=== PATIENT | female | born 1950 | race African-American/Black ===

== ENCOUNTER → 2018-04-05 06:47 | Outpatient (CLI) | payer MEDICARE, SELFPAY ==
[2018-04-05 07:27] LABS: Absolute Lymphocyte Count 2.55 X10^3/ul (0.83-4.51); Absolute Neutrophil Count 4.8 X10^3/uL (2.0-7.7); Basophil# 0.05 X10^3/uL; Basophil% 0.6 % (0-1); Eosinophil# 0.38 X10^3/uL; Eosinophils% 4.4 % (0-5); Hematocrit 42.4 % (37-47); Hemoglobin 13.4 g/dl (12.0-15.0); Lymphocyte # 2.55 X10^3/ul (4.0); Lymphocyte % 29.5 % (19-41); Mean Corp Hgb Conc 31.6 g/gl (32-36); Mean Corpuscular Volume 88.7 fL (81-99); Mean Platelet Vol. 13.4 fl (6.2-12.0); Monocyte# 0.87 X10^3/uL; Monocyte% 10.1 % (0-10); Neutrophil # 4.77 X10^3/uL (2.7-7.7); Neutrophil % 55.3 % (47-70); Platelet Count 275 K/mm3 (150-450); RBC Distribution Width CV 13.2 % (11.6-14.6); RBC Distribution Width SD 42.4 fl (35.1-43.9); Red Blood Count 4.78 M/mm3 (4.2-5.4); White Blood Count 8.6 K/mm3 (4.4-11.0)
[2018-04-05 07:58] LABS: ALB/GLOB Ratio 0.9 RATIO (0.9-2.4); AST(SGOT) 29 U/L (15-37); Alanine Aminotransfer ALT/SGPT 21 U/L (13-56); Albumin, Serum 3.8 g/dL (3.2-5.0); Alkaline Phosphatase 93 U/L (45-117); Anion Gap 9 (5-15); BUN 24 mg/dL (7-18); BUN/Creat Ratio 25.4 RATIO (10-20); Calcium,Total 9.6 mg/dL (8.5-10.1); Chloride 104 mmol/L (98-107); Cholesterol 203 mg/dL (200); Creatinine, Serum 0.95 mg/dL (0.55-1.02); EST Glomerular Filtration Rate 62 mL/min (>60); Est Glom Filt Rate - Afr Amer 75 mL/min (>60); Globulin 4.4 g/dL (2.2-4.2); Glucose 120 mg/dL (74-106); High Density Lipoprotein 56 mg/dL; POSITIVE COUNT NO; POSITIVE DIFFERENTIAL NO; POSITIVE MORPHOLOGY NO; Potassium 3.7 mmol/L (3.5-5.1); Protein, Total 8.2 g/dL (6.4-8.2); Sodium Level 141 mmol/L (136-145); T4 Free Direct 1.05 ng/dL (0.76-1.46); Thyroid Stim Hormone (TSH) 3.31 uIU/mL (0.358-3.74); Triglycerides 86 mg/dL; Very Low Density Lipoprotein 17 mg/dL (5-40)
[2018-04-05 09:12] LABS: Vitamin D,25 Hydroxy 26.9 ng/mL (29.95-100.01)
== END ==
PROVIDERS: Family Provider Internal Medicine; PCP Internal Medicine; Visit Provider Nurse Practitioner Family
DX: I10 Essential (primary) hypertension (principal); E78.5 Hyperlipidemia, unspecified; E03.9 Hypothyroidism, unspecified; E55.9 Vitamin D deficiency, unspecified
CPT/HCPCS: 36415; 80053; 80061; 82306; 84439; 84443; 85025

== ENCOUNTER → 2018-04-15 09:10 | Outpatient (CLI) | payer MEDICARE, SELFPAY ==
[2018-04-15 10:22] LABS: Hemoglobin A1c 5.3 % (4.2-6.3)
== END ==
PROVIDERS: Family Provider Internal Medicine; PCP Internal Medicine; Visit Provider Nurse Practitioner Family
DX: R73.09 Other abnormal glucose (principal)
CPT/HCPCS: 36415; 83036

== ENCOUNTER 2018-07-11 06:45 | Emergency (ER) | payer MEDICARE, SELFPAY ==
[2018-07-11 06:46] VITALS: BP 137/95; PULSE 71; RESP 18; TEMP 36.7; O2SAT 97; BMI 27.6
--- NOTE | 2018-07-11 07:11 | ED.VISSUMM ---
- ER Visit Summary Date of Service: 07/11/18 Chief Complaint: Cough, congestion History of Present Illness: The patient is a 67 F who presents with cough and congestion that has been getting worse for the past 2 days. Patient states that when she lays down at night she coughs up some blood. Patient admits to some sinus pressure and nasal congestion. Patient denies any fevers or chills. Patient states her ears feel clogged. Patient admits to a sore throat. Patient also admits to some pain in her chest which is similar to her hiatal hernia pain. Patient denies any nausea or vomiting. Physical Examination: Vital signs are stable. Patient is afebrile. Patient is in no acute distress. Oral mucosa is pink and moist. Oropharynx showed some postnasal drainage and mild erythema. Nasal mucosa is congested. Tympanic membranes were occluded with cerumen bilaterally. Neck is supple. There is no JVD noted. Heart was regular rate and rhythm. Lungs are clear and equal bilateral. There is good respiratory effort noted. Abdomen is soft nontender. Cranial nerves II through XII are intact. There are no focal motor or sensory deficits noted. The remaining physical exam is within normal limits. Test Results: PA and lateral chest x-ray was obtained. There is some right basilar atelectasis but no acute process. There is no infiltrate noted. Emergency Department Course and Treatment: Patient was given a prescription for Flonase. Patient was instructed to follow-up with her primary care physician in 5-7 days. Patient understood and was agreeable with the plan. All questions were answered. Disposition: Discharged home Impression: Upper respiratory infection This note was generated with [employer]quet dictation software. It may contain incorrect words, spelling, and punctuation that were not noted in review of the chart prior to signing ED Disposition - Plan for ED Patient: Disposition: Home or Assisted Living Chief Complaint: Cold Sx Diagnosis: Upper respiratory infection Instructions: ED Upper Resp Infec No Abx Tx Prescriptions: Fluticasone 0.05% [Flonase Nasal Nunda] 1 spray NASAL DAILY #1 nasal.sry Referrals: Dario Pratt MD [Primary Care Provider] -
[2018-07-11 08:42] VITALS: PULSE 67; RESP 17; O2SAT 98
== END 2018-07-11 08:42 | disposition home or self-care (01) ==
PROVIDERS: Emergency Provider Emergency Medicine; Family Provider Internal Medicine; PCP Internal Medicine
DX: J06.9 Acute upper respiratory infection, unspecified (principal); E03.9 Hypothyroidism, unspecified; Z72.0 Tobacco use; Z79.899 Other long term (current) drug therapy
CPT/HCPCS: 71046; 99282

== ENCOUNTER → 2018-11-12 09:50 | Outpatient (CLI) | payer MEDICARE, SELFPAY ==
[2018-08-31 10:02] VITALS: BMI 27.1
[2018-11-12 11:32] LABS: Anion Gap 10 (5-15); BUN 24 mg/dL (7-18); BUN/Creat Ratio 27.4 RATIO (10-20); Calcium,Total 9.2 mg/dL (8.5-10.1); Chloride 102 mmol/L (98-107); Creatinine, Serum 0.88 mg/dL (0.55-1.02); EST Glomerular Filtration Rate 68 mL/min (>60); Est Glom Filt Rate - Afr Amer 82 mL/min (>60); Glucose 98 mg/dL (74-106); Potassium 3.5 mmol/L (3.5-5.1); Sodium Level 138 mmol/L (136-145)
== END ==
PROVIDERS: Family Provider Internal Medicine; PCP Internal Medicine; Referring Provider Nurse Practitioner Family; Visit Provider Nurse Practitioner Family
DX: I10 Essential (primary) hypertension (principal)
CPT/HCPCS: 36415; 80048

== ENCOUNTER → 2018-12-22 09:45 | Outpatient (CLI) | payer MEDICARE, SELFPAY ==
--- NOTE | 2018-12-22 09:49 | BI_ITS ---
MAMMOGRAPHY - BILATERAL SCREENING REASON FOR EXAM: Female, 68 years old. Routine annual screening examination. PERTINENT HISTORY: Sister with breast cancer. TECHNIQUE: Digital bilateral breast hortensia (3D mammographic acquisition) in the CC and MLO projections. 2-D mediolateral oblique (MLO) and craniocaudad (CC) views of both breasts were obtained. CAD: Full Field Digital Mammography with Computer Added Detection was performed. COMPARISON: Comparison is made with prior study March 27, 2017 and March 26, 2016. FINDINGS: Breast Composition: There are scattered areas of fibroglandular density. There are no dominant masses or suspicious calcifications. No other significant abnormalities are identified. There has been no significant change since the prior study. BI/SCREENING MAMM (CAD), BILAT IMPRESSION: Stable bilateral screening mammogram. Yearly follow-up mammogram recommended. (A) ASSESSMENT CATEGORY: BIRADS Category 1: Negative. A letter regarding these results will be sent to the patient by the facility within 30 days. Approximately 10% of breast cancers are not detected by mammography. A normal mammogram should not delay biopsy of a clinically suspicious abnormality. [id number] Electronically Signed: Meet Whitaker MD at 10:48 EST , Service support ,
== END ==
PROVIDERS: Family Provider Internal Medicine; PCP Internal Medicine; Referring Provider Internal Medicine; Visit Provider Internal Medicine
DX: Z12.31 Encounter for screening mammogram for malignant neoplasm of breast (principal)
CPT/HCPCS: 77063; 77067

== ENCOUNTER → 2019-03-05 | Outpatient (CLI) | payer MEDICARE, SELFPAY ==
[2019-02-28 09:57] VITALS: BMI 27.3
[2019-03-05 09:50] LABS: Absolute Lymphocyte Count 2.01 X10^3/ul (0.83-4.51); Absolute Neutrophil Count 4.6 X10^3/uL (2.0-7.7); Basophil# 0.08 X10^3/uL; Eosinophil# 0.39 X10^3/uL; Hematocrit 39.5 % (37-47); Hemoglobin 12.6 g/dl (12.0-15.0); Lymphocyte # 2.01 X10^3/ul (4.0); Lymphocyte % 25.8 % (19-41); Mean Corp Hgb Conc 31.9 g/gl (32-36); Mean Corpuscular Hgb 28.1 pg (27.0-32.0); Mean Corpuscular Volume 88.2 fL (81-99); Mean Platelet Vol. 13.3 fl (6.2-12.0); Monocyte# 0.69 X10^3/uL; Monocyte% 8.9 % (0-10); Neutrophil % 59.2 % (47-70); Platelet Count 288 K/mm3 (150-450); RBC Distribution Width CV 13.9 % (11.6-14.6); RBC Distribution Width SD 44.6 fl (35.1-43.9); Red Blood Count 4.48 M/mm3 (4.2-5.4); White Blood Count 7.8 K/mm3 (4.4-11.0)
[2019-03-05 10:01] LABS: POSITIVE COUNT NO; POSITIVE DIFFERENTIAL NO; POSITIVE MORPHOLOGY NO
[2019-03-05 10:43] LABS: Anion Gap 7 (5-15); BUN 23 mg/dL (7-18); BUN/Creat Ratio 26.4 RATIO (10-20); Calcium,Total 9.1 mg/dL (8.5-10.1); Chloride 107 mmol/L (98-107); Cholesterol 183 mg/dL (200); Creatinine, Serum 0.87 mg/dL (0.55-1.02); EST Glomerular Filtration Rate 68 mL/min (>60); Est Glom Filt Rate - Afr Amer 83 mL/min (>60); Glucose 99 mg/dL (74-106); High Density Lipoprotein 57 mg/dL; Sodium Level 140 mmol/L (136-145); Thyroid Stim Hormone (TSH) 1.77 uIU/mL (0.358-3.74); Triglycerides 51 mg/dL; Very Low Density Lipoprotein 10 mg/dL (5-40)
== END | disposition home or self-care (01) ==
LOC: LAB 07:45
PROVIDERS: Family Provider Internal Medicine; PCP Internal Medicine; Referring Provider Internal Medicine; Visit Provider Internal Medicine
DX: E03.9 Hypothyroidism, unspecified (principal); E78.5 Hyperlipidemia, unspecified; K44.9 Diaphragmatic hernia without obstruction or gangrene; I10 Essential (primary) hypertension
CPT/HCPCS: 36415; 80048; 80061; 84443; 85025

== ENCOUNTER → 2019-08-29 | Outpatient (CLI) | payer MEDICARE, SELFPAY ==
[2019-08-29 10:12] VITALS: BMI 27.3
[2019-08-29 10:42] LABS: Bacteria 0 SEEN /hpf (None Seen); Mucous, Urine 0 SEEN /hpf (<or=2+); Red Blood Cells-Urine 0 SEEN /hpf (0-5); Squamous Epithelial Cells - UA 0 SEEN /hpf (5-10)
[2019-08-29 12:58] LABS: Color, Urine Yellow (Yellow); Glucose, Dipstick Normal (Normal); Ketone-Dipstick Negative (Negative); Leukocyte Esterase-Dipstick 100 /ul (Negative); Nitrite-Dipstick Negative (Negative); Occult Blood-Urine Negative /ul (Negative); Protein-Dipstick Negative (Negative); Urine Bilirubin Dipstick Negative (Negative); Urine Clarity Sl. Cloudy (Clear); Urine Urobilinogen Normal (Normal)
[2019-08-29 13:09] LABS: White Blood Cells 10-25 SEEN /hpf (0-5)
[2019-08-29 13:12] LABS: ALB/GLOB Ratio 0.9 RATIO (0.9-2.4); AST(SGOT) 27 U/L (15-37); Alanine Aminotransfer ALT/SGPT 28 U/L (13-56); Albumin, Serum 3.7 g/dL (3.2-5.0); Alkaline Phosphatase 88 U/L (45-117); Anion Gap 7 (5-15); BUN 17 mg/dL (7-18); BUN/Creat Ratio 19.9 RATIO (10-20); Calcium,Total 9.1 mg/dL (8.5-10.1); Chloride 107 mmol/L (98-107); Creatinine, Serum 0.86 mg/dL (0.55-1.02); EST Glomerular Filtration Rate 70 mL/min (>60); Est Glom Filt Rate - Afr Amer 84 mL/min (>60); Glucose 93 mg/dL (74-106); Potassium 3.6 mmol/L (3.5-5.1); Protein, Total 7.7 g/dL (6.4-8.2); Sodium Level 141 mmol/L (136-145); Thyroid Stim Hormone (TSH) 0.45 uIU/mL (0.358-3.74)
== END | disposition home or self-care (01) ==
LOC: BIMLAB 10:41
PROVIDERS: Family Provider Internal Medicine; PCP Internal Medicine; Visit Provider Internal Medicine
DX: E78.5 Hyperlipidemia, unspecified (principal); I10 Essential (primary) hypertension; E03.9 Hypothyroidism, unspecified
CPT/HCPCS: 36415; 80053; 81001; 84443

== ENCOUNTER 2019-10-07 08:38 | Day surgery (SDC) | payer MEDICARE, SELFPAY ==
[2019-09-21 09:39] VITALS: BMI 27.3
--- NOTE | 2019-09-21 09:48 | HP_ITS ---
Intake Vital Signs 09/21/19 Body Mass Index (BMI) 27.3 09/21/19 Height 6 ft 09/21/19 Weight: 195 lb 09/21/19 Body Mass Index (BMI) 26.4 09/21/19 Blood Pressure 129/86 H 09/21/19 Blood Pressure Location Rt brachial 09/21/19 Blood Pressure Position Sitting 09/21/19 Respiratory Rate 18 Intake Visit Reasons: +cologuard Chief Complaint: 6 Mo FU Accounts Payable Associate Required: No Is patient in pain?: No Allergies No Known Allergies Allergy (Verified 09/21/19 09:38) Medications albuterol sulfate HFA 90 mcg/actuation aerosol inhaler 1 puff INHALATION Q6H PRN #8.5 g 07/14/18 [Rx Confirmed 08/31/18] calcium carbonate 600 mg calcium (1,500 mg) tablet 600 mg PO BID tab 07/14/18 [History Confirmed 08/31/18] cholecalciferol (vitamin D3) 2,000 unit tablet 2,000 unit PO DAILY 07/14/18 [History Confirmed 08/31/18] potassium chloride ER 10 mEq tablet,extended release 10 meq PO TID #90 tab 11/10/18 [Rx] levothyroxine 112 mcg tablet 112 mcg PO QDAY #90 tab 05/30/19 [Rx] triamterene 75 mg-hydrochlorothiazide 50 mg tablet 1 tab PO QAM #90 tab 05/30/19 [Rx] gemfibrozil 600 mg tablet 600 mg PO BID #60 tab 08/19/19 [Rx] fluticasone propionate 50 mcg/actuation nasal spray,suspension 1 spray INTRANASAL DAILY #47.4 g 09/01/19 [Rx] esomeprazole magnesium 20 mg capsule,delayed release 20 mg PO .prn cap 09/21/19 [History Confirmed 09/21/19] [facility] Medical History Hiatal hernia (Chronic) Tobacco abuse (Chronic) Hypothyroidism (Chronic) Hypertension (Chronic) Hyperlipemia (Chronic) Arthritis (Chronic) Seasonal allergies (Chronic) History of hysterectomy (Acute) Surgical History H/O: hysterectomy (Acute) History of carpal tunnel release (Acute) Family History Sister ulcers Breast cancer Daughter Cancer cervical Mother Asthma Hypertension CVA (cerebral vascular accident) Social History (Updated 09/21/19 @ 09:49 by Mika Salmeron MD) Smoking Status: Current every day smoker alcohol intake: never substance use type: does not use what type of physical activity do you participate in: walking frequency: daily HPI HPI HPI: KEARA MARIO, is a 69 F who presents to the office today for HPI HPI Surgical H&P: Yes HPI: KEARA MARIO is a 69 F who presents to the office today for Positive Cologuard. Patient denies any abdominal pain or gross blood in her stool. Patient denies any family history of colon cancer. She reports her last colonoscopy was about 15 to 20 years ago. ROS General General: No weight change or fatigue Endo Endocrine: Yes thyroid disease and thyroid cancer Musc Musculoskeletal: Yes back problems and arthritis Cardio Cardiovascular: No murmur, pacemaker, heart disease, atrial fibrillation, high blood pressure, heart attack, heart stent, palpitations, shortness of breat with exertion or chest pain Psych Psychiatric: No depression or anxiety Resp Respiratory: No shortness of breath, No sleep apnea, No cough, No COPD, Yes asthma, No emphysema, No wheezing Gastro Gastrointestinal: No abdominal pain, No nausea or vomiting, Yes diarrhea, No constipation, No blood in stool, Yes acid reflux, No hemorrhoids, No ulcers, No gallbladder problem, No black,tarry stools Yordy Hematologic: No blood thinners Exam Const General: cooperative Orientation: alert, oriented x3 Resp Effort & Inspection: normal respiratory effort Auscultation: clear to auscultation bilaterally Cardio Rate: regular rate Rhythm: regular rhythm Heart Sounds: no murmurs GI Inspection: non-distended Palpation: soft, nontender Assessment & Plan Problems 1. Positive colorectal cancer screening using Cologuard test R19.5 Plan Patient had positive Cologuard test and I recommend colonoscopy. I explained endoscopy in detail to the patient. I explained the risks including but not limited to stroke or heart attack with anesthesia, perforation of the GI tract, bleeding, infection. I explained that any of these could necessitate further emergency surgery. The patient understands and all questions were answered sufficiently. The patient wishes to proceed with procedure. Mika Salmeron MD Pager: [facility] [address] [place] [address], [address] [place] [address] Office: Orders Orders: Colonoscopy Today R19.5 Coding Level of Care Code Off vis,new,level 3 Diagnoses Positive colorectal cancer screening using Cologuard test R19.5 09/21/19 0949 <Electronically signed by Mika delgado MD> Date _ Mika Salmeron MD I have re-examined the patient. There are no clinical changes since date of exam.
[2019-10-07 09:10] VITALS: BP 112/87; PULSE 85; RESP 16; TEMP 36.3; O2SAT 97; BMI 25.9
[2019-10-07] MEDS: Lactated Ringers 1,000 ML 100 ML IV (09:31)
[2019-10-07 10:40] VITALS: BP 112/87; BP 113/77; PULSE 66; RESP 18; TEMP 36.9; O2SAT 100
[2019-10-07 10:45] VITALS: BP 109/73; BP 112/87; PULSE 65; RESP 18; O2SAT 99
--- NOTE | 2019-10-07 10:45 | OP.COLON_ITS ---
Patient Name: Chela Arita Procedure Date: 10/07/2019 10:18 AM Date of : 1950 Age: 69 Procedure: Colonoscopy Indications: Positive Cologuard test Providers: Mika Salmeron MD Referring MD: Dario Pratt MD Medicines: Monitored Anesthesia Care Patient Profile: This is a 69 year old female. Refer to note in patient chart for documentation of history and physical. Last Colonoscopy: more than 10 years ago. Complications: No immediate complications. Estimated blood loss: Minimal. Procedure: Pre-Anesthesia Assessment: - Prior to the procedure, a History and Physical was performed, and patient medications and allergies were reviewed. The patient's tolerance of previous anesthesia was also reviewed. The risks and benefits of the procedure and the sedation options and risks were discussed with the patient. All questions were answered, and informed consent was obtained. Prior Anticoagulants: The patient has taken no previous anticoagulant or antiplatelet agents. After reviewing the risks and benefits, the patient was deemed in satisfactory condition to undergo the procedure. After I obtained informed consent, the scope was passed under direct vision. Throughout the procedure, the patient's blood pressure, pulse, and oxygen saturations were monitored continuously. The Colonoscope was introduced through the anus and advanced to the cecum, identified by appendiceal orifice and ileocecal valve. The colonoscopy was performed without difficulty. The patient tolerated the procedure well. The quality of the bowel preparation was good. Scope In: 10:23:40 AM Scope Withdrawal Time 0 hours 7 minutes 9 seconds Scope Out: 10:36:51 AM Total Procedure Duration Time 0 hours 13 minutes 11 seconds Findings: Multiple small-mouthed diverticula were found in the sigmoid colon. Impression: - Diverticulosis in the sigmoid colon. - No specimens collected. Recommendation: - Discharge patient to home. - Resume previous diet. - Continue present medications. - Repeat colonoscopy is not recommended due to current age (66 years or older) for screening purposes. Procedure Code(s): --- Professional --- 18986, Colonoscopy, flexible; diagnostic, including collection of specimen(s) by brushing or washing, when performed (separate procedure) Diagnosis Code(s): --- Professional --- R19.5, Other fecal abnormalities K57.30, Diverticulosis of large intestine without perforation or abscess without bleeding CPT copyright 2017 [employer]. All rights reserved. The codes documented in this report are preliminary and upon industrial training specialist review may be revised to meet current compliance requirements. Mika Salmeron MD 10/07/2019 10:45:23 AM This report has been signed electronically. Number of Addenda: 0 Note Initiated On: 10/07/2019 10:18 AM
[2019-10-07 10:50] VITALS: BP 112/87; BP 118/77; PULSE 62; RESP 18; O2SAT 100
[2019-10-07 10:55] VITALS: BP 112/87; BP 124/85; PULSE 62; RESP 18; TEMP 36.3; O2SAT 100
[2019-10-07 11:15] VITALS: BP 112/87
== END 2019-10-07 11:16 | disposition home or self-care (01) ==
LOC: EN 08:40 → AC 08:41
PROVIDERS: Family Provider Internal Medicine; PCP Internal Medicine; Referring Provider Internal Medicine; Visit Provider Surgery
PROC: 0DJD8ZZ Inspection of Lower Intestinal Tract, Via Natural or Artificial Opening Endoscopic (ICD-10-PCS; CPT 45378; principal; 2019-10-07 09:55)
DX: K57.30 Diverticulosis of large intestine without perforation or abscess without bleeding (principal); Z79.899 Other long term (current) drug therapy; E03.9 Hypothyroidism, unspecified; I10 Essential (primary) hypertension; E78.5 Hyperlipidemia, unspecified; M19.90 Unspecified osteoarthritis, unspecified site; K44.9 Diaphragmatic hernia without obstruction or gangrene; F17.210 Nicotine dependence, cigarettes, uncomplicated
CPT/HCPCS: 45378; J7120; J2405

== ENCOUNTER → 2020-03-13 06:29 | Outpatient (CLI) | payer MEDICARE, SELFPAY ==
--- NOTE | 2019-12-13 06:15 | HP_ITS ---
Intake Vital Signs 12/13/19 Height 5 ft 11 in 12/13/19 Weight: 197 lb 12/13/19 BMI 27.4 12/13/19 BP 131/83 H 12/13/19 Blood Pressure Location Rt brachial 12/13/19 Position Sitting 12/13/19 Respiration 18 12/13/19 Pulse 78 12/13/19 Pulse Source Monitor 12/13/19 Temp 97.9 F 12/13/19 Temp Source Oral 12/13/19 Pulse Oximetry (%) 97 12/13/19 Oxygen Delivery Method room air Intake Visit Reasons: R Inguinal Hernia Chief Complaint: Right Groin swelling. Virtual Assistant Required: No Is patient in pain?: No Allergies No Known Allergies Allergy (Verified 12/13/19 15:05) Medications albuterol sulfate 90 mcg/actuation aerosol inhaler 1 puff INHALATION Q6H PRN #8.5 g 07/14/18 [Rx Confirmed 12/13/19] calcium carbonate 600 mg calcium (1,500 mg) tablet 600 mg PO BID tab 07/14/18 [History Confirmed 12/13/19] cholecalciferol (vitamin D3) 2,000 unit tablet 2,000 unit PO DAILY 07/14/18 [History Confirmed 12/13/19] potassium chloride 10 mEq tablet,extended release 10 meq PO TID #90 tab 11/10/18 [Rx Confirmed 12/13/19] gemfibrozil 600 mg tablet 600 mg PO BID #60 tab 08/19/19 [Rx Confirmed 12/13/19] esomeprazole magnesium 20 mg capsule,delayed release 20 mg PO DAILY PRN cap 09/21/19 [History Confirmed 12/13/19] Fluticasone Propionate 1 spray INTRANASAL DAILY PRN 10/05/19 [History Confirmed 12/13/19] Levothyroxine Sodium [Synthroid] 112 mcg PO DAILY 10/05/19 [History Confirmed 12/13/19] Triamterene/Hydrochlorothiazid [Triamterene-Hctz 75-50 mg Tab] 1 tab PO QAM 10/05/19 [History Confirmed 12/13/19] potassium chloride 10 mEq capsule,extended release 10 meq PO DAILY #90 cap 10/10/19 [Rx Confirmed 12/13/19] polyethylene glycol 3350 17 gram/dose oral powder 17 g PO DAILY PRN #119 g 12/02/19 [Rx Confirmed 12/13/19] [facility] Medical History (Updated 12/13/19 @ 18:10 by Saul Lockwood MD) Bilateral inguinal hernia without obstruction or gangrene (Acute) Hiatal hernia (Chronic) Tobacco abuse (Chronic) Hypothyroidism (Chronic) Hypertension (Chronic) Hyperlipemia (Chronic) Arthritis (Chronic) Seasonal allergies (Chronic) Bilateral inguinal hernia (Acute) Surgical History (Updated 12/13/19 @ 15:03 by Isabelle Lewis) H/O colonoscopy (Acute) H/O: hysterectomy (Acute) History of carpal tunnel release (Acute) History of foot surgery (Acute) History of hysterectomy (Acute) Family History Sister ulcers Breast cancer Daughter Cancer cervical Mother Asthma Hypertension CVA (cerebral vascular accident) Social History (Updated 12/13/19 @ 18:15 by Saul Lockwood MD) Smoking Status: Current every day smoker alcohol intake: never substance use type: does not use what type of physical activity do you participate in: walking frequency: daily HPI HPI HPI: KEARA MARIO, is a 69 F who presents to the office today for HPI HPI Surgical H&P: Yes HPI: KEARA MARIO, is a 69 F who presents to the office today for surgical consultation regarding a right inguinal hernia. The patient is referred by her primary care physician Dr. Dr. Dario Pratt and a written copy of my surgical consult recommendations will return to her. 69-year-old female. For perhaps a month she has noted a lump in her right groin. She noticed it after self-examination subsequent to a previous colonoscopy that was performed by Dr. Ronald Anderson on October 07, 2019. At that time she had tested positive for Cologuard test. Multiple diverticula are identified but no acute findings. The patient notes that she has had a previous hysterectomy. She has not had any previous inguinal hernias. She notes that the bulge is quite prominent particular when she is up and active. It is particularly noticeable when she tries to defecate. It seems to resolve when she is lying supine. She does not notice any similar defect on the left. She is a chronic lifelong smoker and she continues to smoke cigarettes at the rate of a half a pack per day. She is on inhalers. She states that she does not carry a diagnosis of COPD but I would suspect that she has chronic pulmonary changes. ROS General General: No weight change, appetite, fatigue, colon cancer, breast cancer or weakness HEENT HEENT: No difficulty swallowing, eye injury, eye surgery, swollen glands or hoarseness Endo Endocrine: Yes thyroid disease and thyroid cancer; no diabetes mellitus, Hair loss, heat intolerance or cold intolerance Skin Skin: Yes changing moles; no rash Breast Breast: No left breast lump, right breast lump, nipple discharge, breast pain, abnormal mammogram, abnormal US or breast enlargement Musc Musculoskeletal: Yes back problems and arthritis; no rheumatoid arthritis, gout or joint pain Cardio Cardiovascular: No murmur, pacemaker, heart disease, atrial fibrillation, high blood pressure, heart attack, heart stent, palpitations, shortness of breat with exertion or chest pain Psych Psychiatric: No depression, anxiety or hearing voices Resp Respiratory: Yes shortness of breath, No sleep apnea, No cough, No COPD, Yes asthma, No emphysema, No wheezing Gastro Gastrointestinal: No abdominal pain, No nausea or vomiting, No diarrhea, No constipation, No blood in stool, Yes acid reflux, No hemorrhoids, No ulcers, No gallbladder problem, No black,tarry stools Yordy Hematologic: No blood thinners, No blood disorders, No bleeding, No anemia, No blood clots Neuro Neurologic: No system reviewed and no additional complaints, except as docu, No as per HPI, No abnormal walking, No abnormal hearing, No abnormal movements, No abnormal speech, No behavioral changes, No burning sensations, No confusion, No seizure-like activity, No unsteadiness, No dizziness, No localized weakness, No frequent falls, No headache(s), No lack of coordination, No loss of vision, No memory loss, No numbness, No other visual disturbances, No radiating pain, No restless legs, No sensory deficit, No fainting, No tingling, No tremor(s), No weakness, No other Exam Const General: cooperative, comfortable, no acute distress Nutritional Appearance: average body habitus Orientation: alert, awake, oriented x3 Other: Heavy odor of tobacco HENMT Head: normal to inspection Chest Breast Palpation: No nipple discharge Other: Increased anterior posterior diameter Resp Effort & Inspection: normal respiratory effort Auscultation: clear to auscultation bilaterally Cardio Rate: regular rate Rhythm: regular rhythm Heart Sounds: no murmurs Other: Carotids are 3+ no bruits GI Palpation: soft, no hepatosplenomegaly Auscultation: normal bowel sounds Other: Obvious protuberant right inguinal hernia which is reducible. With upright posturing however a indirect left inguinal hernia much smaller is detected. This also seems to be reducible. Femoral pulses are 3+ bilaterally and symmetric Skin General: no rashes or lesions noted Neuro Cognition: normal cognition Extrem General: no calf tenderness bilaterally Psych Affect: normal affect Assessment & Plan Problems 1. Non-recurrent bilateral inguinal hernia without obstruction or gangrene K40.20 Plan On clinical examination I suspect bilateral inguinal hernias smaller on the left than the right. The defect in the right is sizable enough that I do recommend repair. The patient is a lifetime cigarette smoker. I believe that I could best perform her hernia repair laparoscopically and if so addressing this with I would recommend a laparoscopic bilateral inguinal hernia repair. I have very much stressed to her the importance of her being tobacco free for at least 2 weeks leading up to the surgery. I have discussed the technique, benefit, risk, alternatives. No guarantees of success have been offered. The patient is aware of the increased risk of recurrence in tobacco smokers. She has had an opportunity to ask and have questions answered. She states that she has a sister who and who is in hospice and may affect the patient's ability to schedule her procedure. She will notify us as to how she would like to proceed. A batch and furnace manager in our office did visit with her providing her with options and instructions. We will await her notification. I very much appreciate the kind opportunity of assisting with her surgical care cc; Dr Dario Lockwood M.D., F.A.C.S. Coding Level of Care Code 10526 Diagnoses Non-recurrent bilateral inguinal hernia without obstruction or gangrene K40.20 ??Recurrence: non-recurrent 12/13/191814 <Electronically signed by Saul renae MD> Date _ Saul Lockwood MD
[2019-12-13 15:10] VITALS: BMI 25.9
[2020-01-27 10:08] VITALS: BMI 25.9
== END ==
PROVIDERS: PCP Internal Medicine; Referring Provider Surgery; Visit Provider Surgery
DX: Z01.818 Encounter for other preprocedural examination (principal)

== ENCOUNTER → 2020-05-01 | Outpatient (CLI) | payer MEDICARE, SELFPAY ==
[2020-05-01 10:06] VITALS: BMI 25.9
[2020-05-01 13:03] LABS: Absolute Lymphocyte Count 1.36 X10^3/uL (0.83-4.51); Basophil# 0.08 X10^3/uL; Eosinophil# 0.16 X10^3/uL; Hematocrit 40.3 % (37-47); Hemoglobin 12.8 g/dL (12.0-15.0); Lymphocyte # 1.36 X10^3/ul (4.0); Lymphocyte % 16.7 % (19-41); Mean Corp Hgb Conc 31.8 g/dL (32-36); Mean Corpuscular Hgb 28.7 pg (27.0-32.0); Mean Corpuscular Volume 90.4 fL (81-99); Mean Platelet Vol. 14.2 fl (6.2-12.0); Monocyte# 0.54 X10^3/uL; Monocyte% 6.7 % (0-10); NRBC Flagged by Analyzer 0 % (0-5); Neutrophil # 5.95 X10^3/uL (2.7-7.7); Neutrophil % 73.2 % (47-70); Platelet Count 225 K/mm3 (150-450); RBC Distribution Width CV 12.5 % (11.6-14.6); RBC Distribution Width SD 41.6 fl (35.1-43.9); Red Blood Count 4.46 M/mm3 (4.2-5.4); White Blood Count 8.1 K/mm3 (4.4-11.0)
[2020-05-01 13:39] LABS: ALB/GLOB Ratio 0.9 RATIO (0.9-2.4); AST(SGOT) 22 U/L (15-37); Alanine Aminotransfer ALT/SGPT 20 U/L (13-56); Albumin, Serum 3.6 g/dL (3.2-5.0); Alkaline Phosphatase 84 U/L (45-117); Anion Gap 7 (5-15); BUN 26 mg/dL (7-18); Calcium,Total 9.4 mg/dL (8.5-10.1); Chloride 103 mmol/L (98-107); Cholesterol 178 mg/dL (200); Creatinine, Serum 0.79 mg/dL (0.55-1.02); EST Glomerular Filtration Rate 76 mL/min (>60); Est Glom Filt Rate - Afr Amer 93 mL/min (>60); Glucose 102 mg/dL (74-106); High Density Lipoprotein 56 mg/dL; Potassium 3.8 mmol/L (3.5-5.1); Protein, Total 7.6 g/dL (6.4-8.2); Sodium Level 138 mmol/L (136-145); Thyroid Stim Hormone (TSH) 0.65 uIU/mL (0.358-3.74); Triglycerides 50 mg/dL; Very Low Density Lipoprotein 10 mg/dL (5-40)
== END | disposition home or self-care (01) ==
LOC: LABSPEC 12:09
PROVIDERS: PCP Internal Medicine; Referring Provider Internal Medicine; Visit Provider Internal Medicine
DX: I10 Essential (primary) hypertension (principal); E03.9 Hypothyroidism, unspecified; E78.5 Hyperlipidemia, unspecified
CPT/HCPCS: 80053; 80061; 84443; 85025

== ENCOUNTER → 2020-05-04 | Outpatient (CLI) | payer MEDICARE, SELFPAY ==
[2020-05-01 10:06] VITALS: BMI 25.9
--- NOTE | 2020-05-04 08:08 | BI_ITS ---
MAMMOGRAPHY - BILATERAL SCREENING REASON FOR EXAM: Female, 69 years old. Routine annual screening examination. PERTINENT HISTORY: Sister with breast cancer. TECHNIQUE: Digital bilateral breast jeannine (3D mammographic acquisition) in the CC and MLO projections. 2-D mediolateral oblique (MLO) and craniocaudad (CC) views of both breasts were obtained. CAD: Full Field Digital Mammography with Computer Added Detection was performed. COMPARISON: Comparison is made with prior study dated December 22, 2018 and March 27, 2017. FINDINGS: Breast Composition: There are scattered areas of fibroglandular density. There are no dominant masses or suspicious calcifications. Stable small benign appearing bilateral axillary lymph nodes. No other significant abnormalities are identified. There has been no significant change since the prior study. BI/SCREEN MAMM (CAD) W/JEANNINE BILAT IMPRESSION: Stable bilateral screening mammogram. Yearly follow-up mammogram recommended. (A) ASSESSMENT CATEGORY: BIRADS Category 2: Benign. A letter regarding these results will be sent to the patient by the facility within 30 days. Approximately 10% of breast cancers are not detected by mammography. A normal mammogram should not delay biopsy of a clinically suspicious abnormality. [id number] Electronically Signed: Meet Whitaker, at 9:54 EDT , Service support ,
== END | disposition home or self-care (01) ==
LOC: OPBI 08:08
PROVIDERS: PCP Internal Medicine; Referring Provider Internal Medicine; Visit Provider Internal Medicine
DX: Z12.31 Encounter for screening mammogram for malignant neoplasm of breast (principal)
CPT/HCPCS: 77063; 77067

== ENCOUNTER 2020-05-16 05:46 | Day surgery (SDC) | payer MEDICARE, SELFPAY ==
[2020-01-27 10:08] VITALS: BMI 25.9
[2020-05-10 09:49] VITALS: BMI 25.9
--- NOTE | 2020-05-10 12:42 | HP_ITS ---
Intake Vital Signs 05/10/20 Height 5 ft 11 in 05/10/20 Weight: 201 lb 05/10/20 BMI 28.0 05/10/20 BP 137/79 H 05/10/20 Blood Pressure Location Rt brachial 05/10/20 Position Sitting 05/10/20 Respiration 18 05/10/20 Pulse 88 05/10/20 Pulse Source Monitor 05/10/20 Temp 97.5 F L 05/10/20 Temp Source Temporal 05/10/20 Pulse Oximetry (%) 97 05/10/20 Oxygen Delivery Method room air Intake Visit Reasons: UPDATE H&P LAP BILAT ING 05/16 Chief Complaint: Follow up chronic conditions Spinneret Person Required: No Is patient in pain?: No (Right groin- on and off) Allergies No Known Allergies Allergy (Verified 05/10/20 09:48) Medications calcium carbonate 600 mg calcium (1,500 mg) tablet 600 mg PO BID tab 07/14/18 [History Confirmed 05/10/20] cholecalciferol (vitamin D3) 50 mcg (2,000 unit) tablet 2,000 unit PO DAILY 07/14/18 [History Confirmed 05/10/20] gemfibrozil 600 mg tablet 600 mg PO BID #60 tab 08/19/19 [Rx Confirmed 05/10/20] esomeprazole magnesium 20 mg capsule,delayed release 20 mg PO DAILY PRN cap 09/21/19 [History Confirmed 05/10/20] potassium chloride 10 mEq tablet,extended release 10 meq PO TID #90 tab 01/09/20 [Rx Confirmed 05/10/20] albuterol sulfate 90 mcg/actuation aerosol inhaler 2 puff INHALATION Q6H PRN #8.5 g 01/27/20 [Rx Confirmed 05/10/20] levothyroxine 112 mcg tablet 112 mcg PO DAILY #90 tab 02/16/20 [Rx Confirmed 05/10/20] triamterene 75 mg-hydrochlorothiazide 50 mg tablet 1 tab PO QAM #90 tab 02/16/20 [Rx Confirmed 05/10/20] fluticasone propionate 50 mcg/actuation nasal spray,suspension 1 spray INTRANASAL DAILY PRN #54.6 ml 04/07/20 [Rx Confirmed 05/10/20] PFSH Medical History Bilateral inguinal hernia without obstruction or gangrene (Acute) Hiatal hernia (Chronic) Tobacco abuse (Chronic) Hypothyroidism (Chronic) Hypertension (Chronic) Hyperlipemia (Chronic) Arthritis (Chronic) Seasonal allergies (Chronic) Bilateral inguinal hernia (Acute) Surgical History H/O colonoscopy (Acute) H/O: hysterectomy (Acute) History of carpal tunnel release (Acute) History of foot surgery (Acute) History of hysterectomy (Acute) Family History Sister ulcers Breast cancer Daughter Cancer cervical Mother Asthma Hypertension CVA (cerebral vascular accident) Social History (Updated 05/10/20 @ 12:52 by Berta Stanley PA-C) Smoking Status: Current every day smoker alcohol intake: never substance use type: does not use what type of physical activity do you participate in: walking frequency: daily HPI HPI HPI: KEARA MARIO, is a 69 F who presents to the office today for HPI HPI Surgical H&P: Yes HPI: KEARA MARIO, is a 69 F who presents to the office today for an update history and physical. Patient denies recent hospitalizations or illnesses. She is not currently having any shortness of breath, chest pain or fever. She notes discomfort in the right groin area and is worse with standing. She denies previous OR, stroke or blood clots. She denies previous concerns or side effects with anesthesia. Patient's previous history per Dr. Lockwood: KEARA MARIO, is a 69 F who presents to the office today for surgical consultation regarding a right inguinal hernia. The patient is referred by her primary care physician Dr. Dr. Dario Pratt and a written copy of my surgical consult recommendations will return to her. 69-year-old female. For perhaps a month she has noted a lump in her right groin. She noticed it after self-examination subsequent to a previous colonoscopy that was performed by Dr. Ronald Anderson on October 07, 2019. At that time she had tested positive for Cologuard test. Multiple diverticula are identified but no acute findings. The patient notes that she has had a previous hysterectomy. She has not had any previous inguinal hernias. She notes that the bulge is quite prominent particular when she is up and active. It is particularly noticeable when she tries to defecate. It seems to resolve when she is lying supine. She does not notice any similar defect on the left. She is a chronic lifelong smoker and she continues to smoke cigarettes at the rate of a half a pack per day. She is on inhalers. She states that she does not carry a diagnosis of COPD but I would suspect that she has chronic pulmonary changes. ROS General General: No weight change, appetite, fatigue, colon cancer, breast cancer or weakness HEENT HEENT: No difficulty swallowing, eye injury, eye surgery, swollen glands or hoarseness Endo Endocrine: Yes thyroid disease and thyroid cancer; no diabetes mellitus, Hair loss, heat intolerance or cold intolerance Skin Skin: Yes changing moles; no rash Breast Breast: No left breast lump, right breast lump, nipple discharge, breast pain, abnormal mammogram, abnormal US or breast enlargement Musc Musculoskeletal: Yes back problems and arthritis; no rheumatoid arthritis, gout or joint pain Cardio Cardiovascular: No murmur, pacemaker, heart disease, atrial fibrillation, high blood pressure, heart attack, heart stent, palpitations, shortness of breat with exertion or chest pain Psych Psychiatric: No depression, anxiety or hearing voices Resp Respiratory: Yes shortness of breath, No sleep apnea, No cough, No COPD, Yes asthma, No emphysema, No wheezing Gastro Gastrointestinal: No abdominal pain, No nausea or vomiting, No diarrhea, No constipation, No blood in stool, Yes acid reflux, No hemorrhoids, No ulcers, No gallbladder problem, No black,tarry stools Yordy Hematologic: No blood thinners, No blood disorders, No bleeding, No anemia, No blood clots Neuro Neurologic: No weakness Exam Const General: cooperative, healthy appearing, comfortable, no acute distress [facility] Head: normal to inspection Eyes General: appearance normal, both eyes and all related structures Neck Neck: normal visual inspection Neck mass: No Chest Breast Palpation: No nipple discharge Resp Effort & Inspection: normal respiratory effort Auscultation: clear to auscultation bilaterally Cardio Rate: regular rate Rhythm: regular rhythm Heart Sounds: no murmurs GI Inspection: normal to inspection Palpation: soft, hernia (bilateral inguinal hernia) Auscultation: normal bowel sounds Skin General: no rashes or lesions noted Neuro General: no focal motor deficits, CN's II-XI intact bilaterally Extrem General: normal to inspection Psych Appearance: grossly normal Affect: normal affect Assessment & Plan Problems 1. Non-recurrent bilateral inguinal hernia without obstruction or gangrene K40.[address] Lockwood will plan to perform a laparoscopic bilateral inguinal hernia repair with mesh. Procedure details, risks and benefits have been reviewed. Patient has had the opportunity to ask and have questions answered. Patient verbally understands and agrees with the plan. Coding Level of Care Code No Charge Diagnoses Non-recurrent bilateral inguinal hernia without obstruction or gangrene K40.20 ??Recurrence: non-recurrent Comment Update H&P 05/10/20 1252 <Electronically signed by Berta Stanley PA-C> Date Berta Stanley PA-C
--- NOTE | 2020-05-11 16:33 | EKG12_ITS ---
Test Reason : PREO Blood Pressure : / mmHG Vent. Rate : 065 BPM Atrial Rate : 065 BPM P-R Int : 146 ms QRS Dur : 138 ms QT Int : 426 ms P-R-T Axes : 077 -40 055 degrees QTc Int : 443 ms Normal sinus rhythm Left axis deviation Right bundle branch block Septal infarct , age undetermined Abnormal ECG Confirmed by DAVE FREEMAN, LUCIO ([id number]), pictures editor ANAIS DELGADO ([id number]) on 05/15/2020 11:07:11 AM Referred By: Saul Lockwood Confirmed By:LUCIO ACOSTA MD
[2020-05-16] VITALS (10 sets, daily range): BP systolic 112–131; BP diastolic 63–79; PULSE 57–71; RESP 16–20; TEMP 36.1–36.6; O2SAT 94–100; BMI 26.7
--- NOTE | 2020-05-16 05:52 | HP.PCM_ITS ---
Problem List (1) Bilateral inguinal hernia without obstruction or gangrene Status: Acute Qualifiers: History and Physical Date of Admission: 05/16/20 Intake Visit Reasons: UPDATE H&P BRO DOVE 05/16 Chief Complaint: Follow up chronic conditions Cardiopulmonary Physical Therapist Required: No Is patient in pain?: No (Right groin- on and off) Allergies No Known Allergies Allergy (Verified 05/10/20 09:48) Medications calcium carbonate 600 mg calcium (1,500 mg) tablet 600 mg PO BID tab 07/14/18 [History Confirmed 05/10/20] cholecalciferol (vitamin D3) 50 mcg (2,000 unit) tablet 2,000 unit PO DAILY 07/14/18 [History Confirmed 05/10/20] gemfibrozil 600 mg tablet 600 mg PO BID #60 tab 08/19/19 [Rx Confirmed 05/10/20] esomeprazole magnesium 20 mg capsule,delayed release 20 mg PO DAILY PRN cap 09/21/19 [History Confirmed 05/10/20] potassium chloride 10 mEq tablet,extended release 10 meq PO TID #90 tab 01/09/20 [Rx Confirmed 05/10/20] albuterol sulfate 90 mcg/actuation aerosol inhaler 2 puff INHALATION Q6H PRN #8.5 g 01/27/20 [Rx Confirmed 05/10/20] levothyroxine 112 mcg tablet 112 mcg PO DAILY #90 tab 02/16/20 [Rx Confirmed 05/10/20] triamterene 75 mg-hydrochlorothiazide 50 mg tablet 1 tab PO QAM #90 tab 02/16/20 [Rx Confirmed 05/10/20] fluticasone propionate 50 mcg/actuation nasal spray,suspension 1 spray INTRANASAL DAILY PRN #54.6 ml 04/07/20 [Rx Confirmed 05/10/20] [facility] Medical History Bilateral inguinal hernia without obstruction or gangrene (Acute) Hiatal hernia (Chronic) Tobacco abuse (Chronic) Hypothyroidism (Chronic) Hypertension (Chronic) Hyperlipemia (Chronic) Arthritis (Chronic) Seasonal allergies (Chronic) Bilateral inguinal hernia (Acute) Surgical History H/O colonoscopy (Acute) H/O: hysterectomy (Acute) History of carpal tunnel release (Acute) History of foot surgery (Acute) History of hysterectomy (Acute) Family History Sister ulcers Breast cancer Daughter Cancer cervical Mother Asthma Hypertension CVA (cerebral vascular accident) Social History (Updated 05/10/20 @ 12:52 by Berta Stanley PA-C) Smoking Status: Current every day smoker alcohol intake: never substance use type: does not use what type of physical activity do you participate in: walking frequency: daily HPI HPI HPI: KEARA MARIO is a 69 F who presents to the office today for HPI HPI Surgical H&P: Yes HPI: KEARA MARIO is a 69 F who presents to the office today for an update history and physical. Patient denies recent hospitalizations or illnesses. She is not currently having any shortness of breath, chest pain or fever. She notes discomfort in the right groin area and is worse with standing. She denies previous MO, stroke or blood clots. She denies previous concerns or side effects with anesthesia. Patient's previous history per Dr. Lockwood: KEARA MARIO is a 69 F who presents to the office today for surgical consultation regarding a right inguinal hernia. The patient is referred by her primary care physician Dr. Dr. Dario Pratt and a written copy of my surgical consult recommendations will return to her. 69-year-old female. For perhaps a month she has noted a lump in her right groin. She noticed it after self-examination subsequent to a previous colonoscopy that was performed by Dr. Ronald Anderson on October 07, 2019. At that time she had tested positive for Cologuard test. Multiple diverticula are identified but no acute findings. The patient notes that she has had a previous hysterectomy. She has not had any previous inguinal hernias. She notes that the bulge is quite prominent particular when she is up and active. It is particularly noticeable when she tries to defecate. It seems to resolve when she is lying supine. She does not notice any similar defect on the left. She is a chronic lifelong smoker and she continues to smoke cigarettes at the rate of a half a pack per day. She is on inhalers. She states that she does not carry a diagnosis of COPD but I would suspect that she has chronic pulmonary changes. ROS General General: No weight change, appetite, fatigue, colon cancer, breast cancer or wea kness HEENT HEENT: No difficulty swallowing, eye injury, eye surgery, swollen glands or hoarseness Endo Endocrine: Yes thyroid disease and thyroid cancer; no diabetes mellitus, Hair loss, heat intolerance or cold intolerance Skin Skin: Yes changing moles; no rash Breast Breast: No left breast lump, right breast lump, nipple discharge, breast pain, abnormal mammogram, abnormal US or breast enlargement Musc Musculoskeletal: Yes back problems and arthritis; no rheumatoid arthritis, gout or joint pain Cardio Cardiovascular: No murmur, pacemaker, heart disease, atrial fibrillation, high blood pressure, heart attack, heart stent, palpitations, shortness of breat with exertion or chest pain Psych Psychiatric: No depression, anxiety or hearing voices Resp Respiratory: Yes shortness of breath, No sleep apnea, No cough, No COPD, Yes asthma, No emphysema, No wheezing Gastro Gastrointestinal: No abdominal pain, No nausea or vomiting, No diarrhea, No constipation, No blood in stool, Yes acid reflux, No hemorrhoids, No ulcers, No gallbladder problem, No black,tarry stools Yordy Hematologic: No blood thinners, No blood disorders, No bleeding, No anemia, No blood clots Neuro Neurologic: No weakness Exam Const General: cooperative, healthy appearing, comfortable, no acute distress [facility] Head: normal to inspection Eyes General: appearance normal, both eyes and all related structures Neck Neck: normal visual inspection Neck mass: No Chest Breast Palpation: No nipple discharge Resp Effort & Inspection: normal respiratory effort Auscultation: clear to auscultation bilaterally Cardio Rate: regular rate Rhythm: regular rhythm Heart Sounds: no murmurs GI Inspection: normal to inspection Palpation: soft, hernia (bilateral inguinal hernia) Auscultation: normal bowel sounds Skin General: no rashes or lesions noted Neuro General: no focal motor deficits, CN's II-XI intact bilaterally Extrem General: normal to inspection Psych Appearance: grossly normal Affect: normal affect Assessment & Plan Problems 1. Non-recurrent bilateral inguinal hernia without obstruction or gangrene K40.[address] Lockwood will plan to perform a laparoscopic bilateral inguinal hernia repair with mesh. Procedure details, risks and benefits have been reviewed. Patient has had the opportunity to ask and have questions answered. Patient verbally understands and agrees with the plan. Coding Level of Care Code No Charge Diagnoses Non-recurrent bilateral inguinal hernia without obstruction or gangrene K40.20 ??Recurrence: non-recurrent Comment Update H&P 05/10/20 1258 <Electronically signed by Berta Stanley PA-C> Date Berta Stanley PA-C I have re-examined the patient. There are no clinical changes since date of exam. Procedure Criteria Procedure Type: Elective COVID Risk Discussion: The surgeon/proceduralist and patient have discussed in detail the risk of exposure to and/or potential harm posed by the COVID-19 virus with having a surgery/procedure at this time versus the risk of delaying the surgery/procedure. It is not possible to know either the risk of delaying the surgery or procedure or chance of getting an infection with perfect accuracy, but a joint decision was made between the patient and the surgeon/proceduralist to proceed at this time with the scheduled surgery/procedure as indicated on the consent form.
[2020-05-16] MEDS: Lactated Ringers 1,000 ML 100 ML IV (06:54)
--- NOTE | 2020-05-16 07:03 | DCINST_ITS ---
Discharge Diet: Light diet - advance as tolerated - if you have questions about your diet instructions, please talk to you doctor. Discharge Activity: May Not Drive - for 1 week or while taking narcotic pain medicine. May shower in (days): 1 Lifting Restrictions: 10 pounds Call your doctor if your incision/area has: Continuous Slow Oozing, Sudden Increased Bleeding, Increased Pain/ Swelling, Increased Redness, Foul Smelling Discharge Call your doctor if you observe: Fever of 101 or Higher Suture Line Care: Avoid Pulling/Pushing, Avoid Pinching/Bending Additional Dressing/Incision Instructions:: Change or remove dressing in 4 days. Leave steri-strips in place for 1 week. Allergies/Adverse Reactions: Allergies No Known Allergies Allergy (Verified 05/10/20 13:38) Medications to take at Discharge calcium carbonate 600 mg calcium (1,500 mg) tablet 600 mg PO BID tab 07/14/18 cholecalciferol (vitamin D3) 50 mcg (2,000 unit) tablet 2,000 unit PO DAILY 07/14/18 gemfibrozil 600 mg tablet 600 mg PO BID #60 tab 08/19/19 esomeprazole magnesium 20 mg capsule,delayed release 20 mg PO DAILY PRN cap 09/21/19 potassium chloride 10 mEq tablet,extended release 10 meq PO TID #90 tab 01/09/20 albuterol sulfate 90 mcg/actuation aerosol inhaler 2 puff INHALATION Q6H PRN #8.5 g 01/27/20 levothyroxine 112 mcg tablet 112 mcg PO DAILY #90 tab 02/16/20 triamterene 75 mg-hydrochlorothiazide 50 mg tablet 1 tab PO QAM #90 tab 02/16/20 fluticasone propionate 50 mcg/actuation nasal spray,suspension 1 spray INTRANASAL DAILY PRN #54.6 ml 04/07/20 Cetirizine HCl [Zyrtec] 10 mg PO PRN PRN 05/10/20 Primary Care Physician: Dario Pratt MD [Primary Care Provider] - Test Results: Test results from this visit will be discussed in further detail at your follow- up appointment, if applicable. Please Follow Up With: Saul Lockwood MD - [phone] When: Call to make an appointment to be seen in about 10 days.
[2020-05-16] MEDS: Cefazolin 2 GM in 0.9% Normal Saline 100 ML IV (07:30)
[2020-05-16] MEDS: Bupivacaine Mpf 0.5% 30 ML VIAL (07:42)
--- NOTE | 2020-05-16 08:43 | OP.PCM_ITS ---
Problem List (1) Bilateral inguinal hernia without obstruction or gangrene Status: Acute Qualifiers: Report of Operation Date of Procedure: 05/16/20 Pre-Operative Diagnosis: Bilateral non-recurrent nonobstructed inguinal hernias Post-Operative Diagnosis: Bilateral indirect nonrecurrent nonobstructed inguinal hernias Surgery/Procedure Performed:: Laparoscopic bilateral inguinal herniorrhaphy. Right Bard 3D max reference #[id number]. Lot number [id number]. Expiry date 01/13/2025. Left Bard 3D max reference #[id number], lot number [id number], expiry date 01/13/2025. Secure strap lot number [id number], expiry date December 07 Description of Surgical Findings:: Timeout and informed consent was obtained. 69-year-old female was taken to the operating placed by the table underwent general endotracheal intubation anesthesia. The abdomen was sterilely prepped and draped. 0.5% Marcaine was used as a local anesthetic. The procedure total 30 cc was used. Skin sites we re pre-anesthetized. A vertical infraumbilical incision was created holding sutures of 0 Vicryl placed varies needle inserted saline drop test performed the abdomen was insufflated with CO2 to a pressure of 10 mmHg pressure. 10 mm trocar inserted. 10 laparoscope inserted. No inserted trocar injuries. Under direct physician 5 mm ports were placed in the right and left lower quadrants. There was evidence of a large indirect right inguinal hernia and a smaller indirect left inguinal hernia. Ilioinguinal nerve blocks were performed with Marcaine. The peritoneum superior lateral to the internal ring on the right was incised carried medially. The peritoneum was completely dissected free until the direct indirect and femoral area was nicely identified. A similar dissection was then performed on the left. This gained retropubic access to both sides. A large 3D max left mesh was placed and secured laterally superiorly and medially with secure strap. Similar mesh was placed on the right so that the mesh just touched at the midline with a left-sided mesh. It was felt that excellent placement and securement was achieved. The peritoneum was then approximated to itself using hemo-lock clips and secure strap were indicated. Complete obliteration of the mesh was achieved. The abdomen was allowed to deflate through an antiviral valve. The fascia at the umbilicus approximated interrupted 0 Vicryl [id number] suture. Skin edges approximated with interrupted 4-0 Monocryl subdermal stitches. Steri- Strips and Telfa and OpSite dressings were applied. Specimens none. Drains none. Blood loss minimal. The patient was taken to the recovery room in satisfactory condition without apparent complication Saul Lockwood M.D., F.A.C.S. Type of Anesthesia:: General Anesthesiologist: Stalin Dean
[2020-05-16] MEDS: Ipratropium/Albuterol Sulfate 3 ML AMPUL.NEB INHALATION (09:27)
[2020-05-16] MEDS: HYDROcodone Bitartrate/Apap 5/325 Tablet PO (10:32)
== END 2020-05-16 11:44 | disposition home or self-care (01) ==
LOC: SDC 05:48 → AC 05:48
PROVIDERS: Anesthesiology; PCP Internal Medicine; Referring Provider Surgery; Visit Provider Surgery
PROC: (CPT 49650; principal; 2020-05-16 07:10)
DX: K40.20 Bilateral inguinal hernia, without obstruction or gangrene, not specified as recurrent (principal); I10 Essential (primary) hypertension; E03.9 Hypothyroidism, unspecified; E78.5 Hyperlipidemia, unspecified; M19.90 Unspecified osteoarthritis, unspecified site; F17.210 Nicotine dependence, cigarettes, uncomplicated; K21.9 Gastro-esophageal reflux disease without esophagitis; Z11.59 Encounter for screening for other viral diseases; Z79.899 Other long term (current) drug therapy
CPT/HCPCS: 49650; 87635; 93005; 94640; G2023; J7120; C1781; J2405; U0003

== ENCOUNTER → 2021-01-28 11:08 | Outpatient (CLI) | payer MEDICARE, SELFPAY ==
[2021-01-28 12:36] LABS: Absolute Lymphocyte Count 1.26 X10^3/uL (0.83-4.51); Absolute Neutrophil Count 5.3 X10^3/uL (2.0-7.7); Basophil# 0.08 X10^3/uL; Basophil% 1.1 % (0-1); Eosinophil# 0.22 X10^3/uL; Hematocrit 37.1 % (37-47); Hemoglobin 10.8 g/dL (12.0-15.0); Lymphocyte # 1.26 X10^3/ul (4.0); Lymphocyte % 17.2 % (19-41); Mean Corp Hgb Conc 29.1 g/dL (32-36); Mean Corpuscular Hgb 23.7 pg (27.0-32.0); Mean Corpuscular Volume 81.4 fL (81-99); Mean Platelet Vol. 12.9 fl (6.2-12.0); Monocyte# 0.49 X10^3/uL; Monocyte% 6.7 % (0-10); NRBC Flagged by Analyzer 0 % (0-5); Neutrophil # 5.25 X10^3/uL (2.7-7.7); Neutrophil % 71.6 % (47-70); Platelet Count 312 K/mm3 (150-450); RBC Distribution Width CV 16.7 % (11.6-14.6); Red Blood Count 4.56 M/mm3 (4.2-5.4); White Blood Count 7.3 K/mm3 (4.4-11.0)
[2021-01-28 13:22] LABS: ALB/GLOB Ratio 0.9 RATIO (0.9-2.4); AST(SGOT) 22 U/L (15-37); Alanine Aminotransfer ALT/SGPT 18 U/L (13-56); Albumin, Serum 3.6 g/dL (3.2-5.0); Alkaline Phosphatase 97 U/L (45-117); Anion Gap 9 (5-15); BUN 26 mg/dL (7-18); BUN/Creat Ratio 30.1 RATIO (10-20); Calcium,Total 9.3 mg/dL (8.5-10.1); Chloride 104 mmol/L (98-107); Creatinine, Serum 0.86 mg/dL (0.55-1.02); EST Glomerular Filtration Rate 69 mL/min (>60); Est Glom Filt Rate - Afr Amer 83 mL/min (>60); Globulin 4.1 g/dL (2.2-4.2); Glucose 130 mg/dL (74-106); Potassium 3.1 mmol/L (3.5-5.1); Protein, Total 7.7 g/dL (6.4-8.2); Sodium Level 137 mmol/L (136-145); Thyroid Stim Hormone (TSH) 0.88 uIU/mL (0.358-3.74)
[2021-01-29 14:02] LABS: Ferritin 12 ng/mL (8-252); Iron 47 ug/dL (50-170); Iron Binding Capacity,Total 539 ug/dL (250-450)
[2021-01-29 14:19] LABS: Hemoglobin A1c 5.5 % (3.8-5.6)
== END ==
PROVIDERS: PCP Internal Medicine; Visit Provider Internal Medicine
DX: E03.9 Hypothyroidism, unspecified (principal); I10 Essential (primary) hypertension; D64.9 Anemia, unspecified; R73.9 Hyperglycemia, unspecified
CPT/HCPCS: 36415; 80053; 82728; 83036; 83540; 83550; 84443; 85025

== ENCOUNTER → 2021-02-12 | Outpatient (CLI) | payer MEDICARE, SELFPAY | END | disposition home or self-care (01) | LOC: BIMLAB 10:39 → LABSPEC 10:50 | PROVIDERS: PCP Internal Medicine; Referring Provider Internal Medicine; Visit Provider Internal Medicine | DX: D64.9 Anemia, unspecified (principal) | CPT/HCPCS: 82274 ==

== ENCOUNTER → 2021-02-25 10:03 | Outpatient (CLI) | payer MEDICARE, SELFPAY ==
[2021-02-25 09:47] VITALS: BMI 26.9
[2021-02-25 12:28] LABS: Absolute Lymphocyte Count 1.46 X10^3/uL (0.83-4.51); Absolute Neutrophil Count 5.4 X10^3/uL (2.0-7.7); Basophil# 0.07 X10^3/uL; Basophil% 0.9 % (0-1); Eosinophil# 0.34 X10^3/uL; Eosinophils% 4.3 % (0-5); Hemoglobin 11.7 g/dL (12.0-15.0); Lymphocyte # 1.46 X10^3/ul (4.0); Lymphocyte % 18.6 % (19-41); Mean Corpuscular Hgb 25.9 pg (27.0-32.0); Mean Corpuscular Volume 86.5 fL (81-99); Monocyte# 0.55 X10^3/uL; NRBC Flagged by Analyzer 0 % (0-5); Neutrophil # 5.41 X10^3/uL (2.7-7.7); Neutrophil % 68.9 % (47-70); POSITIVE MORPHOLOGY YES; Platelet Count 236 K/mm3 (150-450); RBC Distribution Width CV 20.4 % (11.6-14.6); RBC Distribution Width SD 63.6 fl (35.1-43.9); Red Blood Count 4.51 M/mm3 (4.2-5.4); White Blood Count 7.9 K/mm3 (4.4-11.0)
[2021-02-25 13:11] LABS: Differential Indicated SCAN CRITERIA MET
[2021-02-25 13:48] LABS: Anisocytosis 2+; Differential Comment SCANNED; Macrocytosis 1+; Microcytosis 1+
== END ==
PROVIDERS: PCP Internal Medicine; Visit Provider Internal Medicine
DX: D64.9 Anemia, unspecified (principal)
CPT/HCPCS: 36415; 85025

== ENCOUNTER 2021-06-17 22:24 | Emergency (ER) | payer MEDICARE, SELFPAY ==
[2021-02-25 09:47] VITALS: BMI 26.9
[2021-06-17 22:25] VITALS: BP 132/94; PULSE 77; RESP 16; TEMP 36.2; O2SAT 98; BMI 26.2
--- NOTE | 2021-06-18 00:11 | EDS_ITS ---
HPI History of Present Illness Chief Complaint: Cold Sx Informant: patient Narrative Narrative: Patient is a 70-year-old female who presents to the emergency department for bloody sputum. She states that this started last night. She feels like it is running down the back of her mouth he gets caught in her throat. She can bring this up. She denies coughing this up or any blood in her vomitus. She states that she does have bad seasonal allergies. Her nose has been very dry. She typically uses Zyrtec and nasal spray. She denies any fevers or chills. She denies any lightheadedness, chest pain, shortness of breath. No heart palpitations. No other easy bleeding or bruising elsewhere. She was concerned because she was not sure exactly where this blood was coming from. She does describe it as bright red. [facility] Medical History (Updated 06/18/21 @ 00:[address] Abhinav Colindres, ) Arthritis Bilateral inguinal hernia Bilateral inguinal hernia without obstruction or gangrene Hiatal hernia Hyperlipemia Hypertension Hypothyroidism Seasonal allergies Tobacco abuse Home Medications calcium carbonate 600 mg calcium (1,500 mg) tablet 600 mg PO BID tab 07/14/18 [History Last Taken Unknown] cholecalciferol (vitamin D3) 50 mcg (2,000 unit) tablet 2,000 unit PO DAILY 07/14/18 [History Last Taken Unknown] esomeprazole magnesium 20 mg capsule,delayed release 20 mg PO DAILY PRN cap 09/21/19 [History Last Taken 05/16/20] cetirizine 10 mg PO PRN PRN 05/10/20 [History Last Taken Unknown] gemfibrozil 600 mg tablet See Rx Instructions .ROUTE .COMPLEX #60 tab 08/23/20 [Rx Last Taken Unknown] levothyroxine 112 mcg tablet 112 mcg PO DAILY #90 tab 01/03/21 [Rx Last Taken Unknown] doxepin 10 mg capsule 10 mg PO QHS #30 cap 01/28/21 [Rx Last Taken Unknown] potassium chloride 20 mEq tablet,extended release 20 meq PO TID 90 Days #270 tab 01/28/21 [Rx Last Taken Unknown] triamterene 37.5 mg-hydrochlorothiazide 25 mg tablet 1 tab PO QAM #90 tab 01/28/21 [Rx Last Taken Unknown] ferrous sulfate 325 mg (65 mg iron) tablet 325 mg PO DAILY #90 tab 01/29/21 [Rx Last Taken Unknown] albuterol sulfate 90 mcg/actuation aerosol inhaler 2 puff INHALATION Q6H PRN #8.5 g 03/13/21 [Rx Last Taken Unknown] fluticasone propionate 50 mcg/actuation nasal spray,suspension 1 spray INTRANASAL DAILY PRN #54.6 ml 03/13/21 [Rx Last Taken Unknown] Allergy/AdvReac Type Severity Reaction Status Date / Time No Known Allergies Allergy Verified 06/17/21 22:27 Family History Sister ulcers Breast cancer Daughter Cancer cervical Mother Asthma Hypertension CVA (cerebral vascular accident) Surgical History H/O colonoscopy H/O: hysterectomy History of bilateral inguinal hernia repair (~05/2020) History of carpal tunnel release History of foot surgery History of hysterectomy Social History Smoking Status: Current every day smoker tobacco type: cigarettes alcohol intake: never substance use type: does not use what type of physical activity do you participate in: walking frequency: daily ROS ROS ED Constitutional Constitutional ED: Denies chills or fever(s) Eyes Eyes: Denies change in vision ENT ENT ED: Reports rhinorrhea; Denies ear pain or sore throat Cardiovascular Cardiovascular: Denies chest pain Respiratory/Chest Respiratory/Chest: Reports sputum; Denies cough, dyspnea or dyspnea on exertion Gastrointestinal Gastrointestinal: Denies abdominal pain, diarrhea, nausea or vomiting Musculoskeletal Musculoskeletal: Denies back pain or neck pain Integumentary Denies rash Neurologic Neurologic: Denies dizziness, headache(s) or weakness EXAM Physical Exam Const Vital Signs: 06/17/21 22:25 06/18/21 00:40 Temperature 97.1 F L Temperature Source Temporal Pulse Rate 77 Respiratory Rate 16 Respiratory Pattern Normal Blood Pressure 132/94 H Blood Pressure Mean 106 Pulse Ox 98 Oxygen Delivery Method Room Air Positive well nourished and well developed General Appearance ED: well developed and NAD HEENT Reports normocephalic, head/scalp atraumatic and moist mucous membranes HEENT Narrative: No blood appreciated in bilateral nares or posterior oropharynx. No lesions appreciated. Eyes PERRL and EOMs intact bilaterally Neck no lymphadenopathy and supple General: Negative for tenderness Chest Wall inspection of chest normal Resp normal respiratory effort and clear to auscultation bilaterally Auscultation: Negative for rales, rhonchi or wheezes Cardio regular rate, regular rhythm and no murmurs Extremity normal to inspection General Extremety ED: Negative for edema or tenderness General Extremity: Negative for edema Neuro no sensory deficits noted Sensorium / Orientation: alert Motor Exam: strength 5/5 throughout Psych mental status grossly normal Skin no rashes or lesions noted MDM MDM MDM Narrative Medical decision making narrative: Patient presents the ED for blood in her sputum. She feels like it is coming from the nose area going down the back of her throat. On arrival to the ED vital signs within normal limits. She is in no acute distress. I believe that this is due to her allergies as they have been very bad lately. Will recommend saline sprays, Vaseline, humidified air. I do not feel patient's blood is coming from the lower airway or GI tract. She has not had any episodes throughout ED stay. Vital signs within normal limits. She is in no acute distress. At this time she is discharged home in stable condition. She is to follow-up with her PCP. Return precautions reviewed. She understands and is agreeable this plan. All questions are answered. Discharge Plan Triage Chief Complaint: Cold Sx ED Provider: Abhinav Colindres Dx/Rx/DC Orders Clinical Impression: Seasonal allergies, Bloody sputum Instructions: Causes of Nasal Allergies Prescriptions: No Action calcium carbonate [Calcium 600] 600 mg calcium (1,500 mg) tablet 600 mg PO BID RF: 0 cholecalciferol (vitamin D3) 2,000 unit tablet 2,000 unit tablet 2,000 unit PO DAILY RF: 0 esomeprazole magnesium [Nexium] 20 mg capsule,delayed release(DR/EC) 20 mg PO DAILY PRN (Reason: hiatal hernia) RF: 0 doxepin 10 mg capsule 10 mg PO QHS Qty: 30 RF: 1 cetirizine 10 MG tablet,disintegrating 10 mg PO PRN PRN (Reason: Allergies) RF: 0 gemfibrozil 600 mg tablet See Rx Instructions .ROUTE .COMPLEX Qty: 60 RF: 11 levothyroxine 112 mcg tablet 112 mcg PO DAILY Qty: 90 RF: 3 triamterene-hydrochlorothiazid 37.5-25 mg tablet 1 tab PO QAM Qty: 90 RF: 2 potassium chloride 20 mEq tablet extended release 20 meq PO TID 90 Days Qty: 270 RF: 11 ferrous sulfate 325 mg (65 mg iron) tablet 325 mg PO DAILY Qty: 90 RF: 1 albuterol sulfate 90 mcg/actuation HFA aerosol inhaler 2 puff INHALATION Q6H PRN (Reason: shortness of breath or wheezing) Qty: 8.5 RF: 3 fluticasone propionate 50 mcg/actuation spray,suspension 1 spray intranasal DAILY PRN (Reason: Allergies) Qty: 54.6 RF: 3 Primary Care Provider: Dario Pratt Referrals: Dario Pratt MD [Primary Care Provider] - Activity Restrictions/Additional Instructions: You can use saline sprays in both nostrils, Vaseline, and humidified air air if the air conditioner is constantly running. Continue your home allergy medic ations. Disposition Disposition: Home, Self Care Discharge Date/Time: 06/18/21 00:42
== END 2021-06-18 00:42 | disposition home or self-care (01) ==
LOC: ED 06-18 00:17
PROVIDERS: Emergency Provider Emergency Medicine; PCP Internal Medicine
DX: R04.2 Hemoptysis (principal); J30.2 Other seasonal allergic rhinitis; M19.90 Unspecified osteoarthritis, unspecified site; E78.5 Hyperlipidemia, unspecified; I10 Essential (primary) hypertension; E03.9 Hypothyroidism, unspecified; F17.210 Nicotine dependence, cigarettes, uncomplicated; Z79.899 Other long term (current) drug therapy
CPT/HCPCS: 99282

== ENCOUNTER → 2021-07-02 09:43 | Outpatient (CLI) | payer MEDICARE, SELFPAY ==
[2021-07-02 09:21] VITALS: BMI 26.2
[2021-07-02 12:00] LABS: Absolute Lymphocyte Count 1.22 X10^3/uL (0.83-4.51); Absolute Neutrophil Count 5.8 X10^3/uL (2.0-7.7); Basophil# 0.07 X10^3/uL; Basophil% 0.9 % (0-1); Eosinophil# 0.16 X10^3/uL; Eosinophils% 2.1 % (0-5); Hematocrit 40.2 % (37-47); Hemoglobin 12.6 g/dL (12.0-15.0); Lymphocyte # 1.22 X10^3/ul (0.83-4.51); Lymphocyte % 15.8 % (19-41); Mean Corp Hgb Conc 31.3 g/dL (32-36); Mean Corpuscular Hgb 28.3 pg (27.0-32.0); Mean Corpuscular Volume 90.1 fL (81-99); Mean Platelet Vol. 13.6 fl (6.2-12.0); Monocyte# 0.48 X10^3/uL; Monocyte% 6.2 % (0-10); NRBC Flagged by Analyzer 0 % (0-5); Neutrophil # 5.76 X10^3/uL (2.7-7.7); Neutrophil % 74.7 % (47-70); Platelet Count 224 K/mm3 (150-450); RBC Distribution Width CV 12.2 % (11.6-14.6); RBC Distribution Width SD 40.2 fl (35.1-43.9); Red Blood Count 4.46 M/mm3 (4.2-5.4); White Blood Count 7.7 K/mm3 (4.4-11.0)
[2021-07-02 12:22] LABS: Anion Gap 6 (5-15); BUN 17 mg/dL (7-18); BUN/Creat Ratio 21.3 RATIO (10-20); Calcium,Total 9.5 mg/dL (8.5-10.1); Chloride 106 mmol/L (98-107); Cholesterol 185 mg/dL (200); EST Glomerular Filtration Rate 75 mL/min (>60); Est Glom Filt Rate - Afr Amer 91 mL/min (>60); Glucose 101 mg/dL (74-106); High Density Lipoprotein 58 mg/dL; Potassium 3.8 mmol/L (3.5-5.1); Sodium Level 138 mmol/L (136-145); Triglycerides 63 mg/dL; Very Low Density Lipoprotein 13 mg/dL (5-40)
== END ==
PROVIDERS: PCP Internal Medicine; Referring Provider Internal Medicine; Visit Provider Internal Medicine
DX: I10 Essential (primary) hypertension (principal); E78.5 Hyperlipidemia, unspecified
CPT/HCPCS: 36415; 80048; 80061; 85025

== ENCOUNTER → 2021-10-01 10:27 | Outpatient (CLI) | payer MEDICARE, SELFPAY ==
[2021-10-01 13:26] LABS: Anion Gap 6 (5-15); BUN 21 mg/dL (7-18); BUN/Creat Ratio 25.1 RATIO (10-20); Calcium,Total 9.6 mg/dL (8.5-10.1); Chloride 103 mmol/L (98-107); Creatinine, Serum 0.84 mg/dL (0.55-1.02); EST Glomerular Filtration Rate 71 mL/min (>60); Est Glom Filt Rate - Afr Amer 86 mL/min (>60); Glucose 110 mg/dL (74-106); Magnesium 2.1 mg/dL (1.6-2.6); Potassium 3.6 mmol/L (3.5-5.1); Sodium Level 136 mmol/L (136-145); Thyroid Stim Hormone (TSH) 2.07 uIU/mL (0.358-3.74)
== END ==
PROVIDERS: PCP Internal Medicine; Referring Provider Internal Medicine; Visit Provider Internal Medicine
DX: I10 Essential (primary) hypertension (principal); E03.9 Hypothyroidism, unspecified; E78.5 Hyperlipidemia, unspecified
CPT/HCPCS: 36415; 80048; 83735; 84443

== ENCOUNTER 2021-12-05 11:33 | Outpatient (CLI) | payer MEDICARE, SELFPAY | END 2021-12-05 23:59 | disposition short-term general hospital (02) | LOC: LABSPEC 11:34 | PROVIDERS: PCP Internal Medicine; Referring Provider Physician Assistant; Visit Provider Physician Assistant | DX: Z20.822 Contact with and (suspected) exposure to COVID-19 (principal) | CPT/HCPCS: 87635; U0003; U0005 ==

== ENCOUNTER 2022-03-03 10:51 | Outpatient (CLI) | payer MEDICARE, SELFPAY ==
[2022-03-03 12:11] LABS: Absolute Lymphocyte Count 1.51 X10^3/uL (0.83-4.51); Absolute Neutrophil Count 4.4 X10^3/uL (2.0-7.7); Basophil# 0.08 X10^3/uL; Basophil% 1.2 % (0-1); Eosinophil# 0.13 X10^3/uL; Eosinophils% 1.9 % (0-5); Hematocrit 42.9 % (37-47); Hemoglobin 13.2 g/dL (12.0-15.0); Lymphocyte # 1.51 X10^3/ul (0.83-4.51); Lymphocyte % 22.4 % (19-41); Mean Corp Hgb Conc 30.8 g/dL (32-36); Mean Corpuscular Volume 91.1 fL (81-99); Mean Platelet Vol. 13.1 fl (6.2-12.0); Monocyte# 0.61 X10^3/uL; NRBC Flagged by Analyzer 0 % (0-5); Neutrophil # 4.39 X10^3/uL (2.7-7.7); Neutrophil % 65.1 % (47-70); Platelet Count 230 K/mm3 (150-450); RBC Distribution Width CV 12.3 % (11.6-14.6); RBC Distribution Width SD 41.1 fl (35.1-43.9); Red Blood Count 4.71 M/mm3 (4.2-5.4); White Blood Count 6.8 K/mm3 (4.4-11.0)
[2022-03-03 12:23] LABS: Vitamin D,25 Hydroxy 31.4 ng/mL
[2022-03-03 12:51] LABS: ALB/GLOB Ratio 0.9 RATIO (0.9-2.4); AST(SGOT) 27 U/L (15-37); Alanine Aminotransfer ALT/SGPT 22 U/L (13-56); Albumin, Serum 3.6 g/dL (3.2-5.0); Alkaline Phosphatase 116 U/L (45-117); Anion Gap 6 (5-15); BUN 21 mg/dL (7-18); BUN/Creat Ratio 23.6 RATIO (10-20); Chloride 104 mmol/L (98-107); Cholesterol 177 mg/dL (200); Creatinine, Serum 0.89 mg/dL (0.55-1.02); EST Glomerular Filtration Rate 66 mL/min (>60); Est Glom Filt Rate - Afr Amer 80 mL/min (>60); Glucose 124 mg/dL (74-106); High Density Lipoprotein 60 mg/dL; Potassium 4.3 mmol/L (3.5-5.1); Protein, Total 7.6 g/dL (6.4-8.2); Sodium Level 136 mmol/L (136-145); Thyroid Stim Hormone (TSH) 2.02 uIU/mL (0.358-3.74); Triglycerides 119 mg/dL; Very Low Density Lipoprotein 24 mg/dL (5-40)
== END 2022-03-03 23:59 | disposition home or self-care (01) ==
LOC: BIMLAB 10:51
PROVIDERS: PCP Internal Medicine; Referring Provider Physician Assistant; Visit Provider Physician Assistant
DX: R19.7 Diarrhea, unspecified (principal); K44.9 Diaphragmatic hernia without obstruction or gangrene; K21.9 Gastro-esophageal reflux disease without esophagitis; I10 Essential (primary) hypertension; E78.5 Hyperlipidemia, unspecified; E03.9 Hypothyroidism, unspecified; F32.9 Major depressive disorder, single episode, unspecified; E55.9 Vitamin D deficiency, unspecified; R04.2 Hemoptysis
CPT/HCPCS: 36415; 80053; 80061; 82306; 84443; 85025

== ENCOUNTER → 2022-03-06 | Outpatient (CLI) | payer MEDICARE, SELFPAY | END | disposition home or self-care (01) | LOC: LABSPEC 10:14 | PROVIDERS: PCP Internal Medicine; Referring Provider Surgery; Visit Provider Surgery | DX: R19.7 Diarrhea, unspecified (principal) | CPT/HCPCS: 87506 ==

== ENCOUNTER 2022-04-10 05:57 | Day surgery (SDC) | payer MEDICARE, SELFPAY ==
[2022-04-10] VITALS (7 sets, daily range): BP systolic 109–128; BP diastolic 71–86; PULSE 62–74; RESP 16–18; TEMP 36–36.5; O2SAT 92–100; BMI 25.9
[2022-04-10] MEDS: Lactated Ringers 1,000 ML 15 ML IV (06:33)
--- NOTE | 2022-04-10 07:00 | EGD_PTH ---
[id number] LOC: EN U#:[id number] AGE/SX: 71/F ROOM: RE04/10/[address]: Dr. Parviz Tafoya MD : 1950 BED: DIS: 04/10/2022 SPEC #: [id number] RECD: 04/10/22 09:24 STATUS: ARTURO JEAN PIERRE #: [id number] ELYSSA: 04/10/22 07:[address]: Parviz Tafoya DEPT: SURGICAL PATHOLOGY RECD BY: Pricila Khanna ENTERED: 04/10/22 10:41 SP TYPE: EGD BIOPSY OTHR DR: Dr. Dario Pratt MD Tissues: A - Duodenum, NOS B - Duodenum, NOS C - Gastric mucous membrane D - Stomach, NOS E - Ascending colon F - COLON BIOPSY G - Descending colon H - Transverse colon I - Sigmoid colon biopsy Procedures: Special Stain Group II Surgery Specimen Level IV Alcian Blue/PAS (control) HEADER OPERATION: [place] [place] DIAGNOSIS: GERD, hiatal hernia, diarrhea TISSUE SUBMITTED: A ? Duodenal bulb polyp, B ? Duodenal bulb nodule, C ? Random antrum for H.?pylori and path, D ? GE junction biopsy, E ? Ascending colon biopsy, F ? Hepatic flexure polyp, G ? Descending colon biopsy, H ? Transverse colon biopsy, I ? Sigmoid colon biopsy MICROSCOPIC DIAGNOSIS A. Duodenal bulb polyp, biopsy: Fragments of duodenal mucosa with Doris gland hyperplasia. B. Duodenal bulb nodule, biopsy: Fragments of duodenal mucosa with Doris gland hyperplasia. C. Antrum, biopsy: Mild gastritis. See microscopic description and comment. D. GE junction, biopsy: Fragments of gastroesophageal mucosa with mild chronic inflammation. Intestinal metaplasia (goblet cell metaplasia) not identified. See comment. E. Ascending colon, biopsy: A fragment of colonic mucosa, no pathologic diagnosis. F. Hepatic flexure polyp, biopsy: Fragments of tubular adenoma. G. Descending colon, biopsy: A fragment of colonic mucosa, no pathologic diagnosis. H. Transverse colon, biopsy: Fragments of colonic mucosa, no pathologic diagnosis. I. Sigmoid colon, biopsy: A fragment of colonic mucosa, no pathologic diagnosis. SJ:rg 04/11/2022 COMMENT C. The results of immunohistochemistry for Helicobacter pylori will be reported separately ([id number]). D. Alcian blue/PAS stain with matched control is used in the evaluation of the specimen. MICROSCOPIC DESCRIPTION Slides are reviewed. C. The specimen shows fragments of gastric mucosa with chronic inflammatory cell infiltrates in the lamina propria consisting of lymphocytes and plasma cells, consistent with mild chronic gastritis. GROSS DESCRIPTION A - Received in fixative is one container labeled with the patient's name and designated duodenal bulb polyp. The specimen consists of two pieces of arnold soft tissue measuring in aggregate 1 x 0.5 x 0.3 cm. The specimen is totally submitted in one cassette. B - Received in fixative is one container labeled with the patient's name and designated duodenal bulb nodule. The specimen consists of two irregular fragments of light arnold soft tissue that in aggregate measure 0.6 x 0.2 x 0.1 cm. The specimen is totally submitted in one cassette. C - Received in fixative is one container labeled with the patient's name and designated random antrum biopsy. The specimen consists of one irregular fragment of light arnold soft tissue that measures 0.4 x 0.3 x 0.1 cm. The specimen is totally submitted in one cassette. D - Received in fixative is one container labeled with the patient's name and designated GE junction biopsy. The specimen consists of two irregular fragments of light arnold soft tissue that in aggregate measure 0.4 x 0.3 x 0.1 cm. The specimen is totally submitted in one cassette. E - Received in fixative is one container labeled with the patient's name and designated ascending colon biopsy. The specimen consists of one irregular fragment of light arnold soft tissue that measures 0.4 x 0.4 x 0.1 cm. The specimen is totally submitted in one cassette. F - Received in fixative is one container labeled with the patient's name and designated hepatic flexure polyp. The specimen consists of two irregular fragments of light arnold soft tissue that in aggregate measure 0.4 x 0.4 x 0.1 cm. The specimen is totally submitted in one cassette. G - Received in fixative is one container labeled with the patient's name and designated descending colon biopsy. The specimen consists of one irregular fragment of light arnold soft tissue that measures 0.3 x 0.3 x 0.1 cm. The specimen is totally submitted in one cassette. H - Received in fixative is one container labeled with the patient's name and designated transverse colon biopsy. The specimen consists of multiple irregular fragments of light arnold soft tissue that in aggregate measure 1 x 0.2 x 0.1 cm. The specimen is totally submitted in one cassette. I - Received in fixative is one container labeled with the patient's name and designated sigmoid colon biopsy. The specimen consists of one irregular fragment of light arnold soft tissue that measures 0.3 x 0.3 x 0.1 cm. The specimen is totally submitted in one cassette. / SJ:rg 04/10/2022 TC:1 CPT: 71562 x9, [id number]
--- NOTE | 2022-04-10 07:00 | IMM_PTH ---
PATIENT: KEARA MARIO LOC: EN U#:[id number] AGE/SX: 71/F ROOM: RE04/10/[address]: Dr. Parviz Tafoya MD : 1950 BED: DIS: 04/10/2022 SPEC #: [id number] RECD: 04/10/22 11:45 STATUS: ARTURO RECk #: [id number] ELYSSA: 04/10/22 07:[address]: Parviz Tafoya DEPT: IMMUNOHISTOCHEMISTRY RECD BY: Marimar Champion ENTERED: 04/10/22 11:46 SP TYPE: IMMUNO OTHR DR: Dr. Dario Pratt MD Tissues: C - Stomach, NOS Procedures: H Pylori (initial) PHYSICIAN & INSTITUTION [place] [id number] SPECIMEN INFORMATION: Tissue Source: C ? Antrum, random biopsy Clinical Info: GERD, hiatal hernia, diarrhea Specimen Number: [id number] CPT code: 15486 METHODOLOGY: Deparaffinized sections of prefer/formalin-fixed tissue or PAP/DQ stained slides are incubated with monoclonal/polyclonal antibodies/oligonucleotide probes. Localization is made via biotin free immunoperoxidase method. Appropriate controls are performed and reacted as expected. Results on target cell population are indicated in the following table: RESULTS: ANTIBODY / CLONE RESULT Block C H Pylori (polyclonal) positive These tests were developed and their performance characteristics determined by [facility]. They may not have been cleared or approved by the U.S. Food and Drug Administration. The FDA has determined that such clearance or approval is not necessary. The above immunohistochemical/dualISH markers are ordered and reviewed by the Pathologist. INTERPRETATION: C. Antrum, random biopsy: Positive for Helicobacter pylori organisms. AM:sundeep 04/11/2022
--- NOTE | 2022-04-10 07:03 | PCM.HP.BLA ---
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 Is patient in pain?: No Allergies No Known Allergies Allergy (Verified 03/05/22 09:45) Medications calcium carbonate 600 mg calcium (1,500 mg) tablet 600 mg PO BID tab 07/14/18 [History Confirmed 03/05/22] cholecalciferol (vitamin D3) 50 mcg (2,000 unit) tablet 2,000 unit PO DAILY 07/14/18 [History Confirmed 03/05/22] cetirizine 10 mg PO PRN PRN 05/10/20 [History Confirmed 03/05/22] doxepin 10 mg capsule 10 mg PO QHS #30 cap 01/28/21 [Rx Confirmed 03/05/22] albuterol sulfate 90 mcg/actuation aerosol inhaler 2 puff INHALATION Q6H PRN #8.5 g 03/13/21 [Rx Confirmed 03/05/22] gemfibrozil 600 mg tablet See Rx Instructions .ROUTE .COMPLEX #60 tab 08/20/21 [Rx Confirmed 03/05/22] levothyroxine 112 mcg tablet 112 mcg PO DAILY #90 tab 02/05/22 [Rx Confirmed 03/05/22] triamterene 37.5 mg-hydrochlorothiazide 25 mg tablet 1 tab PO QAM #90 tab 02/05/22 [Rx Confirmed 03/05/22] potassium chloride 20 mEq tablet,extended release 20 meq PO TID 90 Days #270 tab 02/07/22 [Rx Confirmed 03/05/22] omeprazole 40 mg capsule,delayed release 40 mg PO DAILY #90 cap 02/17/22 [Rx Confirmed 03/05/22] ferrous sulfate 325 mg (65 mg iron) tablet 325 mg PO DAILY #90 tab 03/03/22 [Rx Confirmed 03/05/22] PFSH Medical History Arthritis Bilateral inguinal hernia Bilateral inguinal hernia without obstruction or gangrene Depression Essential hypertension Flu vaccine need GERD (gastroesophageal reflux disease) Hiatal hernia Hyperlipemia Hypothyroidism Seasonal allergies Tobacco abuse Surgical History H/O colonoscopy H/O: hysterectomy History of bilateral inguinal hernia repair (~05/2020) History of carpal tunnel release History of foot surgery History of hysterectomy Family History Sister ulcers Breast cancer Daughter Cancer cervical Mother Asthma Hypertension CVA (cerebral vascular accident) Social History Smoking Status: Current every day smoker tobacco type: cigarettes alcohol intake: never substance use type: does not use what type of physical activity do you participate in: walking frequency: daily HPI HPI HPI: KEARA MARIO, is a 71 F who presents to the office today for recent chest soreness and known hiatal hernia?as well as some persistent diarrhea. They are referred for surgical consultation from Dr. Pratt. Patient was recently evaluated in Dr. Pratt's office for complaint of spitting up blood. Patient states this spontaneously remitted 3 weeks ago. She reports that she had similar symptoms a year ago and does admit to problems with allergies. She also describes this soreness in her central chest that comes on with eating. She describes it as intermittent but it was present as recent as this morning. She has connected it to her diagnosis of a hiatal hernia which was made with a EGD performed 10 to 15 years ago. She also notes some occasional associated heartburn symptoms which are dependent on what she eats. She describes food triggers as being dairy products, greasy foods, certain fruits and vegetables, and spicy foods. She has also learned to space out her meals from when she retires to bed and states that she generally eats no later than 6 PM and goes to bed at 8 PM and when she does try to fall asleep she will prop her head up. They are currently on Nexium which she admits to eating rather sporadically up until her return of this soreness. Additionally, she will take Pepcid or Mylanta when she experiences breakthrough symptoms. She denies any middle of the night aspiration events. Secondarily, patient remarks of some recent diarrhea. She states that she experiences this almost every day. This has been present for the last couple of weeks. She confirms that Dr. Avery's office submitted a request for Hemoccult studies and these returned negative. She has noticed some darker stools, but was advised the Pepto-Bismol and iron tablets that she takes could both contribute to this finding. She reports that this diarrhea is associated with lots of gas cramping. She denies any sick contacts, but does receive frequent visits from her 9-year-old grandson who attends public schooling and could be a potential source for infectious causes. She has recently advised to try some Imodium A-D, but has not yet begun this medication. Previous work-up has included: Colonoscopy with Dr. Vineet Walton on 10/07/2019 after she had a positive Cologuard test but the scope findings were consistent with diverticulosis only. ROS General General: Yes weight change and fatigue; No appetite, colon cancer, breast cancer or weakness HEENT HEENT: No difficulty swallowing, eye injury, eye surgery, swollen glands or hoarseness Endo Endocrine: Yes thyroid disease and thyroid cancer; No diabetes mellitus, Hair loss, heat intolerance or cold intolerance Skin Skin: No rash or changing moles Musc Musculoskeletal: No back problems, arthritis, rheumatoid arthritis, gout or joint pain Cardio Cardiovascular: Yes high blood pressure; No murmur, pacemaker, heart disease, atrial fibrillation, heart attack, heart stent, palpitations, shortness of breat with exertion or chest pain Psych Psychiatric: No depression, anxiety or hearing voices Resp Respiratory: No shortness of breath, No sleep apnea, No cough, No COPD, Yes asthma, No emphysema and No wheezing Gastro Gastrointestinal: No abdominal pain, No nausea or vomiting, Yes diarrhea, No constipation, No blood in stool, Yes acid reflux, No hemorrhoids, No ulcers, No gallbladder problem and Yes black,tarry stools Additional Details: Pt states has had darker green stools. States she is on iron and has been taking pepto bismol. Yordy Hematologic: No blood thinners, No blood disorders, No bleeding, Yes anemia and No blood clots Neuro Neurologic: No system reviewed and no additional complaints, except as documented, No as per HPI, No abnormal gait, No abnormal hearing, No abnormal movements, No abnormal speech, No behavioral changes, No burning sensations, No confusion, No convulsions, No disequilibrium, No dizziness, No localized weakness, No frequent falls, No headache(s), No lack of coordination, No loss of vision, No memory loss, No numbness, No other visual disturbances, No radicular pain, No restless legs, No sensory deficit, No syncope, No tingling, No tremor(s), No weakness and No other Exam Const General: cooperative, healthy appearing and no acute distress Orientation: alert, awake and oriented x3 Resp Effort & Inspection: normal respiratory effort Auscultation: clear to auscultation bilaterally, no rales, no rhonchi and no wheezes Cardio Rate: regular rate Rhythm: regular rhythm Heart Sounds: S1 normal and S2 normal GI Inspection: normal to inspection and non-distended Palpation: soft and nontender Assessment and Plan Assessment and Plan (1) GERD (gastroesophageal reflux disease): Status: Acute Comment: This is a 71-year-old female with a endoscopically diagnosed hiatal hernia 10 to 15 years ago who describes more significant soreness of her chest that is closely linked to food intake. She admits to some laxity in her PPI administration, but feels like this issue needs to be investigated given the duration since her last scope. She confirms that she is trying to avoid food triggers and is intentional about spacing her mealtimes from bedtime. Based on patient's described discomfort, agree with proceeding with EGD under local MAC. Plan - Dr. Parviz Tafoya MD: EGD under local MAC at first mutually available timing (2) Hiatal hernia: Status: Chronic Comment: Endoscopically diagnosed 10 to 15 years ago. Uncertain whether there were biopsies of the GE junction at that time. Patient describes worsening symptoms with intermittent use of PPI therapy. Have reiterated the need to be consistent with PPI therapy, but will plan for updated, diagnostic EGD with local MAC Plan - Dr. Parviz Tafoya MD: EGD with local MAC at first mutually available timing (3) Diarrhea in adult patient: Status: Acute Comment: Patient describes several week history of diarrhea that has not spontaneously remitted. She describes some associated gas cramping, but no other complaints. She denies any awareness of any sick contacts. I have advised her that before we would begin to block down her system, we should rule out an enteric pathogen as the source. Therefore we will send request for a stool sample. Additionally, this could represent a manifestation of microscopic colitis and given that we are planning to proceed to the endoscopy suite for diagnostic EGD, I have recommended we proceed for diagnostic colonoscopy with random colon biopsies as well. Patient is excepting of this recommendation. We reviewed the need for a pre-? 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 I have re-examined the patient. There are no clinical changes since date of exam. Patient confirms the above history stating that she is still having soreness in her upper abdomen which she attributes to her hiatal hernia and has had occasional diarrhea?although this has been somewhat better. She has not gone to using Imodium. She is still not able to identify any food triggers with this issue. She confirms that she completed her prep uneventfully and that her output is now clear. Therefore we will proceed to the endoscopy suite for upper and lower endoscopy under local MAC as described above.
--- NOTE | 2022-04-10 08:23 | OP.COLON_ITS ---
Patient Name: Chela Arita Procedure Date: 04/10/2022 7:33 AM Date of : 1950 Age: 71 Procedure: Colonoscopy Indications: Generalized abdominal pain, Clinically significant diarrhea of unexplained origin Providers: Parviz Tafoya MD Medicines: See the Anesthesia note for documentation of the administered medications Patient Profile: Refer to note in patient chart for documentation of history and physical. Last Colonoscopy: 3 years ago. Complications: No immediate complications. Estimated blood loss: Minimal. Procedure: Pre-Anesthesia Assessment: - The heart rate, respiratory rate, oxygen saturations, blood pressure, adequacy of pulmonary ventilation, and response to care were monitored throughout the procedure. After I obtained informed consent, the scope was passed under direct vision. Throughout the procedure, the patient's blood pressure, pulse, and oxygen saturations were monitored continuously. The colonoscope was introduced through the anus and advanced to the cecum, identified by the appendiceal orifice, IC valve and transillumination. The colonoscopy was somewhat difficult due to multiple diverticula in the colon. The patient tolerated the procedure well. The quality of the bowel preparation was good. Scope In: 7:36:06 AM Scope Withdrawal Time 0 hours 20 minutes 7 seconds Scope Out: 8:08:37 AM Total Procedure Duration Time 0 hours 32 minutes 31 seconds Findings: Skin tags were found on perianal exam. There was a medium-sized lipoma, 25 mm in diameter, in the cecum. No biopsies or other specimens were collected for this exam. Multiple large-mouthed diverticula were found in the sigmoid colon. No biopsies or other specimens were collected for this exam. The entire examined colon appeared normal. Four biopsies were obtained with cold forceps for evaluation of collagenous colitis in the sigmoid colon, in the descending colon, in the transverse colon and in the ascending colon. Estimated blood loss was minimal. Non-bleeding internal hemorrhoids were found during retroflexion. The hemorrhoids were Grade II (internal hemorrhoids that prolapse but reduce spontaneously). No biopsies or other specimens were collected for this exam. A 3 mm, non-bleeding polyp was found in the hepatic flexure. The polyp was semi-pedunculated. Biopsies were taken with a cold forceps for histology. Estimated blood loss was minimal. Impression: - Perianal skin tags found on perianal exam. - Medium-sized lipoma in the cecum. No specimens collected. - Diverticulosis in the sigmoid colon. No specimens collected. - The entire examined colon is normal. - Non-bleeding internal hemorrhoids. No specimens collected. - One 3 mm, non-bleeding polyp at the hepatic flexure. Biopsied. - Four biopsies were obtained in the sigmoid colon, in the descending colon, in the transverse colon and in the ascending colon. Recommendation: - Discharge patient to home (via wheelchair). - High fiber diet today. - Continue present medications. - Await pathology results. - Repeat colonoscopy date to be determined after pending pathology results are reviewed for surveillance based on pathology results. - Telephone my office for pathology results in 1 week. Procedure Code(s): --- Professional --- 15321, Colonoscopy, flexible; with biopsy, single or multiple Diagnosis Code(s): --- Professional --- D17.5, Benign lipomatous neoplasm of intra-abdominal organs K64.1, Second degree hemorrhoids D12.3, Benign neoplasm of transverse colon (hepatic flexure or splenic flexure) K64.4, Residual hemorrhoidal skin tags R10.84, Generalized abdominal pain R19.7, Diarrhea, unspecified K57.30, Diverticulosis of large intestine without perforation or abscess without bleeding CPT copyright 2017 [employer]. All rights reserved. The codes documented in this report are preliminary and upon black off worker review may be revised to meet current compliance requirements. Parviz Tafoya MD 04/10/2022 8:22:45 AM This report has been signed electronically. Number of Addenda: 0 Note Initiated On: 04/10/2022 7:33 AM
--- NOTE | 2022-04-10 08:24 | OP.CCLET_ITS ---
04/10/2022 Dario Pratt MD [address] [place] [address] [place] [address] Re : Colonoscopy procedure for Chela Arita Dear Dr. Pratt This procedure was performed on March. My impressions and recommendations are as follows: Impressions : - Perianal skin tags found on perianal exam. - Medium-sized lipoma in the cecum. No specimens collected. - Diverticulosis in the sigmoid colon. No specimens collected. - The entire examined colon is normal. - Non-bleeding internal hemorrhoids. No specimens collected. - One 3 mm, non-bleeding polyp at the hepatic flexure. Biopsied. - Four biopsies were obtained in the sigmoid colon, in the descending colon, in the transverse colon and in the ascending colon. Recommendations : - Discharge patient to home (via wheelchair). - High fiber diet today. - Continue present medications. - Await pathology results. - Repeat colonoscopy date to be determined after pending pathology results are reviewed for surveillance based on pathology results. - Telephone my office for pathology results in 1 week. My findings are described in the full procedure note, which is enclosed. If I can be of further assistance, please feel free to contact me at Doctor phone number(s): , Work: . Sincerely, Parviz Tafoya MD 04/10/2022 8:22:45 AM This report has been signed electronically.
--- NOTE | 2022-04-10 08:34 | OP.EGD_ITS ---
Patient Name: Chela Arita Procedure Date: 04/10/2022 7:04 AM Date of : 1950 Age: 71 Procedure: Upper GI endoscopy Indications: Odynophagia, Heartburn, Hematemesis, Hiatal hernia Providers: Parviz Tafoya MD Medicines: See the Anesthesia note for documentation of the administered medications Patient Profile: Refer to note in patient chart for documentation of history and physical. Complications: No immediate complications. Estimated blood loss: Minimal. Procedure: Pre-Anesthesia Assessment: - The heart rate, respiratory rate, oxygen saturations, blood pressure, adequacy of pulmonary ventilation, and response to care were monitored throughout the procedure. After obtaining informed consent, the endoscope was passed under direct vision. Throughout the procedure, the patient's blood pressure, pulse, and oxygen saturations were monitored continuously. The colonoscope was introduced through the mouth, and advanced to the second part of duodenum. The upper GI endoscopy was accomplished without difficulty. The patient tolerated the procedure fairly well. Scope In: 7:13:02 AM Scope Out: 7:33:19 AM Total Procedure Duration Time 0 hours 20 minutes 17 seconds Findings: Multiple 5 mm pedunculated and sessile polyps with no bleeding were found in the duodenal bulb. The polyp was removed with a hot snare. Resection and retrieval were complete. Estimated blood loss was minimal. Localized nodular mucosa was found in the duodenal bulb. Biopsies were taken with a cold forceps for histology. Estimated blood loss was minimal. Localized mild inflammation characterized by erythema was found in the gastric antrum. Biopsies were taken with a cold forceps for Helicobacter pylori cultures. Biopsies were taken with a cold forceps for histology. Estimated blood loss was minimal. A large hiatal hernia was present. No biopsies or other specimens were collected for this exam. The Z-line was regular and was found 35 cm from the incisors. Biopsies were taken with a cold forceps for histology. Estimated blood loss was minimal. Impression: - Multiple duodenal polyps. Resected and retrieved. - Nodular mucosa in the duodenal bulb. Biopsied. - Gastritis. Biopsied. - Large hiatal hernia. No specimens collected. - Z-line regular, 35 cm from the incisors. Biopsied. Recommendation: - Discharge patient to home (via wheelchair). - Resume regular diet today. - Continue present medications. - Await pathology results. - Telephone my office for pathology results in 1 week. Procedure Code(s): --- Professional --- 96193, Esophagogastroduodenoscopy, flexible, transoral; with removal of tumor(s), polyp(s), or other lesion(s) by snare technique 26322, 59, Esophagogastroduodenoscopy, flexible, transoral; with biopsy, single or multiple Diagnosis Code(s): --- Professional --- K31.7, Polyp of stomach and duodenum K31.89, Other diseases of stomach and duodenum K29.70, Gastritis, unspecified, without bleeding K44.9, Diaphragmatic hernia without obstruction or gangrene R13.10, Dysphagia, unspecified R12, Heartburn K92.0, Hematemesis CPT copyright 2017 [place] [employer] [place] [employer]. All rights reserved. The codes documented in this report are preliminary and upon label coder review may be revised to meet current compliance requirements. Parviz Tafoya MD 04/10/2022 8:33:54 AM This report has been signed electronically. Number of Addenda: 0 Note Initiated On: 04/10/2022 7:04 AM
--- NOTE | 2022-04-10 08:35 | OP.CCLET_ITS ---
04/10/2022 Dario Pratt MD [address] [place] [address] [place] [address] Re : Upper GI endoscopy procedure for Chela Walkerden Dear Dr. Pratt This procedure was performed on March. My impressions and recommendations are as follows: Impressions : - Multiple duodenal polyps. Resected and retrieved. - Nodular mucosa in the duodenal bulb. Biopsied. - Gastritis. Biopsied. - Large hiatal hernia. No specimens collected. - Z-line regular, 35 cm from the incisors. Biopsied. Recommendations : - Discharge patient to home (via wheelchair). - Resume regular diet today. - Continue present medications. - Await pathology results. - Telephone my office for pathology results in 1 week. My findings are described in the full procedure note, which is enclosed. If I can be of further assistance, please feel free to contact me at Doctor phone number(s): , Work: . Sincerely, Parviz Tafoya MD 04/10/2022 8:33:54 AM This report has been signed electronically.
== END 2022-04-10 09:46 | disposition home or self-care (01) ==
LOC: EN 05:58 → AC 05:58
PROVIDERS: PCP Internal Medicine; Referring Provider Internal Medicine; Visit Provider Surgery
PROC: 0DJD8ZZ Inspection of Lower Intestinal Tract, Via Natural or Artificial Opening Endoscopic (ICD-10-PCS; CPT 45378; principal; 2022-04-10 06:55)
DX: K31.7 Polyp of stomach and duodenum (principal); K29.50 Unspecified chronic gastritis without bleeding; K31.89 Other diseases of stomach and duodenum; K44.9 Diaphragmatic hernia without obstruction or gangrene; K57.30 Diverticulosis of large intestine without perforation or abscess without bleeding; I10 Essential (primary) hypertension; B96.81 Helicobacter pylori [H. pylori] as the cause of diseases classified elsewhere; D12.3 Benign neoplasm of transverse colon; D17.5 Benign lipomatous neoplasm of intra-abdominal organs; K64.4 Residual hemorrhoidal skin tags; K64.1 Second degree hemorrhoids; K21.9 Gastro-esophageal reflux disease without esophagitis; F17.210 Nicotine dependence, cigarettes, uncomplicated; E03.9 Hypothyroidism, unspecified; J45.909 Unspecified asthma, uncomplicated; Z79.899 Other long term (current) drug therapy; M19.90 Unspecified osteoarthritis, unspecified site; F32.9 Major depressive disorder, single episode, unspecified
CPT/HCPCS: 45380; 43239; 43251; 88305; 88313; 88342

== ENCOUNTER → 2022-05-13 | Outpatient (CLI) | payer MEDICARE, SELFPAY ==
--- NOTE | 2022-05-13 14:17 | CT_ITS ---
STUDY: LOW DOSE CT LUNG CANCER SCREENING REASON FOR EXAM: Female, 71 years old. Lung cancer screening -- 23 pk yr hx;current smoker; asymptomatic RADIATION DOSAGE (If Supplied By Facility): CTDIvol = ( 3.02 ) mGy, DLP = ( 107.22 ) mGycm TECHNIQUE: No contrast was administered. Low dose technique was utilized (average mAS-38 and kVp 120). 1.25 mm axial source images with a slice interval of 1.25-mm were reconstructed in lung windows. 2.5 mm axial source images with a slice interval of 2.5-mm were reconstructed in lung windows. 5.0 mm axial source images with a slice interval of 5.0-mm were reconstructed in soft tissue windows. COMPARISON: None. NODULES: There is a 7 mm noncalcified nodule in the peripheral lateral aspect of the right upper lobe as seen on axial image #100 and coronal image #125. Emphysema: Hyperinflation and emphysematous changes. There is evidence of increased markings at the right lung base suggestive of scarring. Endobronchial lesion: Aorta: Calcification of the aortic arch. CORONARY ARTERIES: Coronary artery calcification is seen. Heart: Unremarkable Pulmonary artery: Unremarkable Mediastinal nodes: Other chest and abdominal findings: Large hiatal hernia. CT/Low Dose CT Lung Screening IMPRESSION: Lung-RADS category 4A - Screening at 3 months with LDCT or evaluation with PET/CT may be used. IMPORTANT NOTES FOR USE: ACR Lung-RADS Version 1.1 Assessment Categories Release Date: 2018 Category: Coded 0-4 bases on nodule(s) with highest degree of suspicion. Negative screen is defined as categories 1 and 2; a positive screen is defined as categories 3 and 4. Category 3 and 4A nodules that are unchanged on interval CT should be coded as category 2, and individuals returned to screening in 12 months. Category 4X: Category 3 or 4 nodules with additional imaging findings that increase the suspicion of lung cancer, such as spiculation, GGN that doubles in size in 1 year, enlarged lymph notes, etc. Category Modifiers: S (significant finding unrelated to lung cancer) Electronically Signed: Meet Whitaker MD at 14:58 EDT ,
== END | disposition home or self-care (01) ==
LOC: CT 14:16
PROVIDERS: PCP Internal Medicine; Referring Provider Nurse Practitioner Family; Visit Provider Nurse Practitioner Family
DX: Z87.891 Personal history of nicotine dependence (principal)
CPT/HCPCS: 71271

== ENCOUNTER → 2022-07-08 | Outpatient (CLI) | payer MEDICARE, SELFPAY ==
[2022-07-08 14:06] VITALS: PULSE 74; PULSE 75; PULSE 82; PULSE 85; PULSE 89; PULSE 90; PULSE 92; PULSE 95; O2SAT 95; O2SAT 96; O2SAT 97; O2SAT 98
--- NOTE | 2022-07-09 10:37 | WT_ITS ---
PSN 6 Minute Walk Test 6 Minute Walk Test 6 Minute Walk Test: 6 Minute Walk Test PSN:6-Minute Walk Test Start: 07/08/22 14:06 Freq: Status: Active Protocol: [id number] Document 07/08/22 14:06 [facility] (Rec: 07/08/22 14:09 [facility] [id number]) 6 Minute Walk Test Date Performed 07/08/22 Time Performed 13:45 Height 5 ft 11 in Weight: 188 lb Weight in Pounds 188.[address]: Golden Ewing Assistive device used: None Pre-test Oxygen Delivery Method Room Air Pulse Ox (%) 98 Pulse Rate (60-100 beats/min) 75 Dyspnea Ashlyn Scale (0-10) 0 1st minute Oxygen Delivery Method Room Air Pulse Ox (%) 98 Pulse Rate (60-100 beats/min) 82 Dyspnea Ashlyn Scale (0-10) 0 Number of Rests Taken 0 2nd minute Oxygen Delivery Method Room Air Pulse Ox (%) 98 Pulse Rate (60-100 beats/min) 85 Dyspnea Ashlyn Scale (0-10) 0 Number of Rests Taken 0 3rd minute Oxygen Delivery Method Room Air Pulse Ox (%) 95 Pulse Rate (60-100 beats/min) 90 Dyspnea Ashlyn Scale (0-10) 1 Number of Rests Taken 0 4th minute Oxygen Delivery Method Room Air Pulse Ox (%) 96 Pulse Rate (60-100 beats/min) 89 Dyspnea Ashlyn Scale (0-10) 1 Number of Rests Taken 0 5th minute Oxygen Delivery Method Room Air Pulse Ox (%) 96 Pulse Rate (60-100 beats/min) 92 Dyspnea Ashlyn Scale (0-10) 1 Number of Rests Taken 0 6th minute Oxygen Delivery Method Room Air Pulse Ox (%) 96 Pulse Rate (60-100 beats/min) 95 Dyspnea Ashlyn Scale (0-10) 1 Number of Rests Taken 0 Post-test Oxygen Delivery Method Room Air Pulse Ox (%) 97 Pulse Rate (60-100 beats/min) 74 Dyspnea Ashlyn Scale (0-10) 0 Full Laps Walked 20 Partial Lap, Number of Tiles Walked 9 Total Distance Walked (ft) 1189 Interpretation Interpretation: The patient ambulated 1189 feet over the course of 6 minutes beginning on room air without assistive devices. Pretesting oxygen saturation was noted to be 98% on room air. With ambulation, the danita oxygen saturation was 95%. There was no significant exertional oxygen desaturation. Recommendations Recommendations: There is no indication for the use of supplemental oxygen at this time.
== END | disposition home or self-care (01) ==
LOC: PSN 13:40
PROVIDERS: PCP Internal Medicine; Referring Provider Internal Medicine Critical Care Medicine; Visit Provider Internal Medicine Critical Care Medicine
DX: R91.1 Solitary pulmonary nodule (principal)
CPT/HCPCS: 94618

== ENCOUNTER → 2022-07-11 | Outpatient (CLI) | payer MEDICARE, SELFPAY ==
--- NOTE | 2022-07-14 07:05 | PFT ---
INTRODUCTION: The patient is a 71-year-old female that presents for pulmonary function studies secondary to a diagnosis of pulmonary nodule. Respiratory therapy reported good patient effort. Bronchodilators were used during testing. INTERPRETATION: Forced expiration spirometry demonstrates the presence of a moderately severe large airways obstructive ventilatory defect. There was no significant response to aerosolized bronchodilators. Spirograms are of good quality and plateau normally. Body plethysmography was performed and revealed an elevated RV to 136% of predicted, indicative of underlying air trapping. Diffusing capacity by single breath CO was within normal limits. IMPRESSION: Irreversible moderately severe large airways obstructive ventilatory defect with associated air trapping and preserved diffusing capacity.
== END | disposition home or self-care (01) ==
LOC: PSN 10:33
PROVIDERS: PCP Internal Medicine; Referring Provider Internal Medicine Critical Care Medicine; Visit Provider Internal Medicine Critical Care Medicine
DX: R91.1 Solitary pulmonary nodule (principal)
CPT/HCPCS: 94060; 94726; 94729

== ENCOUNTER → 2022-07-25 | Outpatient (CLI) | payer MEDICARE, SELFPAY ==
--- NOTE | 2022-07-25 12:55 | CT_ITS ---
STUDY: CT CHEST WITHOUT CONTRAST REASON FOR EXAM: Female, 71 years old. RUL nodule. History of thyroid cancer. RADIATION DOSAGE (If Supplied By Facility): CTDIvol = ( 10.07 ) mGy, DLP = ( 369.91 ) mGycm TECHNIQUE: Transaxial imaging was performed without the administration of intravenous contrast material. Multiplanar coronal and sagittal images were reformatted. Individualized dose optimization techniques were used for this CT. COMPARISON: Comparison is made with prior CT scan of thorax dated 05/13/2022. FINDINGS: CHEST Hyperinflation. Mild degree of emphysematous changes. Stable 7 mm noncalcified nodule in the peripheral lateral aspect of the right upper lobe as seen on axial image #54. There is no demonstrated pleural abnormality. There are calcifications of the coronary arteries. There are multiple small lymph nodes within the mediastinum, which are normal in size and morphology most compatible with reactive lymph hyperplasia. Normal hilar regions. Normal unenhanced pulmonary arteries. There is atherosclerotic calcification of the aortic arch with tortuosity and elongation of the aortic arch and descending thoracic aorta. There are multi-level degenerative changes of the thoracic spine. Moderate sized hiatal hernia. Calcified splenic granulomas. CT/Chest without Contrast IMPRESSION: Stable examination. Stable 7 mm noncalcified nodule in the peripheral lateral aspect of the right upper lobe. Electronically Signed: Meet Whitaker MD at 15:02 EDT ,
== END | disposition home or self-care (01) ==
LOC: CT 12:54
PROVIDERS: PCP Internal Medicine; Referring Provider Internal Medicine Critical Care Medicine; Visit Provider Internal Medicine Critical Care Medicine
DX: R91.1 Solitary pulmonary nodule (principal)
CPT/HCPCS: 71250

== ENCOUNTER → 2022-07-28 | Outpatient (CLI) | payer MEDICARE, SELFPAY ==
[2022-07-28 12:21] LABS: Absolute Lymphocyte Count 1.31 X10^3/uL (0.83-4.51); Absolute Neutrophil Count 4.6 X10^3/uL (2.0-7.7); Basophil# 0.07 X10^3/uL; Eosinophil# 0.19 X10^3/uL; Eosinophils% 2.8 % (0-5); Hematocrit 40.2 % (37-47); Hemoglobin 12.4 g/dL (12.0-15.0); Lymphocyte # 1.31 X10^3/ul (0.83-4.51); Lymphocyte % 19.6 % (19-41); Mean Corp Hgb Conc 30.8 g/dL (32-36); Mean Corpuscular Hgb 28.1 pg (27.0-32.0); Mean Corpuscular Volume 91.2 fL (81-99); Monocyte# 0.52 X10^3/uL; Monocyte% 7.8 % (0-10); NRBC Flagged by Analyzer 0 % (0-5); Neutrophil # 4.58 X10^3/uL (2.7-7.7); Neutrophil % 68.5 % (47-70); Platelet Count 251 K/mm3 (150-450); RBC Distribution Width CV 12.5 % (11.6-14.6); RBC Distribution Width SD 41.2 fl (35.1-43.9); Red Blood Count 4.41 M/mm3 (4.2-5.4); White Blood Count 6.7 K/mm3 (4.4-11.0)
[2022-07-28 12:43] LABS: ALB/GLOB Ratio 0.9 RATIO (0.9-2.4); AST(SGOT) 23 U/L (15-37); Alanine Aminotransfer ALT/SGPT 20 U/L (13-56); Albumin, Serum 3.6 g/dL (3.2-5.0); Alkaline Phosphatase 92 U/L (45-117); Anion Gap 11 (5-15); BUN 20 mg/dL (7-18); BUN/Creat Ratio 20.4 RATIO (10-20); Calcium,Total 9.5 mg/dL (8.5-10.1); Chloride 102 mmol/L (98-107); Creatinine, Serum 0.98 mg/dL (0.55-1.02); EST Glomerular Filtration Rate 59 mL/min (>60); Est Glom Filt Rate - Afr Amer 72 mL/min (>60); Globulin 3.9 g/dL (2.2-4.2); Glucose 120 mg/dL (74-106); Potassium 3.9 mmol/L (3.5-5.1); Protein, Total 7.5 g/dL (6.4-8.2); Sodium Level 137 mmol/L (136-145)
== END | disposition home or self-care (01) ==
LOC: BIMLAB 09:33
PROVIDERS: PCP Internal Medicine; Visit Provider Internal Medicine
DX: I10 Essential (primary) hypertension (principal)
CPT/HCPCS: 36415; 80053; 85025

== ENCOUNTER → 2022-11-20 | Outpatient (CLI) | payer MEDICARE, SELFPAY ==
--- NOTE | 2022-11-20 12:55 | CT_ITS ---
STUDY: CT CHEST WITHOUT CONTRAST REASON FOR EXAM: Female, 72 years old. 7 mm nodule. Follow-up examination. RADIATION DOSAGE (If Supplied By Facility): CTDIvol = ( 14.52 ) mGy, DLP = ( 526.21 ) mGycm TECHNIQUE: Transaxial imaging was performed without the administration of intravenous contrast material. Multiplanar coronal and sagittal images were reformatted. Individualized dose optimization techniques were used for this CT. COMPARISON: Comparison is made with prior study dated 07/25/2022. FINDINGS: CHEST Hyperinflation. Emphysematous changes. 5.9 mm noncalcified nodule in the peripheral lateral aspect of the right upper lobe as seen on axial image #48. Stable increased markings at the right lung base suggestive of scarring. There is no demonstrated pleural abnormality. There are calcifications of the coronary arteries. There are multiple small lymph nodes within the mediastinum, which are normal in size and morphology most compatible with reactive lymph hyperplasia. Normal hilar regions. Normal unenhanced pulmonary arteries. There is atherosclerotic calcification of the aortic arch with tortuosity and elongation of the aortic arch and descending thoracic aorta. Normal osseous structures. A large hiatal hernia. Calcified splenic granulomas. CT/Chest without Contrast IMPRESSION: Stable examination. A 12 month follow-up examination is recommended. Electronically Signed: Meet Whitaker MD at 15:36 EST ,
== END | disposition home or self-care (01) ==
LOC: CT 12:55
PROVIDERS: PCP Internal Medicine; Referring Provider Nurse Practitioner Acute Care; Visit Provider Nurse Practitioner Acute Care
DX: R91.1 Solitary pulmonary nodule (principal)
CPT/HCPCS: 71250

== ENCOUNTER → 2023-05-06 | Outpatient (CLI) | payer MEDICARE, SELFPAY ==
[2023-05-06 12:42] LABS: Absolute Lymphocyte Count 1.78 X10^3/uL (0.83-4.51); Absolute Neutrophil Count 5.7 X10^3/uL (2.0-7.7); Basophil% 1.2 % (0-1); Eosinophil# 0.24 X10^3/uL; Eosinophils% 2.8 % (0-5); Hemoglobin 12.7 g/dL (12.0-15.0); Lymphocyte # 1.78 X10^3/ul (0.83-4.51); Lymphocyte % 20.9 % (19-41); Mean Corpuscular Hgb 27.9 pg (27.0-32.0); Mean Corpuscular Volume 90.1 fL (81-99); Mean Platelet Vol. 13.4 fl (6.2-12.0); Monocyte# 0.71 X10^3/uL; Monocyte% 8.3 % (0-10); NRBC Flagged by Analyzer 0 % (0-5); Neutrophil # 5.65 X10^3/uL (2.7-7.7); Neutrophil % 66.4 % (47-70); Platelet Count 243 K/mm3 (150-450); RBC Distribution Width CV 12.8 % (11.6-14.6); RBC Distribution Width SD 42.5 fl (35.1-43.9); Red Blood Count 4.55 M/mm3 (4.2-5.4); White Blood Count 8.5 K/mm3 (4.4-11.0)
[2023-05-06 13:44] LABS: ALB/GLOB Ratio 0.9 RATIO (0.9-2.4); AST(SGOT) 25 U/L (15-37); Alanine Aminotransfer ALT/SGPT 17 U/L (13-56); Albumin, Serum 3.6 g/dL (3.2-5.0); Alkaline Phosphatase 97 U/L (45-117); Anion Gap 5 (5-15); BUN 24 mg/dL (7-18); Calcium,Total 9.1 mg/dL (8.5-10.1); Chloride 106 mmol/L (98-107); Cholesterol 182 mg/dL (200); Creatinine, Serum 0.83 mg/dL (0.55-1.02); EST Glomerular Filtration Rate 72 mL/min (>60); Est Glom Filt Rate - Afr Amer 87 mL/min (>60); Globulin 4.1 g/dL (2.2-4.2); Glucose 109 mg/dL (74-106); High Density Lipoprotein 57 mg/dL; Potassium 3.9 mmol/L (3.5-5.1); Protein, Total 7.7 g/dL (6.4-8.2); Sodium Level 136 mmol/L (136-145); Thyroid Stim Hormone (TSH) 0.75 uIU/mL (0.358-3.74); Triglycerides 68 mg/dL; Very Low Density Lipoprotein 14 mg/dL (5-40)
== END | disposition home or self-care (01) ==
LOC: BIMLAB 11:13
PROVIDERS: PCP Internal Medicine; Referring Provider Internal Medicine; Visit Provider Internal Medicine
DX: E03.9 Hypothyroidism, unspecified (principal); E78.5 Hyperlipidemia, unspecified; I10 Essential (primary) hypertension
CPT/HCPCS: 36415; 80053; 80061; 84443; 85025

== ENCOUNTER → 2023-05-26 | Outpatient (CLI) | payer MEDICARE, SELFPAY ==
--- NOTE | 2023-05-26 13:03 | BI_ITS ---
MAMMOGRAPHY - BILATERAL SCREENING REASON FOR EXAM: Female, 72 years old. Routine annual screening examination. PERTINENT HISTORY: Daughter with breast cancer. Sister with breast cancer. TECHNIQUE: Digital bilateral breast jeannine (3D mammographic acquisition) in the CC and MLO projections. 2-D mediolateral oblique (MLO) and craniocaudad (CC) views of both breasts were obtained. CAD: Full Field Digital Mammography with Computer Added Detection was performed. COMPARISON: Comparison is made with prior study dated 01/04/2020 and December 22, 2018. FINDINGS: Breast Composition: There are scattered areas of fibroglandular density. There are no dominant masses or suspicious calcifications. Stable small bilateral calcified nodules. No other significant abnormalities are identified. There has been no significant change since the prior study. BI/SCRN MAMM (CAD)W/JEANNINE BILAT IMPRESSION: Stable bilateral screening mammogram. Yearly follow-up mammogram recommended. (A) ASSESSMENT CATEGORY: BIRADS Category 2: Benign. A letter regarding these results will be sent to the patient by the facility within 30 days. Approximately 10% of breast cancers are not detected by mammography. A normal mammogram should not delay biopsy of a clinically suspicious abnormality. [id number] Electronically Signed: Meet Whitaker MD at 15:03 EDT ,
--- NOTE | 2023-05-26 13:13 | BD_ITS ---
STUDY: DUAL ENERGY X-RAY ABSORPTIOMETRY / DXA REASON FOR EXAM: Female, 72 years old. Post - menopausal TECHNIQUE: Bone Mineral Density (BMD) measurements of lumbar spine and bilateral hips were obtained. COMPARISON: None. FINDINGS: Lumbar Spine (L1-L4): g/cm2 (1.159) / T-score (0.8) / Z-score (3.2) Findings are suggestive of normal bone density with a low fracture risk. Left Femur Total: g/cm2 (0.830) / T-score (-1.3) / Z-score (0.0) Left Femoral Neck: g/cm2 (0.679) / T-score (-1.9) / Z-score (-0.4) Right Femur Total: g/cm2 (0.835) / T-score (-1.3) / Z-score (0.0) Right Femoral Neck: g/cm2 (0.788) / T-score (-1.1) / Z-score (0.4) BD/Dexa Bone Density Study IMPRESSION: The patient is considered osteopenic as outlined below according to World [place] Organization (WHO) criteria with a moderate fracture risk. Reference Information: The T-score is the number of standard deviations above or below the standard which is normal for young adults at their peak bone mineral density. The World Health Organization (WHO) interprets the T-scores as follows: Above -1 Normal bone density Between -1 and -2.5 Osteopenia Equal to / or below -2.5 Osteoporosis As a practical clinical guideline, osteopenia may be graded as follows: Mild -1 through -1.5 Moderate -1.6 through -2.0 Severe -2.1 through -2.4 The Z-score is the number of standard deviations above or below age-matched controls. A Z-score of less than -1.5 would be considered abnormal. References: 1. NIH Osteoporosis and Related Bone Diseases www osteo.org 2. International Society for Clinical Densitometry www iscd.org 3. National Osteoporosis Foundation www nof.org Electronically Signed: Meet Whitaker MD at 9:56 EDT ,
== END | disposition home or self-care (01) ==
LOC: OPBD 13:01
PROVIDERS: PCP Internal Medicine; Referring Provider Internal Medicine; Visit Provider Internal Medicine
DX: Z12.31 Encounter for screening mammogram for malignant neoplasm of breast (principal); Z78.0 Asymptomatic menopausal state; Z80.3 Family history of malignant neoplasm of breast
CPT/HCPCS: 77063; 77067; 77080

== ENCOUNTER → 2023-11-13 | Outpatient (CLI) | payer MEDICARE, SELFPAY ==
[2023-11-13 15:21] LABS: Absolute Lymphocyte Count 1.82 X10^3/uL (0.83-4.51); Absolute Neutrophil Count 5.7 X10^3/uL (2.0-7.7); Basophil# 0.09 X10^3/uL; Basophil% 1.1 % (0-1); Eosinophil# 0.23 X10^3/uL; Eosinophils% 2.7 % (0-5); Hematocrit 39.4 % (37-47); Hemoglobin 11.8 g/dL (12.0-15.0); Lymphocyte # 1.82 X10^3/ul (0.83-4.51); Lymphocyte % 21.3 % (19-41); Mean Corp Hgb Conc 29.9 g/dL (32-36); Mean Corpuscular Hgb 26.5 pg (27.0-32.0); Mean Corpuscular Volume 88.5 fL (81-99); Monocyte# 0.74 X10^3/uL; Monocyte% 8.7 % (0-10); NRBC Flagged by Analyzer 0 % (0-5); Neutrophil # 5.65 X10^3/uL (2.7-7.7); Platelet Count 310 K/mm3 (150-450); RBC Distribution Width CV 13.6 % (11.6-14.6); RBC Distribution Width SD 44.7 fl (35.1-43.9); Red Blood Count 4.45 M/mm3 (4.2-5.4); White Blood Count 8.6 K/mm3 (4.4-11.0)
[2023-11-13 15:37] LABS: ALB/GLOB Ratio 0.9 RATIO (0.9-2.4); AST(SGOT) 28 U/L (15-37); Alanine Aminotransfer ALT/SGPT 25 U/L (13-56); Albumin, Serum 3.6 g/dL (3.2-5.0); Alkaline Phosphatase 91 U/L (45-117); Anion Gap 7 (5-15); BUN 22 mg/dL (7-18); BUN/Creat Ratio 26.2 RATIO (10-20); Calcium,Total 9.6 mg/dL (8.5-10.1); Chloride 104 mmol/L (98-107); Creatinine, Serum 0.84 mg/dL (0.55-1.02); EST Glomerular Filtration Rate 70 mL/min (>60); Est Glom Filt Rate - Afr Amer 85 mL/min (>60); Globulin 4.1 g/dL (2.2-4.2); Glucose 89 mg/dL (74-106); Potassium 3.7 mmol/L (3.5-5.1); Protein, Total 7.7 g/dL (6.4-8.2); Sodium Level 137 mmol/L (136-145); Thyroid Stim Hormone (TSH) 0.77 uIU/mL (0.358-3.74)
== END | disposition home or self-care (01) ==
LOC: BIMLAB 12:20
PROVIDERS: PCP Internal Medicine; Visit Provider Internal Medicine
DX: I10 Essential (primary) hypertension (principal); E03.9 Hypothyroidism, unspecified
CPT/HCPCS: 36415; 80053; 84443; 85025

== ENCOUNTER → 2023-12-22 | Outpatient (CLI) | payer MEDICARE, SELFPAY ==
--- NOTE | 2023-12-22 13:14 | CT_ITS ---
STUDY: LOW DOSE CT LUNG CANCER SCREENING REASON FOR EXAM: Female, 73 years old. Current smoker. Patient smoked 3-4 cigarettes per day for 55 years. RADIATION DOSAGE (If Supplied By Facility): CTDIvol = ( 3.02 ) mGy, DLP = ( 100.05 ) mGycm TECHNIQUE: No contrast was administered. Low dose technique was utilized (average mAS-38 and kVp 120). 1.25 mm axial source images with a slice interval of 1.25-mm were reconstructed in lung windows. 2.5 mm axial source images with a slice interval of 2.5-mm were reconstructed in lung windows. 5.0 mm axial source images with a slice interval of 5.0-mm were reconstructed in soft tissue windows. COMPARISON: Comparison is made with prior study dated November 20, 1999 NODULES: Stable 6.2 mm noncalcified nodule in the peripheral lateral aspect of the right upper lobe as seen on axial image #94. Emphysema: Stable emphysematous changes with mild scarring in the right lung base. Endobronchial lesion: None Aorta: Atherosclerotic plaque formation of the aortic arch. CORONARY ARTERIES: Coronary artery calcification is seen. Heart: Unremarkable Pulmonary artery: Unremarkable Mediastinal nodes: Small mediastinal lymph nodes. Other chest and abdominal findings: CT/Low Dose CT Lung Screening IMPRESSION: Lung-RADS category 2 - Continue annual screening with LDCT in 12 months. IMPORTANT NOTES FOR USE: ACR Lung-RADS Version 1.1 Assessment Categories Release Date: 2018 Category: Coded 0-4 bases on nodule(s) with highest degree of suspicion. Negative screen is defined as categories 1 and 2; a positive screen is defined as categories 3 and 4. Category 3 and 4A nodules that are unchanged on interval CT should be coded as category 2, and individuals returned to screening in 12 months. Category 4X: Category 3 or 4 nodules with additional imaging findings that increase the suspicion of lung cancer, such as spiculation, GGN that doubles in size in 1 year, enlarged lymph notes, etc. Category Modifiers: S (significant finding unrelated to lung cancer) Electronically Signed: Meet Whitaker MD at 13:57 EST ,
== END | disposition home or self-care (01) ==
LOC: CT 13:12
PROVIDERS: PCP Internal Medicine; Referring Provider Nurse Practitioner Acute Care; Visit Provider Nurse Practitioner Acute Care
DX: F17.210 Nicotine dependence, cigarettes, uncomplicated (principal)
CPT/HCPCS: 71271

== ENCOUNTER → 2024-05-16 | Outpatient (CLI) | payer MEDICARE, SELFPAY ==
[2024-05-16 12:23] LABS: Absolute Lymphocyte Count 1.53 X10^3/uL (0.83-4.51); Absolute Neutrophil Count 5.7 X10^3/uL (2.0-7.7); Basophil# 0.08 X10^3/uL; Eosinophil# 0.19 X10^3/uL; Eosinophils% 2.3 % (0-5); Hematocrit 35.8 % (37-47); Hemoglobin 10.7 g/dL (12.0-15.0); Lymphocyte # 1.53 X10^3/ul (0.83-4.51); Lymphocyte % 18.8 % (19-41); Mean Corp Hgb Conc 29.9 g/dL (32-36); Mean Corpuscular Hgb 25.2 pg (27.0-32.0); Mean Corpuscular Volume 84.2 fL (81-99); Monocyte# 0.64 X10^3/uL; Monocyte% 7.9 % (0-10); NRBC Flagged by Analyzer 0 % (0-5); Neutrophil # 5.67 X10^3/uL (2.7-7.7); Neutrophil % 69.5 % (47-70); Platelet Count 266 K/mm3 (150-450); RBC Distribution Width CV 14.3 % (11.6-14.6); RBC Distribution Width SD 44.4 fl (35.1-43.9); Red Blood Count 4.25 M/mm3 (4.2-5.4); White Blood Count 8.2 K/mm3 (4.4-11.0)
[2024-05-16 13:06] LABS: Bacteria 0 SEEN /hpf (None Seen); Mucous, Urine 0 SEEN /hpf (<or=2+); Red Blood Cells-Urine 0 SEEN /hpf (0-5); Squamous Epithelial Cells - UA 0 SEEN /hpf (5-10); White Blood Cells 0 SEEN /hpf (0-5)
[2024-05-16 15:50] LABS: ALB/GLOB Ratio 0.8 RATIO (0.9-2.4); AST(SGOT) 21 U/L (15-37); Alanine Aminotransfer ALT/SGPT 17 U/L (13-56); Albumin, Serum 3.5 g/dL (3.2-5.0); Alkaline Phosphatase 98 U/L (45-117); Anion Gap 6 (5-15); BUN 24 mg/dL (7-18); BUN/Creat Ratio 27.6 RATIO (10-20); Chloride 103 mmol/L (98-107); Cholesterol 171 mg/dL (200); Creatinine, Serum 0.87 mg/dL (0.55-1.02); EST Glomerular Filtration Rate 67 mL/min (>60); Est Glom Filt Rate - Afr Amer 82 mL/min (>60); Globulin 4.2 g/dL (2.2-4.2); Glucose 80 mg/dL (74-106); High Density Lipoprotein 62 mg/dL; Potassium 4.1 mmol/L (3.5-5.1); Protein, Total 7.7 g/dL (6.4-8.2); Sodium Level 135 mmol/L (136-145); Triglycerides 94 mg/dL; Very Low Density Lipoprotein 19 mg/dL (5-40)
[2024-05-16 16:03] LABS: Color, Urine Straw (Yellow); Glucose, Dipstick Normal (Normal); Ketone-Dipstick Negative (Negative); Leukocyte Esterase-Dipstick Negative /ul (Negative); Nitrite-Dipstick Negative (Negative); Occult Blood-Urine Negative /ul (Negative); Protein-Dipstick Negative (Negative); Urine Bilirubin Dipstick Negative (Negative); Urine Clarity Clear (Clear); Urine Urobilinogen Normal (Normal)
[2024-05-16 16:44] LABS: Ferritin 10 ng/mL (8-252); Iron 60 ug/dL (50-170); Iron Binding Capacity,Total 508 ug/dL (250-450)
== END | disposition home or self-care (01) ==
LOC: BIMLAB 11:15
PROVIDERS: PCP Internal Medicine; Referring Provider Internal Medicine; Visit Provider Internal Medicine
DX: E78.5 Hyperlipidemia, unspecified (principal); E03.9 Hypothyroidism, unspecified; I10 Essential (primary) hypertension; R30.0 Dysuria; D64.9 Anemia, unspecified
CPT/HCPCS: 36415; 80053; 80061; 81001; 82728; 83540; 83550; 84443; 85025

== ENCOUNTER → 2024-06-06 | Outpatient (CLI) | payer MEDICARE, SELFPAY ==
--- NOTE | 2024-06-06 09:37 | BI_ITS ---
MAMMOGRAPHY - BILATERAL SCREENING REASON FOR EXAM: Female, 73 years old. Routine annual screening examination. PERTINENT HISTORY: Daughter with breast cancer. Sister with breast cancer. TECHNIQUE: Digital bilateral breast jeannine (3D mammographic acquisition) in the CC and MLO projections. 2-D mediolateral oblique (MLO) and craniocaudad (CC) views of both breasts were obtained. CAD: Full Field Digital Mammography with Computer Added Detection was performed. COMPARISON: Comparison is made with prior study dated May 26, 2023 and May 04, 2020. FINDINGS: Breast Composition: There are scattered areas of fibroglandular density. There are no dominant masses or suspicious calcifications. No other significant abnormalities are identified. There has been no significant change since the prior study. BI/SCRN MAMM (CAD)W/JEANNINE BILAT IMPRESSION: Stable bilateral screening mammogram. Yearly follow-up mammogram recommended. (A) ASSESSMENT CATEGORY: BIRADS Category 1: Negative. A letter regarding these results will be sent to the patient by the facility within 30 days. Approximately 10% of breast cancers are not detected by mammography. A normal mammogram should not delay biopsy of a clinically suspicious abnormality. [id number] Electronically Signed: Meet Whitaker MD at 11:08 EDT ,
== END | disposition home or self-care (01) ==
LOC: OPBI 09:37
PROVIDERS: PCP Internal Medicine; Referring Provider Internal Medicine; Visit Provider Internal Medicine
DX: Z12.31 Encounter for screening mammogram for malignant neoplasm of breast (principal); Z80.3 Family history of malignant neoplasm of breast
CPT/HCPCS: 77063; 77067

== ENCOUNTER → 2025-02-06 | Outpatient (CLI) | payer MEDICARE, SELFPAY ==
[2025-02-06 12:49] LABS: Absolute Lymphocyte Count 1.56 X10^3/uL (0.83-4.51); Absolute Neutrophil Count 4.8 X10^3/uL (2.0-7.7); Basophil# 0.09 X10^3/uL; Basophil% 1.2 % (0-1); Eosinophil# 0.25 X10^3/uL; Eosinophils% 3.3 % (0-5); Hematocrit 41.6 % (37-47); Hemoglobin 13.2 g/dL (12.0-15.0); Lymphocyte # 1.56 X10^3/ul (0.83-4.51); Lymphocyte % 20.7 % (19-41); Mean Corp Hgb Conc 31.7 g/dL (32-36); Mean Corpuscular Hgb 28.6 pg (27.0-32.0); Mean Corpuscular Volume 90.2 fL (81-99); Mean Platelet Vol. 13.4 fl (6.2-12.0); Monocyte# 0.75 X10^3/uL; NRBC Flagged by Analyzer 0 % (0-5); Neutrophil # 4.84 X10^3/uL (2.7-7.7); Neutrophil % 64.4 % (47-70); Platelet Count 241 K/mm3 (150-450); RBC Distribution Width CV 12.1 % (11.6-14.6); RBC Distribution Width SD 39.8 fl (35.1-43.9); Red Blood Count 4.61 M/mm3 (4.2-5.4); White Blood Count 7.5 K/mm3 (4.4-11.0)
[2025-02-06 23:35] LABS: Ferritin 99 ng/mL (22-378); Thyroid Stim Hormone (TSH) 0.346 uIU/mL (0.300-4.200)
[2025-02-07 00:24] LABS: Iron 98 ug/dL (50-170); Iron Binding Capacity,Total 408 ug/dL (250-450); Iron Binding Capacity,Unsat 310 ug/dL (228-428)
[2025-02-07 00:40] LABS: ALB/GLOB Ratio 1.4 RATIO (0.9-2.4); AST(SGOT) 29 U/L (<=31); Alanine Aminotransfer ALT/SGPT 14 U/L (<=34); Albumin, Serum 4.3 g/dL (3.4-4.8); Alkaline Phosphatase 93 U/L (35-104); Anion Gap 15 (5-15); BUN 26 mg/dL (4-19); BUN/Creat Ratio 32.5 RATIO (10-20); Calcium,Total 9.8 mg/dL (7.6-11.0); Carbon Dioxide 22.4 mmol/L (21.0-32.0); Chloride 100 mmol/L (98-108); EST Glomerular Filtration Rate 76 (>60); Globulin 3.1 g/dL (2.2-4.2); Glucose 99 mg/dL (70-99); Potassium 4.3 mmol/L (3.3-5.1); Protein, Total 7.4 g/dL (5.9-8.4); Sodium Level 137 mmol/L (133-145); Total Bilirubin 0.42 mg/dL (0.00-1.30)
== END | disposition home or self-care (01) ==
LOC: BIMLAB 10:45
PROVIDERS: PCP Internal Medicine; Referring Provider Internal Medicine; Visit Provider Internal Medicine
DX: D64.9 Anemia, unspecified (principal); E03.9 Hypothyroidism, unspecified
CPT/HCPCS: 36415; 80053; 82728; 83540; 83550; 84443; 85025

== ENCOUNTER 2025-02-22 10:00 | Outpatient (RCR) | payer MEDICARE, SELFPAY ==
--- NOTE | 2024-10-19 10:57 | HP.PTEVAL_ITS ---
Patient's Visit Information Visit Information Visit Information: KEARA MARIO is a 74 year old F referred to Physical Therapy by Dr. Blaise Farias MD with a diagnosis of L shoulder pain/arthritis/Rc tear. Date of Evaluation: 10/19/24 Physical Therapist: SHERMAN Goordich Visit Plan Frequency: 2x /Week Duration: 2 Months Plan: 1X/ week for 8 weeks per pt request for AAROM of the L shoulder, RC st rength and scapular strength with HEP. HEP: supine wand flexion, Supine wand ER with a towel, and standing orange mid rows Subjective Subjective: Pt is having L shoulder pain. She has had it for awhile. She just woke up one morning and the pain started. It is hard for her to hold up her hand. She can do a lot around the house because it is her L shoulder. She can not lay on her L shoulder. She points to her pain in the front of the shoulder and also along the back of the shoulder. She has no N&T. She has pain when she lifts it. Movement quinten overhead hurts the worst. She has trouble combing her hair. She can do it but bringing her arm back down really hurts. She got a cortisone shot about 3 weeks ago and it helped for awhile and is better than it was before but it still bothers her. They did an x-ray and they said it was arthritis. She has weakness in that L shoulder. She is R handed. Pain L shoulder pain: Pain Intensity (Out of 10): 2 Pain Intensity Range: 9 Objective Objective: R shoulder flex 160 and L shoulder flex 107 R T8 and L L1 R ER 83 and L 43 R shoulder ABD 180 and L 65 UE MMT: R shoulder flex 8.9 and L 3.1 R shoulder ER 11 and L 5 R shoulder IR 8.4 and L 5.9 Supine PROM L shoulder increase popping with each advancement in PROM. Pt did better with wand and AAROM into flex and ER Balance/Special Test Scores Quick DASH Score: 40.9075 Goals Goal 1:: I HEP Goal Time Frame: 6-8 Weeks Goal 2:: Increase L shoulder AROM (at the time of the eval: R shoulder flex 160 and L shoulder flex 107 R T8 and L L1 R ER 83 and L 43 R shoulder ABD 180 and L 65) Goal Time Frame: 6-8 Weeks Goal 3:: Increase L shoulder strength (at the time of the eval: R shoulder flex 8.9 and L 3.1 R shoulder ER 11 and L 5 R shoulder IR 8.4 and L 5.9) Goal Time Frame: 6-8 Weeks Goal 4:: Be able to use her L arm to do her hair with 50% less pain Goal Time Frame: 6-8 Weeks Rehabilitation Potential Rehabilitation Potential: Good Anticipated Interventions Patient/Client Instruction: Educate patient on: Condition and Plan of Care For the Purpose of:: To decrease pain, To increase ROM, To improve nutrient delivery to tissue, To improve muscle performance and motor function, To improve ability to perform ADL's, To increase tolerance to activity/condition/position, To improve health of tissue, To decrease soft tissue restriction and To increase flexibility/ROM Therapeutic Exercise to Include: Strength training, Endurance training, Postural training, Flexibilty training, Active ROM and Scapular Strength/Stabilization For the Purpose of:: To decrease pain, To increase ROM, To improve nutrient delivery to tissue, To improve muscle performance and motor function, To improve ability to perform ADL's, To increase tolerance to activity/condition/position, To improve performance and independence with ADL's, To decrease level of supervision to perform tasks, To improve ability of physical actions for home/co mmunity/work/leisure, To improve health of tissue, To decrease soft tissue restriction and To increase flexibility/ROM Manual Therapy Techniques to Include: Passive ROM For the Purpose of:: To increase ROM Text: Thank you for the opportunity to evaluate your patient. For Medicare and Medicare HMO plans, please review the plan of care and approve it. It will need to be FAXED BACK to us at [phone] for Medicare purposes. For Medicare only, by signing this I certify the plan of care. Please let me know if there are questions or concerns regarding this plan of care. Physician Signature: Date:
--- NOTE | 2025-01-25 12:43 | HP.PTREVAL ---
Re-Evaluation Intro: Dr. Blaise Farias MD, It has been my pleasure to treat KEARA MARIO over the last 7 visits for L shoulder pain/arthritis/Rc tear. Please see the progress note below for an update on the physical therapy plan of care! Subjective Subjective: Pt had the flu and she was not able to do that much at home as far as exercises and now she is back to painful. She has no pain at rest but she has pain when she reaches up to comb her hair. She thinks that her shoulder felt better with therapy. She goes to the chiropractor and she uses electric stim which is not covered. Pt wants to do more therapy to see if she can get back into it from having the flu. Objective Objective/Function: R shoulder flex 160 and L shoulder flex 75 R T8 and L L1 R ER 83 and L 43 R shoulder ABD 180 and L 80 PROM L shoulder has less clunking going up but still a lot of clunking going down Plan Plan Plan: 1X/ week for an additional 4 weeks for AAROM of the L shoulder, RC strength and scapular strength with HEP. HEP: supine wand flexion, Supine wand ER with a towel, and standing orange mid rows Balance/Gait/Functional tests Balance/Special Test Scores Quick DASH Score: 43.1800 Goals Goals Goal 1:: I HEP Goal Time Frame: 6-8 Weeks Goal 2:: Increase L shoulder AROM (at the time of the eval: R shoulder flex 160 and L shoulder flex 107 R T8 and L L1 R ER 83 and L 43 R shoulder ABD 180 and L 65) Goal Time Frame: 6-8 Weeks Goal 3:: Increase L shoulder strength (at the time of the eval: R shoulder flex 8.9 and L 3.1 R shoulder ER 11 and L 5 R shoulder IR 8.4 and L 5.9) Goal Time Frame: 6-8 Weeks Goal 4:: Be able to use her L arm to do her hair with 50% less pain Goal Time Frame: 6-8 Weeks Anticipated Interventions Anticipated Interventions Patient/Client Instruction: Educate patient on: Condition and Plan of Care For the Purpose of:: To decrease pain, To increase ROM, To improve nutrient delivery to tissue, To improve muscle performance and motor function, To improve ability to perform ADL's, To increase tolerance to activity/condition/position, To improve health of tissue, To decrease soft tissue restriction and To increase flexibility/ROM Therapeutic Exercise to Include: Strength training, Endurance training, Postural training, Flexibilty training, Active ROM and Scapular Strength/Stabilization For the Purpose of:: To decrease pain, To increase ROM, To improve nutrient delivery to tissue, To improve muscle performance and motor function, To improve ability to perform ADL's, To increase tolerance to activity/condition/position, To improve performance and independence with ADL's, To decrease level of supervision to perform tasks, To improve ability of physical actions for home/community/work/leisure, To improve health of tissue, To decrease soft tissue restriction and To increase flexibility/ROM Manual Therapy Techniques to Include: Passive ROM For the Purpose of:: To increase ROM Re-Evaluation Ending Re-evaluation ending: Please do not hesitate to contact me at [phone] by phone or if you have questions or concerns regarding this new plan of care! Sincerely, Colleen Stewart, MPT
--- NOTE | 2025-02-22 12:15 | HP.PTDCSUM ---
Discharge Summary D/C summary: It has been my pleasure to treat KAERA MARIO referred by Dr. Blaise Farias MD, with the diagnosis of L shoulder pain/arthritis/Rc tear for a total of 10 visit(s). Discharge Date: 02/22/25 Please see the following information for a summary of their discharge status. Subjective Subjective: Pt reports that she does not hurt as bad with her arm down by her side but she can not reach it up over her head. She has 8-9/10 when she reaches up and brings it down. She is not sleeping well most night cause she can not get comfortable. She would like an MRI to see what is really going on. Pain L shoulder pain: Pain Intensity (Out of 10): 0 Overall Improvement % Improvement: 40 Objective Objective/Function: R shoulder flex 160 and L shoulder flex 107 R T8 and L L1 R ER 83 and L 43 R shoulder ABD 180 and L 70 UE MMT: R shoulder flex 8.9 and L 4.1 R shoulder ER 11 and L 5.5 R shoulder IR 8.4 and L 5.9 Goals Goal 1:: I HEP Goal Progress: Goal Met Goal 2:: Increase L shoulder AROM (at the time of the eval: R shoulder flex 160 and L shoulder flex 107 R T8 and L L1 R ER 83 and L 43 R shoulder ABD 180 and L 65) Goal Progress: Not Progressing Goal 3:: Increase L shoulder strength (at the time of the eval: R shoulder flex 8.9 and L 3.1 R shoulder ER 11 and L 5 R shoulder IR 8.4 and L 5.9) Goal Progress: Progressing Goal 4:: Be able to use her L arm to do her hair with 50% less pain Goal Progress: Not Progressing Plan Plan: 1X/ week for an additional 4 weeks for AAROM of the L shoulder, RC strength and scapular strength with HEP. HEP: supine wand flexion, Supine wand ER with a towel, and standing orange mid rows D/C Information Discharge Comments: DC PT back to Dr miller sentence: If there are questions or concerns regarding this patient's physical therapy, please feel free to call me at [phone]. Thank you for the referral of this patient. Sincerely, Colleen Stewart, MPT Balance/Gait/Functional tests Balance/Special Test Scores Quick DASH Score: 50.0000 Improvement % Improvement: 40
== END 2025-02-22 12:25 | disposition home or self-care (01) ==
LOC: PT 10:00
PROVIDERS: PCP Internal Medicine; Referring Provider Orthopaedic Surgery Sports Medicine; Visit Provider Orthopaedic Surgery Sports Medicine
DX: M25.512 Pain in left shoulder (principal); M19.012 Primary osteoarthritis, left shoulder; M75.102 Unspecified rotator cuff tear or rupture of left shoulder, not specified as traumatic; M12.812 Other specific arthropathies, not elsewhere classified, left shoulder
CPT/HCPCS: 97110; 97140; 97161; 97530

== ENCOUNTER → 2025-03-23 | Outpatient (CLI) | payer MEDICARE, SELFPAY ==
--- NOTE | 2025-03-23 06:47 | CT_ITS ---
PROCEDURE: EXTREMITY UPPER WITHOUT contrast 03/23/2025 REASON FOR EXAM: BLUEPRINT PLANNING FOR RTSA TECHNIQUE: Axial CT images of the left shoulder obtained without intravenous contrast. Coronal and Sagittal reconstruction series were provided. One or more dose reduction techniques were used (e.g., Automated exposure control, adjustment of the mA and/or kV according to patient size, use of iterative reconstruction technique COMPARISON: None FINDINGS: See impression CT/Extremity Upper without Contra IMPRESSION: Severe left shoulder osteoarthritis including [id number] articulation, osseou s remodeling, subchondral sclerosis/cysts and marginal osteophytes. No significant posterior glenoid wear, however there are rather extensive subcortical cysts along the posterior lip. Mild diffuse fatty marbling of the rotator cuff musculature wit hout significant loss of muscle bulk. Small shoulder joint effusion and fluid in the biceps tendon. Mild/moderate acromioc lavicular joint osteoarthritis. Moderate hiatal hernia. Coronary artery calcifications. Visualized portions of the left lung are clear. Reading Location: [facility]
== END | disposition home or self-care (01) ==
LOC: CT 06:47
PROVIDERS: PCP Internal Medicine; Referring Provider Orthopaedic Surgery Sports Medicine; Visit Provider Orthopaedic Surgery Sports Medicine
DX: M75.102 Unspecified rotator cuff tear or rupture of left shoulder, not specified as traumatic (principal); M12.812 Other specific arthropathies, not elsewhere classified, left shoulder
CPT/HCPCS: 73200

== ENCOUNTER → 2025-03-31 | Outpatient (CLI) | payer MEDICARE, SELFPAY ==
--- NOTE | 2025-03-31 07:28 | MRI_ITS ---
PROCEDURE: UPPER EXT JOINT ONLY(ROUTINE) 03/31/2025 REASON FOR EXAM: PAIN, HARD TO LIFT TECHNIQUE: T1, T2, PD, MRI of the left shoulder. Multiplanar and multisequence images were obtained without IV contrast administration. COMPARISON: COMPARISON : March 23, 2025 CT FINDINGS: Bone Marrow: There is severe osteoarthritis of the glenohumeral articulation with marginal osteophytes, subcortical cyst formation, and heterogeneous adjacent marrow, without visible acute fracture. There is severe chondromalacia at the glenohumeral articulation. There is severe AC joint hypertrophy with a small effusion. There is a type 3 acromion with impingement configuration. Effusion: There is a large joint effusion. There is fluid in the subacromial subdeltoid bursa, with bursitis. Soft Tissues: There is moderate muscular atrophy in the supraspinatus and infraspinatus muscle bodies. There is severe supraspinatus, infraspinatus, and subscapularis tendinopathy without full- thickness tear or retraction. The teres minor appears intact. There is a tear of the labrum from the 10 o'clock 2 o'clock position including the biceps tendon anchor. The biceps tendon appears intact. MRI/Upper Ext Joint Only(Routine) IMPRESSION: There is severe osteoarthritis of the glenohumeral articulation with marginal o steophytes, subcortical cyst formation, and heterogeneous adjacent marrow, without visible acute fracture. There is severe chondromalacia at the glenohumeral articulation. There is severe AC joint hypertrophy with a small effusion. There is a type 3 acromion with impingement configuration. There is a large joint effusion. There is fluid in the subacromial subdeltoid bursa, with bursitis. There is moderate muscular atrophy in the supraspinatus and infraspinatus muscl e bodies. There is severe supraspinatus, infraspinatus, and subscapularis tendinopathy wi thout full-thickness tear or retraction. There is a tear of the labrum from the 10 o'clock 2 o'clock position including the biceps tendon anchor. [facility]
== END | disposition home or self-care (01) ==
LOC: MRI 07:12
PROVIDERS: PCP Internal Medicine; Referring Provider Orthopaedic Surgery Sports Medicine; Visit Provider Orthopaedic Surgery Sports Medicine
DX: M75.102 Unspecified rotator cuff tear or rupture of left shoulder, not specified as traumatic (principal); M12.812 Other specific arthropathies, not elsewhere classified, left shoulder
CPT/HCPCS: 73221

== ENCOUNTER → 2025-09-30 | Outpatient (CLI) | payer MEDICARE, SELFPAY ==
--- OUTSIDE RECORDS SUMMARY | 2025-09-30 08:58 | XMS RPT_ITS | CCD ---
Author Organization [facility] Care Team Providers Care Salesperson Hearing Aids Name Role Phone Dr. Dario Pratt Primary Care Provider [phone] Dr. Dario Pratt Referring Provider [phone] Dr. Ramón Katz Attending Provider HILLARY Ashby Attending Provider Unavailab Dr. Parviz Bryson Attending Provider Dr. Dario Pratt Primary Care Provider [phone] Dr. Dario Pratt Referring Provider [phone] Dr. Parviz Tafoya Other Provider Laine PIPE STRESS ENGINEER, PIPE STRESS ENGINEER-C Lo Attending Provider Dr. Golden Ewing Attending Provider [phone] Dario Pratt Primary Care Provider [phone] Dr. Dario Pratt Referring Provider [phone] Dr. Parviz Tafoya Attending Provider Laine PIPE STRESS ENGINEER, PIPE STRESS ENGINEER-C Lo Referring Provider Dr. Golden Ewing Referring Provider Dr. Golden Ewing Other Provider Dr. Edmund Garcia Attending Provider Dr. Dario Pratt Attending Provider [phone] Dr. Dario Pratt Primary Care Provider [phone] Dr. Dario Pratt Referring Provider [phone] Jaclyn PIPE STRESS ENGINEER, PIPE STRESS ENGINEER-C Rosemary Attending Provider Dr. Dario Pratt Primary Care Provider [phone] Dr. Dario Pratt Attending Provider [phone] Dr. Dario Pratt Referring Provider [phone] Santa FREEMAN, Dr. Bishop Primary Care Provider Santa FREEMAN, Dr. Bishop Referring Provider [phone] Jaclyn PIPE STRESS ENGINEER-C, Rosemary Attending Provider Cody Matthew Attending Provider Santa FREEMAN, Dr. Bishop Attending Provider [phone] Blaise Farias MD Attending Provider [phone] Blaise Farias MD Referring Provider [phone] Blaise Farias MD Attending Provider [phone] Blaise Farias MD Referring Provider [phone] Santa FREEMAN, Dr. Bishop Primary Care Provider Santa FREEMAN, Dr. Bishop Referring Provider [phone] Santa FREEMAN, Dr. Bishop Primary Care Provider Santa FREEMAN, Dr. Bishop Referring Provider [phone] Oleghe, Efewongbe Primary Care Unavailable Anaya PIPE STRESS ENGINEER, Rosemary Referring Unavailable Anaya PIPE STRESS ENGINEER, Rosemary Attending Unavailable Oleghe, Efewongbe Primary Care Unavailable Anaya PIPE STRESS ENGINEER, Rosemary Referring Unavailable Anaya PIPE STRESS ENGINEER, Rosemary Attending Unavailable Oleghe, Efewongbe Primary Care Unavailable Anaya PIPE STRESS ENGINEER, Rosemary Referring Unavailable Anaya PIPE STRESS ENGINEER, Rosemary Attending Unavailable Blaise Farias Attending Unavailable Oleghe, Efewongbe Referring Unavailable Oleghe, Efewongbe Primary Care Unavailable Oleghe, Efewongbe Referring Unavailable Blaise Farias Attending Unavailable Oleghe, Efewongbe Primary Care Unavailable Oleghe, Efewongbe Referring Unavailable Oleghe, Efewongbe Attending Unavailable Oleghe, Efewongbe Primary Care Unavailable Blaise Farias Attending Unavailable Oleghe, Efewongbe Primary Care Unavailable Oleghe, Efewongbe Referring Unavailable Oleghe, Efewongbe Attending Unavailable Oleghe, Efewongbe Primary Care Unavailable Oleghe, Efewongbe Referring Unavailable Oleghe, Efewongbe Primary Care Unavailable Oleghe, Efewongbe Referring Unavailable Jaclyn PIPE STRESS ENGINEERRosemary Attending Unavailable Oleghe, Efewongbe Referring Unavailable Blaise Farias Attending Unavailable Oleghe, Efewongbe Primary Care Unavailable Oleghe, Efewongbe Primary Care Unavailable Oleghe, Efewongbe Referring Unavailable Cody Matthew Attending Unavailable Oleghe, Efewongbe Attending Unavailable Oleghe, Efewongbe Primary Care Unavailable Oleghe, Efewongbe Referring Unavailable Oleghe, Efewongbe Primary Care Unavailable Jaclyn PIPE STRESS ENGINEERRosemary Referring Unavailable Jaclyn PIPE STRESS ENGINEER, Rosemary Attending Unavailable Blaise Farias Attending Unavailable Oleghe, Efewongbe Primary Care Unavailable Blaise Farias Referring Unavailable Oleghe, Efewongbe Attending Unavailable Oleghe, Efewongbe Primary Care Unavailable Oleghe, Efewongbe Referring Unavailable Blaise Farias Attending Unavailable Oleghe, Efewongbe Primary Care Unavailable Blaise Farias Referring Unavailable Blaise Farias Attending Unavailable Oleghe, Efewongbe Primary Care Unavailable Blaise Farias Referring Unavailable Oleghe, Efewongbe Primary Care Unavailable Jaclyn PIPE STRESS ENGINEERRosemary Referring Unavailable Jaclyn PIPE STRESS ENGINEER, Rosemary Attending Unavailable Medications Current Medications Medication Drug Class(es) Dates Sig (Normalized) Sig (Original) calcium carbonate 1500 mg oral tablet (16 sources) Start: 07-14-2018 take 1 tablet by mouth twice daily Calcium Carbonate (Calcium 600) 600 mg calcium (1,500 mg) tablet Active 600 mg PO TWICE A DAY July 14, 2018 12:00am cetirizine hydrochloride 10 mg oral tablet (16 sources) Histamine-1 Receptor Antagonist Start: 04-07-2022 take 1 tablet by mouth once daily Cetirizine (Zyrtec) 10 mg Tablet Active 10 mg PO DAILY April 07, 2022 12:00am Start: 05-10-2020 Cetirizine Act shavon 10 MG PO NEEDED May 10, 2020 1:38pm cholecalciferol 0.05 mg oral tablet (16 sources) Vitamin D Start: 07-14-2018 take 1 tablet by mouth once daily Cholecalciferol (Vitamin D3) 2,000 unit tablet Active 2000 U PO DAILY July 14, 2018 12:00am doxepin hydrochloride 10 mg oral capsule (1 source) Tricyclic Antidepressant Start: 01-28-2021 take 10 mg by mouth at bedtime Doxepin Active 10 MG PO AT BEDTIME January 28, 2021 11:02am ferrous sulfate 325 mg oral tablet (20 sources) Start: 12-26-2024 take 1 tablet by mouth once daily Ferrous Sulfate 325 mg (65 mg iron) tablet Active 325 mg PO daily December 26, 2024 1:00am Start: 01-29-2021 End: 05-16-2024 take 1 tablet by mouth once daily Ferrous Sulfate 325 mg (65 mg iron) tablet Discontinued 325 mg PO DAILY September 03, 2021 10:04am March 03, 2022 10:45am fluticasone propionate 0.05 mg/actuat metered dose nasal spray (20 sources) Corticosteroid Start: 05-13-2022 Fluticasone Pr opionate 50 mcg/actuation spray,suspension Active 1 NMA INTRANASAL DAILY as needed for allergy symptoms May 13, 2022 12:00am administer into each nostril Start: 05-13-2022 take 1 spray(s) nasa l route once daily Fluticasone Propionate Active 1 SPRAY INTRANASAL DAILY May 13, 2022 12:00am administer into each nostril Start: 10-05-2019 End: 04-07-2020 take 1 spray(s) nasal route once daily as needed Fluticasone Propionate 16 GM spray,suspension Discontinued 1 NMA INTRANASAL DAILY as needed for Allergies October 05, 2019 9:21am April 07, 2020 9:30am 1 spray to each nostril daily Start: 07-11-2018 End: 08-13-2018 take 1 spray(s) nasal route once daily Fluticasone Propionate 1 SPRAY spray,suspension Discontinued 1 NMA NASAL DAILY 1 0 July 11, 2018 12:00am August 13, 2018 8:17am 1 spray to each nostril daily Start: 03-03-2018 End: 06-19-2021 take 1 spray(s) nasal route once daily as needed Fluticasone Propionate 50 mcg/actuation spray,suspension Discontinued 1 NMA INTRANASAL DAILY as needed for Allergies 54.6 3 March 13, 2021 2:21pm June 19, 2021 5:05pm 1 spray to each nostril daily Start: 03-03-2018 End: 07-14-2018 Fluticasone Propionate (Flon ase Allergy Relief) 50 mcg/actuation spray,suspension Discontinued 1 NMA INTRANASAL daily March 03, 2018 12:00am July 14, 2018 9:55am latanoprost 0.05 mg/ml ophthalmic solution (15 sources) Prostaglandin Analog Start: 04-07-[address] 0.005 % drops Active 1 NMA EACH EYE DAILY April 07, 2022 12:00am Multivitamin tablet (2 sources) Start: 05-17-2025 Multivitamin tablet Active 1 {tbl} PO EVERY MORNING May 17, 2025 12:00am omeprazole 40 mg delayed release oral capsule (1 source) Proton Pump Inhibitor Start: 02-17-2022 take 40 mg by mouth once daily Omeprazole Active 40 MG PO DAILY February 17, 2022 2:40pm Completed/Discontinued Medications Medication Drug Class(es) Dates Sig (Normalized) Sig (Original) acetaminophen 325 mg / HYDROcodone bitartrate 5 mg oral tablet (16 sources) Opioid Agonist Start: 05-16-2020 End: 05-18-2020 Hydrocodone-Acetamino phen 1 TABLET tablet Discontinued 1 {tbl} PO EVERY 6 HOURS NEEDED as needed for Pain 8 2 0 May 16, 2020 May 17, 2020 12:00am May 18, 2020 12:03am Postoperative pain Other acute postprocedural pain Start: 05-16-2020 End: 05-18-2020 take 1 tablet by mouth every six hours as needed Hydrocodone-Acetaminophen Discontinued 1 TABLET PO EVERY 6 HOURS NEEDED 8 2 May 16, 2020 May 18, 2020 12:03am [id number] 200 actuat albuterol 0.09 mg/actuat metered dose inhaler (20 sources) beta2-Adrenergic Agonist Start: 07-14-2018 End: 02-06-2025 Albuterol Sulfate 90 mcg/actuation HFA aerosol inhaler Discontinued 2 NMA INHALATION EVERY 6 HOURS NEEDED as needed for for wheezing 8.5 3 September 19, 2024 5:41pm February 06, 2025 12:59pm Start: 07-14-2018 End: 03-24-2023 take 1 puff(s) by inhalation every six hours Albuterol Sulfate Discontinued 2 PUFF INHALATION EVERY 6 HOURS 8.5 March 13, 2021 2:21pm July 28, 2022 9:14am Start: 07-14-2018 End: 01-27-2020 take 1 puff(s) by inhalation every six hours Albuterol Sulfate (Ventolin Hfa) 90 mcg/actuation HFA aerosol inhaler Discontinued 1 PUFF INHALATION EVERY 6 HOURS 8.5 July 14, 2018 11:03am January 27, 2020 10:26am Start: 07-14-2018 End: 07-14-2018 take 1 puff(s) by inhalation every six hours Albuterol Sulfate (Ventolin Hfa) 90 mcg/actuation HFA aerosol inhaler Discontinued 1 PUFF INHALATION EVERY 6 HOURS July 14, 2018 9:58am July 14, 2018 11:05am Start: 07-14-2018 End: 07-14-2018 Albuterol Sulfate (Ventolin Hfa) 90 mcg/actuation HFA aerosol inhaler Discontinued 1 NMA INHALATION EVERY 6 HOURS as needed July 14, 2018 12:00am July 14, 2018 11:05am Start: 07-14-2018 End: 07-14-2018 take 1 puff(s) by inhalation every six hours Albuterol Sulfate (Ventolin Hfa) 90 mcg/actuation HFA aerosol inhaler Discontinued 1 PUFF INHALATION EVERY 6 HOURS July 14, 2018 12:00am July 14, 2018 11:05am amoxicillin 875 mg / clavulanate 125 mg oral tablet (6 sources) Penicillin-class Antibacterial Start: 12-26-2024 End: 02-06-2025 Amoxicillin-Pot Clavulanate 875-125 mg tablet Discontinued 1 {tbl} PO TWICE A DAY 20 0 December 26, 2024 1:00am February 06, 2025 10:12am azithromycin 250 mg oral tablet (16 sources) Macrolide Antimicrobial Start: 01-27-2020 End: 05-10-2020 take 2-5 tablets by mouth once daily Azithromycin 250 mg tablet Discontinued 0 PO .COMPLEX 6 0 January 27, 2020 12:00am May 10, 2020 9:48am take 500 mg today (day 1), then 250 mg for 4 days (days 2-5) PO bismuth subsalicylate 35 mg/ml oral suspension (14 sources) Bismuth Start: 04-16-2022 End: 04-30-2022 Bismuth Subsalicylate 525 mg/15 mL suspension Discontinued 525 mg PO .QID as needed for h. pylori 840 14 0 April 16, 2022 12:00am April 29, 2022 12:00am April 30, 2022 12:03am do not exceed 8 doses in a 24 hour period clarithromycin 500 mg oral tablet (14 sources) Macrolide Antimicrobial Start: 04-16-2022 End: 04-30-2022 take 1 tablet by mouth twice daily Clarithromycin 500 mg tablet Discontinued 500 mg PO TWICE A DAY 28 14 0 April 16, 2022 12:00am April 29, 2022 12:00am April 30, 2022 12:03am esomeprazole 40 mg delayed release oral capsule (20 sources) Proton Pump Inhibitor Start: 04-07-2022 End: 11-01-2024 take 1 capsule by mouth once daily Esomeprazole Magnesium 40 mg capsule,delayed release(DR/EC) Discontinued 40 mg PO DAILY 90 2 July 28, 2022 9:13am November 01, 2024 11:57am Start: 06-19-2021 End: 02-17-2022 take 1 capsule by mouth once daily as needed Esomeprazole Magnesium 40 mg capsule,delayed release(DR/EC) Discontinued 40 mg PO DAILY as needed for hiatal hernia 90 2 June 19, 2021 5:05pm February 17, 2022 2:40pm Start: 06-19-2021 End: 06-19-2021 Esomeprazole Magnesium 40 mg capsule,delayed release(DR/EC) Discontinued 20 mg PO DAILY as needed for hiatal hernia 90 2 June 19, 2021 5:04pm June 19, 2021 5:05pm Start: 06-19-2021 End: 06-19-2021 take 20 mg by mouth once daily Esomeprazole Magnesium Discontinued 20 MG PO DAILY 90 June 19, 2021 5:04pm June 19, 2021 5:05pm Start: 09-21-2019 End: 06-19-2021 take 1 capsule by mouth once daily as needed Esomeprazole Magnesium (Nexium) 20 mg capsule,delayed release(DR/EC) Discontinued 20 mg PO DAILY as needed for hiatal hernia September 21, 2019 1:00am June 19, 2021 5:05pm famotidine 20 mg oral tablet (16 sources) Histamine-2 Receptor Antagonist Start: 01-25-2020 End: 05-10-2020 Famotidine 20 MG tablet Discontinued 20 mg PO NEEDED as needed for reflux January 25, 2020 12:00am May 10, 2020 9:49am Fluad Quad (65yr up)(PF) 60 mcg (15 mcg x 4)/0.5mL IM syringe (flu vac (2 sources) Start: 10-01-2021 End: 10-01-2021 Fluad Quad (65yr up)(PF) 60 mcg (15 mcg x 4)/0.5mL IM syringe (flu vac Discontinued 60 MCG IM ONCE 0.5 October 01, 2021 10:54am October 01, 2021 11:28am gemfibrozil 600 mg oral tablet (20 sources) Peroxisome Proliferator Receptor alpha Agonist Start: 03-03-2018 End: 02-07-2025 take 1 tablet by mouth twice daily Gemfibrozil 600 mg tablet Discontinued 600 mg PO TWICE A DAY 180 1 January 16, 2025 2:10pm February 06, 2025 12:59pm hydroCHLOROthiazide 25 mg / triamterene 37.5 mg oral tablet (20 sources) Potassium-sparing Diuretic, Thiazide Diuretic Start: 01-28-2021 End: 02-07-2025 Triamterene-[place] chlorothiazid 37.5-25 mg tablet Discontinued 1 {tbl} PO EVERY MORNING 90 0 January 30, 2025 4:14pm February 06, 2025 12:59pm Start: 01-28-2021 End: 05-07-2023 take 1 tablet by mouth once daily in the morning Triamterene-Hydrochlorothiazid Discontin ued 1 TABLET PO EVERY MORNING 90 April 28, 2022 2:32pm May 07, 2023 3:11pm Start: 10-05-2019 End: 01-28-2021 take 1 tablet by mouth once daily in the morning Triamterene-Hydrochlorothiazid Discontin ued 1 TABLET PO EVERY MORNING 90 January 03, 2021 2:17pm January 28, 2021 10:22pm Start: 03-03-2018 End: 01-28-2021 Triamterene-Hydrochlorothiaz id 75-50 mg tablet Discontinued 1 {tbl} PO EVERY MORNING 90 January 03, 2021 2:17pm January 28, 2021 10:22pm htn ketorolac tromethamine 5 mg/ml ophthalmic solution (11 sources) Nonsteroidal Anti-inflammatory Drug, Cyclooxygenase Inhibitor Start: 07-28-2022 End: 12-09-2022 Ketorolac 0.5 % drops Discontinued mL OPHTHALMIC July 28, 2022 12:00am December 09, 2022 11:07am Start: 07-28-2022 End: 12-09-2022 Ketorolac Discontinued ML OP HTHALMIC July 28, 2022 12:00am December 09, 2022 11:07am levothyroxine sodium 0.112 mg oral tablet (20 sources) l-Thyroxine Start: 10-05-2019 End: 04-04-2025 take 1 tablet by mouth once daily Levothyroxine 112 mcg tablet Discontinued 112 ug PO DAILY 90 September 26, 2024 6:00pm April 04, 2025 8:58pm Start: 03-03-2018 End: 05-30-2019 take 1 tablet by mouth once daily Levothyroxine (Synthroid) 112 mcg tablet Discontinued 112 ug PO daily 30 July 14, 2018 11:04am August 31, 2018 10:15am metroNIDAZOLE 250 mg oral tablet (14 sources) Nitroimidazole Antimicrobial Start: 04-16-2022 End: 04-30-2022 take 1 tablet by mouth four times daily Metronidazole 250 mg tablet Discontinued 250 mg PO .QID 56 14 0 April 16, 2022 12:00am April 29, 2022 12:00am April 30, 2022 12:03am 24 hr nicotine 0.583 mg/hr transdermal system (11 sources) Cholinergic Nicotinic Agonist Start: 07-28-2022 End: 05-06-2023 apply 1 dose transdermal route every twenty-four hours Nicotine 14 mg/24 hr patch 24 hour Discontinued 1 NMA TD DAILY 13 12July 28, 2022 12:00am May 06, 2023 10:43am Start: 07-28-2022 End: 05-06-2023 apply 1 dose transdermal route once daily Nicotine Discontinued 1 PATCH TD DAILY July 28, 2022 12:00am May 06, 2023 10:43am ofloxacin 3 mg/ml ophthalmic solution (11 sources) Quinolone Antimicrobial Start: 07-28-2022 End: 12-09-2022 Ofloxacin 0.3 % drops Discontinued 1 NMA OPHTHALMIC July 28, 2022 12:00am December 09, 2022 11:07am Start: 07-28-2022 End: 12-09-2022 Ofloxacin Discontinued 1 DRP OPHTHALMIC July 28, 2022 12:00am December 09, 2022 11:07am Tiotropium-Olodaterol (6 sources) Anticholinergic, beta2-Adrenergic Agonist Start: 06-02-2023 End: 09-01-2024 Tiotropium-Olodaterol (Stiolto Respimat) 2.5-2.5 mcg/actuation mist Discontinued 2 NMA INHALATION DAILY 4 June 02, 2023 12:00am September 01, 2024 10:26am Start: 06-02-2023 End: 09-01-2024 Tiotropium-Olodaterol (Stiol to Respimat) 2.5-2.5 mcg/actuation mist Discontinued 2 NMA INHALATION DAILY 4 June 02, 2023 12:00am September 01, 2024 10:26am potassium chloride 20 meq extended release oral tablet (20 sources) Start: 01-28-2021 End: 02-07-2025 take 1 tablet by mouth three times daily at mealtime Potassium Chloride 20 mEq tablet extended release Discontinued 20 meq PO THREE TIMES A DAY 270 90 August 05, 2024 9:05am February 07, 2025 2:04pm administer with food (meal or snack) Start: 10-10-2019 End: 01-09-2020 take 1 capsule by mouth once daily Potassium Chloride 10 mEq capsule, extended release Discontinued 10 meq PO DAILY 90 October 10, 2019 1:00am January 09, 2020 10:58am Start: 11-18-2017 End: 01-28-2021 take 1 tablet by mouth three times daily at mealtime Potassium Chloride 10 mEq tablet extended release Discontinued 10 meq PO THREE TIMES A DAY 90 January 03, 2021 2:17pm January 28, 2021 10:25pm administer with food (meal or snack) prednisoLONE acetate 10 mg/ml ophthalmic suspension (11 sources) Corticosteroid Start: 07-28-2022 End: 12-09-2022 Prednisolone Acetate 1 % drops,suspension Discontinued mL OPHTHALMIC July 28, 2022 12:00am December 09, 2022 11:07am Start: 07-28-2022 End: 12-09-2022 Prednisolone Acetate Discont inued ML OPHTHALMIC July 28, 2022 12:00am December 09, 2022 11:07am predniSONE 10 mg oral tablet (20 sources) Start: 12-09-2022 End: 05-06-2023 take 4 tablets by mouth once daily Prednisone 10 mg tablet Discontinued 10 mg PO DAILY 20 December 09, 2022 1:00am May 06, 2023 10:43am Take 4 tabs daily for 5 days Start: 01-27-2020 End: 05-10-2020 take 2 tablets by mouth once daily Prednisone 20 mg tablet Discontinued 40 mg PO DAILY January 27, 2020 12:00am May 10, 2020 9:49am Start: 01-27-2020 End: 05-10-2020 take 40 mg by mouth once daily Prednisone Discontinued 40 MG PO DAILY January 27, 2020 12:00am May 10, 2020 9:49am Problems Active Problems Problem Classification Problem Date Documented Da te Episodic/Chronic Abdominal hernia (20 sources) Bilateral inguinal hernia; Translations: [Bilateral inguinal hernia, without obstruction or gangrene, not specified as recurrent] Episodic Comment on above: Endoscopically diagn osed 10 to 15 years ago. Uncertain whether there were biopsies of the GE junction at that time. Patient describes worsening symptoms with intermittent use of PPI therapy. Have reiterated the need to be consistent with PPI therapy, but will plan for updated, diagnostic EGD with local MAC Chronic obstructive pulmonary disease and bronchiectasis (14 sources) Asthma-chronic obstructive pulmonary disease overlap syndrome; Translations: [Chronic obstructive pulmonary disease, unspecified] Onset: 08-11-2022 Chronic Comment on above: FEV1 56% Deficiency and other anemia (12 sources) Anemia; Translations: [Anemia, unspecified] 02-06-2025 Episodic Disorders of lipid metabolism (20 sources) Hyperlipidemia; Translations: [Hyperlipidemia, unspecified] 03-03-2018 Chronic Esophageal disorders (20 sources) Gastroesophageal reflux disease; Translations: [Gastro-esophageal reflux disease without esophagitis] Chronic Essential hypertension (20 sources) Essential hypertension; Translations: [Essential (primary) hypertension] Onset: 07-02-202 5 Chronic Genitourinary symptoms and ill-defined conditions (6 sources) Scalding pain on urination ; Translations: [Dysuria] 05-16-2024 Episodic Immunizations and screening for infectious disease (16 sources) Needs influenza immunization; Translations: [Encounter for immunization] 10-01-2021 Episodic Mood disorders (16 sources) Depressive disorder; Translations: [Depression] 07-02-2021 Chronic Osteoarthritis (20 sources) Arthritis; Translations: [Unspecified osteoarthritis, unspecified site] Onset: 5 03-03-2018 Chronic Other connective tissue disease (13 sources) Rotator cuff arthropathy of left shoulder; Translations: [Unspecified rotator cuff tear or rupture of left shoulder, not specified as traumatic] 09-01-2024 Episodic Other ear and sense organ disorders (8 sources) Impacted cerumen; Translations: [Impacted cerumen, bilateral] 05-06-2023 Episodic Other ear and sense organ disorders (2 sources) Impacted cerumen, bilateral; Translations: [Impacted cerumen] 05-06-2023 Episodic Other gastrointestinal disorders (16 sources) Diarrhea; Translations: [Diarrhea, unspecified] 03-05-2022 Episodic Comment on above: Patient describes se veral week history of diarrhea that has not spontaneously remitted. She describes some associated gas cramping, but no other complaints. She denies any awareness of any sick contacts. I have advised her that before we would begin to block down her system, we should rule out an enteric pathogen as the source. Therefore we will send request for a stool sample. Additionally, this could represent a manifestation of microscopic colitis and given that we are planning to proceed to the endoscopy suite for diagnostic EGD, I have recommended we proceed for diagnostic colonoscopy with random colon biopsies as well. Patient is excepting of this recommendation. We reviewed the need for a pre- procedure bowel prep as well as a procedure day dedicated regional driver. Other gastrointestinal disorders (5 sources) Diarrhea, unspecified; Translations: [Diarrhea] Episodic Other lower respiratory disease (16 sources) Hemoptysis; Translations: [Hemoptysis] 03-03-2022 Episodic Other lower respiratory disease (6 sources) Hemoptysis; Translations: [Hemoptysis, unspecified] Episodic Other lower respiratory disease (14 sources) Nodule of lung; Translations: [Solitary pulmonary nodule] 05-13-2022 Episodic Other lower respiratory disease (11 sources) Solitary pulmonary nodule; Translations: [Solitary pulmonary nodule] Episodic Other lower respiratory disease (6 sources) Hypoxia; Translations: [Hypoxemia] 11-01-2024 Episodic Other non-traumatic joint disorders (1 source) Other specific arthropathies, not elsewhere classified, left shoulder; Translations: [Other specific arthropathies, not elsewhere classified, left shoulder] Onset: 5 Chronic Other non-traumatic joint disorders (12 sources) Pain in left shoulder; Translations: [Left shoulder pain] 05-16-2024 Episodic Other screening for suspected conditions (not mental disorders or infectious disease) (20 sources) Patient encounter status; Translations: [Encounter for screening for malignant neoplasm of respiratory organs] Episodic Other upper respiratory disease (16 sources) Seasonal allergic rhinitis; Translations: [Other seasonal allergic rhinitis] 06-18-2021 Chronic Other upper respiratory disease (11 sources) Other seasonal allergic rhinitis; Translations: [Allergic rhinitis, cause unspecified] Chronic Other upper respiratory infections (16 sources) Upper respiratory infection; Translations: [Acute upper respiratory infection, unspecified] 07-12-2018 Episodic Residual codes; unclassified (18 sources) Tobacco user; Translations: [Tobacco use] 09-21-2019 Episodic Residual codes; unclassified (20 sources) Tobacco use; Translations: [Tobacco use disorder] Episodic Spondylosis; intervertebral disc disorders; other back problems (6 sources) Backache; Translations: [Dorsalgia, unspecified] 11-13-2023 Episodic Substance-related disorders (2 sources) Nicotine dependence, cigarettes, uncomplicated; Translations: [Nicotine dependence, cigarettes, uncomplicated] Onset: 4 Chronic Thyroid disorders (20 sources) Hypothyroidism; Translations: [Hypothyroidism, unspecified] Onset: 5 Chronic Past or Other Problems Problem Classification Problem Date Documented Da te Episodic/Chronic Deficiency and other anemia (1 source) Anemia, unspecified; Translations: [Anemia, unspecified] Onset: 02-13-2025 Episodic Other connective tissue disease (1 source) Unspecified rotator cuff tear or rupture of left shoulder, not specified as traumatic; Translations: [Unspecified rotator cuff tear or rupture of left shoulder, not specified as traumatic] Onset: 04-06-2025 Episodic Other lower respiratory disease (1 source) Hypoxemia; Translations: [Hypoxemia] Onset: 11-22-2024 Episodic Results Test Name Value Interpretation Reference Range Facility Internal Medicine Office Vis iton 09-18-2025 Internal Medicine Office Visit [place] [facility] [address] [place], [place] [address] OFFICE VISIT Date of Service: 09/18/25 MR#: [id number] Acct: [id number] Name: KEARA MARIO Rep #: [id number] : 1950 Provider: Dr. Dario núñez MD Age/Sex: 75/F Location: [facility] Status: Signed with Addenda ADDENDUM by BOB August on 09/18/25 at 1651 Office Procedure Documentation entered by Nelli August MA 09/18/25 16:51: Immunizations Fluad 65yr up(PF)45 mcg(15 mcgx3)/0.5 mL intramuscular syringe Performing Provider: Dario Pratt MD Performing Location: [facility] Administered by: Nelli August MA on 09/18/25 16:50 Dose Route Admin Location Dispensed Lot Number Expiration Date Package NDC NDC Nursing Program Coordinator 45 mcg IM Right Deltoid 0.5 mL [id number] 03/13/26 66178-683-05 [id number] [employer] VIS Given Date VIS Provided VIS Publication Date 09/18/25 Single Vaccine 24 Eligibility Eligibility Date Funding Source Not Applicable Date cc: * Signed Intake Vital Signs 05/17/25 11:06 09/18/25 11:33 Height 6 ft 6 ft Weight: 182 lb BMI 24.7 BP 115/62 Blood Pressure Location Lt brachial Position Sitting Respiration 18 Pulse 81 Pulse Source Monitor Temp 97.8 F Temp Source Temporal Pulse Oximetry (%) 94 Oxygen Delivery Method room air Intake Visit Reasons: 4 M FU Chief Complaint: 4 M FU Is patient in pain?: Yes (5 all over ) Allergies No Known Allergies Allergy (Verified 09/18/25 11:32) Medications ???Medication ???Instructions ???Recorded ???Confirmed ???Type calcium carbonate (Calcium 600) 600 mg PO BID 07/14/18 09/18/25 Hi story cholecalciferol (vitamin D3) 50 2,000 unit PO DAILY 07/14/1809/18 History mcg (2,000 unit) tablet cetirizine 10 mg tablet (Zyrtec) 10 mg PO DAILY 04/07/22 09/18/25 H istory latanoprost 0.005 % eye drops 1 drp EACH EYE DAILY 04/07/2202/07 History fluticasone propionate 50 1 spray intranasal DAILY PRN 05/1309/18/25 History mcg/actuation nasal allergy symptoms spray,suspension ferrous sulfate 325 mg (65 mg 325 mg PO QDAY 12/26/24 09/18/25 H istory iron) tablet gemfibrozil 600 mg tablet 600 mg PO BID #180 TABLETS 02/07/2 5 09/18/25 Rx triamterene 37.5 1 tab PO QAM #90 tabs 02/07/2502/07 Rx mg-hydrochlorothiazide 25 mg tablet multivitamin 1 tab PO QAM 05/17/25 09/18/25 His tory albuterol sulfate 90 mcg/actuation 2 puff inhalation Q6H PRN PRN fo r 07/05/25 09/18/25 Rx aerosol inhaler wheezing #8.5 GMS potassium chloride 20 mEq 20 meq PO TID 3 months #270 tabs 1 09/18/25 Rx tablet,extended release Synthroid 112 mcg tablet 112 mcg PO QDAY #90 tabs 09/18/25 09/18/25 Rx (levothyroxine) acetaminophen 500 mg tablet 1,000 mg PO ONCE PRN 09/18/2502/07 History Have you fallen in the past year?: No PFSH Medical History (Updated 09/18/25 @ 12:[address] Dario Pratt MD) Allergic rhinitis Left rotator cuff tear arthropathy Primary osteoarthritis, left shoulder Osteoarthritis Left shoulder pain Burning with urination Upper back pain on left side Health care maintenance Impacted cerumen of both ears Cataract Lung nodule Encounter for screening for malignant neoplasm of lung in current smoker with 30 pack year history or greater Wears dentures Wears glasses Post-menopausal Thyroid disease High cholesterol Anemia Back pain Injury of back History of hiatal hernia Gastric reflux Smoker Asthma History of pain when walking Hypertension Essential hypertension Flu vaccine need Depression GERD (gastroesophageal reflux disease) Bilateral inguinal hernia without obstruction or gangrene Hiatal hernia Tobacco abuse Hypothyroidism Hyperlipemia Arthritis Seasonal allergies Surgical History History of esophagogastroduodenoscopy (EGD) History of bilateral inguinal hernia repair ( 05/2020) History of foot surgery H/O colonoscopy H/O: hysterectomy History of hysterectomy History of carpal tunnel release Family History Sister ulcers Breast cancer Daughter Cancer cervical Mother Asthma Hypertension CVA (cerebral vascular accident) Social History Smoking Status: Current every day smoker tobacco type: cigarettes Tobacco: How many years used: 40 Electronic Cigarette Use: not used second hand exposure: Yes quit status: considering quitting alcohol intake: never substance use type: does not use what type of (more content not included)... Normal [facility] Orthopedic Visit Reporton Orthopedic Visit Report [facility] [address] [place] [address] OFFICE VISIT Date of Service: 05/22/25 MR#: [id number] Acct: [id number] Name: KEARA MARIO Rep #: [id number] : 1950 Provider: Dr. Blaise tierney MD Age/Sex: 74/F Location: [facility] Status: Signed with Addenda ADDENDUM by Chelly Johnson RN on 05/22/25 at 1134 Office Procedure Documentation entered by Chelly Johnson RN 05/22/25 11:34: Ortho Injections Injections Yes Subacromial Injection Left Is this a patient provided medication?: No Details: Obtained consent for injection. Under sterile conditions, injected the patients left shoulder with 2mL Kenalog and 4mL Bupivacaine. The patient tolerated the injection well without any noted complication. Patient should call our office if redness develops, pain worsens or if they have any concerns. Office Meds Kenalog 40 mg/mL suspension for injection Performing Provider: Blaise Farias MD Performing Location: [facility] Administered by: Blaise Farias MD on 05/22/25 11:31 Dose Route Admin Location Dispensed Lot Number Expiration Date [employer] 80 mg intra-articular left shoulder 2 mL [id number] 06/16/27 5247-9982-46 S [facility] Date cc: * Signed ADDENDUM by Chelly Johnson RN on 05/22/25 at 1134 Office Procedure Documentation entered by Chelly Johnson RN 05/22/25 11:34: Ortho Injections Injections Is this a patient provided medication?: No Details: Obtained consent for injection. Under sterile conditions, injected the patients left shoulder with 2mL Kenalog and 4mL Bupivacaine. The patient tolerated the injection well without any noted complication. Patient should call our office if redness develops, pain worsens or if they have any concerns. Office Meds Kenalog 40 mg/mL suspension for injection Performing Provider: Blaise Farias MD Performing Location: [facility] Administered by: Blaise Farias MD on 05/22/25 11:31 Dose Route Admin Location Dispensed Lot Number Expiration Date [facility] Yusuf ufacturer 80 mg intra-articular left shoulder 2 mL [id number] 06/16/27 5504-8149-20 S [facility] Date cc: * Signed Intake Vital Signs 04/06/25 13:30 05/17/25 11:06 Height 6 ft 6 ft Weight: 208 lb 185 lb BMI 28.2 25.0 BP 118/72 Blood Pressure Location Lt brachial Position Sitting Respiration 16 Pulse 99 Pulse Source Monitor Temp 96.6 F L Temp Source Temporal Pulse Oximetry (%) 97 Oxygen Delivery Method room air Intake Visit Reasons: LEFT SHOULDER Accompanied by: Self Allergies No Known Allergies Allergy (Verified 05/22/25 11:03) Medications ???Medication ???Instructions ???Recorded ???Confirmed ???Type calcium carbonate (Calcium 600) 600 mg PO BID 07/14/18 05/22/25 Hi story cholecalciferol (vitamin D3) 50 2,000 unit PO DAILY 07/14/1805/22 History mcg (2,000 unit) tablet cetirizine 10 mg tablet (Zyrtec) 10 mg PO DAILY 04/07/22 05/22/25 H istory latanoprost 0.005 % eye drops 1 drp EACH EYE DAILY 04/07/2206/09 History fluticasone propionate 50 1 spray intranasal DAILY PRN 05/1305/22/25 History mcg/actuation nasal allergy symptoms spray,suspension ferrous sulfate 325 mg (65 mg 325 mg PO QDAY 12/26/24 05/22/25 H istory iron) tablet albuterol sulfate 90 mcg/actuation 2 puff inhalation Q6H PRN PRN fo r 02/06/25 05/22/25 Rx aerosol inhaler wheezing #8.5 GMS gemfibrozil 600 mg tablet 600 mg PO BID #180 TABLETS 5 05/22/25 Rx potassium chloride 20 mEq 20 meq PO TID 3 months #270 tabs 0 02/07/25 05/22/25 Rx tablet,extended release triamterene 37.5 1 tab PO QAM #90 tabs 02/07/2506/09 Rx mg-hydrochlorothiazide 25 mg tablet levothyroxine 112 mcg tablet 112 mcg PO DAILY #90 tabs 04/04/25 05/22/25 Rx multivitamin 1 tab PO QAM 05/17/25 05/22/25 His tory Have you fallen in the past year?: No PFSH Medical History Left rotator cuff tear arthropathy Primary osteoarthritis, left shoulder Osteoarthritis Left shoulder pain Burning with urination Upper back pain on left side Health care maintenance Impacted cerumen of both ears Cataract Lung nodule Encounter for screening for malignant neoplasm of lung in current smoker with 30 pack year history or greater Wears dentures Wears glasses Post-menopausal Thyroid disease High cholesterol Anemia Back pain Injury of back History of hiatal hernia Gastric reflux Smoker Asthma History of pain when walking Hypertension Essential hypertension Flu vaccine need (more content not included)... Normal [facility] Office Vis iton 05-17-2025 Internal Medicine Office Visit [facility] [address] [place] [address] OFFICE VISIT Date of Service: 05/17/25 MR#: [id number] Acct: [id number] Name: KEARA MARIO Rep #: [id number] : 1950 Provider: Dr. Dario núñez MD Age/Sex: 74/F Location: [facility] Status: Signed Intake Vital Signs 02/06/25 10:14 04/06/25 13:30 05/17/25 11:06 Height 6 ft 6 ft 6 ft Weight: 185 lb BMI 25.0 BP 118/72 Blood Pressure Location Lt brachial Position Sitting Respiration 16 Pulse 99 Pulse Source Monitor Temp 96.6 F L Temp Source Temporal Pulse Oximetry (%) 97 Oxygen Delivery Method room air Intake Visit Reasons: 3 M FU Chief Complaint: Follow-up of her chronic conditions Sales Representative Metals Required: No Accompanied by: Self Is patient in pain?: No Allergies No Known Allergies Allergy (Verified 05/17/25 11:01) Medications ???Medication ???Instructions ???Recorded ???Confirmed ???Type calcium carbonate (Calcium 600) 600 mg PO BID 07/14/18 05/17/25 Hi story cholecalciferol (vitamin D3) 50 2,000 unit PO DAILY 07/14/1805/17 History mcg (2,000 unit) tablet cetirizine 10 mg tablet (Zyrtec) 10 mg PO DAILY 04/07/22 05/17/25 H istory latanoprost 0.005 % eye drops 1 drp EACH EYE DAILY 04/07/22 0701/10 History fluticasone propionate 50 1 spray intranasal DAILY PRN 05/1305/17/25 History mcg/actuation nasal allergy symptoms spray,suspension ferrous sulfate 325 mg (65 mg 325 mg PO QDAY 12/26/24 05/17/25 H istory iron) tablet albuterol sulfate 90 mcg/actuation 2 puff inhalation Q6H PRN PRN fo r 02/06/25 05/17/25 Rx aerosol inhaler wheezing #8.5 GMS gemfibrozil 600 mg tablet 600 mg PO BID #180 TABLETS 5 05/17/25 Rx potassium chloride 20 mEq 20 meq PO TID 3 months #270 tabs 0 02/07/25 05/17/25 Rx tablet,extended release triamterene 37.5 1 tab PO QAM #90 tabs 02/07/2501/10 Rx mg-hydrochlorothiazide 25 mg tablet levothyroxine 112 mcg tablet 112 mcg PO DAILY #90 tabs 04/04/25 05/17/25 Rx multivitamin 1 tab PO QAM 05/17/25 05/17/25 His tory Have you fallen in the past year?: No Nurse's Note: follow up left shoulder issues choosing to not have sgy at this time ON LICENSE OF [facility] Medical History Left rotator cuff tear arthropathy Primary osteoarthritis, left shoulder Osteoarthritis Left shoulder pain Burning with urination Upper back pain on left side Health care maintenance Impacted cerumen of both ears Cataract Lung nodule Encounter for screening for malignant neoplasm of lung in current smoker with 30 pack year history or greater Wears dentures Wears glasses Post-menopausal Thyroid disease High cholesterol Anemia Back pain Injury of back History of hiatal hernia Gastric reflux Smoker Asthma History of pain when walking Hypertension Essential hypertension Flu vaccine need Depression GERD (gastroesophageal reflux disease) Bilateral inguinal hernia without obstruction or gangrene Hiatal hernia Tobacco abuse Hypothyroidism Hyperlipemia Arthritis Seasonal allergies Surgical History History of esophagogastroduodenoscopy (EGD) History of bilateral inguinal hernia repair ( 05/2020) History of foot surgery H/O colonoscopy H/O: hysterectomy History of hysterectomy History of carpal tunnel release Family History Sister ulcers Breast cancer Daughter Cancer cervical Mother Asthma Hypertension CVA (cerebral vascular accident) Social History Smoking Status: Current every day smoker tobacco type: cigarettes Tobacco: How many years used: 40 Electronic Cigarette Use: not used second hand exposure: Yes quit status: considering quitting alcohol intake: never substance use type: does not use what type of physical activity do you participate in: walking frequency: daily HPI HPI Chief Complaint: Follow-up of her chronic conditions Details: KEARA MARIO, is a 74 F who presents to the office today for follow-up of her chronic medical conditions. No acute concerns at this time. History of arthritis and due to worsening left shoulder pain was referred to Ortho. Surgical management was recommended however, she states that she is not open to this because she is old. Had a shot which helped temporarily. She would like to approach nonsurgical options, has a visit with Ortho shortly. Also reports bilateral knee pain which has been worsening lately. Worse with initial movements and improves with continued movement. Tylenol and topical analgesia has been helpful. No falls. History of hypertension, blood pressure today at 118/72 (more content not included)... Normal [facility] Orthopedic Visit Reporton Orthopedic Visit Report [facility] [address] [place] [address] OFFICE VISIT Date of Service: 04/06/25 MR#: [id number] Acct: [id number] Name: KEARA MARIO Rep #: [id number] : 1950 Provider: Dr. Blaise tierney MD Age/Sex: 74/F Location: [facility] Status: Signed with Addenda ADDENDUM by Dr. Blaise Farias MD on 04/06/25 at 1341 Assessment and Plan Assessment and Plan (1) Left rotator cuff tear arthropathy: Status: Acute Plan: Patient wants to think about this and will talk to her family to discuss the possibility of timing and supports around the operation. (2) Primary osteoarthritis, left shoulder: Status: Acute 04/06/25 1341 Date Blaise Farias MD cc: * Signed Intake Vital Signs 02/27/25 12:58 04/06/25 13:30 Height 6 ft 6 ft Weight: 205 lb 208 lb BMI 27.8 28.2 Intake Visit Reasons: LEFT SHOULDER Chief Complaint: Left shoulder MRI review Accompanied by: Self Is patient in pain?: Yes Pain scale (1-10): 3 Allergies No Known Allergies Allergy (Verified 04/06/25 13:33) Medications ???Medication ???Instructions ???Recorded ???Confirmed ???Type calcium carbonate (Calcium 600) 600 mg PO BID 07/14/18 04/06/25 Hi story cholecalciferol (vitamin D3) 50 2,000 unit PO DAILY 07/14/1804/06 History mcg (2,000 unit) tablet cetirizine 10 mg tablet (Zyrtec) 10 mg PO DAILY 04/07/22 04/06/25 H istory latanoprost 0.005 % eye drops 1 drp EACH EYE DAILY 04/07/2203/17 History fluticasone propionate 50 1 spray intranasal DAILY PRN 05/1304/06/25 History mcg/actuation nasal allergy symptoms spray,suspension ferrous sulfate 325 mg (65 mg 325 mg PO QDAY 12/26/24 04/06/25 H istory iron) tablet albuterol sulfate 90 mcg/actuation 2 puff inhalation Q6H PRN PRN fo r 02/06/25 04/06/25 Rx aerosol inhaler wheezing #8.5 GMS gemfibrozil 600 mg tablet 600 mg PO BID #180 TABLETS 5 04/06/25 Rx potassium chloride 20 mEq 20 meq PO TID 3 months #270 tabs 0 02/07/25 04/06/25 Rx tablet,extended release triamterene 37.5 1 tab PO QAM #90 tabs 02/07/25 Rx mg-hydrochlorothiazide 25 mg tablet levothyroxine 112 mcg tablet 112 mcg PO DAILY #90 tabs 04/04/25 04/06/25 Rx Have you fallen in the past year?: No PFSH Medical History Left rotator cuff tear arthropathy Primary osteoarthritis, left shoulder Osteoarthritis Left shoulder pain Burning with urination Upper back pain on left side Health care maintenance Impacted cerumen of both ears Cataract Lung nodule Encounter for screening for malignant neoplasm of lung in current smoker with 30 pack year history or greater Wears dentures Wears glasses Post-menopausal Thyroid disease High cholesterol Anemia Back pain Injury of back History of hiatal hernia Gastric reflux Smoker Asthma History of pain when walking Hypertension Essential hypertension Flu vaccine need Depression GERD (gastroesophageal reflux disease) Bilateral inguinal hernia without obstruction or gangrene Hiatal hernia Tobacco abuse Hypothyroidism Hyperlipemia Arthritis Seasonal allergies Surgical History History of esophagogastroduodenoscopy (EGD) History of bilateral inguinal hernia repair ( 05/2020) History of foot surgery H/O colonoscopy H/O: hysterectomy History of hysterectomy History of carpal tunnel release Family History Sister ulcers Breast cancer Daughter Cancer cervical Mother Asthma Hypertension CVA (cerebral vascular accident) Social History Smoking Status: Current every day smoker tobacco type: cigarettes Tobacco: How many years used: 40 Electronic Cigarette Use: not used second hand exposure: Yes quit status: considering quitting alcohol intake: never substance use type: does not use what type of physical activity do you participate in: walking frequency: daily HPI LEFT SHOULDER Details: This documentation accurately reflects the service provided and the decisions made by me, Dr. Blaise Farias MD 04/06/25 1011. Part of today???s visit was documented by [ ], acting as scribe. KEARA MARIO is a 74 year old F here today for follow-up left shoulder CT and MRI for surgical planning. still difficulty to lift the arm and painful to lift. Supplemental Info [facility] [address] [facility] [place] [address] Upper Ext Joint Only(Routine) MR#: [id number] Acct: V00 (more content not included)... Normal [facility] Magnetic resonance imaging r eportOrdered By: Vincenzo Pham on 04-03-2025 Study report [facility] [address] [place] [address] Upper Ext Joint Only(Routine) MR#: [id number] Acct: [id number] Name: KEARA MARIO Rep #: [id number] : 1950 F 74 From: Charo Pham MD PCP: Dr. Dario Pratt MD Status: R EG CLI Study:Upper Ext Joint Only(Routine) Date of Exam: 03/31/25 Exam# [id number] Ordering Dr: Blaise Farias MD PROCEDURE: UPPER EXT JOINT ONLY(ROUTINE) 03/31/2025 REASON FOR EXAM: PAIN, HARD TO LIFT TECHNIQUE: T1, T2, PD, MRI of the left shoulder. Multiplanar and multisequence images were obtained without IV contrast administration. COMPARISON: COMPARISON : March 23, 2025 CT FINDINGS: Bone Marrow: There is severe osteoarthritis of the glenohumeral articulation with marginal osteophytes, subcortical cyst formation, and heterogeneous adjacent marrow, without visible acute fracture. There is severe chondromalacia at the glenohumeral articulation. There is severe AC joint hypertrophy with a small effusion. There is a type 3 acromion with impingement configuration. Effusion: There is a large joint effusion. There is fluid in the subacromial subdeltoid bursa, with bursitis. Soft Tissues: There is moderate muscular atrophy in the supraspinatus and infraspinatus muscle bodies. There is severe supraspinatus, infraspinatus, and subscapularis tendinopathy without full-thickness tear or retraction. The teres minor appears intact. There is a tear of the labrum from the 10 o'clock 2 o'clock position including the biceps tendon anchor. The biceps tendon appears intact. MRI/Upper Ext Joint Only(Routine) IMPRESSION: There is severe osteoarthritis of the glenohumeral articulation with marginal osteophytes, subcortical cyst formation, and heterogeneous adjacent marrow, without visible acute fracture. There is severe chondromalacia at the glenohumeral articulation. There is severe AC joint hypertrophy with a small effusion. There is a type 3 acromion with impingement configuration. There is a large joint effusion. There is fluid in the subacromial subdeltoid bursa, with bursitis. There is moderate muscular atrophy in the supraspinatus and infraspinatus musclebodies. There is severe supraspinatus, infraspinatus, and subscapularis tendinopathy without full-thickness tear or retraction. There is a tear of the labrum from the 10 o'clock 2 o'clock position including the biceps tendon anchor. Reading Location: [facility] CC: Dr. Dario Pratt MD; Dr. Blaise Farias MD ~ Driver License Agent: Signed [facility] Upper Ext Joint Only(Routine )on 03-31-2025 Upper Ext Joint Only(Routine) [facility] [address] [place] [address] Upper Ext Joint Only(Routine) MR#: [id number] Acct: [id number] Name: KEARA MARIO Rep #: [id number] : 1950 F 74 From: Vincenzo Pham MD PCP: Dr. Dario Pratt MD Status: REG CLI Study: Upper Ext Joint Only(Routine) Date of Exam: 0 03/31/25 Exam# [id number] Ordering Dr: Blaise Farias MD PROCEDURE: UPPER EXT JOINT ONLY(ROUTINE) 03/31/2025 REASON FOR EXAM: PAIN, HARD TO LIFT TECHNIQUE: T1, T2, PD, MRI of the left shoulder. Multiplanar and multisequence images were obtained without IV contrast administration. COMPARISON: COMPARISON : March 23, 2025 CT FINDINGS: Bone Marrow: There is severe osteoarthritis of the glenohumeral articulation with marginal osteophytes, subcortical cyst formation, and heterogeneous adjacent marrow, without visible acute fracture. There is severe chondromalacia at the glenohumeral articulation. There is severe AC joint hypertrophy with a small effusion. There is a type 3 acromion with impingement configuration. Effusion: There is a large joint effusion. There is fluid in the subacromial subdeltoid bursa, with bursitis. Soft Tissues: There is moderate muscular atrophy in the supraspinatus and infraspinatus muscle bodies. There is severe supraspinatus, infraspinatus, and subscapularis tendinopathy without full-thickness tear or retraction. The teres minor appears intact. There is a tear of the labrum from the 10 o'clock 2 o'clock position including the biceps tendon anchor. The biceps tendon appears intact. MRI/Upper Ext Joint Only(Routine) IMPRESSION: There is severe osteoarthritis of the glenohumeral articulation with marginal osteophytes, subcortical cyst formation, and heterogeneous adjacent marrow, without visible acute fracture. There is severe chondromalacia at the glenohumeral articulation. There is severe AC joint hypertrophy with a small effusion. There is a type 3 acromion with impingement configuration. There is a large joint effusion. There is fluid in the subacromial subdeltoid bursa, with bursitis. There is moderate muscular atrophy in the supraspinatus and infraspinatus muscle bodies. There is severe supraspinatus, infraspinatus, and subscapularis tendinopathy without full-thickness tear or retraction. There is a tear of the labrum from the 10 o'clock 2 o'clock position including the biceps tendon anchor. Reading Location: [facility] CC: Dr. Dario Pratt MD; Dr. Blaise Farias MD Driver License Agent: Signed [facility] Extremity Upper without Cont raon 03-23-2025 Extremity Upper without Contra [facility] [address] [place] [id number] Extremity Upper without Contra MR#: [id number] Acct: [id number] Name: KEARA MARIO Rep #: [id number] : 1950 F 74 From: Saul Simpson PCP: Dr. Dario Pratt MD Status: REG CLI Study: Extremity Upper without Contra Date of Exam: 0 03/23/25 Exam# [id number] Ordering Dr: Blaise Farias MD PROCEDURE: EXTREMITY UPPER WITHOUT contrast 03/23/2025 REASON FOR EXAM: BLUEPRINT PLANNING FOR RTSA TECHNIQUE: Axial CT images of the left shoulder obtained without intravenous contrast. Coronal and Sagittal reconstruction series were provided. One or more dose reduction techniques were used (e.g., Automated exposure control, adjustment of the mA and/or kV according to patient size, use of iterative reconstruction technique COMPARISON: None FINDINGS: See impression CT/Extremity Upper without Contra IMPRESSION: Severe left shoulder osteoarthritis including [id number] articulation, osseous remodeling, subchondral sclerosis/cysts and marginal osteophytes. No significant posterior glenoid wear, however there are rather extensive subcortical cysts along the posterior lip. Mild diffuse fatty marbling of the rotator cuff musculature without significant loss of muscle bulk. Small shoulder joint effusion and fluid in the biceps tendon. Mild/moderate acromioclavicular joint osteoarthritis. Moderate hiatal hernia. Coronary artery calcifications. Visualized portions of the left lung are clear. Electronically Signed By: Saul tierney 03/24/2025 13:36 Reading Location: [facility] CC: Dr. Dario Pratt MD; Dr. Blaise Farias MD Driver License Agent: Signed [facility] Orthopedic Visit Reporton Orthopedic Visit Report [facility] [address] [place] [address] 5 [place] [address] OFFICE VISIT Date of Service: 02/27/25 MR#: [id number] Acct: [id number] Name: KEARA MARIO Rep #: [id number] : 1950 Provider: Dr. Blaise tierney MD Age/Sex: 74/F Location: [facility] Status: Signed Intake Vital Signs 02/06/25 10:14 02/27/25 12:58 Height 6 ft 6 ft Weight: 192 lb 205 lb BMI 26.0 27.8 BP 116/70 Blood Pressure Location Lt brachial Position Sitting Respiration 14 Pulse 76 Pulse Source Monitor Temp 97.1 F L Temp Source Temporal Pulse Oximetry (%) 98 Oxygen Delivery Method room air Intake Visit Reasons: LEFT SHOULDER Chief Complaint: Left shoulder Accompanied by: Self Is patient in pain?: No Allergies No Known Allergies Allergy (Verified 02/27/25 13:01) Medications ???Medication ???Instructions ???Recorded ???Confirmed ???Type calcium carbonate (Calcium 600) 600 mg PO BID 07/14/18 02/27/25 Hi story cholecalciferol (vitamin D3) 50 2,000 unit PO DAILY 07/14/1802/27 History mcg (2,000 unit) tablet cetirizine 10 mg tablet (Zyrtec) 10 mg PO DAILY 04/07/22 02/27/25 H istory latanoprost 0.005 % eye drops 1 drp EACH EYE DAILY 04/07/2202/14 History fluticasone propionate 50 1 spray intranasal DAILY PRN 05/1302/27/25 History mcg/actuation nasal allergy symptoms spray,suspension levothyroxine 112 mcg tablet 112 mcg PO DAILY #90 tabs 09/26/24 02/27/25 Rx ferrous sulfate 325 mg (65 mg 325 mg PO QDAY 12/26/24 02/27/25 H istory iron) tablet albuterol sulfate 90 mcg/actuation 2 puff inhalation Q6H PRN PRN fo r 02/06/25 02/27/25 Rx aerosol inhaler wheezing #8.5 GMS gemfibrozil 600 mg tablet 600 mg PO BID #180 TABLETS 5 02/27/25 Rx potassium chloride 20 mEq 20 meq PO TID 3 months #270 tabs 0 02/07/25 02/27/25 Rx tablet,extended release triamterene 37.5 1 tab PO QAM #90 tabs 02/07/25 Rx mg-hydrochlorothiazide 25 mg tablet Have you fallen in the past year?: No PFSH Medical History Left rotator cuff tear arthropathy Primary osteoarthritis, left shoulder Osteoarthritis Left shoulder pain Burning with urination Upper back pain on left side Health care maintenance Impacted cerumen of both ears Cataract Lung nodule Encounter for screening for malignant neoplasm of lung in current smoker with 30 pack year history or greater Wears dentures Wears glasses Post-menopausal Thyroid disease High cholesterol Anemia Back pain Injury of back History of hiatal hernia Gastric reflux Smoker Asthma History of pain when walking Hypertension Essential hypertension Flu vaccine need Depression GERD (gastroesophageal reflux disease) Bilateral inguinal hernia without obstruction or gangrene Hiatal hernia Tobacco abuse Hypothyroidism Hyperlipemia Arthritis Seasonal allergies Surgical History History of esophagogastroduodenoscopy (EGD) History of bilateral inguinal hernia repair ( 05/2020) History of foot surgery H/O colonoscopy H/O: hysterectomy History of hysterectomy History of carpal tunnel release Family History Sister ulcers Breast cancer Daughter Cancer cervical Mother Asthma Hypertension CVA (cerebral vascular accident) Social History (Reviewed 02/27/25 @ 13:01 by PADMINI Hernandez Smoking Status: Current every day smoker tobacco type: cigarettes Tobacco: How many years used: 40 Electronic Cigarette Use: not used second hand exposure: Yes quit status: considering quitting alcohol intake: never substance use type: does not use what type of physical activity do you participate in: walking frequency: daily HPI LEFT SHOULDER Details: This documentation accurately reflects the service provided and the decisions made by me, Dr. Blaise Farias MD 02/27/25 0859. Part of today???s visit was documented by [ ], acting as scribe. KEARA MAROI is a 74 year old F here today for left shoulder pain rotator cuff tear arthropathy. Patient has failed 6 weeks of physical therapy and a cortisone injection. Patient having still great difficulty and worsening difficulty lifting up the arm. Coding Level of Care Code Off vis,est,level 3 Diagnoses Left rotator cuff tear arthropathy M75.102; M12.812 Primary osteoarthritis, left shoulder M19.012 Assessment and Plan Assessment and Plan (1) Left rotator cuff tear arthropathy: Status: Acute Plan: KEARA MARIO is a 74 year old F here today for left shoulder pain rotator cuff tear arthropathy. Patient has failed 6 weeks (more content not included)... [facility] PT D/C Summary (1)on 025 PT D/C Summary (1) [facility] [address] [place] [address] [address] [place] [address] / REHABILITATION SERVICES DISCHARGE SUMMARY MR#: [id number] Acct: [id number] Name: KEARA MARIO Rep #: [id number] : 1950 74 From: Colleen WHITAKER Referring Dr.: Dr. Blaise Farias MD Status: R EG RCR Insurance: [facility] SELF [employer]Y [employer]URANCE Discharge Summary D/C summary: It has been my pleasure to treat KEARA MARIO referred by Dr. Blaise Farias MD, with the diagnosis of L shoulder pain/arthritis/Rc tear for a total of 10 visit(s). Discharge Date: 02/22/25 Please see the following information for a summary of their discharge status. Subjective Subjective: Pt reports that she does not hurt as bad with her arm down by her side but she can not reach it up over her head. She has 8-9/10 when she reaches up and brings it down. She is not sleeping well most night cause she can not get comfortable. She would like an MRI to see what is really going on. Pain L shoulder pain: Pain Intensity (Out of 10): 0 Overall Improvement % Improvement: 40 Objective Objective/Function: R shoulder flex 160 and L shoulder flex 107 R T8 and L L1 R ER 83 and L 43 R shoulder ABD 180 and L 70 UE MMT: R shoulder flex 8.9 and L 4.1 R shoulder ER 11 and L 5.5 R shoulder IR 8.4 and L 5.9 Goals Goal 1:: I HEP Goal Progress: Goal Met Goal 2:: Increase L shoulder AROM (at the time of the eval: R shoulder flex 160 and L shoulder flex 107 R T8 and L L1 R ER 83 and L 43 R shoulder ABD 180 and L 65) Goal Progress: Not Progressing Goal 3:: Increase L shoulder strength (at the time of the eval: R shoulder flex 8.9 and L 3.1 R shoulder ER 11 and L 5 R shoulder IR 8.4 and L 5.9) Goal Progress: Progressing Goal 4:: Be able to use her L arm to do her hair with 50% less pain Goal Progress: Not Progressing Plan Plan: 1X/ week for an additional 4 weeks for AAROM of the L shoulder, RC strength and scapular strength with HEP. HEP: supine wand flexion, Supine wand ER with a towel, and standing orange mid rows D/C Information Discharge Comments: DC PT back to d/zhou sentence: If there are questions or concerns regarding this patient's physical therapy, please feel free to call me at [phone]. Thank you for the referral of this patient. Sincerely, Colleen Stewart, MPT Balance/Gait/Functional tests Balance/Special Test Scores Quick DASH Score: 50.0000 Improvement % Improvement: 40 02/22/25 1215 CC: Dr. Dario Pratt MD; Dr. Blaise Farias MD Signed Normal [facility] Comprehensive Metabolic Prof vaon 02-07-2025 Albumin [Mass/Vol] 4.3 g/dL Normal 3.4-4.8 [facility] Comment on above: Performed By: #### L 500.4050, L503.6550, L503.6030, L100.0100, L501.9520 #### [facility] [address] [place], [address] Albumin/Globulin [Mass ratio] 1.4 {ratio} Normal 0.9-2.4 [facility] Comment on above: Performed By: #### L 500.4050, L503.6550, L503.6030, L100.0100, L501.9520 #### [facility] [address] [place], [address] ALK PHOS 93 U/L Normal 35-104 [facility] Comment on above: Performed By: #### L 500.4050, L503.6550, L503.6030, L100.0100, L501.9520 #### [facility] [address] [place], [address] ALT [Catalytic activity/Vol] 14 U/L Normal <=34 [facility] Comment on above: Performed By: #### L 500.4050, L503.6550, L503.6030, L100.0100, L501.9520 #### [facility] [address] [place], [address] AST [Catalytic activity/Vol] 29 U/L Normal <=31 [facility] Comment on above: Performed By: #### L 500.4050, L503.6550, L503.6030, L100.0100, L501.9520 #### [facility] [address] [place], [address] Bilirubin [Mass/Vol] 0.42 mg/dL Normal 0.00-1.30 [facility] Comment on above: Performed By: #### L 500.4050, L503.6550, L503.6030, L100.0100, L501.9520 #### [facility] [address] [place], [address] BUN/CRE 32.5 RATIO High 10-20 [facility] Comment on above: Performed By: #### L 500.4050, L503.6550, L503.6030, L100.0100, L501.9520 #### [facility] [address] [place], [address] Calcium [Mass/Vol] 9.8 mg/dL Normal 7.6-11.0 [facility] Comment on above: Performed By: #### L 500.4050, L503.6550, L503.6030, L100.0100, L501.9520 #### [facility] [address] [place], [address] Chloride [Moles/Vol] 100 mmol/L Normal 98-108 [facility] Comment on above: Performed By: #### L 500.4050, L503.6550, L503.6030, L100.0100, L501.9520 #### [facility] [address] [place], [address] CO2 [Moles/Vol] 22.4 mmol/L Normal 21.0-32.0 [facility] Comment on above: Performed By: #### L 500.4050, L503.6550, L503.6030, L100.0100, L501.9520 #### [facility] [address] [place], [address] Creatinine [Mass/Vol] 0.80 mg/dL Normal 0.70-1.20 [facility] Comment on above: Performed By: #### L 500.4050, L503.6550, L503.6030, L100.0100, L501.9520 #### [facility] [address] [place], [address] GAP 15 Normal 5-15 [facility] Comment on above: Performed By: #### L 500.4050, L503.6550, L503.6030, L100.0100, L501.9520 #### [facility] [address] [place], [address] GFR/1.73 sq M.predicted among non-blacks MDRD (S/P/Bld) [Vol rate/Area] 76 mL/min/{1.73_m2} Normal >60 [facility] Comment on above: Result Comment: mL/m in/1.73m2 CKD-EPI Creatinine Equation (2020) Performed By: #### L 500.4050, L503.6550, L503.6030, L100.0100, L501.9520 #### [facility] [address] [place], [address] Globulin (S) [Mass/Vol] 3.1 g/dL Normal 2.2-4.2 [facility] Comment on above: Performed By: #### L 500.4050, L503.6550, L503.6030, L100.0100, L501.9520 #### [facility] [address] [place], [address] Glucose [Mass/Vol] 99 mg/dL Normal 70-99 [facility] Comment on above: Performed By: #### L 500.4050, L503.6550, L503.6030, L100.0100, L501.9520 #### [facility] [address] [place], [address] Potassium [Moles/Vol] 4.3 mmol/L Normal 3.3-5.1 [facility] Comment on above: Performed By: #### L 500.4050, L503.6550, L503.6030, L100.0100, L501.9520 #### [facility] [address] [place], [address] Sodium [Moles/Vol] 137 mmol/L Normal 133-145 [facility] Comment on above: Performed By: #### L 500.4050, L503.6550, L503.6030, L100.0100, L501.9520 #### [facility] [address] [place], [address] T PROT 7.4 g/dL Normal 5.9-8.4 [facility] Comment on above: Performed By: #### L 500.4050, L503.6550, L503.6030, L100.0100, L501.9520 #### [facility] [address] [place], [address] Urea nitrogen [Mass/Vol] 26 mg/dL High 4-19 [facility] Comment on above: Performed By: #### L 500.4050, L503.6550, L503.6030, L100.0100, L501.9520 #### [facility] [address] [place], [address] Iron+Iron Binding Capacityon 02-07-2025 Iron [Mass/Vol] 98 ug/dL Normal 50-170 [facility] Comment on above: Performed By: #### L 500.4050, L503.6550, L503.6030, L100.0100, L501.9520 #### [facility] [address] [place], [address] IRON SATURATION 24.0 Normal 13-59 [facility] Comment on above: Performed By: #### L 500.4050, L503.6550, L503.6030, L100.0100, L501.9520 #### [facility] [address] [place], [address] TIBC 408 ug/dL Normal 250-450 [facility] Comment on above: Performed By: #### L 500.4050, L503.6550, L503.6030, L100.0100, L501.9520 #### [facility] [address] [place], [address] UIBC 310 ug/dL Normal 228-428 [facility] Comment on above: Performed By: #### L 500.4050, L503.6550, L503.6030, L100.0100, L501.9520 #### [facility] [address] [place], [address] Absolute lymphocyte countOrd ered By: Dario Pratt on 02-06-2025 Lymphocytes Auto (Unsp spec) [#/Vol] 1.56 10*3/uL 0.83-4.51 [facility] Absolute neutrophil countOrd ered By: Dario Pratt on 02-06-2025 Neutrophils (Bld) [#/Vol] 4.8 10*3/uL 2.0-7.7 [facility] Anion gap in Serum or Plasma Ordered By: Dario Pratt on 02-06-2025 Anion gap [Moles/Vol] 15 mmol/L 5-15 [facility] Automated lymphocyte count a s percentage of total leukocytesOrdered By: Dario Pratt on 02-06-2025 Lymphocytes/100 WBC Auto (Unsp spec) 20.7 % 19-41 [facility] BUN/creatinine ratioOrdered By: Dario Pratt on 02-06-2025 Urea nitrogen/Creatinine [Mass ratio] 32.5 mg/mg High 10-20 [facility] Basophil percentageOrdered B y: Dario Pratt on 02-06-2025 Basophils/100 WBC (Bld) 1.2 % High 0-1 [facility] Bilirubin, totalOrdered By: Dario Pratt on 02-06-2025 Bilirubin [Mass/Vol] 0.42 mg/dL 0.00-1.30 [facility] CBC W/Diff, Automatedon 01-15 Absolute Lymph 1.56 X10 3/uL Normal 0.83-4.51 [facility] Comment on above: Performed By: #### L 500.4050, L503.6550, L503.6030, L100.0100, L501.9520 #### [facility] [address] [place], [address] Absolute Neut 4.8 X10 3/uL Normal 2.0-7.7 [facility] Comment on above: Performed By: #### L 500.4050, L503.6550, L503.6030, L100.0100, L501.9520 #### [facility] [address] [place], [address] Basophils/100 WBC (Bld) 1.2 % High 0-1 [facility] Comment on above: Performed By: #### L 500.4050, L503.6550, L503.6030, L100.0100, L501.9520 #### [facility] [address] [place], [address] Eosinophils/100 WBC (Bld) 3.3 % Normal 0-5 [facility] Comment on above: Performed By: #### L 500.4050, L503.6550, L503.6030, L100.0100, L501.9520 #### [facility] [address] [place], [address] Erythrocyte distribution width (RBC) [Ratio] 12.1 % Normal 11.6-14.6 [facility] Comment on above: Performed By: #### L 500.4050, L503.6550, L503.6030, L100.0100, L501.9520 #### [facility] [address] [place], [address] Hematocrit (Bld) [Volume fraction] 41.6 % Normal 37-47 [facility] Comment on above: Performed By: #### L 500.4050, L503.6550, L503.6030, L100.0100, L501.9520 #### [facility] [address] [place], [address] Hemoglobin (Bld) [Mass/Vol] 13.2 g/dL Normal 12.0-15.0 [facility] Comment on above: Performed By: #### L 500.4050, L503.6550, L503.6030, L100.0100, L501.9520 #### [facility] [address] [place], [address] IG% 0.400 Normal 0.0-0.9 [facility] Comment on above: Result Comment: IG% - Immature Granulocytes (promyelocytes, myelocytes and metamyelocytes) > 1% indicates that a LEFT SHIFT is Present. Performed By: #### L 500.4050, L503.6550, L503.6030, L100.0100, L501.9520 #### [facility] [address] [place], [address] Lymphocytes/100 WBC (Bld) 20.7 % Normal 19-41 [facility] Comment on above: Performed By: #### L 500.4050, L503.6550, L503.6030, L100.0100, L501.9520 #### [facility] [address] [place], [address] MCH (RBC) [Entitic mass] 28.6 pg Normal 27.0-32.0 [facility] Comment on above: Performed By: #### L 500.4050, L503.6550, L503.6030, L100.0100, L501.9520 #### [facility] [address] [place], [address] MCHC (RBC) [Mass/Vol] 31.7 g/dL Low 32-36 [facility] Comment on above: Performed By: #### L 500.4050, L503.6550, L503.6030, L100.0100, L501.9520 #### [facility] [address] [place], [address] MCV (RBC) [Entitic vol] 90.2 fL Normal 81-99 [facility] Comment on above: Performed By: #### L 500.4050, L503.6550, L503.6030, L100.0100, L501.9520 #### [facility] [address] [place], [address] Monocytes/100 WBC (Bld) 10.0 % Normal 0-10 [facility] Comment on above: Performed By: #### L 500.4050, L503.6550, L503.6030, L100.0100, L501.9520 #### [facility] [address] [place], [address] Neutrophils/100 WBC (Bld) 64.4 % Normal 47-70 [facility] Comment on above: Performed By: #### L 500.4050, L503.6550, L503.6030, L100.0100, L501.9520 #### [facility] [address] [place], [address] Nucleated RBC (Bld) [#/Vol] 0 10*3/uL Normal 0-5 [facility] Comment on above: Performed By: #### L 500.4050, L503.6550, L503.6030, L100.0100, L501.9520 #### [facility] [address] [place], [address] Platelet mean volume (Bld) [Entitic vol] 13.4 fL High 6.2-12.0 [facility] Comment on above: Performed By: #### L 500.4050, L503.6550, L503.6030, L100.0100, L501.9520 #### [facility] [address] [place], [address] Platelets (Bld) [#/Vol] 241 10*3/uL Normal 150-450 [facility] Comment on above: Performed By: #### L 500.4050, L503.6550, L503.6030, L100.0100, L501.9520 #### [facility] [address] [place], [address] RBC (Bld) [#/Vol] 4.61 10*6/uL Normal 4.2-5.4 [facility] Comment on above: Performed By: #### L 500.4050, L503.6550, L503.6030, L100.0100, L501.9520 #### [facility] [address] [place], [address] RDW SD 39.8 fl Normal 35.1-43.9 [facility] Comment on above: Performed By: #### L 500.4050, L503.6550, L503.6030, L100.0100, L501.9520 #### [facility] [address] [place], [address] WBC (Bld) [#/Vol] 7.5 10*3/uL Normal 4.4-11.0 [facility] Comment on above: Performed By: #### L 500.4050, L503.6550, L503.6030, L100.0100, L501.9520 #### [facility] [address] [place], [address] Calculated total iron bindin g capacityOrdered By: Dario Pratt on 02-06-2025 Total Iron Binding Capacity 408 ug/dL 250-450 [facility] Carbon dioxide, total [Moles /volume] in Central venous bloodOrdered By: Dario Pratt on 02-06-2025 CO2 [Moles/Vol] 22.4 mmol/L 21.0-32.0 [facility] Chloride assayOrdered By: Gregorio Pratt on 02-06-2025 Chloride [Moles/Vol] 100 mmol/L 98-108 [facility] Eosinophil percentageOrdered By: landen Pratt on 02-06-2025 Eosinophils/100 WBC (Bld) 3.3 % 0-5 [facility] Erythrocyte distribution wid th ratioOrdered By: [facility] Pratt on 02-06-2025 Erythrocyte distribution width (RBC) [Ratio] 12.1 % 11.6-14.6 [facility] Erythrocyte distribution wid th standard deviationOrdered By: kalebcascadesol Pratt on 02-06-2025 Erythrocyte distribution width (RBC) [Entitic vol] 39.8 fL 35.1-43.9 [facility] Erythrocyte distribution width (RBC) [Ratio] 39.8 fl 35.1-43.9 [facility] Ferritinon 02-06-2025 Ferritin [Mass/Vol] 99 ng/mL Normal 22-378 [facility] Comment on above: Performed By: #### L 500.4050, L503.6550, L503.6030, L100.0100, L501.9520 #### [facility] [address] [place], [address] GFR/1.73 sq M.predicted dilcia g non-blacks MDRD (S/P/Bld) [Vol rate/Area]Ordered By: Dario Pratt on 02-06-2025 Estimated GFR (MDRD) Non-Af Amer 76 >60 [facility] Comment on above: mL/min/1.73m2 CKD-EP I Creatinine Equation (2020) Glomerular filtration rate ( GFR) estimation/1.73 sq m using serum, plasma, or whole bOrdered By: Dario Pratt on 02-06-2025 GFR/1.73 sq M.predicted among non-blacks MDRD (S/P/Bld) [Vol rate/Area] 76 mL/min/{1.73_m2} >60 [facility] Comment on above: mL/min/1.73m2 CKD-EP I Creatinine Equation (2020) Hematocrit Auto (Bld) [Volum e fraction]Ordered By: Dario Pratt on 02-06-2025 Hematocrit (Bld) [Volume fraction] 41.6 % 37-47 [facility] Hemoglobin measurementOrdere d By: Dario Pratt on 02-06-2025 Hemoglobin (Bld) [Mass/Vol] 13.2 g/dL 12.0-15.0 [facility] Immature granulocytes/100 WB C Auto (Bld)Ordered By: Dario Pratt on 02-06-2025 Immature granulocytes/100 WBC (Bld) 0.400 % 0.0-0.9 [facility] Comment on above: IG% - Immature Granu locytes (promyelocytes, myelocytes and metamyelocytes) > 1% indicates that a LEFT SHIFT is Present. Internal Medicine Office Vis iton 02-06-2025 Internal Medicine Office Visit [facility] [address] [place] [address] [place] [address] OFFICE VISIT Date of Service: 02/06/25 MR#: [id number] Acct: [id number] Name: KEARA MARIO Rep #: [id number] : 1950 Provider: Dr. 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 Required: No Is patient in pain?: No Allergies No Known Allergies Allergy (Verified 02/06/25 10:09) Medications ???Medication ???Instructions ???Recorded ???Confirmed ???Type calcium carbonate (Calcium 600) 600 mg PO BID 07/14/18 02/06/25 Hi story cholecalciferol (vitamin D3) 50 2,000 unit PO DAILY 07/14/1802/06 History mcg (2,000 unit) tablet cetirizine 10 mg tablet (Zyrtec) 10 mg PO DAILY 04/07/22 02/06/25 H istory latanoprost 0.005 % eye drops 1 drp EACH EYE DAILY 04/07/2201/15 History fluticasone propionate 50 1 spray intranasal DAILY PRN 05/1302/06/25 History mcg/actuation nasal allergy symptoms spray,suspension potassium chloride 20 mEq 20 meq PO TID 3 months #270 tabs 0 08/05/24 02/06/25 Rx tablet,extended release levothyroxine 112 mcg tablet 112 mcg PO DAILY #90 tabs 09/26/24 02/06/25 Rx ferrous sulfate 325 mg (65 mg 325 mg PO QDAY 12/26/24 02/06/25 H istory iron) tablet albuterol sulfate 90 mcg/actuation 2 puff inhalation Q6H PRN PRN fo r 02/06/25 02/06/25 Rx aerosol inhaler wheezing #8.5 GMS gemfibrozil 600 mg tablet 600 mg PO BID #180 TABLETS 5 02/06/25 Rx triamterene 37.5 1 tab PO QAM #90 tabs 02/06/25 Rx mg-hydrochlorothiazide 25 mg tablet Have you fallen in the past year?: No PFSH Medical History Left rotator cuff tear arthropathy Primary osteoarthritis, left shoulder Osteoarthritis Left shoulder pain Burning with urination Upper back pain on left side Health care maintenance Impacted cerumen of both ears Cataract Lung nodule Encounter for screening for malignant neoplasm of lung in current smoker with 30 pack year history or greater Wears dentures Wears glasses Post-menopausal Thyroid disease High cholesterol Anemia Back pain Injury of back History of hiatal hernia Gastric reflux Smoker Asthma History of pain when walking Hypertension Essential hypertension Flu vaccine need Depression GERD (gastroesophageal reflux disease) Bilateral inguinal hernia without obstruction or gangrene Hiatal hernia Tobacco abuse Hypothyroidism Hyperlipemia Arthritis Seasonal allergies Surgical History History of esophagogastroduodenoscopy (EGD) History of bilateral inguinal hernia repair ( 05/2020) History of foot surgery H/O colonoscopy H/O: hysterectomy History of hysterectomy History of carpal tunnel release Family History Sister ulcers Breast cancer Daughter Cancer cervical Mother Asthma Hypertension CVA (cerebral vascular accident) Social History Smoking Status: Current every day smoker tobacco type: cigarettes Tobacco: How many years used: 40 Electronic Cigarette Use: not used second hand exposure: Yes quit status: considering quitting alcohol intake: never substance use type: does not use what type of physical activity do you participate in: walking frequency: daily HPI HPI Chief Complaint: Left shoulder Details: KEARA MARIO, is a 74 F who presents to the office today for follow-up of her chronic conditions. No acute concerns at this time. History of hypertension, blood pressure today at 116/70 mmHg. Currently on triamterene hydrochlorothiazide. No chest pain, palpitation or shortness of breath. Also history of hyperlipidemia on gemfibrozil. She states that she is taking her medication consistently and stable lipid profile at last check. History of hypothyroidism on levothyroxine. No heat or cold intolerance or unintentional weight changes. Other chronic medical conditions are stable. Currently in physical therapy and following up with Ortho for shoulder pain. ROS Const Constitutional: No body ache, chills, excessive sweating, fatigue, fever(s), frequent falls, headache(s), snoring, weakness, sleep problems or change in appetite Eyes Eyes: No blurry vision, ch (more content not included)... Normal [facility] Iron (Unsp spec) [Mass/Mass] Ordered By: Dario Pratt on 02-06-2025 Iron [Mass/Vol] 98 ug/dL 50-170 [facility] Iron measurement (mass/mass) Ordered By: Dario Pratt on 02-06-2025 Iron (Unsp spec) [Mass/Mass] 98 ug/dL 50-170 [facility] Iron saturation [Mass fracti on]Ordered By: Dario Pratt on 02-06-2025 Iron Saturation 24.0 % 13-59 [facility] - Chemistry and C hemistry - challengeOrdered By: Dario Pratt on 02-06-2025 AST [Catalytic activity/Vol] 29 U/L <32 [facility] Lymphocytes Auto (Unsp spec) [#/Vol]Ordered By: Dario Emanuele on 02-06-2025 Lymphocytes (Bld) [#/Vol] 1.56 10*3/uL 0.83-4.51 [facility] Lymphocytes/100 WBC Auto (Un sp spec)Ordered By: Efkalebongbe Jayghe on 02-06-2025 Lymphocytes/100 WBC (Bld) 20.7 % 19-41 [facility] MCV (mean corpuscular volume ) determinationOrdered By: Charleneongsol Emanuele on 02-06-2025 MCV (RBC) [Entitic vol] 90.2 fL 81-99 [facility] Mean corpuscular hemoglobin (MCH) determinationOrdered By: Dario Pratt on 02-06-2025 MCH (RBC) [Entitic mass] 28.6 pg 27.0-32.0 [facility] Mean corpuscular hemoglobin concentration (MCHC) determinationOrdered By: Dario Pratt on 02-06-2025 MCHC (RBC) [Mass/Vol] 31.7 g/dL Low 32-36 [facility] Mean platelet volume determi nationOrdered By: Dario Pratt on 02-06-2025 Platelet mean volume (Bld) [Entitic vol] 13.4 fL High 6.2-12.0 [facility] Monocyte percentageOrdered B y: Dario Pratt on 02-06-2025 Monocytes/100 WBC (Bld) 10.0 % 0-10 [facility] Neutrophil percentageOrdered By: Dario Emanuele on 02-06-2025 Neutrophils/100 WBC (Bld) 64.4 % 47-70 [facility] No Panel InformationOrdered By: Dario Pratt on 02-06-2025 Unsaturated Iron Binding Capacity 310 ug/dL 228-428 [facility] Nucleated red blood cell per centageOrdered By: Dario Emanuele on 02-06-2025 Nucleated RBC/100 WBC (Bld) [Ratio] 0 % 0-5 [facility] Platelet countOrdered By: Gregorio Pratt on 02-06-2025 Platelets (Bld) [#/Vol] 241 10*3/uL 150-450 [facility] Potassium (Unsp spec) [Mass/ Vol]Ordered By: Dario Pratt on 02-06-2025 Potassium [Moles/Vol] 4.3 mmol/L 3.3-5.1 [facility] Potassium measurement (mass/ volume)Ordered By: Dario Pratt on 02-06-2025 Potassium (Unsp spec) [Mass/Vol] 4.3 mmol/L 3.3-5.1 [facility] RBC Auto (Bld) [#/Vol]Ordere d By: Dario Pratt on 02-06-2025 RBC (Bld) [#/Vol] 4.61 10*6/uL 4.2-5.4 [facility] Serum creatinine measurement (mass/volume)Ordered By: Dario Pratt on 02-06-2025 Creatinine [Mass/Vol] 0.80 mg/dL 0.70-1.20 [facility] Serum globulin measurementOr dered By: Dario Pratt on 02-06-2025 Globulin (S) [Mass/Vol] 3.1 g/dL 2.2-4.2 [facility] Serum glucose measurement (m ass/volume)Ordered By: Dario Pratt on 02-06-2025 Glucose [Mass/Vol] 99 mg/dL 70-99 [facility] Serum or plasma alanine sanz otransferase (ALT) measurementOrdered By: Dario Pratt on 02-06-2025 ALT [Catalytic activity/Vol] 14 U/L <35 [facility] Serum or plasma albumin princess urement (mass/volume)Ordered By: Dario Prtat on 02-06-2025 Albumin [Mass/Vol] 4.3 g/dL 3.4-4.8 [facility] Serum or plasma albumin/glob ulin mass ratioOrdered By: Dario Pratt on 02-06-2025 Albumin/Globulin [Mass ratio] 1.4 {ratio} 0.9-2.4 [facility] Serum or plasma alkaline farhan sphatase measurementOrdered By: Dario Pratt on 02-06-2025 ALP [Catalytic activity/Vol] 93 U/L 35-104 [facility] Serum or plasma calcium princess urement (mass/volume)Ordered By: Dario Pratt on 02-06-2025 Calcium [Mass/Vol] 9.8 mg/dL 7.6-11.0 [facility] Serum or plasma ferritin gracy surement (mass/volume)Ordered By: Dario Pratt on 02-06-2025 Ferritin [Mass/Vol] 99 ng/mL 22-378 [facility] Serum or plasma iron saturat ion measurement (mass fraction)Ordered By: Dario Pratt on 02-06-2025 Iron saturation [Mass fraction] 24.0 % 13-59 [facility] Serum or plasma urea nitroge n measurement (mass/volume)Ordered By: Dario Pratt on 02-06-2025 Urea nitrogen [Mass/Vol] 26 mg/dL High 4-19 [facility] Sodium levelOrdered By: Charlene Pratt on 02-06-2025 Sodium [Moles/Vol] 137 mmol/L 133-145 [facility] TSH DL <= 0.005 mIU/L QnOrde red By: Dario Pratt on 02-06-2025 Thyroid Stimulating Hormone (TSH) 0.346 uIU/mL 0.300-4.20 0 [facility] TSH Qn 0.346 uIU/mL 0.300-4.20 0 [facility] Thyroid Stim Hormone (TSH)on 02-06-2025 TSH 0.346 uIU/mL Normal 0.300-4.20 0 [facility] Comment on above: Performed By: #### L 500.4050, L503.6550, L503.6030, L100.0100, L501.9520 #### [facility] [address] [place], [place], [id number] Total proteinOrdered By: Wallace Pratt on 02-06-2025 Protein [Mass/Vol] 7.4 g/dL 5.9-8.4 [facility] White blood cell (WBC) count Ordered By: Dario Pratt on 02-06-2025 WBC (Bld) [#/Vol] 7.5 10*3/uL 4.4-11.0 [facility] Re-Evaluation - PT (1)on Re-Evaluation - PT (1) [facility] [address] [place] [address] / REEVALUATION / MEDICARE RECERTIFICATION PHYSICAL THERAPY MR#: [id number] Acct: [id number] Name: KEARA MARIO Rep #: [id number] : 1950 74 From: Colleen Stewart MPT Referring Dr.: Dr. Blaise Farias MD Status:REG RCR Insurance: [facility] SELF PAY INSURANCE Re-Evaluation Intro: Dr. Blaise Farias MD, It has been my pleasure to treat KEARA MARIO over the last 7 visits for L shoulder pain/arthritis/Rc tear. Please see the progress note below for an update on the physical therapy plan of care! Subjective Subjective: Pt had the flu and she was not able to do that much at home as far as exercises and now she is back to painful. She has no pain at rest but she has pain when she reaches up to comb her hair. She thinks that her shoulder felt better with therapy. She goes to the chiropractor and she uses electric stim which is not covered. Pt wants to do more therapy to see if she can get back into it from having the flu. Objective Objective/Function: R shoulder flex 160 and L shoulder flex 75 R T8 and L L1 R ER 83 and L 43 R shoulder ABD 180 and L 80 PROM L shoulder has less clunking going up but still a lot of clunking going down Plan Plan Plan: 1X/ week for an additional 4 weeks for AAROM of the L shoulder, RC strength and scapular strength with HEP. HEP: supine wand flexion, Supine wand ER with a towel, and standing orange mid rows Balance/Gait/Functional tests Balance/Special Test Scores Quick DASH Score: 43.1800 Goals Goals Goal 1:: I HEP Goal Time Frame: 6-8 Weeks Goal 2:: Increase L shoulder AROM (at the time of the eval: R shoulder flex 160 and L shoulder flex 107 R T8 and L L1 R ER 83 and L 43 R shoulder ABD 180 and L 65) Goal Time Frame: 6-8 Weeks Goal 3:: Increase L shoulder strength (at the time of the eval: R shoulder flex 8.9 and L 3.1 R shoulder ER 11 and L 5 R shoulder IR 8.4 and L 5.9) Goal Time Frame: 6-8 Weeks Goal 4:: Be able to use her L arm to do her hair with 50% less pain Goal Time Frame: 6-8 Weeks Anticipated Interventions Anticipated Interventions Patient/Client Instruction: Educate patient on: Condition and Plan of Care For the Purpose of:: To decrease pain, To increase ROM, To improve nutrient delivery to tissue, To improve muscle performance and motor function, To improve ability to perform ADL's, To increase tolerance to activity/condition/position, To improve health of tissue, To decrease soft tissue restriction and To increase flexibility/ROM Therapeutic Exercise to Include: Strength training, Endurance training, Postural training, Flexibilty training, Active ROM and Scapular Strength/Stabilization For the Purpose of:: To decrease pain, To increase ROM, To improve nutrient delivery to tissue, To improve muscle performance and motor function, To improve ability to perform ADL's, To increase tolerance to activity/condition/position, To improve performance and independence with ADL's, To decrease level of supervision to perform tasks, To improve ability of physical actions for home/community/work/leisure, To improve health of tissue, To decrease soft tissue restriction and To increase flexibility/ROM Manual Therapy Techniques to Include: Passive ROM For the Purpose of:: To increase ROM Re-Evaluation Ending Re-evaluation ending: Please do not hesitate to contact me at [phone] by phone or if you have questions or concerns regarding this new plan of care! Sincerely, Colleen Stewart, SHERMAN 01/25/25 1243 CC: Dr. Dario Pratt MD; Dr. Blaise Farias MD Signed For Medicare only, by signing this I certify the plan of care. Physicians Signature Date Normal [facility] Urgent Care Visit Reporton 0 12-26-2024 Urgent Care Visit Report [facility] [address], [address] [place] [address] OFFICE VISIT Date of Service: 12/26/24 MR#: [id number] Acct: [id number] Name: KEARA MARIO Rep #: [id number] : 1950 Provider: HILLARY Hsu Age/Sex: 74/F Location: [facility] Status: Signed Intake Vital Signs 11/01/24 07:46 12/26/24 12:06 Height 5 ft 11 in 6 ft Weight: 191 lb 2 oz BMI 25.9 BP 122/86 H Position Sitting Pulse 93 Temp 97.7 F L Temp Source Oral Pulse Oximetry (%) 98 Oxygen Delivery Method room air Intake Visit Reasons: CONCERN FOR FLU Chief Complaint: Left shoulder Allergies No Known Allergies Allergy (Verified 11/01/24 10:56) Medications ???Medication ???Instructions ???Recorded ???Confirmed ???Type calcium carbonate (Calcium 600) 600 mg PO BID 07/14/18 12/26/24 Hi story cholecalciferol (vitamin D3) 50 2,000 unit PO DAILY 07/14/1812/26 History mcg (2,000 unit) tablet cetirizine 10 mg tablet (Zyrtec) 10 mg PO DAILY 04/07/22 11/01/24 H istory latanoprost 0.005 % eye drops 1 drp EACH EYE DAILY 04/07/2210/16 History fluticasone propionate 50 1 spray intranasal DAILY PRN 05/1312/26/24 History mcg/actuation nasal allergy symptoms spray,suspension triamterene 37.5 1 tab PO QAM #90 tabs 11/13/2309/09 Rx mg-hydrochlorothiazide 25 mg tablet gemfibrozil 600 mg tablet 600 mg PO BID #180 TABLETS 4 12/26/24 Rx potassium chloride 20 mEq 20 meq PO TID 3 months #270 tabs 0 08/05/24 12/26/24 Rx tablet,extended release albuterol sulfate 90 mcg/actuation 2 puff inhalation Q6H PRN PRN fo r 09/19/24 12/26/24 Rx aerosol inhaler wheezing #8.5 GMS levothyroxine 112 mcg tablet 112 mcg PO DAILY #90 tabs 09/26/24 12/26/24 Rx amoxicillin 875 mg-potassium 1 tab PO BID #20 tabs 12/26/2409/09 Rx clavulanate 125 mg tablet ferrous sulfate 325 mg (65 mg 325 mg PO QDAY 12/26/24 12/26/24 H istory iron) tablet Have you fallen in the past year?: No Nurse's Note: Patient has chest congestion, head congestion and a cough going on for 1 week. ON LICENSE OF [facility] Medical History Left rotator cuff tear arthropathy Primary osteoarthritis, left shoulder Osteoarthritis Left shoulder pain Burning with urination Upper back pain on left side Health care maintenance Impacted cerumen of both ears Cataract Lung nodule Encounter for screening for malignant neoplasm of lung in current smoker with 30 pack year history or greater Wears dentures Wears glasses Post-menopausal Thyroid disease High cholesterol Anemia Back pain Injury of back History of hiatal hernia Gastric reflux Smoker Asthma History of pain when walking Hypertension Essential hypertension Flu vaccine need Depression GERD (gastroesophageal reflux disease) Bilateral inguinal hernia without obstruction or gangrene Hiatal hernia Tobacco abuse Hypothyroidism Hyperlipemia Arthritis Seasonal allergies Surgical History History of esophagogastroduodenoscopy (EGD) History of bilateral inguinal hernia repair ( 05/2020) History of foot surgery H/O colonoscopy H/O: hysterectomy History of hysterectomy History of carpal tunnel release Family History Sister ulcers Breast cancer Daughter Cancer cervical Mother Asthma Hypertension CVA (cerebral vascular accident) Social History Smoking Status: Current every day smoker tobacco type: cigarettes Tobacco: How many years used: 40 Electronic Cigarette Use: not used second hand exposure: Yes quit status: considering quitting alcohol intake: never substance use type: does not use what type of physical activity do you participate in: walking frequency: daily HPI HPI Chief Complaint: Left shoulder Details: KEARA MARIO, is a 74 F who presents to the office today for [facility] for approximately 7-day history of progressively worsening forehead pressure/congestion with purulent postnasal drip and cough w/ irritated throat. No complaints of fever, chills, myalgias, fatigue, runny nose, or nausea/vomiting/diarrhea. No complaints of chest pain/shortness of breath/dyspnea on exertion. No close contacts with similar complaints. No other associated symptoms and no other alleviating/aggravating factors. ROS Const Constitutional: No other (as above) Exam Const General: cooperative, healthy appearing and no acute distress Nutritional Appearance: average body habitus Orientation: alert, awake and oriented x3 HENMT Head: normal to inspection Ears: hear (more content not included)... Normal [facility] Pulmonary Visit Reporton Pulmonary Visit Report [facility] [address] [place] [address]. [address] [place] [address] OFFICE VISIT Date of Service: 11/01/24 MR#: [id number] Acct: [id number] Name: KEARA MARIO Rep #: [id number] : 1950 Provider: VALERIA Anaya Age/Sex: 74/F Location: [facility] Status: Signed Assessment and Plan Assessment and Plan (1) Asthma-COPD overlap syndrome: Status: Chronic Comment: FEV1 56% Plan: She does not appear to be in exacerbation today. She does experience occasional difficulty with shortness of breath, this in combination with ongoing smoking raises the concern for disease progression. She is agreeable to repeating a pulmonary function test and a walking oximetry. She also reports shortness of breath upon awakening in the morning. Ordering an overnight oximetry. The patient will return to the office in January to discuss all test results. However, if overnight oximetry indicates that the patient qualifies for supplemental oxygen with sleep will be ordered immediately. No change in maintenance medications until PFT is available for review. The patient is currently only using albuterol as needed, but many times this is once daily. (2) Tobacco abuse: Status: Chronic Plan: Encourage complete smoking cessation. The patient remains appropriate for repeat LDCT which will be due in December 2024. Ordered accordingly. Follow-up with January to discuss test results. Orders: Orders Low Dose CT Lung Screening 12/17/24 F17.200 - Nicotine dependence, unspecified, uncomplicated, F17.210 - Nicotine dependence, cigarettes, uncomplicated, R91.1 - Solitary pulmonary nodule PFT Complete: DLCO, Spirometry b/a bronchodilators, lung volumes 12/17/24 J44.9 - Chronic obstructive pulmonary disease, unspecified Simple Pulmonary Exercise Test 12/17/24 J44.9 - Chronic obstructive pulmonary disease, unspecified OutPt Pulse Ox/Cont Overnight Today R09.02 - Hypoxemia Plan Details Follow Up: 3 Months (LMR) HPI Follow up/Test results Chief Complaint: Test results HPI Comments Details: This patient presents to the office today for follow-up of her asthma/COPD overlap syndrome. She is ambulatory and currently on room air. She has not recently been seen in the ED or urgent care for any respiratory illness. She has not required any antibiotics or prednisone for any breathing problems. She is not currently on any maintenance inhalers. She is utilizing cetirizine and Flonase as needed for allergies. She uses her albuterol rescue inhaler approximately once per day. She does find it to be helpful in reducing her shortness of breath. She does have shortness of breath on exertion. She also reports shortness of breath upon awakening in the morning, some mornings every morning. Currently she denies any cough, sputum production or hemoptysis. She does report seasonal allergies and during those times can have a cough that is productive of clear-colored sputum. She denies any wheezing, chest tightness, chest pain or palpitations. She has not had any fever, chills or body aches. She continues to smoke cigarettes. She is currently smoking 4-5 cigarettes/day. Test results personally reviewed the patient: Low-dose CT lung screen completed on December 22, 2023. Stable 6.2 mm noncalcified nodule in the peripheral lateral aspect of the right upper lobe. Recommendation is to continue with LDCT in 12 months. Intake Vital Signs 08/04/24 08:12 09/01/24 10:25 11/01/24 07:46 Height 5 ft 11 in 5 ft 11 in 5 ft 11 in Weight: 192 lb BMI 26.7 BP 141/86 H Blood Pressure Location Lt brachial Position Sitting Respiration 18 Pulse 95 Pulse Source Monitor Temp 96 F L Temperature Source Temporal Artery Pulse Oximetry (%) 97 Oxygen Delivery Method room air Intake Visit Reasons: Follow up/Test results Chief Complaint: Left shoulder [employer] Required: No Allergies No Known Allergies Allergy (Verified 11/01/24 10:56) Medications ???Medication ???Instructions ???Recorded ???Confirmed ???Type calcium carbonate (Calcium 600) 600 mg PO BID 07/14/18 11/01/24 History cholecalciferol (vitamin D3) 50 2,000 unit PO DAILY 07/14/18 11/01/24 History mcg (2,000 unit) tablet cetirizine 10 mg tablet (Zyrtec) 10 mg PO DAILY 04/07/22 11/01/24 History latanoprost 0.005 % eye drops 1 drp EACH EYE DAILY 04/07/22 11/01/24 History fluticasone propionate 50 1 spray intranasal DAILY PRN 05/13/22 11/01/24 History mcg/actuation nasal allergy symptoms spray,suspension triamterene 37.5 1 tab PO QAM #90 tabs 11/13/23 11/01/24 Rx mg-hydrochlorothiazide 25 mg tablet gemfibrozil 600 mg tablet 600 mg PO BID #180 TABLETS 07/11/24 11/01/24 Rx potassium chloride 20 mEq 20 meq PO TID 3 months #270 tabs 08/05/24 11/01/24 Rx tablet,extended r (more content not included)... Normal [facility] Inital Evaluation (1) - PTon 10-19-2024 Inital Evaluation (1) - PT [facility] [address] [place] [address] [address] [place] [address] / REHABILITATION SERVICES INITIAL EVALUATION MR#: [id number] Acct: [id number] Name: KEARA MARIO Rep #: [id number] : 1950 74 From: Colleen WHITAKER Referring Dr.: Dr. Blaise Farias MD Status: R EG RCR Insurance: [facility] SELF PAY INSURANCE Patient's Visit Information Visit Information Visit Information: KEARA MARIO is a 74 year old F referred to Physical Therapy by Dr. Blaise Farias MD with a diagnosis of L shoulder pain/arthritis/Rc tear. Date of Evaluation: 10/19/24 Physical Therapist: Colleen Stewart MPT Visit Plan Frequency: 2x /Week Duration: 2 Months Plan: 1X/ week for 8 weeks per pt request for AAROM of the L shoulder, RC strength and scapular strength with HEP. HEP: supine wand flexion, Supine wand ER with a towel, and standing orange mid rows Subjective Subjective: Pt is having L shoulder pain. She has had it for awhile. She just woke up one morning and the pain started. It is hard for her to hold up her hand. She can do a lot around the house because it is her L shoulder. She can not lay on her L shoulder. She points to her pain in the front of the shoulder and also along the back of the shoulder. She has no N T. She has pain when she lifts it. Movement quinten overhead hurts the worst. She has trouble combing her hair. She can do it but bringing her arm back down really hurts. She got a cortisone shot about 3 weeks ago and it helped for awhile and is better than it was before but it still bothers her. They did an x-ray and they said it was arthritis. She has weakness in that L shoulder. She is R handed. Pain L shoulder pain: Pain Intensity (Out of 10): 2 Pain Intensity Range: 9 Objective Objective: R shoulder flex 160 and L shoulder flex 107 R T8 and L L1 R ER 83 and L 43 R shoulder ABD 180 and L 65 UE MMT: R shoulder flex 8.9 and L 3.1 R shoulder ER 11 and L 5 R shoulder IR 8.4 and L 5.9 Supine PROM L shoulder increase popping with each advancement in PROM. Pt did better with wand and AAROM into flex and ER Balance/Special Test Scores Quick DASH Score: 40.9075 Goals Goal 1:: I HEP Goal Time Frame: 6-8 Weeks Goal 2:: Increase L shoulder AROM (at the time of the eval: R shoulder flex 160 and L shoulder flex 107 R T8 and L L1 R ER 83 and L 43 R shoulder ABD 180 and L 65) Goal Time Frame: 6-8 Weeks Goal 3:: Increase L shoulder strength (at the time of the eval: R shoulder flex 8.9 and L 3.1 R shoulder ER 11 and L 5 R shoulder IR 8.4 and L 5.9) Goal Time Frame: 6-8 Weeks Goal 4:: Be able to use her L arm to do her hair with 50% less pain Goal Time Frame: 6-8 Weeks Rehabilitation Potential Rehabilitation Potential: Good Anticipated Interventions Patient/Client Instruction: Educate patient on: Condition and Plan of Care For the Purpose of:: To decrease pain, To increase ROM, To improve nutrient delivery to tissue, To improve muscle performance and motor function, To improve ability to perform ADL's, To increase tolerance to activity/condition/position, To improve health of tissue, To decrease soft tissue restriction and To increase flexibility/ROM Therapeutic Exercise to Include: Strength training, Endurance training, Postural training, Flexibilty training, Active ROM and Scapular Strength/Stabilization For the Purpose of:: To decrease pain, To increase ROM, To improve nutrient delivery to tissue, To improve muscle performance and motor function, To improve ability to perform ADL's, To increase tolerance to activity/condition/position, To improve performance and independence with ADL's, To decrease level of supervision to perform tasks, To improve ability of physical actions for home/community/work/leisure, To improve health of tissue, To decrease soft tissue restriction and To increase flexibility/ROM Manual Therapy Techniques to Include: Passive ROM For the Purpose of:: To increase ROM Text: Thank you for the opportunity to evaluate your patient. For Medicare and Medicare HMO plans, please review the plan of care and approve it. It will need to be FAXED BACK to us at [phone] for Medicare purposes. For Medicare only, by signing this I certify the plan of care. Please let me know if there are questions or concerns regarding this plan of care. Physician Signature: ___Date: 10/19/24 1057 CC: Dr. Dario Pratt MD; Dr. Blaise Farias MD Signed Normal [facility] Absolute lymphocyte countOrd ered By: Dr. Pratt on 05-06-2023 Lymphocytes Auto (Unsp spec) [#/Vol] 1.78 10*3/uL 0.83-4.51 [facility] Basophil percentageOrdered B y: Dr. Pratt on 05-06-2023 Basophils/100 WBC (Bld) 1.2 % 0-1 [facility] Bilirubin [Mass/Vol] 0.50 mg/dL 0.20-1.00 [facility] Comment on above: For patients on eltr ombopag therapy, use of Dimension [place] TBIL is not recommended. Chloride [Moles/Vol] 106 mmol/L 98-107 [facility] Cholesterol [Mass/Vol] 182 mg/dL <200 [facility] Comment on above: <200 mg/dL Desirable 200-240 mg/dL Borderline >240 mg/dL High Risk Eosinophils/100 WBC (Bld) 2.8 % 0-5 [facility] Glucose [Mass/Vol] 109 mg/dL 74-106 [facility] Comment on above: Fasting Glucose resu lt from 100 to 125 mg/dL suggests IMPAIRED HOMEOSTASIS per A.D.A. criteria. Neutrophils (Bld) [#/Vol] 5.7 10*3/uL 2.0-7.7 [facility] Neutrophils/100 WBC (Bld) 66.4 % 47-70 [facility] Potassium [Moles/Vol] 3.9 mmol/L 3.5-5.1 [facility] Protein [Mass/Vol] 7.7 g/dL 6.4-8.2 [facility] Sodium [Moles/Vol] 136 mmol/L 136-145 [facility] Triglyceride [Mass/Vol] 68 mg/dL <199 [facility] Comment on above: The drugs N-Acetylcy steine and Metamizole may falsely depress this assay.Serum Triglycerides Reference Interval Normal <150 mg/dL Borderline high 150 - 199 mg/dL High 200 - 499 mg/dL Very High > or = 500 mg/dL WBC (Bld) [#/Vol] 8.5 10*3/uL 4.4-11.0 [facility] Blood erythrocytes count (nu mber/volume)Ordered By: Dr. Pratt on 05-06-2023 RBC (Bld) [#/Vol] 4.55 10*6/uL 4.2-5.4 [facility] Blood hemoglobin measurement (mass/volume)Ordered By: Dr. Pratt on 05-06-2023 Hemoglobin (Bld) [Mass/Vol] 12.7 g/dL 12.0-15.0 [facility] Blood lymphocytes/100 leukoc ytesOrdered By: Dr. Pratt on 05-06-2023 Lymphocytes/100 WBC (Bld) 20.9 % 19-41 [facility] Blood monocytes/100 leukocyt esOrdered By: Dr. Pratt on 05-06-2023 Monocytes/100 WBC (Bld) 8.3 % 0-10 [facility] Blood platelet mean volumeOr dered By: Dr. Pratt on 05-06-2023 Platelet mean volume (Bld) [Entitic vol] 13.4 fL 6.2-12.0 [facility] Determination of erythrocyte mean corpuscular volume (MCV)Ordered By: Dr. Pratt on 05-06-2023 MCV (RBC) [Entitic vol] 90.1 fL 81-99 [facility] Hematocrit Auto (Bld) [Volum e fraction]Ordered By: Dr. Pratt on 05-06-2023 Hematocrit (Bld) [Volume fraction] 41.0 % 37-47 [facility] Laboratory - Chemistry and C hemistry - challengeOrdered By: Dr. Pratt on 05-06-2023 ALP [Catalytic activity/Vol] 97 U/L 45-117 [facility] ALT [Catalytic activity/Vol] 17 U/L 13-56 [facility] CO2 [Moles/Vol] 25.0 mmol/L 21.0-32.0 [facility] Globulin (S) [Mass/Vol] 4.1 g/dL 2.2-4.2 [facility] Urea nitrogen/Creatinine [Mass ratio] 29.0 mg/mg 10-20 [facility] Laboratory - Hematology and Cell countsOrdered By: Dr. Pratt on 05-06-2023 Erythrocyte distribution width (RBC) [Entitic vol] 42.5 fL 35.1-43.9 [facility] Erythrocyte distribution width (RBC) [Ratio] 12.8 % 11.6-14.6 [facility] Immature granulocytes/100 WBC (Bld) 0.400 % 0.0-0.9 [facility] Comment on above: IG% - Immature Granu locytes (promyelocytes, myelocytes and metamyelocytes) > 1% indicates that a LEFT SHIFT is Present. MCH (RBC) [Entitic mass] 27.9 pg 27.0-32.0 [facility] Nucleated RBC/100 WBC (Bld) [Ratio] 0 % 0-5 [facility] MCHC Auto (RBC) [Mass/Vol]Or dered By: Dr. Pratt on 05-06-2023 MCHC (RBC) [Mass/Vol] 31.0 g/dL 32-36 [facility] No Panel InformationOrdered By: Dr. Pratt on 05-06-2023 Estimated GFR (MDRD) Amer 87 mL/min >60 [facility] Comment on above: GFR Calc Estimated GFR (MDRD) Non-Af Amer 72 mL/min >60 [facility] Comment on above: Non- GFR Calc Thyroid Stimulating Hormone (TSH) 0.75 uIU/mL 0.358-3.74 [facility] Platelets bldOrdered By: Dr. Pratt on 05-06-2023 Platelets (Bld) [#/Vol] 243 10*3/uL 150-450 [facility] Serum or plasma albumin princess urement (mass/volume)Ordered By: Dr. Pratt on 05-06-2023 Albumin [Mass/Vol] 3.6 g/dL 3.2-5.0 [facility] Serum or plasma albumin/glob ulin mass ratioOrdered By: Dr. Pratt on 05-06-2023 Albumin/Globulin [Mass ratio] 0.9 {ratio} 0.9-2.4 [facility] Serum or plasma calcium princess urement (mass/volume)Ordered By: Dr. Pratt on 05-06-2023 Calcium [Mass/Vol] 9.1 mg/dL 8.5-10.1 [facility] Serum or plasma cholesterol in HDL measurement (mass/volume)Ordered By: Dr. Pratt on 05-06-2023 Cholesterol in HDL [Mass/Vol] 57 mg/dL >40 [facility] Comment on above: The drugs N-Acetylcy steine and Metamizole may falsely depress this assay. Reference Range HDL <40 mg/dL Low HDL Cholesterol HDL >or= 60 mg/dL High HDL Cholesterol Serum or plasma cholesterol in VLDL measurement (mass/volume)Ordered By: Dr. Pratt on 05-06-2023 Cholesterol in VLDL [Mass/Vol] 14 mg/dL 5-40 [facility] Serum or plasma creatinine m easurement (mass/volume)Ordered By: Dr. Pratt on 05-06-2023 Creatinine [Mass/Vol] 0.83 mg/dL 0.55-1.02 [facility] Comment on above: The validity of the calculated GFR & GFRAA in patients over 70 years has not been determined. Clinical correlation is essential. Serum or plasma low density lipoprotein (LDL) cholesterol measurement (mass/volume)Ordered By: Dr. Pratt on 05-06-2023 Cholesterol in LDL [Mass/Vol] 111 mg/dL 0-130 [facility] Serum or plasma urea nitroge n measurement (mass/volume)Ordered By: Dr. Pratt on 05-06-2023 Urea nitrogen [Mass/Vol] 24 mg/dL 7-18 [facility] Thin prep Papanicolaou smear with manual screeningOrdered By: Dr. Pratt on 05-06-2023 Thin prep Papanicolaou smear with manual screening 25 U/L 15-37 [facility] Thin prep Papanicolaou smear with manual screening 5 5-15 [facility] Absolute lymphocyte counton 07-28-2022 Lymphocytes Auto (Unsp spec) [#/Vol] 1.31 10*3/uL 0.83-4.51 [facility] Work Phone: Basophil percentageon 2021 Basophils/100 WBC (Bld) 1.0 % 0-1 [facility] Work Phone: Bilirubin [Mass/Vol] 0.50 mg/dL 0.20-1.00 [facility] Work Phone: Comment on above: For patients on eltr ombopag therapy, use of Dimension [place] TBIL is not recommended. Chloride [Moles/Vol] 102 mmol/L 98-107 [facility] Work Phone: Eosinophils/100 WBC (Bld) 2.8 % 0-5 [facility] Work Phone: Glucose [Mass/Vol] 120 mg/dL 74-106 [facility] Work Phone: Comment on above: Fasting Glucose resu lt from 100 to 125 mg/dL suggests IMPAIRED HOMEOSTASIS per A.D.A. criteria. Neutrophils (Bld) [#/Vol] 4.6 10*3/uL 2.0-7.7 [facility] Work Phone: Neutrophils/100 WBC (Bld) 68.5 % 47-70 [facility] Work Phone: Potassium [Moles/Vol] 3.9 mmol/L 3.5-5.1 [facility] Work Phone: Protein [Mass/Vol] 7.5 g/dL 6.4-8.2 [facility] Work Phone: Sodium [Moles/Vol] 137 mmol/L 136-145 [facility] Work Phone: WBC (Bld) [#/Vol] 6.7 10*3/uL 4.4-11.0 [facility] Work Phone: Blood erythrocytes count (nu mber/volume)on 07-28-2022 RBC (Bld) [#/Vol] 4.41 10*6/uL 4.2-5.4 [facility] Work Phone: Blood hemoglobin measurement (mass/volume)on 07-28-2022 Hemoglobin (Bld) [Mass/Vol] 12.4 g/dL 12.0-15.0 [facility] Work Phone: Blood lymphocytes/100 leukoc yteson 07-28-2022 Lymphocytes/100 WBC (Bld) 19.6 % 19-41 [facility] Work Phone: Blood monocytes/100 leukocyt eson 07-28-2022 Monocytes/100 WBC (Bld) 7.8 % 0-10 [facility] Work Phone: Blood platelet mean volumeon 07-28-2022 Platelet mean volume (Bld) [Entitic vol] 13.0 fL 6.2-12.0 [facility] Work Phone: Determination of erythrocyte mean corpuscular volume (MCV)on 07-28-2022 MCV (RBC) [Entitic vol] 91.2 fL 81-99 [facility] Work Phone: [phone] Hematocrit Auto (Bld) [Volum e fraction]on 07-28-2022 Hematocrit (Bld) [Volume fraction] 40.2 % 37-47 [facility] Work Phone: [phone] Laboratory - Chemistry and C hemistry - challengeon 07-28-2022 ALP [Catalytic activity/Vol] 92 U/L 45-117 [facility] Work Phone: [phone] ALT [Catalytic activity/Vol] 20 U/L 13-56 [facility] Work Phone: [phone] CO2 [Moles/Vol] 24.0 mmol/L 21.0-32.0 [facility] Work Phone: [phone] Globulin (S) [Mass/Vol] 3.9 g/dL 2.2-4.2 [facility] Work Phone: [phone] Urea nitrogen/Creatinine [Mass ratio] 20.4 mg/mg 10-20 [facility] Work Phone: [phone] Laboratory - Hematology and Cell countson 07-28-2022 Erythrocyte distribution width (RBC) [Entitic vol] 41.2 fL 35.1-43.9 [facility] Work Phone: [phone] Erythrocyte distribution width (RBC) [Ratio] 12.5 % 11.6-14.6 [facility] Work Phone: [phone] Immature granulocytes/100 WBC (Bld) 0.300 % 0.0-0.9 [facility] Work Phone: [phone] Comment on above: IG% - Immature Granu locytes (promyelocytes, myelocytes and metamyelocytes) > 1% indicates that a LEFT SHIFT is Present. MCH (RBC) [Entitic mass] 28.1 pg 27.0-32.0 [facility] Work Phone: Nucleated RBC/100 WBC (Bld) [Ratio] 0 % 0-5 [facility] Work Phone: MCHC Auto (RBC) [Mass/Vol]on 07-28-2022 MCHC (RBC) [Mass/Vol] 30.8 g/dL 32-36 [facility] Work Phone: No Panel Informationon 07-28 Estimated GFR (MDRD) Amer 72 mL/min >60 [facility] Work Phone: Comment on above: GFR Calc Estimated GFR (MDRD) Non-Af Amer 59 mL/min >60 [facility] Work Phone: Comment on above: Non- GFR Calc Platelets bldon 07-28-2022 Platelets (Bld) [#/Vol] 251 10*3/uL 150-450 [facility] Work Phone: Serum or plasma albumin princess urement (mass/volume)on 07-28-2022 Albumin [Mass/Vol] 3.6 g/dL 3.2-5.0 [facility] Work Phone: Serum or plasma albumin/glob ulin mass ratioon 07-28-2022 Albumin/Globulin [Mass ratio] 0.9 {ratio} 0.9-2.4 [facility] Work Phone: Serum or plasma calcium princess urement (mass/volume)on 07-28-2022 Calcium [Mass/Vol] 9.5 mg/dL 8.5-10.1 [facility] Work Phone: Serum or plasma creatinine m easurement (mass/volume)on 07-28-2022 Creatinine [Mass/Vol] 0.98 mg/dL 0.55-1.02 [facility] Work Phone: Comment on above: The validity of the calculated GFR & GFRAA in patients over 70 years has not been determined. Clinical correlation is essential. Serum or plasma urea nitroge n measurement (mass/volume)on 07-28-2022 Urea nitrogen [Mass/Vol] 20 mg/dL 7-18 [facility] Work Phone: Thin prep Papanicolaou smear with manual screeningon 07-28-2022 Thin prep Papanicolaou smear with manual screening 23 U/L 15-37 [facility] Work Phone: Thin prep Papanicolaou smear with manual screening 11 5-15 [facility] Work Phone: No Panel Informationon 03-06 Enteric Bacteriology [facility] Work Phone: Absolute lymphocyte counton 03-03-2022 Lymphocytes Auto (Unsp spec) [#/Vol] 1.51 10*3/uL 0.83-4.51 [facility] Work Phone: Basophil percentageon 2021 Basophils/100 WBC (Bld) 1.2 % 0-1 [facility] Work Phone: Bilirubin [Mass/Vol] 0.50 mg/dL 0.20-1.00 [facility] Work Phone: Comment on above: For patients on eltr ombopag therapy, use of Dimension [place] TBIL is not recommended. Chloride [Moles/Vol] 104 mmol/L 98-107 [facility] Work Phone: Cholesterol [Mass/Vol] 177 mg/dL <200 [facility] Work Phone: Comment on above: <200 mg/dL Desirable 200-240 mg/dL Borderline >240 mg/dL High Risk Eosinophils/100 WBC (Bld) 1.9 % 0-5 [facility] Work Phone: Glucose [Mass/Vol] 124 mg/dL 74-106 [facility] Work Phone: Comment on above: Fasting Glucose resu lt from 100 to 125 mg/dL suggests IMPAIRED HOMEOSTASIS per A.D.A. criteria. Neutrophils (Bld) [#/Vol] 4.4 10*3/uL 2.0-7.7 [facility] Work Phone: Neutrophils/100 WBC (Bld) 65.1 % 47-70 [facility] Work Phone: Potassium [Moles/Vol] 4.3 mmol/L 3.5-5.1 [facility] Work Phone: Protein [Mass/Vol] 7.6 g/dL 6.4-8.2 [facility] Work Phone: Sodium [Moles/Vol] 136 mmol/L 136-145 [facility] Work Phone: Triglyceride [Mass/Vol] 119 mg/dL <199 [facility] Work Phone: Comment on above: The drugs N-Acetylcy steine and Metamizole may falsely depress this assay.Serum Triglycerides Reference Interval Normal <150 mg/dL Borderline high 150 - 199 mg/dL High 200 - 499 mg/dL Very High > or = 500 mg/dL WBC (Bld) [#/Vol] 6.8 10*3/uL 4.4-11.0 [facility] Work Phone: Blood erythrocytes count (nu mber/volume)on 03-03-2022 RBC (Bld) [#/Vol] 4.71 10*6/uL 4.2-5.4 [facility] Work Phone: Blood hemoglobin measurement (mass/volume)on 03-03-2022 Hemoglobin (Bld) [Mass/Vol] 13.2 g/dL 12.0-15.0 [facility] Work Phone: Blood lymphocytes/100 leukoc yteson 03-03-2022 Lymphocytes/100 WBC (Bld) 22.4 % 19-41 [facility] Work Phone: Blood monocytes/100 leukocyt eson 03-03-2022 Monocytes/100 WBC (Bld) 9.0 % 0-10 [facility] Work Phone: Blood platelet mean volumeon 03-03-2022 Platelet mean volume (Bld) [Entitic vol] 13.1 fL 6.2-12.0 [facility] Work Phone: Determination of erythrocyte mean corpuscular volume (MCV)on 03-03-2022 MCV (RBC) [Entitic vol] 91.1 fL 81-99 [facility] Work Phone: [phone] Hematocrit Auto (Bld) [Volum e fraction]on 03-03-2022 Hematocrit (Bld) [Volume fraction] 42.9 % 37-47 [facility] Work Phone: [phone] Laboratory - Chemistry and C hemistry - challengeon 03-03-2022 ALP [Catalytic activity/Vol] 116 U/L 45-117 [facility] Work Phone: ALT [Catalytic activity/Vol] 22 U/L 13-56 [facility] Work Phone: [phone] CO2 [Moles/Vol] 26.0 mmol/L 21.0-32.0 [facility] Work Phone: [phone] Globulin (S) [Mass/Vol] 4.0 g/dL 2.2-4.2 [facility] Work Phone: [phone] Urea nitrogen/Creatinine [Mass ratio] 23.6 mg/mg 10-20 [facility] Work Phone: [phone] Laboratory - Hematology and Cell countson 03-03-2022 Erythrocyte distribution width (RBC) [Entitic vol] 41.1 fL 35.1-43.9 [facility] Work Phone: [phone] Erythrocyte distribution width (RBC) [Ratio] 12.3 % 11.6-14.6 [facility] Work Phone: [phone] Immature granulocytes/100 WBC (Bld) 0.400 % 0.0-0.9 [facility] Work Phone: [phone] Comment on above: IG% - Immature Granu locytes (promyelocytes, myelocytes and metamyelocytes) > 1% indicates that a LEFT SHIFT is Present. MCH (RBC) [Entitic mass] 28.0 pg 27.0-32.0 [facility] Work Phone: [phone] Nucleated RBC/100 WBC (Bld) [Ratio] 0 % 0-5 [facility] Work Phone: MCHC Auto (RBC) [Mass/Vol]on 03-03-2022 MCHC (RBC) [Mass/Vol] 30.8 g/dL 32-36 [facility] Work Phone: No Panel Informationon 03-03 Estimated GFR (MDRD) Amer 80 mL/min >60 [facility] Work Phone: Comment on above: GFR Calc Estimated GFR (MDRD) Non-Af Amer 66 mL/min >60 [facility] Work Phone: Comment on above: Non- GFR Calc Thyroid Stimulating Hormone (TSH) 2.02 uIU/mL 0.358-3.74 [facility] Work Phone: Vitamin D 25-Hydroxy 31.4 ng/mL [facility] Work Phone: Comment on above: Vitamin D 25(OH) Sta tus Range Deficiency <20 ng/mL (50nmol/L) Insufficiency 20 - 30 ng/mL (50 - 75 nmol/L) Sufficiency 30 - 100 ng/mL (75 - 250 nmol/L) Toxicity >100 ng/mL (>250 nmol/L) Platelets bldon 03-03-2022 Platelets (Bld) [#/Vol] 230 10*3/uL 150-450 [facility] Work Phone: Serum or plasma albumin princess urement (mass/volume)on 03-03-2022 Albumin [Mass/Vol] 3.6 g/dL 3.2-5.0 [facility] Work Phone: Serum or plasma albumin/glob ulin mass ratioon 03-03-2022 Albumin/Globulin [Mass ratio] 0.9 {ratio} 0.9-2.4 [facility] Work Phone: Serum or plasma calcium princess urement (mass/volume)on 03-03-2022 Calcium [Mass/Vol] 9.0 mg/dL 8.5-10.1 [facility] Work Phone: Serum or plasma cholesterol in HDL measurement (mass/volume)on 03-03-2022 Cholesterol in HDL [Mass/Vol] 60 mg/dL >40 [facility] Work Phone: Comment on above: The drugs N-Acetylcy steine and Metamizole may falsely depress this assay. Reference Range HDL <40 mg/dL Low HDL Cholesterol HDL >or= 60 mg/dL High HDL Cholesterol Serum or plasma cholesterol in VLDL measurement (mass/volume)on 03-03-2022 Cholesterol in VLDL [Mass/Vol] 24 mg/dL 5-40 [facility] Work Phone: Serum or plasma creatinine m easurement (mass/volume)on 03-03-2022 Creatinine [Mass/Vol] 0.89 mg/dL 0.55-1.02 [facility] Work Phone: Comment on above: The validity of the calculated GFR & GFRAA in patients over 70 years has not been determined. Clinical correlation is essential. Serum or plasma low density lipoprotein (LDL) cholesterol measurement (mass/volume)on 03-03-2022 Cholesterol in LDL [Mass/Vol] 93 mg/dL 0-130 [facility] Work Phone: Serum or plasma urea nitroge n measurement (mass/volume)on 03-03-2022 Urea nitrogen [Mass/Vol] 21 mg/dL 7-18 [facility] Work Phone: Thin prep Papanicolaou smear with manual screeningon 03-03-2022 Thin prep Papanicolaou smear with manual screening 27 U/L 15-37 [facility] Work Phone: Thin prep Papanicolaou smear with manual screening 6 5-15 [facility] Work Phone: Laboratory - Microbiology an d Antimicrobial susceptibilityon 12-05-2021 SARS-CoV-2 (COVID-19) RNA JUAQUIN+probe Ql (Unsp spec) Not detected Not Detect [facility] Work Phone: Comment on above: Normal Reference Ran ge: Not DetectedMethod:(RT-PCR) real-time reverse transcriptase PCRLuminex ALFRED Instrument*The Food and Drug Administration (FDA) has issued an Emergency Use Authorization (EAU) for the ALFRED SARS-CoV-2 Assay for the rapid detection of the virus that causes COVID-19. This test has been validated, but the [facility] independent review of this validation is pending.*Negative results do not preclude infection and should not be used as the sole basis for treatment or patient management. Optimum specimen types and timing for peak viral levels during infections caused by SARS-CoV-2 have not been determined. Collection of multiple specimens from the same patient may be necessary to detect the virus. The possibility of a false negative result should be considered if the patient has clinical presentation or has had recent exposure. No Panel Information Enteric Bacteriology [facility] Work Phone: Vital Signs Date Time Vital Sign Value Performing Clinician Faci lity 05-17-2025 11:06-0400 Body height 182.[address] Dario Pratt MD Work Phone: [facility] 05-17-2025 11:06-0400 Body mass index (BMI) [Ratio] 25 kg/m2 Dr. Dario Pratt MD Work Phone: [facility] 05-17-2025 11:06-0400 Body temperature 96.6 [degF] Dr. Dario Pratt MD Work Phone: [facility] 05-17-2025 11:06-0400 Body weight 83.[address] Dario Pratt MD Work Phone: [facility] 05-17-2025 11:06-0400 Diastolic blood pressure 72 mm[Hg] Dr. Dario Pratt MD Work Phone: [facility] 05-17-2025 11:06-0400 Heart rate 99 /min Dr. Dario Pratt MD Work Phone: [facility] 05-17-2025 11:06-0400 Respiratory rate 16 /min Dr. Dario Pratt MD Work Phone: [facility] 05-17-2025 11:06-0400 SaO2% (BldA) [Mass fraction] 97 % Dr. Dario Pratt MD Work Phone: [facility] 05-17-2025 11:06-0400 Systolic blood pressure 118 mm[Hg] Dr. Dario Pratt MD Work Phone: [facility] 04-06-2025 13:30-0400 Body mass index (BMI) [Ratio] 28.2 kg/m2 Dr. Dario Pratt MD Work Phone: [facility] 04-06-2025 13:30-0400 Body weight 94.[address] Dario Pratt MD Work Phone: [facility] 02-27-2025 12:58-0400 Body height 182.[address] Dario Pratt MD Work Phone: [facility] 02-27-2025 12:58-0400 Body mass index (BMI) [Ratio] 27.8 kg/m2 Dr. Dario Pratt MD Work Phone: [facility] 02-27-2025 12:58-0400 Body weight 92.[address] Dario Pratt MD Work Phone: [facility] 02-06-2025 10:14-0400 Body height 182.[address] Dario Pratt MD Work Phone: [facility] 02-06-2025 10:14-0400 Body mass index (BMI) [Ratio] 26 kg/m2 Dr. Dario Pratt MD Work Phone: [facility] 02-06-2025 10:14-0400 Body temperature 97.1 [degF] Dr. Dario Pratt MD Work Phone: [facility] 02-06-2025 10:14-0400 Body weight 87.[address] Dario Pratt MD Work Phone: [facility] 02-06-2025 10:14-0400 Diastolic blood pressure 70 mm[Hg] Dr. Dario Pratt MD Work Phone: [facility] 02-06-2025 10:14-0400 Heart rate 76 /min Dr. Dario Pratt MD Work Phone: [facility] 02-06-2025 10:14-0400 Respiratory rate 14 /min Dr. Dario Pratt MD Work Phone: [facility] 02-06-2025 10:14-0400 SaO2% (BldA) [Mass fraction] 98 % Dr. Dario Pratt MD Work Phone: [facility] 02-06-2025 10:14-0400 Systolic blood pressure 116 mm[Hg] Dr. Dario Pratt MD Work Phone: [facility] 12-26-2024 12:06-0500 Body mass index (BMI) [Ratio] 25.9 kg/m2 Dr. Dario Pratt MD Work Phone: [facility] 12-26-2024 12:06-0500 Body temperature 97.7 [degF] Dr. Dario Pratt MD Work Phone: [facility] 12-26-2024 12:06-0500 Body weight 86.[address] Dario Pratt MD Work Phone: [facility] 12-26-2024 12:06-0500 Diastolic blood pressure 86 mm[Hg] Dr. Dario Pratt MD Work Phone: [facility] 12-26-2024 12:06-0500 Heart rate 93 /min Dr. Dario Pratt MD Work Phone: [facility] 12-26-2024 12:06-0500 SaO2% (BldA) [Mass fraction] 98 % Dr. Dario Pratt MD Work Phone: [facility] 12-26-2024 12:06-0500 Systolic blood pressure 122 mm[Hg] Dr. Dario Pratt MD Work Phone: [facility] 11-01-2024 07:46-0500 Body mass index (BMI) [Ratio] 26.7 kg/m2 Dr. Dario Pratt MD Work Phone: [facility] 11-01-2024 07:46-0500 Body temperature 96 [degF] Dr. Dario Pratt MD Work Phone: [facility] 11-01-2024 07:46-0500 Body weight 87.[address] Dario Pratt MD Work Phone: [facility] 11-01-2024 07:46-0500 Diastolic blood pressure 86 mm[Hg] Dr. Dario Pratt MD Work Phone: [facility] 11-01-2024 07:46-0500 Heart rate 95 /min Dr. Dario Pratt MD Work Phone: [facility] 11-01-2024 07:46-0500 Respiratory rate 18 /min Dr. Dario Pratt MD Work Phone: [facility] 11-01-2024 07:46-0500 SaO2% (BldA) [Mass fraction] 97 % Dr. Dario Pratt MD Work Phone: [facility] 11-01-2024 07:46-0500 Systolic blood pressure 141 mm[Hg] Dr. Dario Pratt MD Work Phone: [facility] 05-06-2023 10:46-0400 Body height 180.[address] Dario Pratt Work Phone: [facility] 05-06-2023 10:46-0400 Body mass index (BMI) [Ratio] 27.6 kg/m2 Dr. Dario Pratt Work Phone: [facility] 05-06-2023 10:46-0400 Body temperature 96.3 [degF] Dr. Dario Pratt Work Phone: [facility] 05-06-2023 10:46-0400 Body weight 89.[address] Dario Pratt Work Phone: [facility] 05-06-2023 10:46-0400 Diastolic blood pressure 86 mm[Hg] Dr. Dario Pratt Work Phone: [facility] 05-06-2023 10:46-0400 Heart rate 79 /min Dr. Dario Pratt Work Phone: [facility] 05-06-2023 10:46-0400 Respiratory rate 16 /min Dr. Dario Pratt Work Phone: [facility] 05-06-2023 10:46-0400 SaO2% (BldA) [Mass fraction] 97 % Dr. Dario Pratt Work Phone: [facility] 05-06-2023 10:46-0400 Systolic blood pressure 132 mm[Hg] Dr. Dario Pratt Work Phone: [facility] 08-11-2022 13:13-0400 Body height 180.[address] Dario Pratt Work Phone: [facility] 08-11-2022 13:13-0400 Body mass index (BMI) [Ratio] 27.5 kg/m2 Dr. Dario Pratt Work Phone: [facility] 08-11-2022 13:13-0400 Body temperature 98.6 [degF] Dr. Dario Pratt Work Phone: [facility] 08-11-2022 13:13-0400 Body weight 89.[address] Dario Pratt Work Phone: [facility] 08-11-2022 13:13-0400 Diastolic blood pressure 75 mm[Hg] Dr. Dario Pratt Work Phone: [facility] 08-11-2022 13:13-0400 Heart rate 73 /min Dr. Dario Pratt Work Phone: [facility] 08-11-2022 13:13-0400 Respiratory rate 18 /min Dr. Dario Pratt Work Phone: [facility] 08-11-2022 13:13-0400 SaO2% (BldA) [Mass fraction] 96 % Dr. Dario Pratt Work Phone: [facility] 08-11-2022 13:13-0400 Systolic blood pressure 122 mm[Hg] Dr. Dario Pratt Work Phone: [facility] 07-28-2022 09:01-0400 Body height 180.[address] Dario Pratt Work Phone: [facility] Work Phone: 07-28-2022 09:01-0400 Body mass index (BMI) [Ratio] 27.1 kg/m2 Dr. Dario Pratt Work Phone: [facility] Work Phone: 07-28-2022 09:01-0400 Body temperature 98.7 [degF] Dr. Dario Pratt Work Phone: [facility] Work Phone: 07-28-2022 09:01-0400 Body weight 88.[address] Dario Pratt Work Phone: [facility] Work Phone: 07-28-2022 09:01-0400 Diastolic blood pressure 76 mm[Hg] Dr. Dario Pratt Work Phone: [facility] Work Phone: 07-28-2022 09:01-0400 Heart rate 82 /min Dr. Dario Pratt Work Phone: [facility] Work Phone: 07-28-2022 09:01-0400 Respiratory rate 14 /min Dr. Dario Pratt Work Phone: [facility] Work Phone: 07-28-2022 09:01-0400 SaO2% (BldA) [Mass fraction] 96 % Dr. Dario Pratt Work Phone: [facility] Work Phone: 07-28-2022 09:01-0400 Systolic blood pressure 140 mm[Hg] Dr. Dario Pratt Work Phone: [facility] Work Phone: 07-08-2022 14:06-0400 Body height 180.[address] Dario Pratt Work Phone: [facility] Work Phone: 07-08-2022 14:06-0400 Body weight 85.[address] Dario Pratt Work Phone: [facility] Work Phone: 07-08-2022 14:06-0400 Heart rate 75 /min Dr. Dario Pratt Work Phone: [facility] Work Phone: 07-08-2022 14:06-0400 SaO2% (BldA) [Mass fraction] 98 % Dr. Dario Pratt Work Phone: [facility] Work Phone: 05-15-2022 09:43-0400 Body height 180.[address] Dario Pratt Work Phone: [facility] Work Phone: 05-15-2022 09:38-0400 Body mass index (BMI) [Ratio] 26.6 kg/m2 Dr. Dario Pratt Work Phone: [facility] Work Phone: 05-15-2022 09:38-0400 Body temperature 98.6 [degF] Dr. Dario Pratt Work Phone: [facility] Work Phone: 05-15-2022 09:38-0400 Body weight 86.[address] Dario Pratt Work Phone: [facility] Work Phone: 05-15-2022 09:38-0400 Diastolic blood pressure 68 mm[Hg] Dr. Dario Pratt Work Phone: [facility] Work Phone: 05-15-2022 09:38-0400 Heart rate 68 /min Dr. Dario Pratt Work Phone: [facility] Work Phone: 05-15-2022 09:38-0400 Respiratory rate 17 /min Dr. Dario Pratt Work Phone: [facility] Work Phone: 05-15-2022 09:38-0400 SaO2% (BldA) [Mass fraction] 96 % Dr. Dario Pratt Work Phone: [facility] Work Phone: 05-15-2022 09:38-0400 Systolic blood pressure 110 mm[Hg] Dr. Dario Pratt Work Phone: [facility] Work Phone: 05-13-2022 13:40-0400 Body mass index (BMI) [Ratio] 26.6 kg/m2 Dr. Dario Partt Work Phone: [facility] Work Phone: 05-13-2022 13:40-0400 Body temperature 98.3 [degF] Dr. Dario Pratt Work Phone: [facility] Work Phone: 05-13-2022 13:40-0400 Body weight 86.[address] Dario Pratt Work Phone: [facility] Work Phone: 05-13-2022 13:40-0400 Diastolic blood pressure 80 mm[Hg] Dr. Dario Pratt Work Phone: [facility] Work Phone: 05-13-2022 13:40-0400 Heart rate 66 /min Dr. Dario Pratt Work Phone: [facility] Work Phone: 05-13-2022 13:40-0400 Respiratory rate 16 /min Dr. Dario Pratt Work Phone: [facility] Work Phone: 05-13-2022 13:40-0400 SaO2% (BldA) [Mass fraction] 97 % Dr. Dario Pratt Work Phone: [facility] Work Phone: 05-13-2022 13:40-0400 Systolic blood pressure 122 mm[Hg] Dr. Dario Pratt Work Phone: [facility] Work Phone: 04-10-2022 08:35-0400 Body temperature 97.7 [degF] Dr. Dario Pratt Work Phone: [facility] Work Phone: 04-10-2022 08:35-0400 Diastolic blood pressure 71 mm[Hg] Dr. Dario Pratt Work Phone: [facility] Work Phone: 04-10-2022 08:35-0400 Heart rate 64 /min Dr. Dario Pratt Work Phone: [facility] Work Phone: 04-10-2022 08:35-0400 Respiratory rate 16 /min Dr. Dario Pratt Work Phone: [facility] Work Phone: 04-10-2022 08:35-0400 SaO2% (BldA) [Mass fraction] 100 % Dr. Dario Pratt Work Phone: [facility] Work Phone: 04-10-2022 08:35-0400 Systolic blood pressure 120 mm[Hg] Dr. Dario Pratt Work Phone: [facility] Work Phone: 04-10-2022 06:24-0400 Body height 180.[address] Dario Pratt Work Phone: [facility] Work Phone: 04-10-2022 06:24-0400 Body mass index (BMI) [Ratio] 25.9 kg/m2 Dr. Dario Pratt Work Phone: [facility] Work Phone: 04-10-2022 06:24-0400 Body weight 84.[address] Dario Pratt Work Phone: [facility] Work Phone: 03-05-2022 09:44-0400 Body mass index (BMI) [Ratio] 25.7 kg/m2 Dr. Dario Pratt Work Phone: [facility] Work Phone: 03-05-2022 09:44-0400 Body temperature 97.4 [degF] Dr. Dario Pratt Work Phone: [facility] Work Phone: 03-05-2022 09:44-0400 Body weight 86.[address] Dario Pratt Work Phone: [facility] Work Phone: 03-05-2022 09:44-0400 Diastolic blood pressure 84 mm[Hg] Dr. Dario Pratt Work Phone: [facility] Work Phone: 03-05-2022 09:44-0400 Heart rate 94 /min Dr. Dario Pratt Work Phone: [facility] Work Phone: 03-05-2022 09:44-0400 Respiratory rate 17 /min Dr. aDrio Pratt Work Phone: [facility] Work Phone: 03-05-2022 09:44-0400 SaO2% (BldA) [Mass fraction] 98 % Dr. Dario Pratt Work Phone: [facility] Work Phone: 03-05-2022 09:44-0400 Systolic blood pressure 137 mm[Hg] Dr. Dario Pratt Work Phone: [facility] Work Phone: 03-05-2022 09:44-0400 Body height 182.[address] Dario Pratt Work Phone: [facility] Work Phone: 03-05-2022 09:44-0400 Body mass index (BMI) [Ratio] 25.7 kg/m2 Dr. Dario Pratt Work Phone: [facility] Work Phone: 03-05-2022 09:44-0400 Body temperature 97.4 [degF] Dr. Dario Pratt Work Phone: [facility] Work Phone: 03-05-2022 09:44-0400 Body weight 86.[address] Dario Pratt Work Phone: [facility] Work Phone: 03-05-2022 09:44-0400 Diastolic blood pressure 84 mm[Hg] Dr. Dario Pratt Work Phone: [facility] Work Phone: 03-05-2022 09:44-0400 Heart rate 94 /min Dr. Dario Pratt Work Phone: [facility] Work Phone: 03-05-2022 09:44-0400 Respiratory rate 17 /min Dr. Dario Pratt Work Phone: [facility] Work Phone: 03-05-2022 09:44-0400 SaO2% (BldA) [Mass fraction] 98 % Dr. Dario Pratt Work Phone: [facility] Work Phone: 03-05-2022 09:44-0400 Systolic blood pressure 137 mm[Hg] Dr. Dario Pratt Work Phone: [facility] Work Phone: 03-03-2022 10:10-0400 Body mass index (BMI) [Ratio] 26.3 kg/m2 Dr. Dario Pratt Work Phone: [facility] Work Phone: 03-03-2022 10:10-0400 Body weight 85.[address] Dario Pratt Work Phone: [facility] Work Phone: 03-03-2022 10:10-0400 Diastolic blood pressure 62 mm[Hg] Dr. Dario Pratt Work Phone: [facility] Work Phone: 03-03-2022 10:10-0400 Heart rate 90 /min Dr. Dario Pratt Work Phone: [facility] Work Phone: 03-03-2022 10:10-0400 Respiratory rate 16 /min Dr. Dario Pratt Work Phone: [facility] Work Phone: 03-03-2022 10:10-0400 SaO2% (BldA) [Mass fraction] 93 % Dr. Dario Pratt Work Phone: [facility] Work Phone: 03-03-2022 10:10-0400 Systolic blood pressure 124 mm[Hg] Dr. Dario Pratt Work Phone: [facility] Work Phone: 03-03-2022 10:10-0400 Body mass index (BMI) [Ratio] 26.3 kg/m2 Dr. Dario Pratt Work Phone: [facility] Work Phone: 03-03-2022 10:10-0400 Body weight 85.[address] Dario Pratt Work Phone: [facility] Work Phone: 03-03-2022 10:10-0400 Diastolic blood pressure 62 mm[Hg] Dr. Dario Pratt Work Phone: [facility] Work Phone: 03-03-2022 10:10-0400 Heart rate 90 /min Dr. Dario Pratt Work Phone: [facility] Work Phone: 03-03-2022 10:10-0400 Respiratory rate 16 /min Dr. Dario Pratt Work Phone: [facility] Work Phone: 03-03-2022 10:10-0400 SaO2% (BldA) [Mass fraction] 93 % Dr. Dario Pratt Work Phone: [facility] Work Phone: 03-03-2022 10:10-0400 Systolic blood pressure 124 mm[Hg] Dr. Dario Pratt Work Phone: [facility] Work Phone: 02-17-2022 14:09-0400 Body mass index (BMI) [Ratio] 27.7 kg/m2 Dr. Dario Pratt Work Phone: [facility] Work Phone: 02-17-2022 14:09-0400 Body temperature 97.6 [degF] Dr. Dario Pratt Work Phone: [facility] Work Phone: 02-17-2022 14:09-0400 Body weight 90.[address] Dario Pratt Work Phone: [facility] Work Phone: 02-17-2022 14:09-0400 Diastolic blood pressure 78 mm[Hg] Dr. Dario Pratt Work Phone: [facility] Work Phone: 02-17-2022 14:09-0400 Heart rate 81 /min Dr. Dario Pratt Work Phone: [facility] Work Phone: 02-17-2022 14:09-0400 Respiratory rate 14 /min Dr. Dario Pratt Work Phone: [facility] Work Phone: 02-17-2022 14:09-0400 SaO2% (BldA) [Mass fraction] 98 % Dr. Dario Pratt Work Phone: [facility] Work Phone: 02-17-2022 14:09-0400 Systolic blood pressure 140 mm[Hg] Dr. Dario Pratt Work Phone: [facility] Work Phone: 02-17-2022 14:09-0400 Body mass index (BMI) [Ratio] 27.7 kg/m2 Dr. Dario Pratt Work Phone: [facility] Work Phone: 02-17-2022 14:09-0400 Body temperature 97.6 [degF] Dr. Dario Pratt Work Phone: [facility] Work Phone: 02-17-2022 14:09-0400 Body weight 90.[address] Dario Pratt Work Phone: [facility] Work Phone: 02-17-2022 14:09-0400 Diastolic blood pressure 78 mm[Hg] Dr. Dario Pratt Work Phone: [facility] Work Phone: 02-17-2022 14:09-0400 Heart rate 81 /min Dr. Dario Pratt Work Phone: [facility] Work Phone: 02-17-2022 14:09-0400 Respiratory rate 14 /min Dr. Dario Pratt Work Phone: [facility] Work Phone: 02-17-2022 14:09-0400 SaO2% (BldA) [Mass fraction] 98 % Dr. Dario Pratt Work Phone: [facility] Work Phone: 02-17-2022 14:09-0400 Systolic blood pressure 140 mm[Hg] Dr. Dario Pratt Work Phone: [facility] Work Phone: Encounters Encounter Date Encounter Type Care Provider Facility Start: 10-11-2025 ambulatory Dario Pratt Facili ty:[facility] Start: 09-18-2025 End: 09-18-2025 ambulatory Dario Pratt Facility:[facility] Start: 05-22-2025 End: 05-22-[address] Blaise Farias MD -[facility] Work Phone: Start: 05-22-2025 End: 05-22-[address] Dario Pratt MD Work Phone: -[facility] Start: 05-17-2025 End: 05-17-[address] Dario Pratt MD -[facility] Work Phone: Start: 05-17-2025 End: 05-17-[address] Dario Pratt MD Work Phone: [facility] Start: 04-24-2025 [facility] Start: 04-06-2025 End: 04-06-[address] Blaise Farias MD -[facility] Work Phone: Start: 04-06-2025 End: 04-06-2025 ambulatory Dario Emanuellindsay Facility:[facility] Start: 03-31-2025 End: 03-31-[address] Dario Pratt MD Work Phone: [facility] Work Phone: Start: 03-31-2025 End: 03-31-[address] Blaise Farias MD -[facility] Work Phone: Start: 03-31-2025 End: 03-31-2025 ambulatory Blaise Farias Facility:[facility] Start: 03-23-2025 End: 03-23-[address] Dario Pratt MD Work Phone: [facility] Work Phone: Start: 03-23-2025 End: 03-23-[address] Blaise Farias MD -Cat Scan, [facility] Work Phone: Start: 03-23-2025 End: 03-23-2025 ambulatory Blaise Farias Facility:[facility] Start: 02-27-2025 End: 02-27-[address] Blaise Farias MD -[facility] Work Phone: Start: 02-27-2025 End: 02-27-2025 ambulatory Blaise Farisa Facility:[facility] Start: 02-22-2025 End: 02-22-[address] Dario Pratt MD Work Phone: [facility] Work Phone: Start: 02-22-2025 End: 02-22-[address] Blaise Farias MD -Physical Therapy Work Phone: Start: 02-08-[address] Blaise hugehs MD -Physical Therapy Work Phone: Start: 02-06-2025 End: 02-06-[address] Dario Pratt MD -[facility] Work Phone: Start: 02-06-2025 End: 02-06-[address] Dario Pratt MD Work Phone: [facility] Work Phone: Start: 02-06-2025 End: 02-06-2025 ambulatory Efewcascadebe Oleghe Facility:[facility] Start: 12-26-2024 End: 12-26-2024 Patient encounter procedure Cody THORNTON -[facility] Work Phone: Start: 12-26-2024 End: 12-26-2024 ambulatory Efewongbe Oleghe Facility:[facility] Start: 12-23-2024 ambulatory Efewongbe Oleghe Facili ty:[facility] Start: 12-20-2024 ambulatory Efewongbe Oleghe Facili ty:[facility] Start: 12-19-2024 ambulatory Efewongbe Oleghe Facili ty:[facility] Start: 12-01-2024 ambulatory Efewongbe Oleghe Facili ty:[facility] Start: 11-01-2024 End: 11-01-2024 Patient encounter procedure Rosemary SHAW -[facility] Work Phone: Start: 11-01-2024 End: 11-01-2024 ambulatory Dario Pratt Facility:[facility] Start: 05-26-2023 End: 05-26-[address] Dario Pratt Work Phone: [facility] Work Phone: Start: 05-26-2023 End: 05-26-[address] Dario Pratt Work Phone: [facility]-Outpatient Bone Densit[facility] Work Phone: Start: 05-06-[address] Dario Pratt Work Phone: [facility] Start: 05-06-2023 End: 05-06-[address] Dario Pratt Work Phone: [facility] Work Phone: Start: 05-06-2023 End: 05-06-2023 Encounter for general adult medical examination without abnormal findings Dr. Dario Pratt Work Phone: [facility] Start: 05-06-2023 End: 05-06-[address] Dario Pratt Work Phone: [facility] Start: 11-20-2022 End: 11-20-[address] Dario Pratt Work Phone: [facility] Work Phone: Start: 11-20-2022 End: 11-20-[address] Dario Pratt Work Phone: [facility] Start: 08-11-2022 End: 08-11-[address] Dario Pratt Work Phone: [facility]-Pulmonary Medicine [facility] Start: 07-28-2022 End: 07-28-[address] Dario Pratt Work Phone: [facility] Work Phone: Start: 07-28-2022 End: 07-28-[address] Dario Pratt Work Phone: [facility] Start: 07-25-2022 End: 07-25-[address] Dario Pratt Work Phone: [facility] Work Phone: Start: 07-25-2022 End: 07-25-[address] Dario Pratt Work Phone: [facility] Start: 07-14-2022 Non-patient / Non-visit Dr. Gregorio Pratt Work Phone: [facility] Start: 07-11-2022 End: 07-11-[address] Dario Pratt Work Phone: [facility] Work Phone: Start: 07-11-2022 End: 07-11-[address] Dario Pratt Work Phone: [facility]-Pulmonary Services/Neurology Start: 07-09-2022 Non-patient / Non-visit Dr. Gregorio Pratt Work Phone: [facility] Start: 07-08-2022 End: 07-08-[address] Dario Pratt Work Phone: [facility] Work Phone: Start: 07-08-2022 End: 07-08-[address] Dario Pratt Work Phone: [facility]-Pulmonary Services/Neurology Start: 05-15-2022 End: 05-15-[address] Dario Pratt Work Phone: [facility]-Pulmonary Medicine [facility] Start: 05-13-2022 End: 05-13-[address] Dario Pratt Work Phone: [facility] Start: 05-13-2022 End: 05-13-[address] Dario Pratt Work Phone: [facility] Start: 04-10-2022 Non-patient / Non-visit Dr. Gregorio Pratt Work Phone: [facility] Start: 04-10-2022 End: 04-10-2022 Admission to same day surgery center Dr. Dario Pratt Work Phone: [facility]-Endoscopy Start: 03-06-2022 End: 03-06-[address] Dario Pratt Work Phone: [facility]-Laboratory, Specimen Start: 03-05-2022 End: 03-05-[address] Dario Pratt Work Phone: [facility] Start: 03-03-2022 End: 03-03-[address] Dario Pratt Work Phone: [facility]-Laboratory, [facility] Start: 02-17-2022 End: 02-17-[address] Dario Pratt Work Phone: [facility] Start: 12-05-2021 End: 12-05-[address] Dario Pratt Work Phone: [facility]-Laboratory, Specimen Procedures Date Procedure Procedure Detail Performing Clinician Start: 03-31-2025 MRI of joint of lowe r extremity Dr. Dario Pratt MD Work Phone: Start: 03-23-2025 CT of upper limb wit hout contrast Dr. Dario Pratt MD Work Phone: Start: 02-06-2025 Total iron binding c apacity measurement Dr. Dario Pratt MD Work Phone: Start: 05-26-2023 Dual energy X-ray absorptiometry Dr. Dario Pratt Work Phone: Start: 05-26-2023 Screening mammography D lucina Pratt Work Phone: Start: 11-20-2022 CT of chest without contrast Dr. Dario Pratt Work Phone: Start: 07-25-2022 CT of chest without contrast Dr. Dario Pratt Work Phone: Start: 05-13-[address] Lucina Pratt Work Phone: Start: 04-10-[address] Lucina Pratt Work Phone: Start: 03-06-[address] Dora Pratt Work Phone: Enteric Bacteriology Dr. Wallace Pratt Work Phone: Plan of Treatment Date Care Activity Detail Author Start: 12-20-2024 Walking distance 6 minutes [facility] Start: 12-19-2024 Measurement of respiratory function [facility] Start: 05-13-2022 Patient referral [facility] Work Phone: Start: 04-10-2022 Colonoscopy w/biopsy single/multiple COLONOSCOPY AND BIOPSY [facility] Work Phone: Start: 04-10-2022 Egd removal tumor polyp/other lesion snare tech EGD REMOVE LESION SNARE [facility] Work Phone: Start: 04-10-2022 Egd transoral biopsy single/multiple EGD BIOPSY SINGLE/MULTIPLE [facility] Work Phone: Start: 02-17-2022 Patient referral [facility] Work Phone: Basic metabolic 2008 panel with ionized calcium - Serum or Plasma [facility] CBC W Auto Different ial panel - Blood [facility] Continuous pulse oximetry [facility] CT Chest [facility] CT Chest WO contrast [facility] Work Phone: DXA Bone [Mass/Area] Bone density [facility] Exercise tolerance test [facility] Work Phone: Measurement of respiratory function [facility] Work Phone: MG Breast - bilatera l Screening [facility] MR Lower Extremity Joint [facility] Patient referral [facility] Work Phone: Thyroid stimulating hormone measurement [facility] Immunizations Immunization Date Immunization Notes Care Provider Fa cility 08-17-2024 Seasonal trivalent influenza vaccine, adjuvanted, preservative free Dr. Dario Pratt MD Work Phone: [facility] 08-29-2019 Fluad 2018- 65yr up(PF)45 mcg(15 mcgx3)/0.5 mL intramuscular syringe (flu vac Dr. Dario Pratt Work Phone: [facility] Work Phone: 08-31-[address] Dario Pratt Work Phone: [facility] 08-31-2018 Fluad 2017- 65yr up(PF)45 mcg(15 mcgx3)/0.5 mL intramuscular syringe (flu vac Dr. Dario Pratt Work Phone: [facility] Work Phone: Payers Date Payer Category Payer Self-pay [id number] 2023 Private Health Insurance [facility] [id number] Medicare [id number] Private Health Insurance [facility] [id number] Unknown [id number] Unknown [id number] 2.16.8 [id number] Unknown [id number] 2.16.8 [id number] Unknown [id number] 2.16.8 [id number] Unknown [id number] 2.16.8 [id number] Unknown [id number] 2.16.8 [id number] Unknown [id number] 2.16.8 [id number] Unknown [id number] 2.16.8 [id number] Unknown [id number] 2.16.8 [id number] Unknown [id number] 2.16.8 [id number] Unknown [id number] 2.16.8 [id number] Unknown [id number] 2.16.8 [id number] Unknown [id number] 2.16.8 [id number] Unknown [id number] 2.16.8 [id number] Unknown [id number] 2.16.8 [id number] Unknown [id number] 2.16.8 [id number] Unknown [id number] 2.16.8 [id number] Unknown [id number] 2.16.8 [id number] Unknown [id number] 2.16.8 [id number] Social History Date Type Detail Facility Start: 03-05-2022 End: 05-06-2023 Tobacco smoking status NHIS Unknown if ever smoked [facility] Start: 05-10-2020 Cigarettes [facility] Start: 1950 Sex Assigned At Female [facility] Start: 08-17-2024 Tobacco smoking stat us NEIS Smokes tobacco daily (finding) [facility] Start: 02-13-2025 End: 02-22-2025 Sex Female (finding) [facility] Medical Equipment Procedure Code Equipment Code Equipment Origin al Text Equipment Identifier Dates WAYNE SONI FDA Start: 05-16-2020 MESH,3DMAX LEFT LG [id number] FDA Start: 05-16-2020 MESH,3DMAX RIGHT LG [id number] FDA Start: 05-16-2020 TACKER,SECURE STRAP FDA Start : 05-16-2020 WAYNE SONI FDA Start: 05-16-2020 MESH,3DMAX LEFT LG [id number] FDA Start: 05-16-2020 MESH,3DMAX RIGHT LG [id number] FDA Start: 05-16-2020 TACKER,SECURE STRAP FDA Start : 05-16-2020 WAYNE SONI FDA Start: 05-16-2020 MESH,3DMAX LEFT LG [id number] FDA Start: 05-16-2020 MESH,3DMAX RIGHT LG [id number] FDA Start: 05-16-2020 TACKER,SECURE STRAP FDA Start : 05-16-2020 WAYNE SONI FDA Start: 05-16-2020 MESH,3DMAX LEFT LG [id number] FDA Start: 05-16-2020 MESH,3DMAX RIGHT LG [id number] FDA Start: 05-16-2020 TACKER,SECURE STRAP FDA Start : 05-16-2020 WAYNE SONI FDA Start: 05-16-2020 MESH,3DMAX LEFT LG [id number] FDA Start: 05-16-2020 MESH,3DMAX RIGHT LG [id number] FDA Start: 05-16-2020 TACKER,SECURE STRAP FDA Start : 05-16-2020 ZACHARIAHWAYNE VILLAVICENCIO FDA Start: 05-16-2020 MESH,3DMAX LEFT LG [id number] FDA Start: 05-16-2020 MESH,3DMAX RIGHT LG [id number] FDA Start: 05-16-2020 TACKER,SECURE STRAP FDA Start : 05-16-2020 CLIP,WAYNE VILLAVICENCIO FDA Start: 05-16-2020 MESH,3DMAX LEFT LG [id number] FDA Start: 05-16-2020 MESH,3DMAX RIGHT LG [id number] FDA Start: 05-16-2020 TACKER,SECURE STRAP FDA Start : 05-16-2020 WAYNE SONI FDA Start: 05-16-2020 MESH,3DMAX LEFT LG [id number] FDA Start: 05-16-2020 MESH,3DMAX RIGHT LG [id number] FDA Start: 05-16-2020 TACKER,SECURE STRAP FDA Start : 05-16-2020 WAYNE SONI FDA Start: 05-16-2020 MESH,3DMAX LEFT LG [id number] FDA Start: 05-16-2020 MESH,3DMAX RIGHT LG [id number] FDA Start: 05-16-2020 TACKER,SECURE STRAP FDA Start : 05-16-2020 WAYNE SONI FDA Start: 05-16-2020 MESH,3DMAX LEFT LG [id number] FDA Start: 05-16-2020 MESH,3DMAX RIGHT LG [id number] FDA Start: 05-16-2020 TACKER,SECURE STRAP FDA Start : 05-16-2020 WAYNE SONI FDA Start: 05-16-2020 MESH,3DMAX LEFT LG [id number] FDA Start: 05-16-2020 MESH,3DMAX RIGHT LG [id number] FDA Start: 05-16-2020 TACKER,SECURE STRAP FDA Start : 05-16-2020 WAYNE SONI FDA Start: 05-16-2020 MESH,3DMAX LEFT LG [id number] FDA Start: 05-16-2020 MESH,3DMAX RIGHT LG [id number] FDA Start: 05-16-2020 TACKER,SECURE STRAP FDA Start : 05-16-2020 WAYNE SONI FDA Start: 05-16-2020 MESH,3DMAX LEFT LG [id number] FDA Start: 05-16-2020 MESH,3DMAX RIGHT LG [id number] FDA Start: 05-16-2020 TACKER,SECURE STRAP FDA Start : 05-16-2020 WAYNE SONI FDA Start: 05-16-2020 MESH,3DMAX LEFT LG [id number] FDA Start: 05-16-2020 MESH,3DMAX RIGHT LG [id number] FDA Start: 05-16-2020 TACKER,SECURE STRAP FDA Start : 05-16-2020 WAYNE SONI FDA Start: 05-16-2020 MESH,3DMAX LEFT LG [id number] FDA Start: 05-16-2020 MESH,3DMAX RIGHT LG [id number] FDA Start: 05-16-2020 TACKER,SECURE STRAP FDA Start : 05-16-2020 WAYNE SONI FDA Start: 05-16-2020 MESH,3DMAX LEFT LG [id number] FDA Start: 05-16-2020 MESH,3DMAX RIGHT LG [id number] FDA Start: 05-16-2020 TACKER,SECURE STRAP FDA Start : 05-16-2020 Goals Date Patient Goal Desired Activity /State Mental Status Date Assessment Result Facility 04-10-2022 Cognitive function Touch/Shaking [facility] Work Phone: Clinical Notes 11-01-2024 to 03-24-2025 Note Date & Type Note Facility 03-24-2025 Radiology Diagnostic study note [facility] [address] [place] [address] Extremity Upper without Contra MR#: [id number] Acct: [id number] Name: KEARA MARIO Rep #: [id number] : [id number] F [id number] From: Arie Calvo DO PCP: Dr. Dario Pratt MD Status: R EG CLI Study:Extremity Upper without Contra Date of Exam: 03/23/25 Exam# [id number] Ordering Dr: Blaise Farias MD PROCEDURE: EXTREMITY UPPER WITHOUT contrast 03/23/2025 REASON FOR EXAM: BLUEPRINT PLANNING FOR RTSA TECHNIQUE: Axial CT images of the left shoulder obtained without intravenous contrast. Coronal and Sagittal reconstruction series were provided. One or more dose reduction techniques were used (e.g., Automated exposure control, adjustment of the mA and/or kV according to patient size, use of iterative reconstruction technique COMPARISON: None FINDINGS: See impression CT/Extremity Upper without Contra IMPRESSION: Severe left shoulder osteoarthritis including [id number] articulation, osseousremodeling, subchondral sclerosis/cysts and marginal osteophytes. No significant posterior glenoid wear, however there are rather extensive subcortical cysts along the posterior lip. Mild diffuse fatty marbling of the rotator cuff musculature without significant loss of muscle bulk. Small shoulder joint effusion and fluid in the biceps tendon. Mild/moderate acromioclavicular joint osteoarthritis. Moderate hiatal hernia. Coronary artery calcifications. Visualized portions of the left lung are clear. Reading Location: [facility] CC: Dr. Dario Pratt MD; Dr. Blaise Farias MD ~ Driver License Agent: Signed [facility] 02-22-2025 Discharge summary [facility] 02-22-2025 Discharge summary Note Date/Time February 22, 2025 12:25pm [facility] [address] [place] [address] [address] [place] [address] / REHABILITATION SERVICES DISCHARGE SUMMARY MR#: [id number] Acct: [id number] Name: KEARA MARIO Rep #: [id number] : [id number] From: Colleen Oropeza Referring Dr.: Dr. Blaise Farias MD Status: REG RCR [facility] Discharge Summary D/C summary: It has been my pleasure to treat KEARA MARIO referred by Dr. Blaise Farias MD, with the diagnosis of L shoulder pain/arthritis/Rc tear for a total of 10 visit(s). Discharge Date: 02/22/25 Please see the following information for a summary of their discharge status. Subjective Subjective: Pt reports that she does not hurt as bad with her arm down by her side but she can not reach it up over her head. She has 8-9/10 when she reachesup and brings it down. She is not sleeping well most night cause she can not get comfortable. She would like an MRI to see what is really going on. Pain L shoulder pain: Pain Intensity (Out of 10): 0 Overall Improvement % Improvement: 40 Objective Objective/Function: R shoulder flex 160 and L shoulder flex 107 R T8 and L L1 R ER 83 and L 43 R shoulder ABD 180 and L 70 UE MMT: R shoulder flex 8.9 and L 4.1 R shoulder ER 11 and L 5.5 R shoulder IR 8.4 and L 5.9 Goals Goal 1:: I HEP Goal Progress: Goal Met Goal 2:: Increase L shoulder AROM (at the time of the eval: R shoulder flex 160 and L shoulder flex 107 R T8 and L L1 R ER 83 and L 43 R shoulder ABD 180 and L 65) Goal Progress: Not Progressing Goal 3:: Increase L shoulder strength (at the time of the eval: R shoulder flex8.9 and L 3.1 R shoulder ER 11 and L 5 R shoulder IR 8.4 and L 5.9) Goal Progress: Progressing Goal 4:: Be able to use her L arm to do her hair with 50% less pain Goal Progress: Not Progressing Plan Plan: 1X/ week for an additional 4 weeks for AAROM of the L shoulder, RC strength and scapular strength with HEP. HEP: supine wand flexion, Supine wand ER with a towel, and standing orange mid rows D/C Information Discharge Comments: DC PT back to Dr miller sentence: If there are questions or concerns regarding this patient's physical therapy, please feel free to call me at [phone]. Thank you for the referral of thispatient. Sincerely, SHERMAN Goodrich Balance/Gait/Functional tests Balance/Special Test Scores Quick DASH Score: 50.0000 Improvement % Improvement: 40 <Electronically signed by Colleen Stewart MPT> 02/22/25 1215 CC: Dr. Dario Pratt MD; Dr. Blaise Farias MD ~ Signed [facility] Work Phone: 1(496) 357-287103-24-2025 Evaluation note* Diagnosis Onset Date Resolution Status Admit Date Anemia chronic February 06 9:58am Essential hypertension chronic [facility] 2024 9:58am Hyperlipemia chronic February 06, 2025 9:58am Hypothyroidism chronic January 9:58am Left shoulder pain chronic February 06, 2025 9:58am Left rotator cuff tear arthropathy acute February 27, 2025 12:57pm Primary osteoarthritis, left shoulder acute February 27, 2025 12:57pm [facility] Work Phone: 1(945) 188-285803-24-2025 Evaluation note* Diagnosis Onset Date Resolution Status Admit Date Anemia chronic February 06 9:58am Essential hypertension chronic [facility] 2024 9:58am Hyperlipemia chronic February 06, 2025 9:58am Hypothyroidism chronic January 9:58am Left shoulder pain chronic February 06, 2025 9:58am Left rotator cuff tear arthropathy acute February 27, 2025 12:57pm Primary osteoarthritis, left shoulder acute February 27, 2025 12:57pm Left rotator cuff tear arthropathy acute April 06, 2025 1 :25pm Primary osteoarthritis, left shoulder acute April 06, 2025 1 :25pm [facility] Work Phone: 1(903) 358-317003-24-2025 Evaluation note* Diagnosis Onset Date Resolution Status Admit Date Anemia chronic February 06 9:58am Essential hypertension chronic [facility] 2024 9:58am Hyperlipemia chronic February 06, 2025 9:58am Hypothyroidism chronic January 9:58am Left shoulder pain chronic February 06, 2025 9:58am Left rotator cuff tear arthropathy acute February 27, 2025 12:57pm Primary osteoarthritis, left shoulder acute February 27, 2025 12:57pm Left rotator cuff tear arthropathy acute April 06, 2025 1 :25pm Primary osteoarthritis, left shoulder acute April 06, 2025 1 :25pm Arthritis chronic May 17, 2025 11:00am Asthma-COPD overlap syndrome chronic May 17, 2025 11:00am Essential hypertension chronic 2024 11:00am Hypothyroidism chronic May 17, 2025 11:00am Left rotator cuff tear arthropathy acute May 22, 2025 1 0:58am Primary osteoarthritis, left shoulder acute May 22, 2025 1 0:58am [facility] Work Phone: 1(213) 433-764212-17-2024 Evaluation note* Diagnosis Onset Date Resolution Status Admit Date Asthma-COPD overlap syndrome chronic November 01, 2024 10:51am Tobacco abuse chronic November 012023 10:51am Anemia chronic February 06 9:58am Essential hypertension chronic [facility] 2024 9:58am Hyperlipemia chronic February 06, 2025 9:58am Hypothyroidism chronic January 9:58am Left shoulder pain chronic February 06, 2025 9:58am [facility] Work Phone: Evaluation note* Diagnosis Onset Date Resolution Status GERD (gastroesophageal reflux disease) acute Hiatal hernia chronic Seasonal allergies chronic Tobacco abuse chronic Bloody sputum resolved GERD (gastroesophageal reflux disease) acute Hiatal hernia chronic Seasonal allergies chronic Tobacco abuse chronic Bloody sputum resolved Diarrhea in adult patient ac nome GERD (gastroesophageal reflux disease) acute Hiatal hernia [facility] Work Phone: Evaluation note* Diagnosis Onset Date Resolution Status GERD (gastroesophageal reflux disease) acute Hiatal hernia chronic Seasonal allergies chronic Tobacco abuse chronic Bloody sputum resolved Diarrhea noneactive GERD (gastroesophageal reflux disease) acute Hiatal hernia chronic Seasonal allergies chronic Tobacco abuse chronic Bloody sputum resolved Diarrhea noneactive Diarrhea in adult patient ac nome GERD (gastroesophageal reflux disease) acute Hiatal hernia chronic [id number] acute Lung nodule acute Tobacco abuse chronic [id number] acute Lung nodule acute Seasonal allergies chronic Tobacco abuse [facility] Work Phone: Evaluation note* Diagnosis Onset Date Resolution Status [id number] acute Lung nodule acute Tobacco abuse chronic [id number] acute Lung nodule acute Seasonal allergies chronic Tobacco abuse [facility] Work Phone: Evaluation note* Diagnosis Onset Date Resolution Status [id number] acute Lung nodule acute Tobacco abuse chronic [id number] acute Lung nodule acute Seasonal allergies chronic Tobacco abuse chronic Essential hypertension chron ic GERD (gastroesophageal reflux disease) chronic Hypothyroidism chronic Tobacco abuse [facility] Work Phone: Evaluation note* Diagnosis Onset Date Resolution Status Lung nodule acute Asthma-COPD overlap syndrome [facility] Work Phone: Evaluation note* Diagnosis Onset Date Resolution Status Health care maintenance acut e Impacted cerumen of both ears acute Essential hypertension chron ic Hypothyroidism chronic Tobacco abuse [facility] Work Phone: [facility] Work Phone: Reason for referral (narrative)No reason for referral information availableWCrystal [facility] Work Phone: Chief Complaint and Reason for Visit Chief Complaint COVID TEST diaherra, blood in stool 2 WK FU HERNIA / REFLUX Reason for Visit GERD (gastroesophage al reflux disease) Hiatal hernia Seasonal allergies Tobacco abuse Bloody sputum GERD (gastroesophageal reflux disease) Hiatal hernia Seasonal allergies Tobacco abuse Bloody sputum Diarrhea in adult patient GERD (gastroesophageal reflux disease) Hiatal hernia Chief Complaint diaherra, blood in s tool 2 WK FU HERNIA / REFLUX Reason for Visit GERD (gastroesophage al reflux disease) Hiatal hernia Seasonal allergies Tobacco abuse Bloody sputum GERD (gastroesophageal reflux disease) Hiatal hernia Seasonal allergies Tobacco abuse Bloody sputum Diarrhea in adult patient GERD (gastroesophageal reflux disease) Hiatal hernia Chief Complaint diaherra, blood in s tool 2 WK FU HERNIA / REFLUX LUNG CANCER SCREENING SCREENING positive lung screening Reason for Visit GERD (gastroesophage al reflux disease) Hiatal hernia Seasonal allergies Tobacco abuse Bloody sputum Diarrhea GERD (gastroesophageal reflux disease) Hiatal hernia Seasonal allergies Tobacco abuse Bloody sputum Diarrhea Diarrhea in adult patient GERD (gastroesophageal reflux disease) Hiatal hernia [id number] Lung nodule Tobacco abuse [id number] Lung nodule Seasonal allergies Tobacco abuse Chief Complaint LUNG CANCER SCREENIN G SCREENING positive lung screening SOLITARY PULMONARY NODULE SOLITARY PULMONARY NODULE SOLITARY PULMONARY NODULE Reason for Visit [id number] Lung nodule Tobacco abuse [id number] Lung nodule Seasonal allergies Tobacco abuse Chief Complaint LUNG CANCER SCREENIN G SCREENING positive lung screening SOLITARY PULMONARY NODULE SOLITARY PULMONARY NODULE SOLITARY PULMONARY NODULE SOLITARY PULMONARY NODULE Reason for Visit [id number] Lung nodule Tobacco abuse [id number] Lung nodule Seasonal allergies Tobacco abuse Chief Complaint LUNG CANCER SCREENIN G SCREENING positive lung screening SOLITARY PULMONARY NODULE SOLITARY PULMONARY NODULE SOLITARY PULMONARY NODULE SOLITARY PULMONARY NODULE RUL NODULE 4 M FU Reason for Visit [id number] Lung nodule Tobacco abuse [id number] Lung nodule Seasonal allergies Tobacco abuse Essential hypertension GERD (gastroesophageal reflux disease) Hypothyroidism Tobacco abuse Chief Complaint 3 M FU LUNG NODULE Reason for Visit Lung nodule Asthma-COPD overlap syndrome Chief Complaint FU Reason for Visit Health care maintena nce Impacted cerumen of both ears Essential hypertension Hypothyroidism Tobacco abuse Chief Complaint FU SCREENING/POST RUBA Reason for Visit Health care maintena nce Impacted cerumen of both ears Essential hypertension Hypothyroidism Tobacco abuse Chief Complaint Admit Date Follow up/Test results November 01 10:51am CONCERN FOR FLU December 26, 2024 11:45am fu February 06, 2025 9:5 8am LT SHLD PN/RX HERE February 08, 2025 10: 00am Reason for Visit Admit Date Asthma-COPD overlap syndrome November 012023 10:51am Tobacco abuse November 01, 2024 10:51am Anemia February 06, 2025 9:5 8am Essential hypertension February 06, 2025 9:58am Hyperlipemia February 06, 2025 9:5 8am Hypothyroidism February 06, 2025 9:5 8am Left shoulder pain February 06, 2025 9:5 8am Chief Complaint Admit Date Follow up/Test results November 01 10:51am CONCERN FOR FLU December 26, 2024 11:45am fu February 06, 2025 9:5 8am LT SHLD PN/RX HERE February 22, 2025 10:0 0am Chief Complaint Admit Date CONCERN FOR FLU December 26, 2024 11:45am fu February 06, 2025 9:5 8am LT SHLD PN/RX HERE February 22, 2025 10:0 0am LEFT SHOULDER February 27, 2025 12: 57pm BLUEPRINT PLANNING FOR RTSA March 23 6:45am Reason for Visit Admit Date Anemia February 06, 2025 9:5 8am Essential hypertension February 06, 2025 9:58am Hyperlipemia February 06, 2025 9:5 8am Hypothyroidism February 06, 2025 9:5 8am Left shoulder pain February 06, 2025 9:5 8am Left rotator cuff tear arthropathy February 27, 2025 12:57pm Primary osteoarthritis, left shoulder Ap ril 2024 12:57pm Chief Complaint Admit Date CONCERN FOR FLU December 26, 2024 11:45am fu February 06, 2025 9:5 8am LT SHLD PN/RX HERE February 22, 2025 10:0 0am LEFT SHOULDER February 27, 2025 12: 57pm BLUEPRINT PLANNING FOR RTSA March 23 6:45am PAIN, HARD TO LIFT March 31, 2025 7:11a m Chief Complaint Admit Date fu February 06, 2025 9:5 8am LT SHLD PN/RX HERE February 22, 2025 10:0 0am LEFT SHOULDER February 27, 2025 12: 57pm BLUEPRINT PLANNING FOR RTSA March 23 6:45am PAIN, HARD TO LIFT March 31, 2025 7:11a m LEFT SHOULDER April 06, 2025 1:25p m 3 M FU May 17, 2025 11:00 am Reason for Visit Admit Date Anemia February 06, 2025 9:5 8am Essential hypertension February 06, 2025 9:58am Hyperlipemia February 06, 2025 9:5 8am Hypothyroidism February 06, 2025 9:5 8am Left shoulder pain February 06, 2025 9:5 8am Left rotator cuff tear arthropathy February 27, 2025 12:57pm Primary osteoarthritis, left shoulder Ap ril 2024 12:57pm Left rotator cuff tear arthropathy March 172024 1:25pm Primary osteoarthritis, left shoulder Ma y 2024 1:25pm Chief Complaint Admit Date fu February 06, 2025 9:5 8am LT SHLD PN/RX HERE February 22, 2025 10:0 0am LEFT SHOULDER February 27, 2025 12: 57pm BLUEPRINT PLANNING FOR RTSA March 23 6:45am PAIN, HARD TO LIFT March 31, 2025 7:11a m LEFT SHOULDER April 06, 2025 1:25p m 3 M FU May 17, 2025 11:00 am LEFT SHOULDER May 22, 2025 10:58 am Reason for Visit Admit Date Anemia February 06, 2025 9:5 8am Essential hypertension February 06, 2025 9:58am Hyperlipemia February 06, 2025 9:5 8am Hypothyroidism February 06, 2025 9:5 8am Left shoulder pain February 06, 2025 9:5 8am Left rotator cuff tear arthropathy February 27, 2025 12:57pm Primary osteoarthritis, left shoulder Ap ril 2024 12:57pm Left rotator cuff tear arthropathy March 172024 1:25pm Primary osteoarthritis, left shoulder Ma y 2024 1:25pm Arthritis May 17, 2025 11:00 am Asthma-COPD overlap syndrome May 17 11:00am Essential hypertension May 17, 2025 11 :00am Hypothyroidism May 17, 2025 11:00 am Left rotator cuff tear arthropathy May 22, 2025 10:58am Primary osteoarthritis, left shoulder Ju 2024 10:58am Family History No Family History Records Found Relationship Condition Age at Onset Recorded Date/T chani sister Unknown Malignant neoplasm of breast Unknown daughter Malignant neoplasm Unknown mother Asthma Unknown Hypertension Unknown Cerebrovascular accident (CVA) Unknown Advance Directives No Advanced Directives Records Found Advance Directive Response Recorded Date/ Time Living Will No June 17, 2021 10:28pm Power of Finisher [employer] No June 17 10:28pm Advance Directive Response Recorded Date/ Time Living Will Yes April 07, 2022 1 0:54am Power of Fin[employer] Yes April 07, 2022 10:54am Advance Directive Response Recorded Date/ Time Name of Medical Power of Fin[employer] ANGELITO Jimenez April 07, 2022 10:54am Living Will Yes April 07, 2022 1 0:54am Power of Fin[employer] Yes April 07, 2022 10:54am Advance Directive Response Recorded Date/ Time Living Will Yes April 07, 2022 9 :54am Power of Fin[employer] Yes April 07, 2022 9:54am Advance Directive Response Recorded Date/ Time Living Will Yes April 07, 2022 1 0:54am Do you have a Healthcare Power of Fin[employer]? Yes April 07, 2022 10:54am Summary Purpose Additional Source Comments Goals (unrecognized section and content) Goals may be documented in a n alternate sectionGoals may be documented in an alternate sectionGoals may be documented in an alternate sectionGoals may be documented in an alternate sectionGoals may be documented in an alternate sectionGoals may be documented in an alternate sectionGoals may be documented in an alternate sectionGoals may be documented in an alternate sectionGoals may be documented in an alternate sectionGoals may be documented in an alternate sectionGoals may be documented in an alternate section Care Teams (unrecognized sec tion and content) Team Status: Active Member Role Status Dates Dr. Dario Pratt MD Family Provider Active Dr. Dario Pratt MD Primary Care Provider Active Team Status: Inactive Member Role Status Dates Dr. Dario Pratt MD Primary Care Provider, Refer ring Provider Active Rosemary Anaya PIPE STRESS ENGINEER, PIPE STRESS ENGINEER-C Attending Provider Active Team Status: Inactive Member Role Status Dates Dr. Dario Pratt MD Primary Care Provider Active Rosemary Anaya PIPE STRESS ENGINEER, PIPE STRESS ENGINEER-C Attending Provider, Referrin g Provider Active Team Status: Inactive Member Role Status Dates Dr. Dario Pratt MD Primary Care P rovider, Attending Provider, Referring Provider Active Team Status: Inactive Member Role Status Dates Dr. Dario Pratt MD Primary Care Provider Active Start: November 01, 2024 End: November 01, 2024 Dr. Dario Pratt MD Referring Provider Active Start: November 01, 2024 End: November 01, 2024 Rosemary Anaya PIPE STRESS ENGINEER, PIPE STRESS ENGINEER-C Attending Provider Active Start: November 01, 2024 End: November 01, 2024 Team Status: Inactive Member Role Status Dates Dr. Dario Pratt MD Primary Care Provider Active Start: December 26, 2024 End: December 26, 2024 Dr. Dario Pratt MD Referring Provider Active Start: December 26, 2024 End: December 26, 2024 Cody Song PA, PA Attending Provider Active Start: December 26, 2024 End: December 26, 2024 Team Status: Inactive Member Role Status Dates Dr. Dario Pratt MD Primary Care Provider Active Start: February 06, 2025 End: February 06, 2025 Dr. Dario Pratt MD Attending Provider Active Start: February 06, 2025 End: February 06, 2025 Dr. Dario Pratt MD Referring Provider Active Start: February 06, 2025 End: February 06, 2025 Team Status: Active Member Role Status Dates Dr. Dario Pratt MD Primary Care Provider Active Start: February 08, 2025 Blaise Farias MD Attending Provider Active St art: February 08, 2025 Blaise Farias MD Referring Provider Active St art: February 08, 2025 Team Status: Inactive Member Role Status Dates Dr. Dario Pratt MD Primary Care Provider Active Start: February 22, 2025 End: February 22, 2025 Blaise Farias MD Attending Provider Active St art: February 22, 2025 End: February 22, 2025 Blaise Farias MD Referring Provider Active St art: February 22, 2025 End: February 22, 2025 Team Status: Active Member Role Status Dates Dr. Dario Pratt MD Primary Care Provider Active Team Status: Inactive Member Role Status Dates Dr. Dario Pratt MD Primary Care Provider Active Start: February 27, 2025 End: February 27, 2025 Dr. Dario Pratt MD Referring Provider Active Start: February 27, 2025 End: February 27, 2025 Blaise Farias MD Attending Provider Active St art: February 27, 2025 End: February 27, 2025 Team Status: Inactive Member Role Status Dates Dr. Dario Pratt MD Primary Care Provider Active Start: March 23, 2025 End: March 23, 2025 Blaise Fairas MD Attending Provider Active St art: March 23, 2025 End: March 23, 2025 Blaise Farias MD Referring Provider Active St art: March 23, 2025 End: March 23, 2025 Team Status: Inactive Member Role Status Dates Dr. Dario Pratt MD Primary Care Provider Active Start: March 31, 2025 End: March 31, 2025 Blaise Farias MD Attending Provider Active St art: March 31, 2025 End: March 31, 2025 Blaise Farias MD Referring Provider Active St art: March 31, 2025 End: March 31, 2025 Team Status: Active Member Role/Relationship Status Dates Dr. Dario Pratt MD Primary Care Provider Active Team Status: Inactive Member Role/Relationship Status Dates Dr. Dario Pratt MD Primary Care Provider Active Start: February 06, 2025 End: February 06, 2025 Dr. Dario Pratt MD Attending Provider Active Start: February 06, 2025 End: February 06, 2025 Dr. Dario Pratt MD Referring Provider Active Start: February 06, 2025 End: February 06, 2025 Team Status: Inactive Member Role/Relationship Status Dates Dr. Dario Pratt MD Primary Care Provider Active Start: February 06, 2025 End: February 06, 2025 Dr. Dario Pratt MD Attending Provider Active Start: February 06, 2025 End: February 06, 2025 Dr. Dario Pratt MD Referring Provider Active Start: February 06, 2025 End: February 06, 2025 Team Status: Inactive Member Role/Relationship Status Dates Dr. Dario Pratt MD Primary Care Provider Active Start: February 22, 2025 End: February 22, 2025 Blaise Farias MD Attending Provider Active St art: February 22, 2025 End: February 22, 2025 Blaise Farias MD Referring Provider Active St art: February 22, 2025 End: February 22, 2025 Team Status: Inactive Member Role/Relationship Status Dates Dr. Dario Pratt MD Primary Care Provider Active Start: February 27, 2025 End: February 27, 2025 Dr. Dario Pratt MD Referring Provider Active Start: February 27, 2025 End: February 27, 2025 Blaise Farias MD Attending Provider Active St art: February 27, 2025 End: February 27, 2025 Team Status: Inactive Member Role/Relationship Status Dates Dr. Dario Pratt MD Primary Care Provider Active Start: March 23, 2025 End: March 23, 2025 Blaise Farias MD Attending Provider Active St art: March 23, 2025 End: March 23, 2025 Blaise Farias MD Referring Provider Active St art: March 23, 2025 End: March 23, 2025 Team Status: Inactive Member Role/Relationship Status Dates Dr. Dario Pratt MD Primary Care Provider Active Start: March 31, 2025 End: March 31, 2025 Blaise Farias MD Attending Provider Active St art: March 31, 2025 End: March 31, 2025 Blaise Farias MD Referring Provider Active St art: March 31, 2025 End: March 31, 2025 Team Status: Inactive Member Role/Relationship Status Dates Dr. Dario Pratt MD Primary Care Provider Active Start: April 06, 2025 End: April 06, 2025 Dr. Dario Pratt MD Referring Provider Active Start: April 06, 2025 End: April 06, 2025 Blaise Farias MD Attending Provider Active St art: April 06, 2025 End: April 06, 2025 Team Status: Inactive Member Role/Relationship Status Dates Dr. Dario Pratt MD Primary Care Provider Active Start: May 17, 2025 End: May 17, 2025 Dr. Dario Pratt MD Attending Provider Active Start: May 17, 2025 End: May 17, 2025 Dr. Dario Pratt MD Referring Provider Active Start: May 17, 2025 End: May 17, 2025 Team Status: Inactive Member Role/Relationship Status Dates Dr. Dario Pratt MD Primary Care Provider Active Start: May 22, 2025 End: May 22, 2025 Dr. Dario Pratt MD Referring Provider Active Start: May 22, 2025 End: May 22, 2025 Blaise Farias MD Attending Provider Active St art: May 22, 2025 End: May 22, 2025 INFORMATION SOURCE (unrecogn ized section and content) DATE CREATED AUTHOR 09/23/2025 [place] FOR RECORDS PERTAINING TO PATIENTS WHO ARE OR HAVE BEEN ENROLLED IN A CHEMICAL DEPENDENCY/SUBSTANCEABUSE PROGRAM, SOME INFORMATION MAY BE OMITTED. This clinical summary was aggregated from multiple sources. Caution should be exercised in using it in the provision of clinical care. This summary normalizes information from multiple sources, and as a consequence, information in this document may materially change the coding, format and clinical context of patient data. In addition, data may be omitted in some cases. CLINICAL DECISIONS SHOULD BE BASED ON THE PRIMARY CLINICAL RECORDS. [facility] [employer] Return [facility]. provides no warranty or guarantee of the accuracy or completeness of information in this document.
[2025-09-30 09:05] LABS: Hematocrit 42.6 % (37-47); Hemoglobin 13.3 g/dL (12.0-15.0); Immature Granulocytes Count 0.030 X10^3/uL (0.0-0.0); Mean Corp Hgb Conc 31.2 g/dL (32-36); Mean Corpuscular Volume 90.4 fL (81-99); Mean Platelet Vol. 11.8 fl (6.2-12.0); NRBC Flagged by Analyzer 0 % (0-5); Platelet Count 269 K/mm3 (150-450); RBC Distribution Width CV 12.4 % (11.6-14.6); RBC Distribution Width SD 41.0 fl (35.1-43.9); Red Blood Count 4.71 M/mm3 (4.2-5.4); White Blood Count 8.2 K/mm3 (4.4-11.0)
[2025-09-30 09:55] LABS: Anion Gap 10 (5-15); BUN 22 mg/dL (4-19); BUN/Creat Ratio 29.6 RATIO (10-20); Calcium,Total 9.6 mg/dL (7.6-11.0); Carbon Dioxide 24.7 mmol/L (21.0-32.0); Chloride 102 mmol/L (98-108); Cholesterol 200 mg/dL (<=200); Glucose 105 mg/dL (70-99); Low Density Lipoprotein Calc. 123 mg/dL; Potassium 4.4 mmol/L (3.3-5.1); Triglycerides 70 mg/dL; Very Low Density Lipoprotein 14 mg/dL (5-40); cholesterol:hdl ratio screen 3.10
== END | disposition home or self-care (01) ==
LOC: LAB 08:56
PROVIDERS: PCP Internal Medicine; Referring Provider Internal Medicine; Visit Provider Internal Medicine
DX: I10 Essential (primary) hypertension (principal); E03.9 Hypothyroidism, unspecified
CPT/HCPCS: 36415; 80048; 80061; 84443; 85025

== ENCOUNTER → 2025-10-28 | Outpatient (CLI) | payer MEDICARE, SELFPAY ==
--- NOTE | 2025-10-28 10:10 | CT_ITS ---
PROCEDURE: LOW DOSE CT LUNG SCREENING 10/28/2025 REASON FOR EXAM: SMOKING TECHNIQUE: Procedure Code: CTLUNGSCREEN Modality: CT Procedure: LOW DOSE CT LUNG SCREENING Coronal and Sagittal reconstruction series were provided. One or more dose reduction techniques were used (e.g., Automated exposure control, adjustment of the mA and/or kV according to patient size, use of iterative reconstruction technique). REFERENCE LINK: [facility] Lung-RADS RADIATION DOSE SUMMARY: CTDlvol: 3.0 mGy DLP: 99.7 mGycm COMPARISON: 12/22/2023 FINDINGS: PULMONARY NODULES: (Only nodules >3mm are reported) Nodules described below are on series 2 unless otherwise specified. Pulmonary Nodules: Stable 6 mm nodule on image 99 Hardware:Unremarkable Lymph Nodes:Unremarkable Heart and Vasculature:Normal heart size Coronary Artery Calcifications: Present Lungs and Airways: Mild emphysematous changes are present. Pleura:Unremarkable Upper Abdomen:Moderate hiatal hernia. Bones:Degenerative changes of the thoracic spine. CT/Low Dose CT Lung Screening IMPRESSION: No new suspicious pulmonary nodules. Coronary artery calcification (CAC) is is present Lung-RADS Category: 2 BENIGN (BASED ON IMAGING FEATURES OR INDOLENT BEHAVIOR). RECOMMEND 12-MONTH SCREENING LDCT. Other Significant Findings: Moderate hiatal hernia. Reading Location: [facility]
--- OUTSIDE RECORDS SUMMARY | 2025-10-28 10:21 | XMS RPT_ITS | CCD ---
Author Organization [facility] Care Team Providers Care Public Health Policy Analyst Name Role Phone Dr. Dario Pratt Primary Care Provider [phone] Dr. Dario Pratt Referring Provider [phone] Dr. Ramón Katz Attending Provider HILLARY Ashby Attending Provider Unavailab Dr. Parviz Bryson Attending Provider Dr. Dario Pratt Primary Care Provider [phone] Dr. Dario Pratt Referring Provider [phone] Dr. Parviz Tafoya Other Provider Laine BENCH WORKER BINDING, BENCH WORKER BINDING-C Lo Attending Provider Dr. Golden Ewing Attending Provider Dr. Dario Pratt Primary Care Provider [phone] Dr. Dario Pratt Referring Provider [phone] Dr. Parviz Tafoya Attending Provider [phone] Laine BENCH WORKER BINDING, BENCH WORKER BINDING-C Lo Referring Provider Dr. Golden Ewing Referring Provider [phone] Dr. Golden Ewing Other Provider Dr. Edmund Garcia Attending Provider Dr. Dario Pratt Attending Provider [phone] Dr. Dario Pratt Primary Care Provider [phone] Dr. Dario Pratt Referring Provider [phone] Jaclyn BENCH WORKER BINDING, BENCH WORKER BINDING-C Rosemary Attending Provider Dr. Dario Pratt Primary Care Provider [phone] Dr. Dario Pratt Attending Provider [phone] Dr. Dario Pratt Referring Provider [phone] Santa FREEMAN, Dr. Bishop Primary Care Provider Santa FREEMAN, Dr. Bishop Referring Provider [phone] Jaclyn BENCH WORKER BINDING-C, Rosemary Attending Provider Cody Matthew Attending Provider [...] 0) Oleghe, Efewongbe Primary Care Unavailable Anaya BENCH WORKER BINDING, Rosemary Referring Unavailable Anaya BENCH WORKER BINDING, Rosemary Attending Unavailable Oleghe, Efewongbe Primary Care Unavailable Anaya BENCH WORKER BINDING, Rosemary Referring Unavailable Anaya BENCH WORKER BINDING, Rosemary Attending Unavailable Oleghe, Efewongbe Primary Care Unavailable Anaya BENCH WORKER BINDING, Rosemary Referring Unavailable Anaya BENCH WORKER BINDING, Rosemary Attending Unavailable Blaise Farias Attending Unavailable [...] Care Unavailable Oleghe, Efewongbe Referring Unavailable Jaclyn BENCH WORKER BINDINGRosemary Attending Unavailable Oleghe, Efewongbe Referring Unavailable Blaise Farias Attending Unavailable Oleghe, Efewongbe Primary Care Unavailable Oleghe, Efewongbe Primary Care Unavailable Oleghe, Efewongbe Referring Unavailable Cody Matthew Attending Unavailable Oleghe, Efewongbe Attending Unavailable Oleghe, Efewongbe Primary Care Unavailable Oleghe, Efewongbe Referring Unavailable Oleghe, Efewongbe Primary Care Unavailable Jaclyn BENCH WORKER BINDINGRosemary Referring Unavailable Jaclyn BENCH WORKER BINDING, Rosemary Attending Unavailable Blaise Farias Attending Unavailable Oleghe, Efewongbe Primary Care Unavailable Blaise Farias Referring Unavailable Oleghe, Efewongbe Attending Unavailable Oleghe, Efewongbe Primary Care Unavailable Oleghe, Efewongbe Referring Unavailable Blaise Farias Attending Unavailable Oleghe, Efewongbe Primary Care Unavailable Blaise Farias Referring Unavailable Blaise Farias Attending Unavailable Oleghe, Efewongbe Primary Care Unavailable Blaise Farias Referring Unavailable Oleghe, Efewongbe Primary Care Unavailable Jaclyn BENCH WORKER BINDINGRosemary Referring Unavailable Jaclyn BENCH WORKER BINDING, Rosemary Attending Unavailable Medications Current Medications Medication [...] May 16, 2020 May 18, 2020 12:03am [id number] 200 actuat albuterol 0.09 mg/actuat metered dose [...] Diuretic, Thiazide Diuretic Start: 01-28-2021 End: 02-07-2025 Triamterene-English chlorothiazid 37.5-25 mg tablet Discontinued 1 {tbl} [...] 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 Other gastrointestinal disorders (5 sources) Diarrhea, [...] Vis iton 09-18-2025 Internal Medicine Office Visit [facility] [address] [place], [place] [address] OFFICE VISIT Date of Service: 09/18/25 MR#: [id number] Acct: [id number] Name: KEARA MARIO Rep #: [id number] : 1950 Provider: Dr. Dario núñez MD Age/Sex: 75/F Location: [facility] Status: Signed with Addenda ADDENDUM by BOB August on 09/18/25 at 1651 Office Procedure Documentation entered by Nelli August MA 09/18/25 16:51: Immunizations Fluad 65yr up(PF)45 mcg(15 mcgx3)/0.5 mL intramuscular syringe Performing Provider: Dario Pratt MD Performing Location: [facility] Administered by: Nelli August MA on 09/18/25 16:50 Dose Route Admin Location Dispensed Lot Number Expiration Date Package NDC NDC Estate Manager 45 mcg IM Right Deltoid 0.5 mL [id number] 03/13/26 09652-723-30 [id number] [employer] VIS Given Date VIS Provided VIS [...] type of (more content not included)... Normal [facility] Orthopedic Visit Reporton Orthopedic Visit Report [facility] [address] [place] [address] OFFICE VISIT Date of Service: 05/22/25 MR#: [id number] Acct: [id number] Name: KEARA MARIO Rep #: [id number] : 1950 Provider: Dr. Blaise tierney MD Age/Sex: 74/F Location: [facility] Status: Signed with Addenda ADDENDUM by Chelly [...] Performing Provider: Blaise Farias MD Performing Location: [facility] Administered by: Blaise Farias MD on 05/22/25 11:31 Dose Route Admin Location Dispensed Lot Number Expiration Date [employer] Yusuf ufacturer 80 mg intra-articular left shoulder 2 mL [id number] 06/16/27 2160-7457-29 [facility] Date cc: * Signed ADDENDUM [...] Performing Provider: Blaise Farias MD Performing Location: [facility] Administered by: Blaise Farias MD on 05/22/25 11:31 Dose Route Admin Location Dispensed Lot Number Expiration Date [facility] Yusuf ufacturer 80 mg intra-articular left shoulder 2 mL [id number] 06/16/27 8925-2064-08 [facility] Date cc: * Signed Intake [...] vaccine need (more content not included)... Normal [facility] Internal Medicine Office Vis iton 05-17-2025 Internal Medicine Office Visit [facility] [address] [place] [address] OFFICE VISIT Date of Service: 05/17/25 MR#: [id number] Acct: [id number] Name: KEARA MARIO Rep #: [id number] : 1950 Provider: Dr. Dario núñez MD Age/Sex: 74/F Location: [facility] Status: Signed Intake Vital Signs 02/06/25 10:14 [...] Chief Complaint: Follow-up of her chronic conditions Reconciliation Specialist Required: No Accompanied by: Self Is patient [...] to not have sgy at this time [facility] Medical History Left rotator cuff tear arthropathy [...] at 118/72 (more content not included)... Normal [facility] Orthopedic Visit Reporton Orthopedic Visit Report [facility] [address] [place] [address] OFFICE VISIT Date of Service: 04/06/25 MR#: [id number] Acct: [id number] Name: KEARA MARIO Rep #: [id number] : 1950 Provider: Dr. Blaise tierney MD Age/Sex: 74/F Location: [facility] Status: Signed with Addenda ADDENDUM by Dr. [...] arm and painful to lift. Supplemental Info [facility] Imaging Services [address] [place] [address] Upper Ext Joint Only(Routine) MR#: [id number] Acct: V00 (more content not included)... Normal [facility] Magnetic resonance imaging r eportOrdered By: Vincenzo Pham on 04-03-2025 Study report [facility] Imaging Services [address] [place] [address] Upper Ext Joint Only(Routine) MR#: [id number] Acct: [id number] Name: KEARA MARIO Rep #: [id number] : 1950 F 74 From: Charo Pham MD PCP: Dr. Dario Pratt MD Status: R EG CLI Study:Upper Ext Joint Only(Routine) Date of Exam: 03/31/25 Exam# [id number] Ordering Dr: Blaise Farias MD PROCEDURE: UPPER [...] Pratt MD; Dr. Blaise Farias MD ~ Lime Supervisor: Signed [facility] Upper Ext Joint Only(Routine )on 03-31-2025 Upper Ext Joint Only(Routine) [facility] Imaging Services [address] [place] [address] Upper Ext Joint Only(Routine) MR#: [id number] Acct: [id number] Name: KEARA MARIO Rep #: [id number] : 1950 F 74 From: Vincenzo Pham MD PCP: Dr. Dario Pratt MD Status: REG CLI Study: Upper Ext Joint Only(Routine) Date of Exam: 0 03/31/25 Exam# [id number] Ordering Dr: Blaise Farias MD PROCEDURE: UPPER [...] Dario Pratt MD; Dr. Blaise Farias MD Lime Supervisor: Signed Normal [facility] Extremity Upper without Cont raon 03-23-2025 Extremity Upper without Contra [facility] Imaging Services [address] [place] [id number] Extremity Upper without Contra MR#: [id number] Acct: [id number] Name: KEARA MARIO Rep #: [id number] : 1950 F 74 From: Saul Simpson PCP: Dr. Dario Pratt MD Status: REG CLI Study: Extremity Upper without Contra Date of Exam: 0 03/23/25 Exam# [id number] Ordering Dr: Blaise Farias MD PROCEDURE: EXTREMITY [...] Contra IMPRESSION: Severe left shoulder osteoarthritis including [id number] articulation, osseous remodeling, subchondral sclerosis/cysts and marginal [...] Dario Pratt MD; Dr. Blaise Farias MD Lime Supervisor: Signed Normal [facility] Orthopedic Visit Reporton Orthopedic Visit Report [facility] [address] [place] [address] [address] [place] [address] OFFICE VISIT Date of Service: 02/27/25 MR#: [id number] Acct: [id number] Name: KEARA MARIO Rep #: [id number] : 1950 Provider: Dr. Blaise tierney MD Age/Sex: 74/F Location: [facility] Status: Signed Intake Vital Signs 02/06/25 10:14 [...] 6 weeks (more content not included)... Normal [facility] PT D/C Summary (1)on 025 PT D/C Summary (1) [facility] Physical Therapy [facility] [address] [place] [address] [address] [place] [address] / REHABILITATION SERVICES DISCHARGE SUMMARY MR#: [id number] Acct: [id number] Name: KEARA MARIO Rep #: [id number] : 1950 74 From: Colleen WHITAKER Referring Dr.: Dr. Blaise Farias MD Status: R EG RCR Insurance: [facility] SELF PAY INSURANCE Discharge Summary D/C [...] please feel free to call me at [phone]. Thank you for the referral of this patient. Sincerely, Colleen Stewart, MPT Balance/Gait/Functional tests Balance/Special Test Scores Quick DASH Score: 50.0000 Improvement % Improvement: 40 02/22/25 1215 CC: Dr. Dario Pratt MD; Dr. Blaise Farias MD Signed Normal [facility] Comprehensive Metabolic Prof caon 02-07-2025 Albumin [Mass/Vol] 4.3 g/dL Normal 3.4-4.8 [facility] Comment on above: Performed By: #### L 500.4050, L503.6550, L503.6030, L100.0100, L501.9520 #### [facility] [address] [place], [address] Albumin/Globulin [Mass ratio] 1.4 {ratio} Normal 0.9-2.4 [facility] Comment on above: Performed By: #### L 500.4050, L503.6550, L503.6030, L100.0100, L501.9520 #### [facility] [address] [place], [address] ALK PHOS 93 U/L Normal 35-104 [facility] Comment on above: Performed By: #### L 500.4050, L503.6550, L503.6030, L100.0100, L501.9520 #### [facility] [address] [place], [address] ALT [Catalytic activity/Vol] 14 U/L Normal <=34 [facility] Comment on above: Performed By: #### L 500.4050, L503.6550, L503.6030, L100.0100, L501.9520 #### [facility] [address] [place], [address] AST [Catalytic activity/Vol] 29 U/L Normal <=31 [facility] Comment on above: Performed By: #### L 500.4050, L503.6550, L503.6030, L100.0100, L501.9520 #### [facility] [address] [place], [address] Bilirubin [Mass/Vol] 0.42 mg/dL Normal 0.00-1.30 [facility] Comment on above: Performed By: #### L 500.4050, L503.6550, L503.6030, L100.0100, L501.9520 #### [facility] [address] [place], [address] BUN/CRE 32.5 RATIO High 10-20 [facility] Comment on above: Performed By: #### L 500.4050, L503.6550, L503.6030, L100.0100, L501.9520 #### [facility] [address] [place], [address] Calcium [Mass/Vol] 9.8 mg/dL Normal 7.6-11.0 [facility] Comment on above: Performed By: #### L 500.4050, L503.6550, L503.6030, L100.0100, L501.9520 #### [facility] [address] [place], [address] Chloride [Moles/Vol] 100 mmol/L Normal 98-108 [facility] Comment on above: Performed By: #### L 500.4050, L503.6550, L503.6030, L100.0100, L501.9520 #### [facility] [address] [place], [address] CO2 [Moles/Vol] 22.4 mmol/L Normal 21.0-32.0 [facility] Comment on above: Performed By: #### L 500.4050, L503.6550, L503.6030, L100.0100, L501.9520 #### [facility] [address] [place], [address] Creatinine [Mass/Vol] 0.80 mg/dL Normal 0.70-1.20 [facility] Comment on above: Performed By: #### L 500.4050, L503.6550, L503.6030, L100.0100, L501.9520 #### [facility] [address] [place], [address] GAP 15 Normal 5-15 [facility] Comment on above: Performed By: #### L 500.4050, L503.6550, L503.6030, L100.0100, L501.9520 #### [facility] [address] [place], [address] GFR/1.73 sq M.predicted among non-blacks MDRD (S/P/Bld) [Vol rate/Area] 76 mL/min/{1.73_m2} Normal >60 [facility] Comment on above: Result Comment: mL/m in/1.73m2 CKD-EPI Creatinine Equation (2020) Performed By: #### L 500.4050, L503.6550, L503.6030, L100.0100, L501.9520 #### [facility] [address] [place], [address] Globulin (S) [Mass/Vol] 3.1 g/dL Normal 2.2-4.2 [facility] Comment on above: Performed By: #### L 500.4050, L503.6550, L503.6030, L100.0100, L501.9520 #### [facility] [address] [place], [address] Glucose [Mass/Vol] 99 mg/dL Normal 70-99 [facility] Comment on above: Performed By: #### L 500.4050, L503.6550, L503.6030, L100.0100, L501.9520 #### [facility] [address] [place], [address] Potassium [Moles/Vol] 4.3 mmol/L Normal 3.3-5.1 [facility] Comment on above: Performed By: #### L 500.4050, L503.6550, L503.6030, L100.0100, L501.9520 #### [facility] [address] [place], [address] Sodium [Moles/Vol] 137 mmol/L Normal 133-145 [facility] Comment on above: Performed By: #### L 500.4050, L503.6550, L503.6030, L100.0100, L501.9520 #### [facility] [address] [place], [address] T PROT 7.4 g/dL Normal 5.9-8.4 [facility] Comment on above: Performed By: #### L 500.4050, L503.6550, L503.6030, L100.0100, L501.9520 #### [facility] [address] [place], [address] Urea nitrogen [Mass/Vol] 26 mg/dL High 4-19 [facility] Comment on above: Performed By: #### L 500.4050, L503.6550, L503.6030, L100.0100, L501.9520 #### [facility] [address] [place], [address] Iron+Iron Binding Capacityon 02-07-2025 Iron [Mass/Vol] 98 ug/dL Normal 50-170 [facility] Comment on above: Performed By: #### L 500.4050, L503.6550, L503.6030, L100.0100, L501.9520 #### [facility] [address] [place], [address] IRON SATURATION 24.0 Normal 13-59 [facility] Comment on above: Performed By: #### L 500.4050, L503.6550, L503.6030, L100.0100, L501.9520 #### [facility] [address] [place], [address] TIBC 408 ug/dL Normal 250-450 [facility] Comment on above: Performed By: #### L 500.4050, L503.6550, L503.6030, L100.0100, L501.9520 #### [facility] [address] [place], [address] UIBC 310 ug/dL Normal 228-428 [facility] Comment on above: Performed By: #### L 500.4050, L503.6550, L503.6030, L100.0100, L501.9520 #### [facility] [address] [place], [address] Absolute lymphocyte countOrd ered By: Dario Pratt on 02-06-2025 Lymphocytes Auto (Unsp spec) [#/Vol] 1.56 10*3/uL 0.83-4.51 [facility] Absolute neutrophil countOrd ered By: Dario Pratt on 02-06-2025 Neutrophils (Bld) [#/Vol] 4.8 10*3/uL 2.0-7.7 [facility] Anion gap in Serum or Plasma Ordered By: Dario Pratt on 02-06-2025 Anion gap [Moles/Vol] 15 mmol/L 5-15 [facility] Automated lymphocyte count a s percentage of total leukocytesOrdered By: Dario Pratt on 02-06-2025 Lymphocytes/100 WBC Auto (Unsp spec) 20.7 % 19-41 [facility] BUN/creatinine ratioOrdered By: Dario Pratt on 02-06-2025 Urea nitrogen/Creatinine [Mass ratio] 32.5 mg/mg High 10-20 [facility] Basophil percentageOrdered B y: Dario Pratt on 02-06-2025 Basophils/100 WBC (Bld) 1.2 % High 0-1 [facility] Bilirubin, totalOrdered By: Dario Pratt on 02-06-2025 Bilirubin [Mass/Vol] 0.42 mg/dL 0.00-1.30 [facility] CBC W/Diff, Automatedon 01-15 Absolute Lymph 1.56 X10 3/uL Normal 0.83-4.51 [facility] Comment on above: Performed By: #### L 500.4050, L503.6550, L503.6030, L100.0100, L501.9520 #### [facility] [address] [place], [address] Absolute Neut 4.8 X10 3/uL Normal 2.0-7.7 [facility] Comment on above: Performed By: #### L 500.4050, L503.6550, L503.6030, L100.0100, L501.9520 #### [facility] [address] [place], [address] Basophils/100 WBC (Bld) 1.2 % High 0-1 [facility] Comment on above: Performed By: #### L 500.4050, L503.6550, L503.6030, L100.0100, L501.9520 #### [facility] [address] [place], [address] Eosinophils/100 WBC (Bld) 3.3 % Normal 0-5 [facility] Comment on above: Performed By: #### L 500.4050, L503.6550, L503.6030, L100.0100, L501.9520 #### [facility] [address] [place], [address] Erythrocyte distribution width (RBC) [Ratio] 12.1 % Normal 11.6-14.6 [facility] Comment on above: Performed By: #### L 500.4050, L503.6550, L503.6030, L100.0100, L501.9520 #### [facility] [address] [place], [address] Hematocrit (Bld) [Volume fraction] 41.6 % Normal 37-47 [facility] Comment on above: Performed By: #### L 500.4050, L503.6550, L503.6030, L100.0100, L501.9520 #### [facility] [address] [place], [address] Hemoglobin (Bld) [Mass/Vol] 13.2 g/dL Normal 12.0-15.0 [facility] Comment on above: Performed By: #### L 500.4050, L503.6550, L503.6030, L100.0100, L501.9520 #### [facility] [address] [place], [address] IG% 0.400 Normal 0.0-0.9 [facility] Comment on above: Result Comment: IG% - Immature Granulocytes (promyelocytes, myelocytes and metamyelocytes) > 1% indicates that a LEFT SHIFT is Present. Performed By: #### L 500.4050, L503.6550, L503.6030, L100.0100, L501.9520 #### [facility] [address] [place], [address] Lymphocytes/100 WBC (Bld) 20.7 % Normal 19-41 [facility] Comment on above: Performed By: #### L 500.4050, L503.6550, L503.6030, L100.0100, L501.9520 #### [facility] [address] [place], [address] MCH (RBC) [Entitic mass] 28.6 pg Normal 27.0-32.0 [facility] Comment on above: Performed By: #### L 500.4050, L503.6550, L503.6030, L100.0100, L501.9520 #### [facility] [address] [place], [address] MCHC (RBC) [Mass/Vol] 31.7 g/dL Low 32-36 [facility] Comment on above: Performed By: #### L 500.4050, L503.6550, L503.6030, L100.0100, L501.9520 #### [facility] [address] [place], [address] MCV (RBC) [Entitic vol] 90.2 fL Normal 81-99 [facility] Comment on above: Performed By: #### L 500.4050, L503.6550, L503.6030, L100.0100, L501.9520 #### [facility] [address] [place], [address] Monocytes/100 WBC (Bld) 10.0 % Normal 0-10 [facility] Comment on above: Performed By: #### L 500.4050, L503.6550, L503.6030, L100.0100, L501.9520 #### [facility] [address] [place], [address] Neutrophils/100 WBC (Bld) 64.4 % Normal 47-70 [facility] Comment on above: Performed By: #### L 500.4050, L503.6550, L503.6030, L100.0100, L501.9520 #### [facility] [address] [place], [address] Nucleated RBC (Bld) [#/Vol] 0 10*3/uL Normal 0-5 [facility] Comment on above: Performed By: #### L 500.4050, L503.6550, L503.6030, L100.0100, L501.9520 #### [facility] [address] [place], [address] Platelet mean volume (Bld) [Entitic vol] 13.4 fL High 6.2-12.0 [facility] Comment on above: Performed By: #### L 500.4050, L503.6550, L503.6030, L100.0100, L501.9520 #### [facility] [address] [place], [address] Platelets (Bld) [#/Vol] 241 10*3/uL Normal 150-450 [facility] Comment on above: Performed By: #### L 500.4050, L503.6550, L503.6030, L100.0100, L501.9520 #### [facility] [address] [place], [address] RBC (Bld) [#/Vol] 4.61 10*6/uL Normal 4.2-5.4 [facility] Comment on above: Performed By: #### L 500.4050, L503.6550, L503.6030, L100.0100, L501.9520 #### [facility] [address] [place], [address] RDW SD 39.8 fl Normal 35.1-43.9 [facility] Comment on above: Performed By: #### L 500.4050, L503.6550, L503.6030, L100.0100, L501.9520 #### [facility] [address] [place], [address] WBC (Bld) [#/Vol] 7.5 10*3/uL Normal 4.4-11.0 [facility] Comment on above: Performed By: #### L 500.4050, L503.6550, L503.6030, L100.0100, L501.9520 #### [facility] [address] [place], [address] Calculated total iron bindin g capacityOrdered By: Dario Pratt on 02-06-2025 Total Iron Binding Capacity 408 ug/dL 250-450 [facility] Carbon dioxide, total [Moles /volume] in Central venous bloodOrdered By: Dario Pratt on 02-06-2025 CO2 [Moles/Vol] 22.4 mmol/L 21.0-32.0 [facility] Chloride assayOrdered By: Gregorio Pratt on 02-06-2025 Chloride [Moles/Vol] 100 mmol/L 98-108 [facility] Eosinophil percentageOrdered By: landen Pratt on 02-06-2025 Eosinophils/100 WBC (Bld) 3.3 % 0-5 [facility] Erythrocyte distribution wid th ratioOrdered By: [facility] Pratt on 02-06-2025 Erythrocyte distribution width (RBC) [Ratio] 12.1 % 11.6-14.6 [facility] Erythrocyte distribution wid th standard deviationOrdered By: kalebsan josesol Pratt on 02-06-2025 Erythrocyte distribution width (RBC) [Entitic vol] 39.8 fL 35.1-43.9 [facility] Erythrocyte distribution width (RBC) [Ratio] 39.8 fl 35.1-43.9 [facility] Ferritinon 02-06-2025 Ferritin [Mass/Vol] 99 ng/mL Normal 22-378 [facility] Comment on above: Performed By: #### L 500.4050, L503.6550, L503.6030, L100.0100, L501.9520 #### [facility] [address] [place], [address] GFR/1.73 sq M.predicted dilcia g non-blacks MDRD (S/P/Bld) [Vol rate/Area]Ordered By: Dario Pratt on 02-06-2025 Estimated GFR (MDRD) Non-Af Amer 76 >60 [facility] Comment on above: mL/min/1.73m2 CKD-EP I Creatinine Equation (2020) Glomerular filtration rate ( GFR) estimation/1.73 sq m using serum, plasma, or whole bOrdered By: Dario Pratt on 02-06-2025 GFR/1.73 sq M.predicted among non-blacks MDRD (S/P/Bld) [Vol rate/Area] 76 mL/min/{1.73_m2} >60 [facility] Comment on above: mL/min/1.73m2 CKD-EP I Creatinine Equation (2020) Hematocrit Auto (Bld) [Volum e fraction]Ordered By: Dario Pratt on 02-06-2025 Hematocrit (Bld) [Volume fraction] 41.6 % 37-47 [facility] Hemoglobin measurementOrdere d By: Dario Pratt on 02-06-2025 Hemoglobin (Bld) [Mass/Vol] 13.2 g/dL 12.0-15.0 [facility] Immature granulocytes/100 WB C Auto (Bld)Ordered By: Dario Pratt on 02-06-2025 Immature granulocytes/100 WBC (Bld) 0.400 % 0.0-0.9 [facility] Comment on above: IG% - Immature Granu locytes (promyelocytes, myelocytes and metamyelocytes) > 1% indicates that a LEFT SHIFT is Present. Internal Medicine Office Vis iton 02-06-2025 Internal Medicine Office Visit [facility] [address] [place] [address] [place] [address] OFFICE VISIT Date of Service: 02/06/25 MR#: [id number] Acct: [id number] Name: KEARA MARIO Rep #: [id number] : 1950 Provider: Dr. Dario núñez MD Age/Sex: 74/F Location: [facility] Status: Signed Intake Vital Signs 12/26/24 12:06 02/06/25 10:14 Height 6 ft 6 ft Weight: 192 lb BMI 26.0 BP 116/70 Blood Pressure Location Lt brachial Position Sitting Respiration 14 Pulse 76 Pulse Source Monitor Temp 97.1 F L Temp Source Temporal Pulse Oximetry (%) 98 Oxygen Delivery Method room air Intake Visit Reasons: fu Chief Complaint: Left shoulder Reconciliation Specialist Required: No Is patient in pain?: No [...] vision, ch (more content not included)... Normal [facility] Iron (Unsp spec) [Mass/Mass] Ordered By: Dario Pratt on 02-06-2025 Iron [Mass/Vol] 98 ug/dL 50-170 [facility] Iron measurement (mass/mass) Ordered By: Dario Pratt on 02-06-2025 Iron (Unsp spec) [Mass/Mass] 98 ug/dL 50-170 [facility] Iron saturation [Mass fracti on]Ordered By: Dario Pratt on 02-06-2025 Iron Saturation 24.0 % 13-59 [facility] Laboratory - Chemistry and C hemistry - challengeOrdered By: Dario Pratt on 02-06-2025 AST [Catalytic activity/Vol] 29 U/L <32 [facility] Lymphocytes Auto (Unsp spec) [#/Vol]Ordered By: Dario Emanuele on 02-06-2025 Lymphocytes (Bld) [#/Vol] 1.56 10*3/uL 0.83-4.51 [facility] Lymphocytes/100 WBC Auto (Un sp spec)Ordered By: Efkalebongbe aJyghe on 02-06-2025 Lymphocytes/100 WBC (Bld) 20.7 % 19-41 [facility] MCV (mean corpuscular volume ) determinationOrdered By: Charleneongsol Emanuele on 02-06-2025 MCV (RBC) [Entitic vol] 90.2 fL 81-99 [facility] Mean corpuscular hemoglobin (MCH) determinationOrdered By: Dario Pratt on 02-06-2025 MCH (RBC) [Entitic mass] 28.6 pg 27.0-32.0 [facility] Mean corpuscular hemoglobin concentration (MCHC) determinationOrdered By: Dario Pratt on 02-06-2025 MCHC (RBC) [Mass/Vol] 31.7 g/dL Low 32-36 [facility] Mean platelet volume determi nationOrdered By: Dario Pratt on 02-06-2025 Platelet mean volume (Bld) [Entitic vol] 13.4 fL High 6.2-12.0 [facility] Monocyte percentageOrdered B y: Dario Pratt on 02-06-2025 Monocytes/100 WBC (Bld) 10.0 % 0-10 [facility] Neutrophil percentageOrdered By: Dario Emanuele on 02-06-2025 Neutrophils/100 WBC (Bld) 64.4 % 47-70 [facility] No Panel InformationOrdered By: Dario Pratt on 02-06-2025 Unsaturated Iron Binding Capacity 310 ug/dL 228-428 [facility] Nucleated red blood cell per centageOrdered By: Dario Emanuele on 02-06-2025 Nucleated RBC/100 WBC (Bld) [Ratio] 0 % 0-5 [facility] Platelet countOrdered By: Gregorio Pratt on 02-06-2025 Platelets (Bld) [#/Vol] 241 10*3/uL 150-450 [facility] Potassium (Unsp spec) [Mass/ Vol]Ordered By: Dario Pratt on 02-06-2025 Potassium [Moles/Vol] 4.3 mmol/L 3.3-5.1 [facility] Potassium measurement (mass/ volume)Ordered By: Dario Pratt on 02-06-2025 Potassium (Unsp spec) [Mass/Vol] 4.3 mmol/L 3.3-5.1 [facility] RBC Auto (Bld) [#/Vol]Ordere d By: Dario Pratt on 02-06-2025 RBC (Bld) [#/Vol] 4.61 10*6/uL 4.2-5.4 [facility] Serum creatinine measurement (mass/volume)Ordered By: Dario Pratt on 02-06-2025 Creatinine [Mass/Vol] 0.80 mg/dL 0.70-1.20 [facility] Serum globulin measurementOr dered By: Dario Pratt on 02-06-2025 Globulin (S) [Mass/Vol] 3.1 g/dL 2.2-4.2 [facility] Serum glucose measurement (m ass/volume)Ordered By: Dario Pratt on 02-06-2025 Glucose [Mass/Vol] 99 mg/dL 70-99 [facility] Serum or plasma alanine sanz otransferase (ALT) measurementOrdered By: Dario Pratt on 02-06-2025 ALT [Catalytic activity/Vol] 14 U/L <35 [facility] Serum or plasma albumin princess urement (mass/volume)Ordered By: Dario Pratt on 02-06-2025 Albumin [Mass/Vol] 4.3 g/dL 3.4-4.8 [facility] Serum or plasma albumin/glob ulin mass ratioOrdered By: Dario Pratt on 02-06-2025 Albumin/Globulin [Mass ratio] 1.4 {ratio} 0.9-2.4 [facility] Serum or plasma alkaline farhan sphatase measurementOrdered By: Dario Pratt on 02-06-2025 ALP [Catalytic activity/Vol] 93 U/L 35-104 [facility] Serum or plasma calcium princess urement (mass/volume)Ordered By: Dario Pratt on 02-06-2025 Calcium [Mass/Vol] 9.8 mg/dL 7.6-11.0 [facility] Serum or plasma ferritin gracy surement (mass/volume)Ordered By: Dario Pratt on 02-06-2025 Ferritin [Mass/Vol] 99 ng/mL 22-378 [facility] Serum or plasma iron saturat ion measurement (mass fraction)Ordered By: Dario Pratt on 02-06-2025 Iron saturation [Mass fraction] 24.0 % 13-59 [facility] Serum or plasma urea nitroge n measurement (mass/volume)Ordered By: Dario Pratt on 02-06-2025 Urea nitrogen [Mass/Vol] 26 mg/dL High 4-19 [facility] Sodium levelOrdered By: Charlene Pratt on 02-06-2025 Sodium [Moles/Vol] 137 mmol/L 133-145 [facility] TSH DL <= 0.005 mIU/L QnOrde red By: Dario Pratt on 02-06-2025 Thyroid Stimulating Hormone (TSH) 0.346 uIU/mL 0.300-4.20 0 [facility] TSH Qn 0.346 uIU/mL 0.300-4.20 0 [facility] Thyroid Stim Hormone (TSH)on 02-06-2025 TSH 0.346 uIU/mL Normal 0.300-4.20 0 [facility] Comment on above: Performed By: #### L 500.4050, L503.6550, L503.6030, L100.0100, L501.9520 #### [facility] Laboratory [address] [place], [place], [id number] Total proteinOrdered By: Wallace Pratt on 02-06-2025 Protein [Mass/Vol] 7.4 g/dL 5.9-8.4 [facility] White blood cell (WBC) count Ordered By: Dario Pratt on 02-06-2025 WBC (Bld) [#/Vol] 7.5 10*3/uL 4.4-11.0 [facility] Re-Evaluation - PT (1)on Re-Evaluation - PT (1) [facility] Physical Therapy [facility] [address] [address] [place] [address] / REEVALUATION / MEDICARE RECERTIFICATION PHYSICAL THERAPY MR#: [id number] Acct: [id number] Name: KEARA MARIO Rep #: [id number] : 1950 74 From: Colleen Stewart MPT Referring Dr.: Dr. Blaise Farias MD Status:REG RCR Insurance: [facility] SELF PAY INSURANCE Re-Evaluation Intro: Dr. [...] do not hesitate to contact me at [phone] by phone or if you have questions or concerns regarding this new plan of care! Sincerely, Colleen Stewart, SHERMAN 01/25/25 1243 CC: Dr. Dario Pratt MD; Dr. Blaise Farias MD Signed For Medicare only, by signing this I certify the plan of care. Physicians Signature Date Normal [facility] Urgent Care Visit Reporton 0 12-26-2024 Urgent Care Visit Report [facility] [address], [address] [place] [address] OFFICE VISIT Date of Service: 12/26/24 MR#: [id number] Acct: [id number] Name: KEARA MARIO Rep #: [id number] : 1950 Provider: HILLARY Hsu Age/Sex: 74/F Location: [facility] Status: Signed Intake Vital Signs 11/01/24 07:46 [...] a cough going on for 1 week. [facility] Medical History Left rotator cuff tear arthropathy [...] Ears: hear (more content not included)... Normal [facility] Pulmonary Visit Reporton Pulmonary Visit Report [facility] [facility] [address] [place] [address]. [address] [place] [address] OFFICE VISIT Date of Service: 11/01/24 MR#: [id number] Acct: [id number] Name: KEARA MARIO Rep #: [id number] : 1950 Provider: VALERIA Anaya Age/Sex: 74/F Location: [facility] Status: Signed Assessment and Plan Assessment and [...] Follow up/Test results Chief Complaint: Left shoulder Reconciliation Specialist Required: No Allergies No Known Allergies Allergy [...] tablet,extended r (more content not included)... Normal [facility] Inital Evaluation (1) - PTon 10-19-2024 Inital Evaluation (1) - PT [facility] Physical [facility] [address] [place] [address] [address] [place] [address] / REHABILITATION SERVICES INITIAL EVALUATION MR#: [id number] Acct: [id number] Name: KEARA MARIO Rep #: [id number] : 1950 74 From: Colleen WHITAKER Referring Dr.: Dr. Blaise Farias MD Status: R EG RCR Insurance: [facility] SELF PAY INSURANCE Patient's Visit Information [...] to be FAXED BACK to us at [phone] for Medicare purposes. For Medicare only, by signing this I certify the plan of care. Please let me know if there are questions or concerns regarding this plan of care. Physician Signature: ___Date: 10/19/24 1057 CC: Dr. Dario Pratt MD; Dr. Blaise Farias MD Signed Normal [facility] Absolute lymphocyte countOrd ered By: Dr. Pratt on 05-06-2023 Lymphocytes Auto (Unsp spec) [#/Vol] 1.78 10*3/uL 0.83-4.51 [facility] Basophil percentageOrdered B y: Dr. Pratt on 05-06-2023 Basophils/100 WBC (Bld) 1.2 % 0-1 [facility] Bilirubin [Mass/Vol] 0.50 mg/dL 0.20-1.00 [facility] Comment on above: For patients on eltr ombopag therapy, use of Dimension Lee TBIL is not recommended. Chloride [Moles/Vol] 106 mmol/L 98-107 [facility] Cholesterol [Mass/Vol] 182 mg/dL <200 [facility] Comment on above: <200 mg/dL Desirable 200-240 mg/dL Borderline >240 mg/dL High Risk Eosinophils/100 WBC (Bld) 2.8 % 0-5 [facility] Glucose [Mass/Vol] 109 mg/dL 74-106 [facility] Comment on above: Fasting Glucose resu lt from 100 to 125 mg/dL suggests IMPAIRED HOMEOSTASIS per A.D.A. criteria. Neutrophils (Bld) [#/Vol] 5.7 10*3/uL 2.0-7.7 [facility] Neutrophils/100 WBC (Bld) 66.4 % 47-70 [facility] Potassium [Moles/Vol] 3.9 mmol/L 3.5-5.1 [facility] Protein [Mass/Vol] 7.7 g/dL 6.4-8.2 [facility] Sodium [Moles/Vol] 136 mmol/L 136-145 [facility] Triglyceride [Mass/Vol] 68 mg/dL <199 [facility] Comment on above: The drugs N-Acetylcy steine and Metamizole may falsely depress this assay.Serum Triglycerides Reference Interval Normal <150 mg/dL Borderline high 150 - 199 mg/dL High 200 - 499 mg/dL Very High > or = 500 mg/dL WBC (Bld) [#/Vol] 8.5 10*3/uL 4.4-11.0 [facility] Blood erythrocytes count (nu mber/volume)Ordered By: Dr. Pratt on 05-06-2023 RBC (Bld) [#/Vol] 4.55 10*6/uL 4.2-5.4 [facility] Blood hemoglobin measurement (mass/volume)Ordered By: Dr. Pratt on 05-06-2023 Hemoglobin (Bld) [Mass/Vol] 12.7 g/dL 12.0-15.0 [facility] Blood lymphocytes/100 leukoc ytesOrdered By: Dr. Pratt on 05-06-2023 Lymphocytes/100 WBC (Bld) 20.9 % 19-41 [facility] Blood monocytes/100 leukocyt esOrdered By: Dr. Pratt on 05-06-2023 Monocytes/100 WBC (Bld) 8.3 % 0-10 [facility] Blood platelet mean volumeOr dered By: Dr. Pratt on 05-06-2023 Platelet mean volume (Bld) [Entitic vol] 13.4 fL 6.2-12.0 [facility] Determination of erythrocyte mean corpuscular volume (MCV)Ordered By: Dr. Pratt on 05-06-2023 MCV (RBC) [Entitic vol] 90.1 fL 81-99 [facility] Hematocrit Auto (Bld) [Volum e fraction]Ordered By: Dr. Pratt on 05-06-2023 Hematocrit (Bld) [Volume fraction] 41.0 % 37-47 [facility] Laboratory - Chemistry and C hemistry - challengeOrdered By: Dr. Pratt on 05-06-2023 ALP [Catalytic activity/Vol] 97 U/L 45-117 [facility] ALT [Catalytic activity/Vol] 17 U/L 13-56 [facility] CO2 [Moles/Vol] 25.0 mmol/L 21.0-32.0 [facility] Globulin (S) [Mass/Vol] 4.1 g/dL 2.2-4.2 [facility] Urea nitrogen/Creatinine [Mass ratio] 29.0 mg/mg 10-20 [facility] Laboratory - Hematology and Cell countsOrdered By: Dr. Pratt on 05-06-2023 Erythrocyte distribution width (RBC) [Entitic vol] 42.5 fL 35.1-43.9 [facility] Erythrocyte distribution width (RBC) [Ratio] 12.8 % 11.6-14.6 [facility] Immature granulocytes/100 WBC (Bld) 0.400 % 0.0-0.9 [facility] Comment on above: IG% - Immature Granu locytes (promyelocytes, myelocytes and metamyelocytes) > 1% indicates that a LEFT SHIFT is Present. MCH (RBC) [Entitic mass] 27.9 pg 27.0-32.0 [facility] Nucleated RBC/100 WBC (Bld) [Ratio] 0 % 0-5 [facility] MCHC Auto (RBC) [Mass/Vol]Or dered By: Dr. Pratt on 05-06-2023 MCHC (RBC) [Mass/Vol] 31.0 g/dL 32-36 [facility] No Panel InformationOrdered By: Dr. Pratt on 05-06-2023 Estimated GFR (MDRD) Amer 87 mL/min >60 [facility] Comment on above: GFR Calc Estimated GFR (MDRD) Non-Af Amer 72 mL/min >60 [facility] Comment on above: Non- GFR Calc Thyroid Stimulating Hormone (TSH) 0.75 uIU/mL 0.358-3.74 [facility] Platelets bldOrdered By: Dr. Pratt on 05-06-2023 Platelets (Bld) [#/Vol] 243 10*3/uL 150-450 [facility] Serum or plasma albumin princess urement (mass/volume)Ordered By: Dr. Pratt on 05-06-2023 Albumin [Mass/Vol] 3.6 g/dL 3.2-5.0 [facility] Serum or plasma albumin/glob ulin mass ratioOrdered By: Dr. Pratt on 05-06-2023 Albumin/Globulin [Mass ratio] 0.9 {ratio} 0.9-2.4 [facility] Serum or plasma calcium princess urement (mass/volume)Ordered By: Dr. Pratt on 05-06-2023 Calcium [Mass/Vol] 9.1 mg/dL 8.5-10.1 [facility] Serum or plasma cholesterol in HDL measurement (mass/volume)Ordered By: Dr. Pratt on 05-06-2023 Cholesterol in HDL [Mass/Vol] 57 mg/dL >40 [facility] Comment on above: The drugs N-Acetylcy steine and Metamizole may falsely depress this assay. Reference Range HDL <40 mg/dL Low HDL Cholesterol HDL >or= 60 mg/dL High HDL Cholesterol Serum or plasma cholesterol in VLDL measurement (mass/volume)Ordered By: Dr. Pratt on 05-06-2023 Cholesterol in VLDL [Mass/Vol] 14 mg/dL 5-40 [facility] Serum or plasma creatinine m easurement (mass/volume)Ordered By: Dr. Pratt on 05-06-2023 Creatinine [Mass/Vol] 0.83 mg/dL 0.55-1.02 [facility] Comment on above: The validity of the calculated GFR & GFRAA in patients over 70 years has not been determined. Clinical correlation is essential. Serum or plasma low density lipoprotein (LDL) cholesterol measurement (mass/volume)Ordered By: Dr. Pratt on 05-06-2023 Cholesterol in LDL [Mass/Vol] 111 mg/dL 0-130 [facility] Serum or plasma urea nitroge n measurement (mass/volume)Ordered By: Dr. Pratt on 05-06-2023 Urea nitrogen [Mass/Vol] 24 mg/dL 7-18 [facility] Thin prep Papanicolaou smear with manual screeningOrdered By: Dr. Pratt on 05-06-2023 Thin prep Papanicolaou smear with manual screening 25 U/L 15-37 [facility] Thin prep Papanicolaou smear with manual screening 5 5-15 [facility] Absolute lymphocyte counton 07-28-2022 Lymphocytes Auto (Unsp spec) [#/Vol] 1.31 10*3/uL 0.83-4.51 [facility] Work Phone: Basophil percentageon 2021 Basophils/100 WBC (Bld) 1.0 % 0-1 [facility] Work Phone: Bilirubin [Mass/Vol] 0.50 mg/dL 0.20-1.00 [facility] Work Phone: Comment on above: For patients on eltr ombopag therapy, use of Dimension Lee TBIL is not recommended. Chloride [Moles/Vol] 102 mmol/L 98-107 [facility] Work Phone: Eosinophils/100 WBC (Bld) 2.8 % 0-5 [facility] Work Phone: Glucose [Mass/Vol] 120 mg/dL 74-106 [facility] Work Phone: Comment on above: Fasting Glucose resu lt from 100 to 125 mg/dL suggests IMPAIRED HOMEOSTASIS per A.D.A. criteria. Neutrophils (Bld) [#/Vol] 4.6 10*3/uL 2.0-7.7 [facility] Work Phone: Neutrophils/100 WBC (Bld) 68.5 % 47-70 [facility] Work Phone: Potassium [Moles/Vol] 3.9 mmol/L 3.5-5.1 [facility] Work Phone: Protein [Mass/Vol] 7.5 g/dL 6.4-8.2 [facility] Work Phone: Sodium [Moles/Vol] 137 mmol/L 136-145 [facility] Work Phone: WBC (Bld) [#/Vol] 6.7 10*3/uL 4.4-11.0 [facility] Work Phone: Blood erythrocytes count (nu mber/volume)on 07-28-2022 RBC (Bld) [#/Vol] 4.41 10*6/uL 4.2-5.4 [facility] Work Phone: Blood hemoglobin measurement (mass/volume)on 07-28-2022 Hemoglobin (Bld) [Mass/Vol] 12.4 g/dL 12.0-15.0 [facility] Work Phone: Blood lymphocytes/100 leukoc yteson 07-28-2022 Lymphocytes/100 WBC (Bld) 19.6 % 19-41 [facility] Work Phone: Blood monocytes/100 leukocyt eson 07-28-2022 Monocytes/100 WBC (Bld) 7.8 % 0-10 [facility] Work Phone: Blood platelet mean volumeon 07-28-2022 Platelet mean volume (Bld) [Entitic vol] 13.0 fL 6.2-12.0 [facility] Work Phone: Determination of erythrocyte mean corpuscular volume (MCV)on 07-28-2022 MCV (RBC) [Entitic vol] 91.2 fL 81-99 [facility] Work Phone: [phone] Hematocrit Auto (Bld) [Volum e fraction]on 07-28-2022 Hematocrit (Bld) [Volume fraction] 40.2 % 37-47 [facility] Work Phone: [phone] Laboratory - Chemistry and C hemistry - challengeon 07-28-2022 ALP [Catalytic activity/Vol] 92 U/L 45-117 [facility] Work Phone: [phone] ALT [Catalytic activity/Vol] 20 U/L 13-56 [facility] Work Phone: [phone] CO2 [Moles/Vol] 24.0 mmol/L 21.0-32.0 [facility] Work Phone: [phone] Globulin (S) [Mass/Vol] 3.9 g/dL 2.2-4.2 [facility] Work Phone: [phone] Urea nitrogen/Creatinine [Mass ratio] 20.4 mg/mg 10-20 [facility] Work Phone: [phone] Laboratory - Hematology and Cell countson 07-28-2022 Erythrocyte distribution width (RBC) [Entitic vol] 41.2 fL 35.1-43.9 [facility] Work Phone: [phone] Erythrocyte distribution width (RBC) [Ratio] 12.5 % 11.6-14.6 [facility] Work Phone: [phone] Immature granulocytes/100 WBC (Bld) 0.300 % 0.0-0.9 [facility] Work Phone: [phone] Comment on above: IG% - Immature Granu locytes (promyelocytes, myelocytes and metamyelocytes) > 1% indicates that a LEFT SHIFT is Present. MCH (RBC) [Entitic mass] 28.1 pg 27.0-32.0 [facility] Work Phone: Nucleated RBC/100 WBC (Bld) [Ratio] 0 % 0-5 [facility] Work Phone: MCHC Auto (RBC) [Mass/Vol]on 07-28-2022 MCHC (RBC) [Mass/Vol] 30.8 g/dL 32-36 [facility] Work Phone: No Panel Informationon 07-28 Estimated GFR (MDRD) Amer 72 mL/min >60 [facility] Work Phone: Comment on above: GFR Calc Estimated GFR (MDRD) Non-Af Amer 59 mL/min >60 [facility] Work Phone: Comment on above: Non- GFR Calc Platelets bldon 07-28-2022 Platelets (Bld) [#/Vol] 251 10*3/uL 150-450 [facility] Work Phone: Serum or plasma albumin princess urement (mass/volume)on 07-28-2022 Albumin [Mass/Vol] 3.6 g/dL 3.2-5.0 [facility] Work Phone: Serum or plasma albumin/glob ulin mass ratioon 07-28-2022 Albumin/Globulin [Mass ratio] 0.9 {ratio} 0.9-2.4 [facility] Work Phone: Serum or plasma calcium princess urement (mass/volume)on 07-28-2022 Calcium [Mass/Vol] 9.5 mg/dL 8.5-10.1 [facility] Work Phone: Serum or plasma creatinine m easurement (mass/volume)on 07-28-2022 Creatinine [Mass/Vol] 0.98 mg/dL 0.55-1.02 [facility] Work Phone: Comment on above: The validity of the calculated GFR & GFRAA in patients over 70 years has not been determined. Clinical correlation is essential. Serum or plasma urea nitroge n measurement (mass/volume)on 07-28-2022 Urea nitrogen [Mass/Vol] 20 mg/dL 7-18 [facility] Work Phone: Thin prep Papanicolaou smear with manual screeningon 07-28-2022 Thin prep Papanicolaou smear with manual screening 23 U/L 15-37 [facility] Work Phone: Thin prep Papanicolaou smear with manual screening 11 5-15 [facility] Work Phone: No Panel Informationon 03-06 Enteric Bacteriology [facility] Work Phone: Absolute lymphocyte counton 03-03-2022 Lymphocytes Auto (Unsp spec) [#/Vol] 1.51 10*3/uL 0.83-4.51 [facility] Work Phone: Basophil percentageon 2021 Basophils/100 WBC (Bld) 1.2 % 0-1 [facility] Work Phone: Bilirubin [Mass/Vol] 0.50 mg/dL 0.20-1.00 [facility] Work Phone: Comment on above: For patients on eltr ombopag therapy, use of Dimension Lee TBIL is not recommended. Chloride [Moles/Vol] 104 mmol/L 98-107 [facility] Work Phone: Cholesterol [Mass/Vol] 177 mg/dL <200 [facility] Work Phone: Comment on above: <200 mg/dL Desirable 200-240 mg/dL Borderline >240 mg/dL High Risk Eosinophils/100 WBC (Bld) 1.9 % 0-5 [facility] Work Phone: Glucose [Mass/Vol] 124 mg/dL 74-106 [facility] Work Phone: Comment on above: Fasting Glucose resu lt from 100 to 125 mg/dL suggests IMPAIRED HOMEOSTASIS per A.D.A. criteria. Neutrophils (Bld) [#/Vol] 4.4 10*3/uL 2.0-7.7 [facility] Work Phone: Neutrophils/100 WBC (Bld) 65.1 % 47-70 [facility] Work Phone: Potassium [Moles/Vol] 4.3 mmol/L 3.5-5.1 [facility] Work Phone: Protein [Mass/Vol] 7.6 g/dL 6.4-8.2 [facility] Work Phone: Sodium [Moles/Vol] 136 mmol/L 136-145 [facility] Work Phone: Triglyceride [Mass/Vol] 119 mg/dL <199 [facility] Work Phone: Comment on above: The drugs N-Acetylcy steine and Metamizole may falsely depress this assay.Serum Triglycerides Reference Interval Normal <150 mg/dL Borderline high 150 - 199 mg/dL High 200 - 499 mg/dL Very High > or = 500 mg/dL WBC (Bld) [#/Vol] 6.8 10*3/uL 4.4-11.0 [facility] Work Phone: Blood erythrocytes count (nu mber/volume)on 03-03-2022 RBC (Bld) [#/Vol] 4.71 10*6/uL 4.2-5.4 [facility] Work Phone: Blood hemoglobin measurement (mass/volume)on 03-03-2022 Hemoglobin (Bld) [Mass/Vol] 13.2 g/dL 12.0-15.0 [facility] Work Phone: Blood lymphocytes/100 leukoc yteson 03-03-2022 Lymphocytes/100 WBC (Bld) 22.4 % 19-41 [facility] Work Phone: Blood monocytes/100 leukocyt eson 03-03-2022 Monocytes/100 WBC (Bld) 9.0 % 0-10 [facility] Work Phone: Blood platelet mean volumeon 03-03-2022 Platelet mean volume (Bld) [Entitic vol] 13.1 fL 6.2-12.0 [facility] Work Phone: Determination of erythrocyte mean corpuscular volume (MCV)on 03-03-2022 MCV (RBC) [Entitic vol] 91.1 fL 81-99 [facility] Work Phone: [phone] Hematocrit Auto (Bld) [Volum e fraction]on 03-03-2022 Hematocrit (Bld) [Volume fraction] 42.9 % 37-47 [facility] Work Phone: [phone] Laboratory - Chemistry and C hemistry - challengeon 03-03-2022 ALP [Catalytic activity/Vol] 116 U/L 45-117 [facility] Work Phone: ALT [Catalytic activity/Vol] 22 U/L 13-56 [facility] Work Phone: [phone] CO2 [Moles/Vol] 26.0 mmol/L 21.0-32.0 [facility] [facility] Work Phone: [phone] Globulin (S) [Mass/Vol] 4.0 g/dL 2.2-4.2 [facility] Work Phone: [phone] Urea nitrogen/Creatinine [Mass ratio] 23.6 mg/mg 10-20 [facility] Work Phone: [phone] Laboratory - Hematology and Cell countson 03-03-2022 Erythrocyte distribution width (RBC) [Entitic vol] 41.1 fL 35.1-43.9 [facility] Work Phone: [phone] Erythrocyte distribution width (RBC) [Ratio] 12.3 % 11.6-14.6 [facility] Work Phone: [phone] Immature granulocytes/100 WBC (Bld) 0.400 % 0.0-0.9 [facility] Work Phone: [phone] Comment on above: IG% - Immature Granu locytes (promyelocytes, myelocytes and metamyelocytes) > 1% indicates that a LEFT SHIFT is Present. MCH (RBC) [Entitic mass] 28.0 pg 27.0-32.0 [facility] Work Phone: [phone] Nucleated RBC/100 WBC (Bld) [Ratio] 0 % 0-5 [facility] Work Phone: MCHC Auto (RBC) [Mass/Vol]on 03-03-2022 MCHC (RBC) [Mass/Vol] 30.8 g/dL 32-36 [facility] Work Phone: No Panel Informationon 03-03 Estimated GFR (MDRD) Amer 80 mL/min >60 [facility] Work Phone: Comment on above: GFR Calc Estimated GFR (MDRD) Non-Af Amer 66 mL/min >60 [facility] Work Phone: Comment on above: Non- GFR Calc Thyroid Stimulating Hormone (TSH) 2.02 uIU/mL 0.358-3.74 [facility] Work Phone: Vitamin D 25-Hydroxy 31.4 ng/mL [facility] Work Phone: Comment on above: Vitamin D 25(OH) Sta tus Range Deficiency <20 ng/mL (50nmol/L) Insufficiency 20 - 30 ng/mL (50 - 75 nmol/L) Sufficiency 30 - 100 ng/mL (75 - 250 nmol/L) Toxicity >100 ng/mL (>250 nmol/L) Platelets bldon 03-03-2022 Platelets (Bld) [#/Vol] 230 10*3/uL 150-450 [facility] Work Phone: Serum or plasma albumin princess urement (mass/volume)on 03-03-2022 Albumin [Mass/Vol] 3.6 g/dL 3.2-5.0 [facility] Work Phone: Serum or plasma albumin/glob ulin mass ratioon 03-03-2022 Albumin/Globulin [Mass ratio] 0.9 {ratio} 0.9-2.4 [facility] Work Phone: Serum or plasma calcium princess urement (mass/volume)on 03-03-2022 Calcium [Mass/Vol] 9.0 mg/dL 8.5-10.1 [facility] Work Phone: Serum or plasma cholesterol in HDL measurement (mass/volume)on 03-03-2022 Cholesterol in HDL [Mass/Vol] 60 mg/dL >40 [facility] Work Phone: Comment on above: The drugs N-Acetylcy steine and Metamizole may falsely depress this assay. Reference Range HDL <40 mg/dL Low HDL Cholesterol HDL >or= 60 mg/dL High HDL Cholesterol Serum or plasma cholesterol in VLDL measurement (mass/volume)on 03-03-2022 Cholesterol in VLDL [Mass/Vol] 24 mg/dL 5-40 [facility] Work Phone: Serum or plasma creatinine m easurement (mass/volume)on 03-03-2022 Creatinine [Mass/Vol] 0.89 mg/dL 0.55-1.02 [facility] Work Phone: Comment on above: The validity of the calculated GFR & GFRAA in patients over 70 years has not been determined. Clinical correlation is essential. Serum or plasma low density lipoprotein (LDL) cholesterol measurement (mass/volume)on 03-03-2022 Cholesterol in LDL [Mass/Vol] 93 mg/dL 0-130 [facility] Work Phone: Serum or plasma urea nitroge n measurement (mass/volume)on 03-03-2022 Urea nitrogen [Mass/Vol] 21 mg/dL 7-18 [facility] Work Phone: Thin prep Papanicolaou smear with manual screeningon 03-03-2022 Thin prep Papanicolaou smear with manual screening 27 U/L 15-37 [facility] Work Phone: Thin prep Papanicolaou smear with manual screening 6 5-15 [facility] Work Phone: Laboratory - Microbiology an d Antimicrobial susceptibilityon 12-05-2021 SARS-CoV-2 (COVID-19) RNA JUAQUIN+probe Ql (Unsp spec) Not detected Not Detect [facility] Work Phone: Comment on above: Normal Reference Ran ge: Not DetectedMethod:(RT-PCR) real-time reverse transcriptase PCRLuminex ALFRED Instrument*The Food and Drug Administration (FDA) has issued an Emergency Use Authorization (EAU) for the ALFRED SARS-CoV-2 Assay for the rapid detection of the virus that causes COVID-19. This test has been validated, but the [facility] independent review of this validation is pending.*Negative [...] recent exposure. No Panel Information Enteric Bacteriology [facility] Work Phone: Vital Signs Date Time Vital Sign Value Performing Clinician Faci lity 05-17-2025 11:06-0400 Body height 182.[address] Dario Pratt MD Work Phone: [facility] 05-17-2025 11:06-0400 Body mass index (BMI) [Ratio] 25 kg/m2 Dr. Dario Pratt MD Work Phone: [facility] 05-17-2025 11:06-0400 Body temperature 96.6 [degF] Dr. Dario Pratt MD Work Phone: [facility] 05-17-2025 11:06-0400 Body weight 83.[address] Dario Pratt MD Work Phone: [facility] 05-17-2025 11:06-0400 Diastolic blood pressure 72 mm[Hg] Dr. Dario Pratt MD Work Phone: [facility] 05-17-2025 11:06-0400 Heart rate 99 /min Dr. Dario Pratt MD Work Phone: [facility] 05-17-2025 11:06-0400 Respiratory rate 16 /min Dr. Dario Pratt MD Work Phone: [facility] 05-17-2025 11:06-0400 SaO2% (BldA) [Mass fraction] 97 % Dr. Dario Pratt MD Work Phone: [facility] 05-17-2025 11:06-0400 Systolic blood pressure 118 mm[Hg] Dr. Dario Pratt MD Work Phone: [facility] 04-06-2025 13:30-0400 Body mass index (BMI) [Ratio] 28.2 kg/m2 Dr. Dario Pratt MD Work Phone: [facility] 04-06-2025 13:30-0400 Body weight 94.[address] Dario Pratt MD Work Phone: [facility] 02-27-2025 12:58-0400 Body height 182.[address] Dario Pratt MD Work Phone: [facility] 02-27-2025 12:58-0400 Body mass index (BMI) [Ratio] 27.8 kg/m2 Dr. Dario Pratt MD Work Phone: [facility] 02-27-2025 12:58-0400 Body weight 92.[address] Dario Pratt MD Work Phone: [facility] 02-06-2025 10:14-0400 Body height 182.[address] Dario Pratt MD Work Phone: [facility] 02-06-2025 10:14-0400 Body mass index (BMI) [Ratio] 26 kg/m2 Dr. Dario Pratt MD Work Phone: [facility] 02-06-2025 10:14-0400 Body temperature 97.1 [degF] Dr. Dario Pratt MD Work Phone: [facility] 02-06-2025 10:14-0400 Body weight 87.[address] Dario Pratt MD Work Phone: [facility] 02-06-2025 10:14-0400 Diastolic blood pressure 70 mm[Hg] Dr. Dario Pratt MD Work Phone: [facility] 02-06-2025 10:14-0400 Heart rate 76 /min Dr. Dario Pratt MD Work Phone: [facility] 02-06-2025 10:14-0400 Respiratory rate 14 /min Dr. Dario Pratt MD Work Phone: [facility] 02-06-2025 10:14-0400 SaO2% (BldA) [Mass fraction] 98 % Dr. Dario Pratt MD Work Phone: [facility] 02-06-2025 10:14-0400 Systolic blood pressure 116 mm[Hg] Dr. Dario Pratt MD Work Phone: [facility] 12-26-2024 12:06-0500 Body mass index (BMI) [Ratio] 25.9 kg/m2 Dr. Dario Pratt MD Work Phone: [facility] 12-26-2024 12:06-0500 Body temperature 97.7 [degF] Dr. Dario Pratt MD Work Phone: [facility] 12-26-2024 12:06-0500 Body weight 86.[address] Dario Pratt MD Work Phone: [facility] 12-26-2024 12:06-0500 Diastolic blood pressure 86 mm[Hg] Dr. Dario Pratt MD Work Phone: [facility] 12-26-2024 12:06-0500 Heart rate 93 /min Dr. Dario Pratt MD Work Phone: [facility] 12-26-2024 12:06-0500 SaO2% (BldA) [Mass fraction] 98 % Dr. Dario Pratt MD Work Phone: [facility] 12-26-2024 12:06-0500 Systolic blood pressure 122 mm[Hg] Dr. Dario Pratt MD Work Phone: [facility] 11-01-2024 07:46-0500 Body mass index (BMI) [Ratio] 26.7 kg/m2 Dr. Dario Pratt MD Work Phone: [facility] 11-01-2024 07:46-0500 Body temperature 96 [degF] Dr. Dario Pratt MD Work Phone: [facility] 11-01-2024 07:46-0500 Body weight 87.[address] Dario Pratt MD Work Phone: [facility] 11-01-2024 07:46-0500 Diastolic blood pressure 86 mm[Hg] Dr. Dario Pratt MD Work Phone: [facility] 11-01-2024 07:46-0500 Heart rate 95 /min Dr. Dario Pratt MD Work Phone: [facility] 11-01-2024 07:46-0500 Respiratory rate 18 /min Dr. Dario Pratt MD Work Phone: [facility] 11-01-2024 07:46-0500 SaO2% (BldA) [Mass fraction] 97 % Dr. Dario Pratt MD Work Phone: [facility] 11-01-2024 07:46-0500 Systolic blood pressure 141 mm[Hg] Dr. Dario Pratt MD Work Phone: [facility] 05-06-2023 10:46-0400 Body height 180.[address] Dario Pratt Work Phone: [facility] 05-06-2023 10:46-0400 Body mass index (BMI) [Ratio] 27.6 kg/m2 Dr. Dario Pratt Work Phone: [facility] 05-06-2023 10:46-0400 Body temperature 96.3 [degF] Dr. Dario Pratt Work Phone: [facility] 05-06-2023 10:46-0400 Body weight 89.[address] Dario Pratt Work Phone: [facility] 05-06-2023 10:46-0400 Diastolic blood pressure 86 mm[Hg] Dr. Dario Pratt Work Phone: [facility] 05-06-2023 10:46-0400 Heart rate 79 /min Dr. Dario Pratt Work Phone: [facility] 05-06-2023 10:46-0400 Respiratory rate 16 /min Dr. Dario Pratt Work Phone: [facility] 05-06-2023 10:46-0400 SaO2% (BldA) [Mass fraction] 97 % Dr. Dario Pratt Work Phone: [facility] 05-06-2023 10:46-0400 Systolic blood pressure 132 mm[Hg] Dr. Dario Pratt Work Phone: [facility] 08-11-2022 13:13-0400 Body height 180.[address] Dario Pratt Work Phone: [facility] 08-11-2022 13:13-0400 Body mass index (BMI) [Ratio] 27.5 kg/m2 Dr. Dario Pratt Work Phone: [facility] 08-11-2022 13:13-0400 Body temperature 98.6 [degF] Dr. Dario Pratt Work Phone: [facility] 08-11-2022 13:13-0400 Body weight 89.[address] Dario Pratt Work Phone: [facility] 08-11-2022 13:13-0400 Diastolic blood pressure 75 mm[Hg] Dr. Dario Pratt Work Phone: [facility] 08-11-2022 13:13-0400 Heart rate 73 /min Dr. Dario Pratt Work Phone: [facility] 08-11-2022 13:13-0400 Respiratory rate 18 /min Dr. Dario Pratt Work Phone: [facility] 08-11-2022 13:13-0400 SaO2% (BldA) [Mass fraction] 96 % Dr. Dario Pratt Work Phone: [facility] 08-11-2022 13:13-0400 Systolic blood pressure 122 mm[Hg] Dr. Dario Pratt Work Phone: [facility] 07-28-2022 09:01-0400 Body height 180.[address] Dario Pratt Work Phone: [facility] Work Phone: 07-28-2022 09:01-0400 Body mass index (BMI) [Ratio] 27.1 kg/m2 Dr. Dario Pratt Work Phone: [facility] Work Phone: 07-28-2022 09:01-0400 Body temperature 98.7 [degF] Dr. Dario Pratt Work Phone: [facility] Work Phone: 07-28-2022 09:01-0400 Body weight 88.[address] Dario Pratt Work Phone: [facility] Work Phone: 07-28-2022 09:01-0400 Diastolic blood pressure 76 mm[Hg] Dr. Dario Pratt Work Phone: [facility] Work Phone: 07-28-2022 09:01-0400 Heart rate 82 /min Dr. Dario Pratt Work Phone: [facility] Work Phone: 07-28-2022 09:01-0400 Respiratory rate 14 /min Dr. Dario Pratt Work Phone: [facility] Work Phone: 07-28-2022 09:01-0400 SaO2% (BldA) [Mass fraction] 96 % Dr. Dario Pratt Work Phone: [facility] Work Phone: 07-28-2022 09:01-0400 Systolic blood pressure 140 mm[Hg] Dr. Dario Pratt Work Phone: [facility] Work Phone: 07-08-2022 14:06-0400 Body height 180.[address] Dario Pratt Work Phone: [facility] Work Phone: 07-08-2022 14:06-0400 Body weight 85.[address] Dario Pratt Work Phone: [facility] Work Phone: 07-08-2022 14:06-0400 Heart rate 75 /min Dr. Dario Pratt Work Phone: [facility] Work Phone: 07-08-2022 14:06-0400 SaO2% (BldA) [Mass fraction] 98 % Dr. Dario Pratt Work Phone: [facility] Work Phone: 05-15-2022 09:43-0400 Body height 180.[address] Dario Pratt Work Phone: [facility] Work Phone: 05-15-2022 09:38-0400 Body mass index (BMI) [Ratio] 26.6 kg/m2 Dr. Dario Pratt Work Phone: [facility] Work Phone: 05-15-2022 09:38-0400 Body temperature 98.6 [degF] Dr. Dario Pratt Work Phone: [facility] Work Phone: 05-15-2022 09:38-0400 Body weight 86.[address] Dario Pratt Work Phone: [facility] Work Phone: 05-15-2022 09:38-0400 Diastolic blood pressure 68 mm[Hg] Dr. Dario Pratt Work Phone: [facility] Work Phone: 05-15-2022 09:38-0400 Heart rate 68 /min Dr. Dario Pratt Work Phone: [facility] Work Phone: 05-15-2022 09:38-0400 Respiratory rate 17 /min Dr. Dario Pratt Work Phone: [facility] Work Phone: 05-15-2022 09:38-0400 SaO2% (BldA) [Mass fraction] 96 % Dr. Dario Pratt Work Phone: [facility] Work Phone: 05-15-2022 09:38-0400 Systolic blood pressure 110 mm[Hg] Dr. Dario Pratt Work Phone: [facility] Work Phone: 05-13-2022 13:40-0400 Body mass index (BMI) [Ratio] 26.6 kg/m2 Dr. Dario Pratt Work Phone: [facility] Work Phone: 05-13-2022 13:40-0400 Body temperature 98.3 [degF] Dr. Dario Pratt Work Phone: [facility] Work Phone: 05-13-2022 13:40-0400 Body weight 86.[address] Dario Pratt Work Phone: [facility] Work Phone: 05-13-2022 13:40-0400 Diastolic blood pressure 80 mm[Hg] Dr. Dario Pratt Work Phone: [facility] Work Phone: 05-13-2022 13:40-0400 Heart rate 66 /min Dr. Dario Pratt Work Phone: [facility] Work Phone: 05-13-2022 13:40-0400 Respiratory rate 16 /min Dr. Dario Pratt Work Phone: [facility] Work Phone: 05-13-2022 13:40-0400 SaO2% (BldA) [Mass fraction] 97 % Dr. Dario Pratt Work Phone: [facility] Work Phone: 05-13-2022 13:40-0400 Systolic blood pressure 122 mm[Hg] Dr. Dario Pratt Work Phone: [facility] Work Phone: 04-10-2022 08:35-0400 Body temperature 97.7 [degF] Dr. Dario Pratt Work Phone: [facility] Work Phone: 04-10-2022 08:35-0400 Diastolic blood pressure 71 mm[Hg] Dr. Dario Pratt Work Phone: [facility] Work Phone: 04-10-2022 08:35-0400 Heart rate 64 /min Dr. Dario Pratt Work Phone: [facility] Work Phone: 04-10-2022 08:35-0400 Respiratory rate 16 /min Dr. Dario Pratt Work Phone: [facility] Work Phone: 04-10-2022 08:35-0400 SaO2% (BldA) [Mass fraction] 100 % Dr. Dario Pratt Work Phone: [facility] Work Phone: 04-10-2022 08:35-0400 Systolic blood pressure 120 mm[Hg] Dr. Dario Pratt Work Phone: [facility] Work Phone: 04-10-2022 06:24-0400 Body height 180.[address] Dario Pratt Work Phone: [facility] Work Phone: 04-10-2022 06:24-0400 Body mass index (BMI) [Ratio] 25.9 kg/m2 Dr. Dario Pratt Work Phone: [facility] Work Phone: 04-10-2022 06:24-0400 Body weight 84.[address] Dario Pratt Work Phone: [facility] Work Phone: 03-05-2022 09:44-0400 Body mass index (BMI) [Ratio] 25.7 kg/m2 Dr. Dario Pratt Work Phone: [facility] Work Phone: 03-05-2022 09:44-0400 Body temperature 97.4 [degF] Dr. Dario Pratt Work Phone: [facility] Work Phone: 03-05-2022 09:44-0400 Body weight 86.[address] Dario Pratt Work Phone: [facility] Work Phone: 03-05-2022 09:44-0400 Diastolic blood pressure 84 mm[Hg] Dr. Dario Pratt Work Phone: [facility] Work Phone: 03-05-2022 09:44-0400 Heart rate 94 /min Dr. Dario Pratt Work Phone: [facility] Work Phone: 03-05-2022 09:44-0400 Respiratory rate 17 /min Dr. Dario Pratt Work Phone: [facility] Work Phone: 03-05-2022 09:44-0400 SaO2% (BldA) [Mass fraction] 98 % Dr. Dario Pratt Work Phone: [facility] Work Phone: 03-05-2022 09:44-0400 Systolic blood pressure 137 mm[Hg] Dr. Dario Pratt Work Phone: [facility] Work Phone: 03-05-2022 09:44-0400 Body height 182.[address] Dario Pratt Work Phone: [facility] Work Phone: 03-05-2022 09:44-0400 Body mass index (BMI) [Ratio] 25.7 kg/m2 Dr. Dario Pratt Work Phone: [facility] Work Phone: 03-05-2022 09:44-0400 Body temperature 97.4 [degF] Dr. Dario Pratt Work Phone: [facility] Work Phone: 03-05-2022 09:44-0400 Body weight 86.[address] Dario Pratt Work Phone: [facility] Work Phone: 03-05-2022 09:44-0400 Diastolic blood pressure 84 mm[Hg] Dr. Dario Pratt Work Phone: [facility] Work Phone: 03-05-2022 09:44-0400 Heart rate 94 /min Dr. Dario Pratt Work Phone: [facility] Work Phone: 03-05-2022 09:44-0400 Respiratory rate 17 /min Dr. Dario Pratt Work Phone: [facility] Work Phone: 03-05-2022 09:44-0400 SaO2% (BldA) [Mass fraction] 98 % Dr. Dario Pratt Work Phone: [facility] Work Phone: 03-05-2022 09:44-0400 Systolic blood pressure 137 mm[Hg] Dr. Dario Pratt Work Phone: [facility] Work Phone: 03-03-2022 10:10-0400 Body mass index (BMI) [Ratio] 26.3 kg/m2 Dr. Dario Pratt Work Phone: [facility] Work Phone: 03-03-2022 10:10-0400 Body weight 85.[address] Dario Pratt Work Phone: [facility] Work Phone: 03-03-2022 10:10-0400 Diastolic blood pressure 62 mm[Hg] Dr. Dario Pratt Work Phone: [facility] Work Phone: 03-03-2022 10:10-0400 Heart rate 90 /min Dr. Dario Pratt Work Phone: [facility] Work Phone: 03-03-2022 10:10-0400 Respiratory rate 16 /min Dr. Dario Pratt Work Phone: [facility] Work Phone: 03-03-2022 10:10-0400 SaO2% (BldA) [Mass fraction] 93 % Dr. Dario Pratt Work Phone: [facility] Work Phone: 03-03-2022 10:10-0400 Systolic blood pressure 124 mm[Hg] Dr. Dario Pratt Work Phone: [facility] Work Phone: 03-03-2022 10:10-0400 Body mass index (BMI) [Ratio] 26.3 kg/m2 Dr. Dario Pratt Work Phone: [facility] Work Phone: 03-03-2022 10:10-0400 Body weight 85.[address] Dario Pratt Work Phone: [facility] Work Phone: 03-03-2022 10:10-0400 Diastolic blood pressure 62 mm[Hg] Dr. Dario Pratt Work Phone: [facility] Work Phone: 03-03-2022 10:10-0400 Heart rate 90 /min Dr. Dario Pratt Work Phone: [facility] Work Phone: 03-03-2022 10:10-0400 Respiratory rate 16 /min Dr. Dario Pratt Work Phone: [facility] Work Phone: 03-03-2022 10:10-0400 SaO2% (BldA) [Mass fraction] 93 % Dr. Dario Pratt Work Phone: [facility] Work Phone: 03-03-2022 10:10-0400 Systolic blood pressure 124 mm[Hg] Dr. Dario Pratt Work Phone: [facility] Work Phone: 02-17-2022 14:09-0400 Body mass index (BMI) [Ratio] 27.7 kg/m2 Dr. Dario Pratt Work Phone: [facility] Work Phone: 02-17-2022 14:09-0400 Body temperature 97.6 [degF] Dr. Dario Pratt Work Phone: [facility] Work Phone: 02-17-2022 14:09-0400 Body weight 90.[address] Dario Pratt Work Phone: [facility] Work Phone: 02-17-2022 14:09-0400 Diastolic blood pressure 78 mm[Hg] Dr. Dario Pratt Work Phone: [facility] Work Phone: 02-17-2022 14:09-0400 Heart rate 81 /min Dr. Dario Pratt Work Phone: [facility] Work Phone: 02-17-2022 14:09-0400 Respiratory rate 14 /min Dr. Dario Pratt Work Phone: [facility] Work Phone: 02-17-2022 14:09-0400 SaO2% (BldA) [Mass fraction] 98 % Dr. Dario Pratt Work Phone: [facility] Work Phone: 02-17-2022 14:09-0400 Systolic blood pressure 140 mm[Hg] Dr. Dario Pratt Work Phone: [facility] Work Phone: 02-17-2022 14:09-0400 Body mass index (BMI) [Ratio] 27.7 kg/m2 Dr. Dario Pratt Work Phone: [facility] Work Phone: 02-17-2022 14:09-0400 Body temperature 97.6 [degF] Dr. Dario Pratt Work Phone: [facility] Work Phone: 02-17-2022 14:09-0400 Body weight 90.[address] Dario Pratt Work Phone: [facility] Work Phone: 02-17-2022 14:09-0400 Diastolic blood pressure 78 mm[Hg] Dr. Dario Pratt Work Phone: [facility] Work Phone: 02-17-2022 14:09-0400 Heart rate 81 /min Dr. Dario Pratt Work Phone: [facility] Work Phone: 02-17-2022 14:09-0400 Respiratory rate 14 /min Dr. Dario Pratt Work Phone: [facility] Work Phone: 02-17-2022 14:09-0400 SaO2% (BldA) [Mass fraction] 98 % Dr. Dario Pratt Work Phone: [facility] Work Phone: 02-17-2022 14:09-0400 Systolic blood pressure 140 mm[Hg] Dr. Dario Pratt Work Phone: [facility] Work Phone: Encounters Encounter Date Encounter Type Care Provider Facility Start: 10-11-2025 ambulatory Dario Pratt Facili ty:[facility] Start: 09-18-2025 End: 09-18-2025 ambulatory Dario Pratt Facility:[facility] Start: 05-22-2025 End: 05-22-[address] Blaise Farias MD -[facility] Work Phone: Start: 05-22-2025 End: 05-22-[address] Dario Pratt MD Work Phone: -[facility] Start: 05-17-2025 End: 05-17-[address] Dario Pratt MD -[facility] Work Phone: Start: 05-17-2025 End: 05-17-[address] Dario Pratt MD Work Phone: -[facility] Start: 04-24-[address] [facility] Start: 04-06-2025 End: 04-06-[address] Blaise Farias MD -[facility] Work Phone: Start: 04-06-2025 End: 04-06-2025 ambulatory Dario Emanuellindsay Facility:[facility] Start: 03-31-2025 End: 03-31-[address] Dario Pratt MD Work Phone: [facility] Work Phone: Start: 03-31-2025 End: 03-31-[address] Blaise Farias MD -[facility] Work Phone: Start: 03-31-2025 End: 03-31-2025 ambulatory Blaise Farias Facility:[facility] Start: 03-23-2025 End: 03-23-[address] Dario Pratt MD Work Phone: [facility] Work Phone: Start: 03-23-2025 End: 03-23-[address] Blaise Farias MD -Cat Scan, [facility] Work Phone: Start: 03-23-2025 End: 03-23-2025 ambulatory Blaise Farias Facility:[facility] Start: 02-27-2025 End: 02-27-[address] Blaise Farias MD -[facility] Work Phone: Start: 02-27-2025 End: 02-27-2025 ambulatory Blaise Farias Facility:[facility] Start: 02-22-2025 End: 02-22-[address] Dario Pratt MD Work Phone: [facility] Work Phone: Start: 02-22-2025 End: 02-22-[address] Blaise Farias MD -Physical Therapy Work Phone: Start: 02-08-[address] Blaise hughes MD -Physical Therapy Work Phone: Start: 02-06-2025 End: 02-06-[address] Dario Pratt MD -[facility] Work Phone: Start: 02-06-2025 End: 02-06-[address] Dario Pratt MD Work Phone: [facility] Work Phone: Start: 02-06-2025 End: 02-06-2025 ambulatory Efewsan josebe Oleghe Facility:[facility] Start: 12-26-2024 End: 12-26-2024 Patient encounter procedure Cody THORNTON -[facility] Work Phone: Start: 12-26-2024 End: 12-26-2024 ambulatory Efewongbe Oleghe Facility:[facility] Start: 12-23-2024 ambulatory Efewongbe Oleghe Facili ty:[facility] Start: 12-20-2024 ambulatory Efewongbe Oleghe Facili ty:[facility] Start: 12-19-2024 ambulatory Efewongbe Oleghe Facili ty:[facility] Start: 12-01-2024 ambulatory Efewongbe Oleghe Facili ty:[facility] Start: 11-01-2024 End: 11-01-2024 Patient encounter procedure Rosemary SHAW -[facility] Work Phone: Start: 11-01-2024 End: 11-01-2024 ambulatory Dario Pratt Facility:[facility] Start: 05-26-2023 End: 05-26-[address] Dario Pratt Work Phone: [facility] Work Phone: Start: 05-26-2023 End: 05-26-2023 Patient encounter procedure Dr. Dario Pratt Work Phone: [facility]-Outpatient Bone Densitometry Work Phone: Start: 05-06-[address] Dario Pratt Work Phone: [facility] Start: 05-06-2023 End: 05-06-[address] Dario Pratt Work Phone: [facility] Work Phone: Start: 05-06-2023 End: 05-06-2023 Encounter for general adult medical examination without abnormal findings Dr. Dario Pratt Work Phone: [facility] Start: 05-06-2023 End: 05-06-[address] Dario Pratt Work Phone: [facility] Start: 11-20-2022 End: 11-20-[address] Dario Pratt Work Phone: [facility] Work Phone: Start: 11-20-2022 End: 11-20-[address] Dario Pratt Work Phone: [facility] Start: 08-11-2022 End: 08-11-[address] Dario Pratt Work Phone: [facility]-Pulmonary Medicine [facility] Start: 07-28-2022 End: 07-28-[address] Dario Pratt Work Phone: [facility] Work Phone: Start: 07-28-2022 End: 07-28-[address] Dario Pratt Work Phone: [facility] Start: 07-25-2022 End: 07-25-[address] Dario Pratt Work Phone: [facility] Work Phone: Start: 07-25-2022 End: 07-25-[address] Dario Pratt Work Phone: [facility] Start: 07-14-2022 Non-patient / Non-visit Dr. Gergorio Pratt Work Phone: [facility] Start: 07-11-2022 End: 07-11-[address] Dario Pratt Work Phone: [facility] Work Phone: Start: 07-11-2022 End: 07-11-[address] Dario Pratt Work Phone: [facility]-Pulmonary Services/Neurology Start: 07-09-2022 Non-patient / Non-visit Dr. Gregorio Pratt Work Phone: [facility] Start: 07-08-2022 End: 07-08-[address] Dario Pratt Work Phone: [facility] Work Phone: Start: 07-08-2022 End: 07-08-[address] Dario Pratt Work Phone: [facility]-Pulmonary Services/Neurology Start: 05-15-2022 End: 05-15-[address] Dario Pratt Work Phone: [facility]-Pulmonary Medicine [facility] Start: 05-13-2022 End: 05-13-[address] Dario Pratt Work Phone: [facility] Start: 05-13-2022 End: 05-13-[address] Dario Pratt Work Phone: [facility] Start: 04-10-2022 Non-patient / Non-visit Dr. Gregorio Pratt Work Phone: [facility] Start: 04-10-2022 End: 04-10-2022 Admission to same day surgery center Dr. Dario Pratt Work Phone: [facility]-Endoscopy Start: 03-06-2022 End: 03-06-[address] Dario Pratt Work Phone: [facility]-Laboratory, Specimen Start: 03-05-2022 End: 03-05-[address] Dario Pratt Work Phone: [facility] Start: 03-03-2022 End: 03-03-[address] Dario Pratt Work Phone: [facility]-Laboratory, B[facility] Start: 02-17-2022 End: 02-17-[address] Dario Pratt Work Phone: [facility] Start: 12-05-2021 End: 12-05-[address] Dario Pratt Work Phone: [facility]-Laboratory, Specimen Procedures Date Procedure Procedure Detail Performing [...] Author Start: 12-20-2024 Walking distance 6 minutes [facility] Start: 12-19-2024 Measurement of respiratory function [facility] Start: 05-13-2022 Patient referral [facility] Work Phone: Start: 04-10-2022 Colonoscopy w/biopsy single/multiple COLONOSCOPY AND BIOPSY [facility] Work Phone: Start: 04-10-2022 Egd removal tumor polyp/other lesion snare tech EGD REMOVE LESION SNARE [facility] Work Phone: Start: 04-10-2022 Egd transoral biopsy single/multiple EGD BIOPSY SINGLE/MULTIPLE [facility] Work Phone: Start: 02-17-2022 Patient referral [facility] Work Phone: Basic metabolic 2008 panel with ionized calcium - Serum or Plasma [facility] CBC W Auto Different ial panel - Blood [facility] Continuous pulse oximetry [facility] CT Chest [facility] CT Chest WO contrast [facility] Work Phone: DXA Bone [Mass/Area] Bone density [facility] Exercise tolerance test [facility] Work Phone: Measurement of respiratory function [facility] Work Phone: MG Breast - bilatera l Screening [facility] MR Lower Extremity [facility] Patient referral [facility] Work Phone: Thyroid stimulating hormone measurement [facility] Immunizations Immunization Date Immunization Notes Care Provider Fa cility 08-17-2024 Seasonal trivalent influenza vaccine, adjuvanted, preservative free Dr. Dario Pratt MD Work Phone: [facility] 08-29-2019 Fluad 2018- 65yr up(PF)45 mcg(15 mcgx3)/0.5 mL intramuscular syringe (flu vac Dr. Dario Pratt Work Phone: [facility] Work Phone: 08-31-[address] Dario Pratt Work Phone: [facility] 08-31-2018 Fluad 2017- 65yr up(PF)45 mcg(15 mcgx3)/0.5 mL intramuscular syringe (flu vac Dr. Dario Pratt Work Phone: [facility] Work Phone: Payers Date Payer Category Payer Self-pay [id number] 2023 Private Health Insurance [facility] [id number] Medicare [id number] Private Health Insurance [facility] [id number] Unknown [id number] Unknown [id number] 2.16.8 [id number] Unknown [id number] 2.16.8 40.1.983035.3.579.2.462 Unknown [id number] 2.16.8 40.1.444910.3.579.2.462 Unknown [id number] 2.16.8 40.1.606177.3.579.2.462 Unknown [id number] 2.16.8 40.1.547126.3.579.2.462 Unknown [id number] 2.16.8 40.1.079333.3.579.2.462 Unknown [id number] 2.16.8 40.1.891214.3.579.2.462 Unknown [id number] 2.16.8 40.1.980906.3.579.2.462 Unknown [id number] 2.16.8 40.1.763625.3.579.2.462 Unknown [id number] 2.16.8 40.1.974196.3.579.2.462 Unknown [id number] 2.16.8 40.1.594154.3.579.2.462 Unknown [id number] 2.16.8 40.1.068472.3.579.2.462 Unknown [id number] 2.16.8 40.1.628453.3.579.2.462 Unknown [id number] 2.16.8 40.1.389267.3.579.2.462 Unknown [id number] 2.16.8 40.1.338581.3.579.2.462 Unknown [id number] 2.16.8 40.1.860945.3.579.2.462 Unknown [id number] 2.16.8 40.1.686299.3.579.2.462 Unknown [id number] 2.16.8 [id number] Social History Date Type Detail Facility Start: 03-05-2022 End: 05-06-2023 Tobacco smoking status NHIS Unknown if ever smoked [facility] Start: 05-10-[address] [facility] Start: 1950 Sex Assigned At Female [facility] Start: 08-17-2024 Tobacco smoking stat us KSIS Smokes tobacco daily (finding) [facility] Start: 02-13-2025 End: 02-22-2025 Sex Female (finding) [facility] Medical Equipment Procedure Code Equipment Code Equipment Origin al Text Equipment Identifier Dates WAYNE SONI FDA Start: 05-16-2020 MESH,3DMAX LEFT LG [id number] FDA Start: 05-16-2020 MESH,3DMAX RIGHT LG [id number] FDA Start: 05-16-2020 TACKER,SECURE STRAP FDA Start : 05-16-2020 WAYNE SONI FDA Start: 05-16-2020 MESH,3DMAX LEFT LG [id number] FDA Start: 05-16-2020 MESH,3DMAX RIGHT LG [id number] FDA Start: 05-16-2020 TACKER,SECURE STRAP FDA Start : 05-16-2020 WAYNE SONI FDA Start: 05-16-2020 MESH,3DMAX LEFT LG [id number] FDA Start: 05-16-2020 MESH,3DMAX RIGHT LG 10.5LSO32H FDA Start: 05-16-2020 TACKER,SECURE STRAP FDA Start : 05-16-2020 WAYNE SONI FDA Start: 05-16-2020 MESH,3DMAX LEFT LG [id number] FDA Start: 05-16-2020 MESH,3DMAX RIGHT LG [id number] FDA Start: 05-16-2020 TACKER,SECURE STRAP FDA Start : 05-16-2020 WAYNE SONI FDA Start: 05-16-2020 MESH,3DMAX LEFT LG [id number] FDA Start: 05-16-2020 MESH,3DMAX RIGHT LG [id number] FDA Start: 05-16-2020 TACKER,SECURE STRAP FDA Start : 05-16-2020 ZACHARIAHWAYNE VILLAVICENCIO FDA Start: 05-16-2020 MESH,3DMAX LEFT LG [id number] FDA Start: 05-16-2020 MESH,3DMAX RIGHT LG [id number] FDA Start: 05-16-2020 TACKER,SECURE STRAP FDA Start : 05-16-2020 CLIP,WAYNE VILLAVICENCIO FDA Start: 05-16-2020 MESH,3DMAX LEFT LG [id number] FDA Start: 05-16-2020 MESH,3DMAX RIGHT LG 10.2LXM33B FDA Start: 05-16-2020 TACKER,SECURE STRAP FDA Start : 05-16-2020 WAYNE SONI FDA Start: 05-16-2020 MESH,3DMAX LEFT LG [id number] FDA Start: 05-16-2020 MESH,3DMAX RIGHT LG [id number] FDA Start: 05-16-2020 TACKER,SECURE STRAP FDA Start : 05-16-2020 WAYNE SONI FDA Start: 05-16-2020 MESH,3DMAX LEFT LG [id number] FDA Start: 05-16-2020 MESH,3DMAX RIGHT LG 10.2QSO83X FDA Start: 05-16-2020 TACKER,SECURE STRAP FDA Start : 05-16-2020 WAYNE SONI FDA Start: 05-16-2020 MESH,3DMAX LEFT LG 10.0SRV78HB FDA Start: 05-16-2020 MESH,3DMAX RIGHT LG 10.8IFU21F FDA Start: 05-16-2020 TACKER,SECURE STRAP FDA Start : 05-16-2020 WAYNE SONI FDA Start: 05-16-2020 MESH,3DMAX LEFT LG [id number] FDA Start: 05-16-2020 MESH,3DMAX RIGHT LG 10.2XTZ16J FDA Start: 05-16-2020 TACKER,SECURE STRAP FDA Start : 05-16-2020 WAYNE SONI FDA Start: 05-16-2020 MESH,3DMAX LEFT LG 10.7ULT07RF FDA Start: 05-16-2020 MESH,3DMAX RIGHT LG 10.9AAI17L FDA Start: 05-16-2020 TACKER,SECURE STRAP FDA Start : 05-16-2020 WAYNE SONI FDA Start: 05-16-2020 MESH,3DMAX LEFT LG 10.4RJE91LH FDA Start: 05-16-2020 MESH,3DMAX RIGHT LG 10.7EUR08C FDA Start: 05-16-2020 TACKER,SECURE STRAP FDA Start : 05-16-2020 WAYNE SONI FDA Start: 05-16-2020 MESH,3DMAX LEFT LG 10.5NZM05IB FDA Start: 05-16-2020 MESH,3DMAX RIGHT LG 10.2KVQ83Z FDA Start: 05-16-2020 TACKER,SECURE STRAP FDA Start : 05-16-2020 WAYNE SONI FDA Start: 05-16-2020 MESH,3DMAX LEFT LG 10.0SLZ46FO FDA Start: 05-16-2020 MESH,3DMAX RIGHT LG 10.3SQQ23W FDA Start: 05-16-2020 TACKER,SECURE STRAP FDA Start : 05-16-2020 WAYNE SONI FDA Start: 05-16-2020 MESH,3DMAX LEFT LG 10.3RUZ47XB FDA Start: 05-16-2020 MESH,3DMAX RIGHT LG 10.4VET54Y FDA Start: 05-16-2020 TACKER,SECURE STRAP FDA Start : 05-16-2020 Goals Date Patient Goal Desired Activity /State Mental Status Date Assessment Result Facility 04-10-2022 Cognitive function Touch/Shaking [facility] Work Phone: Clinical Notes 11-01-2024 to 03-24-2025 Note Date & Type Note Facility 03-24-2025 Radiology Diagnostic study note [facility] Imaging Services [address] [place] [address] Extremity Upper without Contra MR#: [id number] Acct: [id number] Name: KEARA MARIO Rep #: [id number] : 1950 F 74 From: Arie Calvo DO PCP: Dr. Dario Pratt MD Status: R EG CLI Study:Extremity Upper without Contra Date of Exam: 03/23/25 Exam# [id number] Ordering Dr: Blaise Farias MD PROCEDURE: EXTREMITY [...] Contra IMPRESSION: Severe left shoulder osteoarthritis including lczi-uj-gitx articulation, osseousremodeling, subchondral sclerosis/cysts and marginal osteophytes. [...] CC: Dr. Dario Pratt MD; Dr. Blaise Farisa MD ~ Lime Supervisor: Signed [facility] 02-22-2025 Discharge summary [facility] 02-22-2025 Discharge summary Note Date/Time February 22, 2025 12:25pm [facility] Physical Therapy [facility] [address] [place] [address] [address] [place] [address] / REHABILITATION SERVICES DISCHARGE SUMMARY MR#: [id number] Acct: [id number] Name: KEARA MARIO Rep #: [id number] : 1950 74 From: Colleen Oropeza Referring Dr.: Dr. Blaise Farias MD Status: REG RCR [facility] Discharge Summary [...] please feel free to call me at [phone]. Thank you for the referral of thispatient. Sincerely, SHERMAN Goodrich Balance/Gait/Functional tests Balance/Special Test Scores Quick DASH Score: 50.0000 Improvement % Improvement: 40 <Electronically signed by Colleen Stewart MPT> 02/22/25 1215 CC: Dr. Dario Pratt MD; Dr. Blaise Farias MD ~ Signed [facility] Work Phone: 1(319) 669-136203-24-2025 Evaluation note* Diagnosis Onset Date Resolution Status Admit Date Anemia chronic February 06 9:58am Essential hypertension chronic [facility] 2024 9:58am Hyperlipemia chronic February 06, 2025 9:58am Hypothyroidism chronic January 9:58am Left shoulder pain chronic February 06, 2025 9:58am Left rotator cuff tear arthropathy acute February 27, 2025 12:57pm Primary osteoarthritis, left shoulder acute February 27, 2025 12:57pm [facility] Work Phone: 1(744) 394-540903-24-2025 Evaluation note* Diagnosis Onset Date Resolution Status Admit Date Anemia chronic February 06 9:58am Essential hypertension chronic [facility] 2024 9:58am Hyperlipemia chronic February 06, 2025 9:58am Hypothyroidism chronic January 9:58am Left shoulder pain chronic February 06, 2025 9:58am Left rotator cuff tear arthropathy acute February 27, 2025 12:57pm Primary osteoarthritis, left shoulder acute February 27, 2025 12:57pm Left rotator cuff tear arthropathy acute April 06, 2025 1 :25pm Primary osteoarthritis, left shoulder acute April 06, 2025 1 :25pm [facility] Work Phone: 1(861) 425-512303-24-2025 Evaluation note* Diagnosis Onset Date Resolution Status Admit Date Anemia chronic February 06 9:58am Essential hypertension chronic [facility] 2024 9:58am Hyperlipemia chronic February 06, [...] shoulder acute May 22, 2025 1 0:58am [facility] Work Phone: 1(979) 443-272712-17-2024 Evaluation note* Diagnosis Onset Date Resolution Status Admit Date Asthma-COPD overlap syndrome chronic November 01, 2024 10:51am Tobacco abuse chronic November 012023 10:51am Anemia chronic February 06 9:58am Essential hypertension chronic [facility] 2024 9:58am Hyperlipemia chronic February 06, 2025 9:58am Hypothyroidism chronic January 9:58am Left shoulder pain chronic February 06, 2025 9:58am [facility] Work Phone: Evaluation note* Diagnosis Onset Date Resolution Status GERD (gastroesophageal reflux disease) acute Hiatal hernia chronic Seasonal allergies chronic Tobacco abuse chronic Bloody sputum resolved GERD (gastroesophageal reflux disease) acute Hiatal hernia chronic Seasonal allergies chronic Tobacco abuse chronic Bloody sputum resolved Diarrhea in adult patient ac sokaogon GERD (gastroesophageal reflux disease) acute Hiatal hernia [facility] Work Phone: Evaluation note* Diagnosis Onset Date Resolution Status GERD (gastroesophageal reflux disease) acute Hiatal hernia chronic Seasonal allergies chronic Tobacco abuse chronic Bloody sputum resolved Diarrhea noneactive GERD (gastroesophageal reflux disease) acute Hiatal hernia chronic Seasonal allergies chronic Tobacco abuse chronic Bloody sputum resolved Diarrhea noneactive Diarrhea in adult patient ac s[place]ogon GERD (gastroesophageal reflux disease) acute Hiatal hernia chronic [id number] acute Lung nodule acute Tobacco abuse chronic [id number] acute Lung nodule acute Seasonal allergies chronic Tobacco abuse [facility] Work Phone: Evaluation note* Diagnosis Onset Date Resolution Status [id number] acute Lung nodule acute Tobacco abuse chronic [id number] acute Lung nodule acute Seasonal allergies chronic Tobacco abuse [facility] Work Phone: Evaluation note* Diagnosis Onset Date Resolution Status [id number] acute Lung nodule acute Tobacco abuse chronic [id number] acute Lung nodule acute Seasonal allergies chronic Tobacco abuse chronic Essential hypertension chron ic GERD (gastroesophageal reflux disease) chronic Hypothyroidism chronic Tobacco abuse [facility] Work Phone: Evaluation note* Diagnosis Onset Date Resolution Status Lung nodule acute Asthma-COPD overlap syndrome [facility] Work Phone: Evaluation note* Diagnosis Onset Date Resolution Status Health care maintenance acut e Impacted cerumen of both ears acute Essential hypertension chron ic Hypothyroidism chronic Tobacco abuse [facility] Work Phone: Reason for referral (narrative)No reason for referral information availableWClinton Memorial Hospital Work Phone: Chief Complaint and Reason for [...] patient GERD (gastroesophageal reflux disease) Hiatal hernia [id number] Lung nodule Tobacco abuse [id number] Lung nodule Seasonal allergies Tobacco abuse Chief Complaint LUNG CANCER SCREENIN G SCREENING positive lung screening SOLITARY PULMONARY NODULE SOLITARY PULMONARY NODULE SOLITARY PULMONARY NODULE Reason for Visit [id number] Lung nodule Tobacco abuse [id number] Lung nodule Seasonal allergies Tobacco abuse Chief Complaint LUNG CANCER SCREENIN G SCREENING positive lung screening SOLITARY PULMONARY NODULE SOLITARY PULMONARY NODULE SOLITARY PULMONARY NODULE SOLITARY PULMONARY NODULE Reason for Visit [id number] Lung nodule Tobacco abuse [id number] Lung nodule Seasonal allergies Tobacco abuse Chief Complaint LUNG CANCER SCREENIN G SCREENING positive lung screening SOLITARY PULMONARY NODULE SOLITARY PULMONARY NODULE SOLITARY PULMONARY NODULE SOLITARY PULMONARY NODULE RUL NODULE 4 M FU Reason for Visit [id number] Lung nodule Tobacco abuse [id number] Lung nodule Seasonal allergies Tobacco abuse Essential [...] No June 17, 2021 10:28pm Power of Clinical Immunologist No June 17 10:28pm Advance Directive Response Recorded Date/ Time Living Will Yes April 07, 2022 1 0:54am Power of Clinical Immunologist Yes April 07, 2022 10:54am Advance Directive Response Recorded Date/ Time Name of Medical Power of Clinical Immunologist ANGELITO Jimenez April 07, 2022 10:54am Living Will Yes April 07, 2022 1 0:54am Power of Clinical Immunologist Yes April 07, 2022 10:54am Advance Directive Response Recorded Date/ Time Living Will Yes April 07, 2022 9 :54am Power of Clinical Immunologist Yes April 07, 2022 9:54am Advance Directive Response Recorded Date/ Time Living Will Yes April 07, 2022 1 0:54am Do you have a Healthcare Power of Clinical Immunologist? Yes April 07, 2022 10:54am Summary Purpose [...] Provider, Refer ring Provider Active Rosemary Anaya [employer], [employer] WORK[employer]-C Attending Provider Active Team Status: Inactive Member Role Status Dates Dr. Dario Pratt MD Primary Care Provider Active Rosemary Anaya [employer], [employer]-C Attending Provider, Referrin g Provider Active Team [...] 2024 End: November 01, 2024 Rosemary Anaya [employer], [employer] WORK[employer]ING-C Attending Provider Active Start: November 01, 2024 [...] section and content) DATE CREATED AUTHOR 09/23/2025 [facility] FOR RECORDS PERTAINING TO PATIENTS WHO ARE [...] BE BASED ON THE PRIMARY CLINICAL RECORDS. [facility] [employer] [facility]. provides no warranty or guarantee of the accuracy or completeness of information in this document.
== END | disposition home or self-care (01) ==
PROVIDERS: PCP Internal Medicine; Referring Provider Nurse Practitioner Acute Care; Visit Provider Nurse Practitioner Acute Care
DX: F17.210 Nicotine dependence, cigarettes, uncomplicated (principal); F17.200 Nicotine dependence, unspecified, uncomplicated; R91.1 Solitary pulmonary nodule
CPT/HCPCS: 71271